=== PATIENT | female | born 1950 | race Caucasian/White ===

== ENCOUNTER → 2017-05-31 08:39 | Outpatient (CLI) | payer MEDICARE, SELFPAY ==
[2017-05-31 10:24] LABS: Anion Gap 7 (5-15); BUN 12 mg/dL (7-18); BUN/Creat Ratio 16.2 RATIO (10-20); Calcium,Total 8.9 mg/dL (8.5-10.1); Chloride 107 mmol/L (98-107); Cholesterol 149 mg/dL (200); Creatinine, Serum 0.74 mg/dL (0.55-1.02); EST Glomerular Filtration Rate 83 mL/min (>60); Est Glom Filt Rate - Afr Amer 101 mL/min (>60); Glucose 153 mg/dL (74-106); High Density Lipoprotein 53 mg/dL; Potassium 4.3 mmol/L (3.5-5.1); Sodium Level 140 mmol/L (136-145); Triglycerides 91 mg/dL; Very Low Density Lipoprotein 18 mg/dL (5-40)
[2017-05-31 10:28] LABS: Hemoglobin A1c 7.4 % (4.2-6.3)
[2017-06-01 09:05] LABS: Hep C Antibodies <0.1 s/co ratio (0.0-0.9)
== END ==
PROVIDERS: Family Provider Family Medicine; PCP Family Medicine; Visit Provider Family Medicine
DX: E11.9 Type 2 diabetes mellitus without complications (principal); Z11.59 Encounter for screening for other viral diseases
CPT/HCPCS: 36415; 80048; 80061; 83036; 86803

== ENCOUNTER 2017-07-25 16:27 | Emergency (ER) | payer MEDICARE, OTHER, SELFPAY ==
[2017-07-25 16:28] VITALS: BP 126/79; PULSE 90; RESP 17; TEMP 36.7; O2SAT 96; BMI 27.5
[2017-07-25 16:46] VITALS: BP 123/58; PULSE 75; RESP 18; TEMP 37.1; O2SAT 92
[2017-07-25] MEDS: Dicyclomine 10 MG Capsule 20 MG PO (17:15)
[2017-07-25 17:20] LABS: Bacteria 0 SEEN /hpf (None Seen); Red Blood Cells-Urine 0 SEEN /hpf (0-5)
[2017-07-25 17:20] LABS: Absolute Lymphocyte Count 2.14 X10^3/ul (0.83-4.51); Absolute Neutrophil Count 10.7 X10^3/uL (2.0-7.7); Basophil# 0.02 X10^3/uL; Basophil% 0.1 % (0-1); Hematocrit 44.7 % (37-47); Hemoglobin 14.9 g/dl (12.0-15.0); Lymphocyte # 2.14 X10^3/ul (4.0); Lymphocyte % 15.8 % (19-41); Mean Corp Hgb Conc 33.3 g/gl (32-36); Mean Corpuscular Hgb 29.2 pg (27.0-32.0); Mean Corpuscular Volume 87.6 fL (81-99); Mean Platelet Vol. 10.7 fl (6.2-12.0); Monocyte% 5.2 % (0-10); Neutrophil # 10.65 X10^3/uL (2.7-7.7); Neutrophil % 78.7 % (47-70); Platelet Count 339 K/mm3 (150-450); RBC Distribution Width CV 12.6 % (11.6-14.6); RBC Distribution Width SD 40.6 fl (35.1-43.9); White Blood Count 13.5 K/mm3 (4.4-11.0)
[2017-07-25 17:21] LABS: POSITIVE COUNT NO; POSITIVE DIFFERENTIAL NO; POSITIVE MORPHOLOGY NO
[2017-07-25 17:23] LABS: Color, Urine Yellow (Yellow); Glucose, Dipstick Normal (Normal); Ketone-Dipstick Negative (Negative); Leukocyte Esterase-Dipstick 25 /ul (Negative); Nitrite-Dipstick Negative (Negative); Occult Blood-Urine Negative /ul (Negative); Protein-Dipstick 15 mg/dl (Negative); Specific Gravity, Urine 1.025 (1.002-1.030); Urine Bilirubin Dipstick Negative (Negative); Urine Clarity Sl. Cloudy (Clear); Urine Urobilinogen Normal (Normal)
[2017-07-25 17:29] LABS: Calcium Oxalate Crystals Ur 1+ /hpf (<or=2+); Mucous, Urine RARE /hpf (<or=2+); Squamous Epithelial Cells - UA 0-5 SEEN /hpf (5-10); White Blood Cells 0-5 SEEN /hpf (0-5)
[2017-07-25 17:34] LABS: Anion Gap 9 (5-15); BUN 21 mg/dL (7-18); BUN/Creat Ratio 24.7 RATIO (10-20); Calcium,Total 9.5 mg/dL (8.5-10.1); Chloride 103 mmol/L (98-107); Creatinine, Serum 0.85 mg/dL (0.55-1.02); EST Glomerular Filtration Rate 71 mL/min (>60); Est Glom Filt Rate - Afr Amer 86 mL/min (>60); Glucose 161 mg/dL (74-106); Potassium 4.1 mmol/L (3.5-5.1); Sodium Level 138 mmol/L (136-145)
--- NOTE | 2017-07-25 17:40 | ED.DCSUM_ITS ---
- ER Visit Summary Date of Service: 07/25/17 Chief Complaint: Acute bilateral cramping waxing and waning abdominal pain with diarrhea History of Present Illness: The patient is a 66 F who was awakened because of bilateral cramping waxing and waning lower abdominal pain followed by diarrhea. She states she had diarrhea between 3 AM and 10 AM. There was no blood or mucus. She denies fever, chills night sweats. She denies any cardiac respiratory symptoms. She does complain of frequency without dysuria or hematuria. She denies any vaginal bleeding or discharge. She is diabetic and states she checked her blood sugar and it was approximately 200. She denies any blurred vision or change in vision. She denies any vomiting. She denies history of renal ureterolithiasis. She is status post hysterectomy in 1984. Please read written note for complete details Physical Examination: Vital signs unremarkable. HEENT exam reveals dry mucosa. Heart is regular without murmur, gallop or rub. S1 and S2 are normal. Lungs are clear to auscultation with good movement of air bilaterally. Abdomen is soft nontender with increased bowel sounds. There is slight tympany. There is no hepatosplenomegaly. No palpable, pulsatile abdominal mass noted. There is no pulsatile mass. DP PT pulses are palpable. Neuro exam is nonfocal. Test Results: UA is remarkable for leukoesterase otherwise negative. White count slightly elevated 13.5 thousand with 78 segs which is not unexpected in a patient with enteritis. Electro panel is unremarkable. Emergency Department Course and Treatment: She was treated with 20 mg of Bentyl. She was reassessed at 1732. Improvement. Treatment Plan: Appropriate home-going instruction and prescription for Bentyl. Disposition: Discharged to home Impression: Abdominal pain secondary to enteritis Mild dehydration This note was generated with [employer] dictation software. It may contain incorrect words, spelling, and punctuation that were not noted in review of the chart prior to signing ED Disposition - Plan for ED Patient: Disposition: Home or Assisted Living Chief Complaint: Abd Pain Instructions: ED Diarrhea Viral Prescriptions: Dicyclomine HCl [Bentyl] 20 mg PO ACHS #10 cap Referrals: Yousuf Weiss MD [Primary Care Provider] - 3-5 Days if not improving
[2017-07-25] MEDS: Dicyclomine 10 MG Capsule PO (17:58)
== END 2017-07-25 18:00 | disposition home or self-care (01) ==
PROVIDERS: Emergency Provider Emergency Medicine; Family Provider Family Medicine; PCP Family Medicine
DX: K52.9 Noninfective gastroenteritis and colitis, unspecified (principal); E86.0 Dehydration; J44.9 Chronic obstructive pulmonary disease, unspecified; E11.9 Type 2 diabetes mellitus without complications; R35.0 Frequency of micturition; E66.9 Obesity, unspecified; Z79.84 Long term (current) use of oral hypoglycemic drugs; Z79.82 Long term (current) use of aspirin; Z79.899 Other long term (current) drug therapy; Z90.710 Acquired absence of both cervix and uterus
CPT/HCPCS: 80048; 81001; 85025; 99284

== ENCOUNTER → 2017-09-09 07:04 | Outpatient (CLI) | payer MEDICARE, OTHER, SELFPAY ==
--- NOTE | 2017-09-09 07:07 | CT_ITS ---
STUDY: CT ABDOMEN AND PELVIS WITH CONTRAST REASON FOR EXAM: Female, 66 years old. One month history of lower abdominal pain. RADIATION DOSAGE (If Supplied By Facility): CTDIvol = ( 13.18 ) mGy, DLP = ( 851.11 ) mGycm TECHNIQUE: Transaxial images were obtained from the dome of the diaphragm to the symphysis pubis with oral contrast. 100 ml of Isovue 300 contrast was administered. Sagittal and coronal images were reconstructed. Individualized dose optimization techniques were used for this CT. COMPARISON: None. FINDINGS: Minimal degree of the dependent bibasilar atelectasis. The visualized portions of the heart are within normal limits. There is decreased attenuation of the liver consistent with steatosis. Normal gallbladder and extrahepatic biliary system. Normal spleen. Normal pancreas. Normal bilateral adrenal glands. Normal right kidney. Normal left kidney. Normal visualized stomach. Normal small intestine. Moderate amount of fecal material is seen in the right hemicolon. The appendix is visualized and appears normal. Normal abdominal aorta. Normal inferior vena cava. Normal retroperitoneum. Normal urinary bladder. There is a small umbilical hernia containing fat. Small left inguinal hernia containing fat. Normal osseous structures. CT/Abdomen/Pelvis WITH Contrast IMPRESSION: Moderate amount of fecal material is seen in the right hemicolon. Fatty infiltration of the liver. Electronically Signed: Mykel Carpio MD at 10:32 EDT Tel [phone], Service support ,
== END ==
PROVIDERS: Family Provider Family Medicine; PCP Family Medicine; Visit Provider Family Medicine
DX: R10.9 Unspecified abdominal pain (principal)
CPT/HCPCS: 74177; Q9967

== ENCOUNTER 2017-11-01 22:32 | Emergency (ER) | payer MEDICARE, OTHER, SELFPAY ==
[2017-11-01 22:33] VITALS: BP 140/69; PULSE 78; RESP 18; TEMP 36.2; O2SAT 99; BMI 27.9
--- NOTE | 2017-11-01 23:09 | ED.VISSUMM ---
- ER Visit Summary Date of Service: 11/01/17 Chief Complaint: [] Right knee pain History of Present Illness: The patient is a 67 F [] complaining of right knee pain for the last month on and off. It comes and goes. As a throbbing pain on the inside of her right knee joint. It does not hurt to touch it. There has been no swelling. No injury. She occasionally uses Tylenol and/or ibuprofen. None today. It got worse tonight at [address] She has not seen her doctor for this. She has been using ice this evening with moderate relief. No history of arthritis. Physical Examination: [] Vital signs reviewed General: Well-nourished well-developed Head: Normocephalic atraumatic Eyes: Pupils equal round and reactive to light extraocular movements intact ENT: TMs clear no hemotympanum no trauma Neck: Nontender full range of motion Cardiovascular: Regular rate rhythm no murmurs normal S1-S2 Respiratory: No distress clear to auscultation bilaterally chest nontender Abdomen: Soft nontender nondistended normal bowel sounds no masses Back: Nontender no CVA tenderness Extremities: Nontender knee exam. No ligament laxity. Decreased range of motion secondary to discomfort of the knee. No effusion or warmth. Skin: Normal color no trauma Neuro alert oriented cranial nerves II through XII intact normal strength sensation reflexes Test Results: [] Emergency Department Course and Treatment: [] Patient given oral Tylenol. X-ray of the knee obtained. X-ray showed no abnormality. At this time this may be a meniscal tear. However she does not remember injury. There is no evidence of arthritis. Her medial meniscus appears normal. It is only on the medial portion of the knee. She may need outpatient MRI. She will follow-up for this. Given Ortho referral. Given Geronimo bandage. She did not want crutches. Treatment Plan: [] Disposition: [] Impression: [] Right knee pain This note was generated with the[employer] dictation software. It may contain incorrect words, spelling, and punctuation that were not noted in review of the chart prior to signing ED Disposition - Plan for ED Patient: Chief Complaint: Other, Pain/Inj Referrals: Yousuf Weiss MD [Primary Care Provider] -
--- NOTE | 2017-11-01 23:15 | RAD_ITS ---
STUDY: X-RAY - RIGHT KNEE REASON FOR EXAM: Female, 67 years old. Pain. TECHNIQUE: 4 view(s) of the knee. COMPARISON: None. FINDINGS: There is no evidence of fracture or dislocation. There are mild degenerative changes. There are no radiodense foreign bodies. RAD/Knee 4 or More Views IMPRESSION: No fracture or dislocation. Mild degenerative changes. Electronically Signed: Arthur Drake, at 23:31 EDT Tel , Service support ,
[2017-11-01] MEDS: Acetaminophen 325 MG Tablet 650 MG PO (23:27)
--- NOTE | 2017-11-01 23:45 | ED.DEP ---
ED Disposition - Plan for ED Patient: Disposition: Home or Assisted Living Chief Complaint: Other, Pain/Inj Instructions: ED Meniscal Injury Knee Poss Referrals: Yousuf Weiss MD [Primary Care Provider] - Arthur Yeboah MD [STAFF PHYSICIAN] -
[2017-11-01 23:50] VITALS: BP 138/70; PULSE 75; RESP 16; O2SAT 98
== END 2017-11-01 23:51 | disposition home or self-care (01) ==
PROVIDERS: Emergency Provider Emergency Medicine; Family Provider Family Medicine; PCP Family Medicine
DX: M25.561 Pain in right knee (principal); E11.9 Type 2 diabetes mellitus without complications; Z79.82 Long term (current) use of aspirin; Z79.84 Long term (current) use of oral hypoglycemic drugs; Z79.899 Other long term (current) drug therapy
CPT/HCPCS: 73564; 99283

== ENCOUNTER 2018-01-09 18:37 | Emergency (ER) | payer MEDICARE, OTHER, SELFPAY ==
[2018-01-09 18:38] VITALS: BP 128/69; PULSE 74; RESP 16; TEMP 36.3; O2SAT 98; BMI 24.7
--- NOTE | 2018-01-09 18:59 | ED.DCSUM_ITS ---
- ER Visit Summary Date of Service: 01/09/18 Chief Complaint: Right knee pain [] History of Present Illness: The patient is a 67 F [presents the emergency department with complaint of pain in her right knee. Patient states that she is scheduled to have a right knee replacement in March with Dr. Yeboah. Patient had a cortisone injection of her right knee in October and that gave her a lot of relief. Patient started having more discomfort last evening. Patient states that she is currently undergoing physical therapy on her right knee which typically seems to cause her increased discomfort. Patient denies any new trauma. She denies any chest pain or shortness of breath. She denies recent travel or surgery. Patient took Tylenol at home last night and did not get much pain relief. Patient states the pain is worse with sitting and seems to improve with standing and walking.] Physical Examination: [HEENT-PERRLA, EOMI. Cranial nerves II through XII grossly intact. TMs clear. Mucous membranes moist. No adenopathy. Cardiovascular-regular rate and rhythm without murmur or ectopy Lungs-clear to auscultation, chest wall stable without crepitus or subcu emphysema Abdomen-normoactive bowel sounds, soft, nontender, no rebound or rigidity, no peritoneal signs. Extremities-intact ?4, normal range of motion, normal pulses, atraumatic]. Right knee-there is no effusion. There is no erythema or warmth. Patient has normal range of motion in flexion extension. She has mild discomfort with varus and valgus stress on the knee. No laxity noted. Neurovascular intact distally. No ropes or cords palpated to the right leg. Negative Homans sign. Test Results: [None indicated.] Emergency Department Course and Treatment: [Patient was given a dose of [place] in the emergency department. Patient had an MRI recently of her right knee that did show a torn meniscus and arthritic changes.] Treatment Plan: [Patient will be given a prescription for [place] and advised to follow-up with her orthopedic surgeon within next 3-5 days.] Disposition: [Discharged home in stable condition.] Impression: [Right knee pain-acute on chronic.] This note was generated with [employer] software. It may contain incorrect words, spelling, and punctuation that were not noted in review of the chart prior to signing ED Disposition - Plan for ED Patient: Chief Complaint: Lower Extremity Injury Referrals: Yousuf Weiss MD [Primary Care Provider] -
--- NOTE | 2018-01-09 18:59 | ED.DEP ---
ED Disposition - Plan for ED Patient: Chief Complaint: Lower Extremity Injury Instructions: ED Knee Pain [facility]O Prescriptions: Hydrocodone/Acetaminophen [[place] 5-325 Tablet] 1 ea PO 4X/DAY PRN PRN 5 Days #20 tab PRN Reason: Pain Referrals: Yousuf Weiss MD [Primary Care Provider] - Arthur Yeboah MD [STAFF PHYSICIAN] - 3-5 Days
--- NOTE | 2018-01-09 19:00 | DCINST.ED_ITS ---
ED Disposition - Plan for ED Patient: Chief Complaint: Lower Extremity Injury Instructions: ED Knee Pain [facility]O Prescriptions: Hydrocodone/Acetaminophen [[place] 5-325 Tablet] 1 ea PO 4X/DAY PRN PRN 5 Days # 20 tab PRN Reason: Pain Referrals: Yousuf Weiss MD [Primary Care Provider] - Arthur Yeboah MD [STAFF PHYSICIAN] - 3-5 Days
[2018-01-09] MEDS: HYDROcodone Bitartrate/Apap 5/325 Tablet PO (19:08)
== END 2018-01-09 19:29 | disposition home or self-care (01) ==
LOC: ED 19:21
PROVIDERS: Emergency Provider Emergency Medicine; Family Provider Family Medicine; PCP Family Medicine
DX: M25.561 Pain in right knee (principal); G89.29 Other chronic pain; E11.9 Type 2 diabetes mellitus without complications; J45.909 Unspecified asthma, uncomplicated; M79.7 Fibromyalgia; Z79.84 Long term (current) use of oral hypoglycemic drugs; Z79.82 Long term (current) use of aspirin; Z79.899 Other long term (current) drug therapy
CPT/HCPCS: 99283

== ENCOUNTER → 2018-01-21 10:33 | Outpatient (CLI) | payer MEDICARE, OTHER, SELFPAY ==
[2018-01-21 15:46] LABS: Anion Gap 7 (5-15); BUN 12 mg/dL (7-18); Calcium,Total 8.7 mg/dL (8.5-10.1); Chloride 105 mmol/L (98-107); Cholesterol 194 mg/dL (200); Creatinine, Serum 0.75 mg/dL (0.55-1.02); EST Glomerular Filtration Rate 82 mL/min (>60); Est Glom Filt Rate - Afr Amer 99 mL/min (>60); Glucose 85 mg/dL (74-106); High Density Lipoprotein 48 mg/dL; Potassium 3.8 mmol/L (3.5-5.1); Sodium Level 139 mmol/L (136-145); Triglycerides 190 mg/dL; Very Low Density Lipoprotein 38 mg/dL (5-40)
[2018-01-21 15:47] LABS: Hemoglobin A1c 6.6 % (4.2-6.3)
== END ==
PROVIDERS: Family Provider Family Medicine; PCP Family Medicine; Visit Provider Family Medicine
DX: E11.9 Type 2 diabetes mellitus without complications (principal); E78.00 Pure hypercholesterolemia, unspecified
CPT/HCPCS: 36415; 80048; 80061; 83036

== ENCOUNTER 2018-04-06 06:35 | Inpatient (IN) | payer MEDICARE, OTHER, SELFPAY ==
[2018-03-23 10:32] VITALS: BP 113/52; PULSE 76; RESP 16; TEMP 36.4; O2SAT 96; BMI 28.0
--- NOTE | 2018-03-23 10:49 | SDCEKG_ITS ---
Test Reason : Blood Pressure : / mmHG Vent. Rate : 067 BPM Atrial Rate : 067 BPM P-R Int : 166 ms QRS Dur : 104 ms QT Int : 402 ms P-R-T Axes : 023 -29 008 degrees QTc Int : 424 ms Normal sinus rhythm Leftward axis Poor R wave progression Confirmed by JANAY ENNIS, THADDEUS ([id number]), photographic editor EVERTON COYLE ([id number]) on 03/29/2018 2:23:24 PM Referred By: Arthur Yeboah Confirmed By:THADDEUS GUSTAFSON MD
[2018-03-23 11:44] LABS: Absolute Lymphocyte Count 3.23 X10^3/ul (0.83-4.51); Absolute Neutrophil Count 4.7 X10^3/uL (2.0-7.7); Basophil# 0.05 X10^3/uL; Basophil% 0.6 % (0-1); Eosinophil# 0.08 X10^3/uL; Eosinophils% 0.9 % (0-5); Hemoglobin 13.7 g/dl (12.0-15.0); Lymphocyte # 3.23 X10^3/ul (4.0); Lymphocyte % 36.5 % (19-41); Mean Corp Hgb Conc 32.6 g/gl (32-36); Mean Corpuscular Hgb 28.7 pg (27.0-32.0); Mean Corpuscular Volume 87.9 fL (81-99); Mean Platelet Vol. 10.3 fl (6.2-12.0); Monocyte# 0.76 X10^3/uL; Monocyte% 8.6 % (0-10); Neutrophil % 53.2 % (47-70); Platelet Count 340 K/mm3 (150-450); RBC Distribution Width SD 41.6 fl (35.1-43.9); Red Blood Count 4.78 M/mm3 (4.2-5.4); White Blood Count 8.8 K/mm3 (4.4-11.0)
[2018-03-23 11:46] LABS: POSITIVE COUNT NO; POSITIVE DIFFERENTIAL NO; POSITIVE MORPHOLOGY NO
[2018-03-23 12:02] LABS: Anion Gap 8 (5-15); BUN 12 mg/dL (7-18); BUN/Creat Ratio 17.4 RATIO (10-20); Calcium,Total 9.2 mg/dL (8.5-10.1); Chloride 105 mmol/L (98-107); Creatinine, Serum 0.69 mg/dL (0.55-1.02); EST Glomerular Filtration Rate 90 mL/min (>60); Est Glom Filt Rate - Afr Amer 109 mL/min (>60); Estimated Creatinine Clearance 55.87 ml/min; Glucose 130 mg/dL (74-106); Potassium 4.1 mmol/L (3.5-5.1); Sodium Level 139 mmol/L (136-145)
--- NOTE | 2018-03-24 10:51 | HP.PCM_ITS ---
History and Physical DATE OF SURGERY: 04/06/2018 SCHEDULED PROCEDURE: right total knee arthroplasty HISTORY OF PRESENT ILLNESS: This is a 67-year-old female who is been having ongoing pain in her right knee for several months. Patient states her pain is aching, sharp, stabbing. She has increased pain going up and down stairs, driving, sitting for extended periods of time, and start up pain. Pain is primarily located over the medial aspect of the right knee. Patient does complain of clicking and catching with walking. Patient has difficult time with activities of daily living that require any bending of the knee or squatting such as getting dressed. She has tried conservative measures consisting of rest, ice, and elevation with no relief in symptoms. She did have a previous corticosteroid injection in October 2017 with only short-term relief. Patient has been through formal physical therapy and home exercises with no relief in symptoms. Patient denies previous surgery on the right knee. Patient currently denies any recent chest pain, shortness of breath, fevers chills, recent infections. Patient has a medical history pertinent for type 2 diabetes, fibromyalgia, and asthma. We have obtain surgical clearance from patient's primary care physician Dr. Juan Weiss. After failing conservative measures and discussing all treatment options with Dr. Arthur Yeboah, the patient would like to proceed with a right total knee arthroplasty. REVIEW OF SYSTEMS: ROS: Const: Reports anxiety, but denies anorexia, change in appetite, fever, difficulty sleeping, weight change. CV: Denies chest pain, heart murmur, irregular heartbeat and peripheral vascular disease. Resp: Reports asthma, but denies cough, pneumonia, sleep apnea, shortness of breath, tuberculosis and wheezing. GI: Denies constipation, diarrhea, heartburn, nausea, rectal itching, bloody stools and vomiting. : Denies incontinence. Musculo: Denies leg swelling, pain, trouble walking and weakness. Skin: Denies Raynaud's, history of shingles and tattoo. Neuro: Reports numbness/tingling but denies ambulatory dysfunction, dizziness and tremor. Psych: Reports anxiety and depression, but denies insomnia, mental illness and stress. Fermin/Lymph: Denies anemia, bleeding/bruising tendency and past transfusion. Reviewed, no changes. PAST MEDICAL HISTORY: Advance Care Plan: No Advance Directives Effective Date: 11/04/2017 PMH: Medical Problems: Fibromyalgia, Asthma, Diabetes Accidents: None Surgical Hx: Arthroscopy - (1996) Carpal Tunnel - (1989) Hysterectomy - (1984) Tubal Ligation - (1976) Bladder Surgery - (2002) Anesthesia Complications: None Assistive Devices: None Reviewed, no changes. SOCIAL HISTORY: SH: Marital: .Work Status: Not Working Currently.Hand Dominance: Right- Handed. Personal Habits: Smoking: Patient has never smoked.Cigarette Use: Never.Alcohol: Denies use.Drug Use: Denies Use.Enjoy Exercising: Exercises 1-3 x/month. Reviewed, no changes. VITALS: Ht: 59 Wt: 141lb Wt k.958 BMI: 28.5 BP: 119/70 Pulse: 85 Resp: 16 T: 97.9 T: 36.6C ALLERGIES: Morphine - High Fever Vomiting Menthol - Burning And Blisters Relafen - Rash & Itching MEDICATIONS: Celecoxib 200 mg take 1 capsule by mouth every day, Nexium 20 mg, Singulair 10 mg 1 PO qdAY, Zyrtec 10 mg, Albuterol 90 mcg/Act, Rhinocort Aqua 32 mcg/Act, Advair Diskus 500/50, Coral Calcium 1000mg, Vitamin C 500 mg, Vitamin D 1000 Unit, Gabapentin 300 mg 1 by mouth three times a day, Melatonin 10 mg, Aspir-81 81 mg 1 by mouth every day, Janumet XR 50-1000 mg, Glipizide 5 mg 1 by mouth every day PRE-OP EXAM: General appearance:NORMAL Other: Eyes: Conjunctivae and lids: NORMAL Pupils: ERR Ears, Nose, Mouth, and Throat: NORMAL Other: Inspection of lips, teeth and gums: NORMAL Other: Neck: Examination of neck: no masses noted. Respiratory: Assessment of respiratory effort: NORMAL Other: Auscultation of lungs: clear to auscultation no wheezes, rhonchi or rales. Cardiovascular: Auscultation of heart: regular rate and rhythm, no murmurs, gallops or rubs. Exam of carotid arteries: NORMAL Other: Gastrointestinal: Exam of abdomen: soft, nontender, nondistended bowel sounds present. PHYSICAL EXAMINATION: On exam right knee is cool to touch without erythema. Patient does walk with an antalgic gait. Patient has tenderness to palpation along the medial joint line of the right knee. Patient has positive Mala's examination which reproduces his pain. Range of motion right knee: 0 of extension to 130 flexion. Stable to varus and valgus stress test. Positive correctable varus alignment. Sensation intact to light touch. Neurovascularly intact. IMAGING STUDIES: X-rays of the right knee reveal medial joint space narrowing with subchondral sclerosis and osteophyte formation. Previous MRI also shows a large degenerative meniscus tear and chondral thinning of the patellofemoral and medial compartment consistent with severe degenerative arthrosis. IMPRESSION: 1. Severe right knee osteoarthritis 2. Fibromyalgia 3. Asthma 4. Type 2 diabetes mellitus PLAN: Dr. Arthur Yeboah did discuss and review with the patient all treatment options including surgical versus nonsurgical options. Patient does wish to proceed with the above-stated procedure. Potential risks, benefits, and complications of the procedure were discussed in detail including but not limited to , infection, nerve and blood vessel damage, persistent pain, numbness, tingling, paresthesias, blood clot, pulmonary embolism, and requirement for possible further surgery. The patient expressed full understanding and has no further questions for the doctor. Patient does agree to proceed with the above-stated procedure and has signed the surgery consent form. This dictation was created using voice recognition software. Phonetic and/or grammatical errors may exist.. ___ I have re-examined the patient. There are no clinical changes since date of exam. ___ See progress notes for changes. ___ Dictated on admission Date: Time: Signature:
--- NOTE | 2018-03-30 11:23 | CASEMGMT ---
Attempted to reach patient on cell phone to discuss discharge needs after upcoming surgery, no answer. Voicemail left. Yolanda Pro LPN Clinical Support
--- NOTE | 2018-03-31 12:42 | CASEMGMT ---
Patient returned phone call to discuss discharge needs after upcoming surgery. Patient plans to return home with assistance from daughter. Outpatient physical therapy is set up at [facility]. Patient has a walker, raised toilet, shower seat, and grab bars in the bathroom. There is a bedroom and bathroom on the 1st level of the home. There are 2-3 steps into home from carport, with a handrailing. Patient questioning what to do the morning of surgery if her blood sugar drops as she will be NPO. Transferred to pre-op charge nurse line. Instructed patient that she may have to leave a voicemail and get a call back, but if she doesn't get a call back, she can call this nurse back and this nurse will assist with getting an answer for her. Informed patient that RN-CM will likely follow up after surgery. Yolanda Pro LPN Clinical Support
[2018-04-06] VITALS (12 sets, daily range): BP systolic 105–132; BP diastolic 48–62; PULSE 57–93; RESP 16–18; TEMP 36.2–36.6; O2SAT 93–100; BMI 28.0
[2018-04-06] MEDS: Scopolamine 1mg/72hr Patch 1 PATCH TD (07:15)
[2018-04-06] MEDS: Ipratropium/Albuterol Sulfate 3 ML AMPUL.NEB INHALATION (07:25)
[2018-04-06] MEDS: oxyCODONE HCl Cr 10 MG Tablet PO (07:44)
[2018-04-06] MEDS: Acetaminophen 500 MG Tablet 1000 MG PO ×3 (07:45→21:56)
[2018-04-06] MEDS: Celecoxib 200 MG Capsule 400 MG PO (07:45)
[2018-04-06 08:31] LABS: Bedside Glucose 194 mg/dL (70-110)
[2018-04-06] MEDS: Cefazolin 2 GM in 0.9% Normal Saline 100 ML IV (08:32)
--- NOTE | 2018-04-06 10:02 | PCM.OPRPT ---
Report of Operation Date of Procedure: 04/06/18 Pre-Operative Diagnosis: Right knee primary osteoarthritis Post-Operative Diagnosis: Right knee primary osteoarthritis Surgery/Procedure Performed:: Right total knee arthroplasty cemented Description of Surgical Findings:: Stable knee with good patella tracking meter reading clerk: Monica Acosta Type of Anesthesia:: Spinal Anesthesiologist: Tono Day Special Medications: 2 g Ancef, 1 g TXA at incision, 1 g TXA closure, 10 mg Decadron, joint cocktail (5 mg Duramorph, 30 mL of 0.5% Ropivicaine, 1000 units of epinephrine, 30 mg of Toradol) Specimen's removed: Bony cuts Estimated Blood Loss (mL): 25 Fluids Replaced: 1300 mL crystalloid Description of Procedure: Implants used: 1. Bill size 2 triathlon cruciate retaining distal femoral component 2. [place] size 2 primary tibial baseplate 3. [place] X3 11 mm CS polyethylene 4. Bill X3 29 mm asymmetric patella Brief history operative indications: 67-year-old f with history of right knee osteoarthritis with radiographic findings with loss of joint space, osteophyte formation and subchondral sclerosis. Failed conservative measures as mentioned in the H&P. Discussion of total knee arthroplasty as well as risk and benefits were discussed the patient including but not limited to blood loss, DVTs, PEs, neurovascular damage, general risk of anesthesia including loss of life, and stiffness or instability were discussed with patient. Patient demonstrated understanding and was able to sign informed consent. Procedure: On the date of procedure patient's right lower extremity was marked in the preoperative area. The patient was then taken back to the operating room where the patient was placed on the table in the supine position. All bony prominences were identified a well-padded. Anesthesia assumed control of the C-spine and airway and remained controlled throughout the remainder of the procedure. A tourniquet was placed on the right upper thigh and the leg was prepped in a sterile fashion. The surgeon then scrubbed at this time. Upon reentering the room the right lower extremity was draped in a standard orthopedic fashion. A timeout was then called and everyone agreed upon the side, the site, the procedure to be performed, patient's identity and antibiotics given. Esmarch bandage was used to exsanguinate the extremity and the tourniquet was placed up to 250 mmHg with the knee in flexion. A midline skin incision was made and sharp dissection was taken down through skin subcutaneous tissue and fat. The standard medial parapatellar incision was made and the patella was subluxed laterally. The standard deep MCL release was done and the fat pad was resected. Next our attention was directed to the femur. Navigation pins were placed, navigation was registered. The distal femoral cutting block was pinned into place and 8 mm of distal femur resection was completed. The distal femoral cut was verified with navigation. The knee was then placed in deep flexion in the standard [employer] sizing guide was used to place the femoral component in 3? external rotation based on the posterior condyles. A size 2 4-in-1 cutting block was selected and pinned into place. The anterior cut was then made and checked for notching. The subsequent anterior chamfer cuts, posterior condylar cuts and posterior chamfer cuts were made while ensuring the MCL and LCL were protected. Our attention was then turned to the tibia where the [employer] tibial cutting guide was used to make the appropriate tibial cut 90 degrees from the mechanical axis. Navigation was then used to verify the cut. A size 2 tibial base plate was selected. the knee was flexed to 90 degrees and the soft tissues and posterior osteophytes were removed from the joint. 40 cc of the periarticular injection was injected into the posterior medial corner of the joint. The appropriate trials were then placed on the femur and tibia. A trial polyethylene was trialed to ensure proper balancing and stability of the knee. Patella tracking, was then verified and corrected appropriately as needed. The appropriate tibial internal rotation was then marked with a bovie. Our attention was then directed to the patella. The patella was everted and a flat resection was made. The lug holes were drilled and the patella trial was placed. Patellar tracking was checked and deemed appropriate. Once we were happy lug holes were drilled for the femur and trial components were removed. the tibia was subluxed and pinned into place and the keel was punched and the canal was reamed. Final components were verified and opened, and cement was mixed in a vacuum. [employer] Simplex cement was used. The wound was copiously irrigated with normal saline. When the cement was ready the components were cemented into place starting with the tibia, femur and finally the patella. The trial poly component was placed and the knee was placed in full extension. All excess cement was removed in the process. Once the cement had cured the tracking, alignment and balance were verified and a size 11 mm polyethylene component was placed. Once the final components were placed the wound was copiously irrigated with normal saline solution and the periarticular injection was given. The wound was closed in a layer goetz fashion using #1 vicryl interrupted sutures for the arthrotomy, 2-0 interrupted Vicryl suture for the subcuticular layer and keely for final skin closure. A sterile compressive dressing was then placed. The patient was then awakened from anesthesia, transferred to the [facility] and transferred to the PACU for recovery. Post op plan DVT ppx: ASA 81mg, thigh high compression stockings Follow up: in office in 2 weeks for wound check PT: to start POD #0 at hospital, outpatient PT should be arranged. Grafts/Implants Used: [place] triathlon total knee - Complications None - Admit VTE Documentation VTE Present on Admission: No VTE Mechan Device Prophylaxis: SCD's, Thigh High JONATHAN Hose VTE Pharm Prophylaxis ordered?: Yes
--- NOTE | 2018-04-06 10:05 | OP.PCM_ITS ---
Report of Operation Date of Procedure: 04/06/18 Pre-Operative Diagnosis: Right knee primary osteoarthritis Post-Operative Diagnosis: Right knee primary osteoarthritis Surgery/Procedure Performed:: Right total knee arthroplasty cemented Description of Surgical Findings:: Stable knee with good patella tracking contribution solicitor: Monica Acosta Type of Anesthesia:: Spinal Anesthesiologist: Tono Day Special Medications: 2 g Ancef, 1 g TXA at incision, 1 g TXA closure, 10 mg Decadron, joint cocktail (5 mg Duramorph, 30 mL of 0.5% Ropivicaine, 1000 units of epinephrine, 30 mg of Toradol) Specimen's removed: Bony cuts Estimated Blood Loss (mL): 25 Fluids Replaced: 1300 mL crystalloid Description of Procedure: Implants used: 1. Bill size 2 triathlon cruciate retaining distal femoral component 2. Addison size 2 primary tibial baseplate 3. Addison X3 11 mm CS polyethylene 4. Bill X3 29 mm asymmetric patella Brief history operative indications: 67-year-old f with history of right knee osteoarthritis with radiographic findings with loss of joint space, osteophyte formation and subchondral sclerosis. Failed conservative measures as mentioned in the H&P. Discussion of total knee arthroplasty as well as risk and benefits were discussed the patient including but not limited to blood loss, DVTs, PEs, neurovascular damage, general risk of anesthesia including loss of life, and stiffness or instability were discussed with patient. Patient demonstrated understanding and was able to sign informed consent. Procedure: On the date of procedure patient's right lower extremity was marked in the preoperative area. The patient was then taken back to the operating room where the patient was placed on the table in the supine position. All bony prominences were identified a well-padded. Anesthesia assumed control of the C-spine and airway and remained controlled throughout the remainder of the procedure. A tourniquet was placed on the right upper thigh and the leg was prepped in a sterile fashion. The surgeon then scrubbed at this time. Upon reentering the room the right lower extremity was draped in a standard orthopedic fashion. A timeout was then called and everyone agreed upon the side, the site, the procedure to be performed, patient's identity and antibiotics given. Esmarch bandage was used to exsanguinate the extremity and the tourniquet was placed up to 250 mmHg with the knee in flexion. A midline skin incision was made and sharp dissection was taken down through skin subcutaneous tissue and fat. The standard medial parapatellar incision was made and the patella was subluxed laterally. The standard deep MCL release was done and the fat pad was resected. Next our attention was directed to the femur. Navigation pins were placed, navigation was registered. The distal femoral cutting block was pinned into place and 8 mm of distal femur resection was completed. The distal femoral cut was verified with navigation. The knee was then placed in deep flexion in the standard IPM [place] sizing guide was used to place the femoral component in 3? external rotation based on the posterior condyles. A size 2 4-in-1 cutting block was selected and pinned into place. The anterior cut was then made and checked for notching. The subsequent anterior chamfer cuts, posterior condylar cuts and posterior chamfer cuts were made while ensuring the MCL and LCL were protected. Our attention was then turned to the tibia where the Volvant tibial cutting guide was used to make the appropriate tibial cut 90 degrees from the mechanical axis. Navigation was then used to verify the cut. A size 2 tibial base plate was selected. the knee was flexed to 90 degrees and the soft tissues and posterior osteophytes were removed from the joint. 40 cc of the periarticular injection was injected into the posterior medial corner of the joint. The appropriate trials were then placed on the femur and tibia. A trial polyethylene was trialed to ensure proper balancing and stability of the knee. Patella tracking, was then verified and corrected appropriately as needed. The appropriate tibial internal rotation was then marked with a bovie. Our attention was then directed to the patella. The patella was everted and a flat resection was made. The lug holes were drilled and the patella trial was placed. Patellar tracking was checked and deemed appropriate. Once we were happy lug holes were drilled for the femur and trial components were removed. the tibia was subluxed and pinned into place and the keel was punched and the canal was reamed. Final components were verified and opened, and cement was mixed in a vacuum. IPM [place] Simplex cement was used. The wound was copiously irrigated with normal saline. When the cement was ready the components were cemented into place starting with the tibia, femur and finally the patella. The trial poly component was placed and the knee was placed in full extension. All excess cement was removed in the process. Once the cement had cured the tracking, alignment and balance were verified and a size 11 mm polyethylene component was placed. Once the final components were placed the wound was copiously irrigated with normal saline solution and the periarticular injection was given. The wound was closed in a layer goetz fashion using #1 vicryl interrupted sutures for the arthrotomy, 2-0 interrupted Vicryl suture for the subcuticular layer and keely for final skin closure. A sterile compressive dressing was then placed. The patient was then awakened from anesthesia, transferred to [facility] and transferred to the PACU for recovery. Post op plan DVT ppx: ASA 81mg, thigh high compression stockings Follow up: in office in 2 weeks for wound check PT: to start POD #0 at hospital, outpatient PT should be arranged. Grafts/Implants Used: Addison triathlon total knee - Complications None - Admit VTE Documentation VTE Present on Admission: No VTE Mechan Device Prophylaxis: SCD's, Thigh High JONATHAN Hose VTE Pharm Prophylaxis ordered?: Yes
--- NOTE | 2018-04-06 11:00 | RAD_ITS ---
STUDY: X-RAY - RIGHT KNEE REASON FOR EXAM: Female, 67 years old. Total knee replacement. TECHNIQUE: 2 view(s) of the knee. COMPARISON: Comparison is made with prior study dated November 01, 2017. FINDINGS: The patient is status post total knee replacement. There is good alignment. Postoperative soft tissue changes. RAD/Knee 1 or 2 Views IMPRESSION: Status post total knee replacement. There is good alignment. Postoperative soft tissue changes. Electronically Signed: Mykel Carpio MD at 12:36 EST Tel [phone], Service support ,
[2018-04-06 11:20] LABS: Bedside Glucose 224 mg/dL (70-110)
[2018-04-06] MEDS: Insulin Lispro 100 UNIT/ML INSULN.PEN SC ×3 (12:29→21:57)
[2018-04-06] MEDS: Fluticasone 0.05% 1 SPRAY NASAL.SRY 2 SPRAY NASAL (12:32)
[2018-04-06] MEDS: Pantoprazole Sodium 20 MG Tablet PO (12:33)
[2018-04-06] MEDS: Famotidine 20 MG Tablet PO (12:33)
[2018-04-06] MEDS: Senna/Docusate Sodium 1 Tablet 2 TABLET PO ×2 (12:34→21:56)
[2018-04-06] MEDS: Ascorbic Acid 500 MG Tablet 1000 MG PO (12:34)
[2018-04-06] MEDS: Gabapentin 300 MG Capsule PO ×2 (12:36→16:16)
[2018-04-06] MEDS: Lactated Ringers 1,000 ML 125 ML IV ×2 (12:39→21:03)
[2018-04-06 12:51] LABS: Bedside Glucose 234 mg/dL (70-110)
--- NOTE | 2018-04-06 13:13 | PCM.CONS.GEN ---
Problem List (1) Status post total right knee replacement Status: Acute (2) Fibromyalgia Status: Chronic (3) Bronchial asthma Status: Chronic (4) Type 2 diabetes mellitus Status: Chronic Reason for Consult Date of Consultation: 04/06/18 Reason for Consultation: Postoperative medical management. History of Present Illness: The patient is a 67 year old F with past medical history as mentioned above underwent elective right total knee replacement for right knee osteoarthritis and I am seeing this patient in consultation for postoperative medical management. At this time, she denied any right knee pain. She denied any other complaints. She had a history of type 2 diabetes mellitus, she has been on glipizide, metformin and sitagliptin and her blood sugars usually under control and has been around 130s. Most recent hemoglobin A1c was 6.6 on December,. 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 She had a history of fibromyalgia and she has been on Celebrex and gabapentin and the symptoms are under control. Her routine blood work was done on February, and was unremarkable. At this time, her vital signs are stable. Past Medical History Past Medical History (Chronic Problems): Chronic Problems Fibromyalgia (Chronic) Bronchial asthma (Chronic) Type 2 diabetes mellitus (Chronic) Allergies menthol Allergy (Verified 03/23/18 10:14) Rash nabumetone [From Relafen] Allergy (Verified 03/23/18 10:14) Rash simvastatin Allergy (Verified 03/23/18 10:14) Rash morphine Adverse Reaction (Verified 03/23/18 10:14) Other BEES Allergy (Uncoded 11/01/17 22:35) Rash Home Medications: Ambulatory Orders Medication Instructions Recorded Albuterol IH (ProAir) [Proair Hfa 1 - 2 puff INHALATION Q6H PRN PRN 09/03/16 (SP)Vent Pts] Gabapentin 300 mg PO TID 09/03/16 Glipizide [Glipizide ER] 10 mg PO DAILY 09/03/16 Montelukast [Singulair] 10 mg PO DAILY 09/03/16 Ascorbic Acid [Vitamin C] 1,000 mg PO DAILY 07/25/17 Calcium Carbonate [Calcium] 1,000 mg PO DAILY 07/25/17 Cetirizine HCl [Zyrtec] 10 mg PO DAILY 07/25/17 Sitagliptin Phos/Metformin HCl 1,000 mg PO DAILY 07/25/17 [Janumet Xr 100-1,000 mg Tablet] Budesonide [Rhinocort Allergy] 8.43 ml NS DAILY 03/23/18 Celecoxib [Celebrex] 200 mg PO DAILY 03/23/18 Cholecalciferol (Vitamin D3) 1,000 unit PO DAILY 03/23/18 [Vitamin D3] Fluticasone/Salmeterol [Advair 1 each IH DAILY 03/23/18 250-50 Diskus] Melatonin 10 mg PO DAILY 03/23/18 Surgical History: hysterectomy, total knee arthroplasty, - - Shoulder surgery, surgery for carpal tunnel syndrome. 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 Lives: Spouse/ Significant Other Smoking Status: Never smoker Alcohol: None, Rare - *Family History Maternal History Items: No pertinent history Paternal History Items: No pertinent history Review of Systems Constitutional: Denies: Anorexia, Chills, Fever, Weakness Eyes: Denies: Blurred vision, Double vision, Drainage, Redness HEENT: Denies: Difficulty Hearing, Ear Pain, Eye Pain, Nasal Congestion, Sore Throat Cardiovascular: Denies: Chest Pain, Chest Pressure, Chest Tightness, Heaviness, Light Headedness, Palpitations, Syncope Respiratory: Denies: Cough, Pleuritic Pain, Shortness of Breath, Sputum production, Wheezing Gastrointestinal: Denies: Abdominal Pain, Constipation, Diarrhea, Nausea, Vomiting Genitourinary: Denies: Dysuria, Frequency, Hematuria Musculoskeletal: Denies: Arm Pain, Back Pain, Foot Pain Skin: Denies: Dryness, Rash Neurological: Denies: Balance problems, Blurred vision, Change in Speech, Slurred speech, Confusion, Headaches, Incoordination, Numbness Psychiatric: Denies: Anxiety, Depression Endocrine: Denies: Change in Body Habitus, Polydipsia Patient Problems: Active and Suspected Problems Status post total right knee replacement (Acute) - Physical Exam General: Alert, Oriented x3, Cooperative, No apparent distress HEENT: Atraumatic, PERRLA, EOMI, Normocephalic Oral: Moist Mucosa, No Gingival or Mucosal Lesions/ Ulcerations Neck: Supple, No JVD, Negative Carotid Bruits Lungs: Clear to auscultation, Normal air movement, No rhonchi, No wheeze, No rales Cardiovascular: Regular rate, Regular Rhythm, Normal S1, Normal S2, No murmurs Abdomen: Bowel Sounds Present, Soft, Non Tender, Non-Distended, No Hepato-splenomegaly Extremities: No clubbing, No cyanosis, No edema Skin: No rashes, No breakdown Lymphatic: No Cervical, Supraclavicular, or Inguinal Adenopathy Neurological: Cranial nerves II-XII grossly intact, Motor Exam 5/5 strength throughout Psych/Mental Status: Normal Affect, Appropriate, Alert and oriented to time, place, person, mood and affect Vital Signs Temp Pulse Resp BP Pulse Ox 97.5 F L 74 18 106/55 L 95 04/06/18 12:15 04/06/18 12:15 04/06/18 13:03 04/06/18 12:15 04/06/18 13:03 Oxygen Delivery Method Room Air Weight: 141 lb Body Mass Index (BMI) 28.0 Finger Stick Blood Glucose 224 Intake and Output for Last 24 Hours 04/04/18 04/05/18 04/06/18 23:59 23:59 23:59 Intake Total 1949 Balance 1949 POC Glucose 04/06/18 04/06/18 04/06/18 12:27 11:06 07:36 POC Glucose 234 H 224 H 194 H Blood work from March 15, 2018: CBC: WBC is 8.8, hemoglobin 13.7, platelet count is 340,000. BMP: Sodium 139, potassium 4.1, chloride 105, carbon dioxide 26, BUN 12, creatinine 0.69, blood glucose 130, calcium 9.2. Assessment/Plan All Active Problems Status post total right knee replacement (Acute) This is a 67 years old female patient admitted for elective right total knee replacement for osteoarthritis and I am seeing this patient in consultation for postoperative medical management. #1 status post right total knee replacement: This was done for right knee osteoarthritis, postoperative day 0. At this time, she is asymptomatic, no knee pain. Vital signs are stable. Preoperative routine blood work reviewed, unremarkable. She is on IV Dilaudid, OxyIR as well as IV Toradol as needed for pain. CBC and BMP for tomorrow ordered. Orthopedic surgery is managing. #2 type 2 diabetes mellitus: Blood sugars seem to be under control. Most recent hemoglobin A1c was 6.6 on Purnima, 2018. Plan to continue glipizide, metformin and sitagliptin, insulin sliding scale, continue Accu-Cheks before meals at bedtime. #3 bronchial asthma: Clinically stable, pulse ox is maintained on room air. Continue albuterol as needed, Pulmicort nebulizer and Singulair. #4 fibromyalgia/osteoarthritis: Stable, continue Celebrex and gabapentin. #5 DVT prophylaxis: SCDs, she is on aspirin low-dose twice daily. This note was generated with [employer] dictation software. It may contain incorrect words, spelling, and punctuation that were not noted in checking the note before signing. Code Visit Inpatient E&M: 29050 Init Hosp L2
--- NOTE | 2018-04-06 13:17 | CON.PCM_ITS ---
Problem List (1) Status post total right knee replacement Status: Acute (2) Fibromyalgia Status: Chronic (3) Bronchial asthma Status: Chronic (4) Type 2 diabetes mellitus Status: Chronic Reason for Consult Date of Consultation: 04/06/18 Reason for Consultation: Postoperative medical management. History of Present Illness: The patient is a 67 year old F with past medical history as mentioned above underwent elective right total knee replacement for right knee osteoarthritis and I am seeing this patient in consultation for postoperative medical management. At this time, she denied any right knee pain. She denied any other complaints. She had a history of type 2 diabetes mellitus, she has been on glipizide, metformin and sitagliptin and her blood sugars usually under control and has been around 130s. Most recent hemoglobin A1c was 6.6 on December,. 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 She had a history of fibromyalgia and she has been on Celebrex and gabapentin and the symptoms are under control. Her routine blood work was done on February, and was unremarkable. At this time, her vital signs are stable. Past Medical History Past Medical History (Chronic Problems): Chronic Problems Fibromyalgia (Chronic) Bronchial asthma (Chronic) Type 2 diabetes mellitus (Chronic) Allergies menthol Allergy (Verified 03/23/18 10:14) Rash nabumetone [From Relafen] Allergy (Verified 03/23/18 10:14) Rash simvastatin Allergy (Verified 03/23/18 10:14) Rash morphine Adverse Reaction (Verified 03/23/18 10:14) Other BEES Allergy (Uncoded 11/01/17 22:35) Rash Home Medications: Ambulatory Orders Medication Instructions Recorded Albuterol IH (ProAir) [Proair Hfa 1 - 2 puff INHALATION Q6H PRN PRN 09/03/16 (SP)Vent Pts] Gabapentin 300 mg PO TID 09/03/16 Glipizide [Glipizide ER] 10 mg PO DAILY 09/03/16 Montelukast [Singulair] 10 mg PO DAILY 09/03/16 Ascorbic Acid [Vitamin C] 1,000 mg PO DAILY 07/25/17 Calcium Carbonate [Calcium] 1,000 mg PO DAILY 07/25/17 Cetirizine HCl [Zyrtec] 10 mg PO DAILY 07/25/17 Sitagliptin Phos/Metformin HCl 1,000 mg PO DAILY 07/25/17 [Janumet Xr 100-1,000 mg Tablet] Budesonide [Rhinocort Allergy] 8.43 ml NS DAILY 03/23/18 Celecoxib [Celebrex] 200 mg PO DAILY 03/23/18 Cholecalciferol (Vitamin D3) 1,000 unit PO DAILY 03/23/18 [Vitamin D3] Fluticasone/Salmeterol [Advair 1 each IH DAILY 03/23/18 250-50 Diskus] Melatonin 10 mg PO DAILY 03/23/18 Surgical History: hysterectomy, total knee arthroplasty, - - Shoulder surgery, surgery for carpal tunnel syndrome. 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 Lives: Spouse/ Significant Other Smoking Status: Never smoker Alcohol: None, Rare - *Family History Maternal History Items: No pertinent history Paternal History Items: No pertinent history Review of Systems Constitutional: Denies: Anorexia, Chills, Fever, Weakness Eyes: Denies: Blurred vision, Double vision, Drainage, Redness HEENT: Denies: Difficulty Hearing, Ear Pain, Eye Pain, Nasal Congestion, Sore Throat Cardiovascular: Denies: Chest Pain, Chest Pressure, Chest Tightness, Heaviness, Light Headedness, Palpitations, Syncope Respiratory: Denies: Cough, Pleuritic Pain, Shortness of Breath, Sputum production, Wheezing Gastrointestinal: Denies: Abdominal Pain, Constipation, Diarrhea, Nausea, Vomiting Genitourinary: Denies: Dysuria, Frequency, Hematuria Musculoskeletal: Denies: Arm Pain, Back Pain, Foot Pain Skin: Denies: Dryness, Rash Neurological: Denies: Balance problems, Blurred vision, Change in Speech, Slurred speech, Confusion, Headaches, Incoordination, Numbness Psychiatric: Denies: Anxiety, Depression Endocrine: Denies: Change in Body Habitus, Polydipsia Patient Problems: Active and Suspected Problems Status post total right knee replacement (Acute) - Physical Exam General: Alert, Oriented x3, Cooperative, No apparent distress HEENT: Atraumatic, PERRLA, EOMI, Normocephalic Oral: Moist Mucosa, No Gingival or Mucosal Lesions/ Ulcerations Neck: Supple, No JVD, Negative Carotid Bruits Lungs: Clear to auscultation, Normal air movement, No rhonchi, No wheeze, No rales Cardiovascular: Regular rate, Regular Rhythm, Normal S1, Normal S2, No murmurs Abdomen: Bowel Sounds Present, Soft, Non Tender, Non-Distended, No Hepato- splenomegaly Extremities: No clubbing, No cyanosis, No edema Skin: No rashes, No breakdown Lymphatic: No Cervical, Supraclavicular, or Inguinal Adenopathy Neurological: Cranial nerves II-XII grossly intact, Motor Exam 5/5 strength throughout Psych/Mental Status: Normal Affect, Appropriate, Alert and oriented to time, place, person, mood and affect Vital Signs Temp Pulse Resp BP Pulse Ox 97.5 F L 74 18 106/55 L 95 04/06/18 12:15 04/06/18 12:15 04/06/18 13:03 04/06/18 12:15 04/06/18 13:03 Oxygen Delivery Method Room Air Weight: 141 lb Body Mass Index (BMI) 28.0 Finger Stick Blood Glucose 224 Intake and Output for Last 24 Hours 04/04/18 04/05/18 04/06/18 23:59 23:59 23:59 Intake Total 1949 Balance 1949 POC Glucose 04/06/18 04/06/18 04/06/18 12:27 11:06 07:36 POC Glucose 234 H 224 H 194 H Blood work from March 15, 2018: CBC: WBC is 8.8, hemoglobin 13.7, platelet count is 340,000. BMP: Sodium 139, potassium 4.1, chloride 105, carbon dioxide 26, BUN 12, creatinine 0.69, blood glucose 130, calcium 9.2. Assessment/Plan All Active Problems Status post total right knee replacement (Acute) This is a 67 years old female patient admitted for elective right total knee replacement for osteoarthritis and I am seeing this patient in consultation for postoperative medical management. #1 status post right total knee replacement: This was done for right knee osteoarthritis, postoperative day 0. At this time, she is asymptomatic, no knee pain. Vital signs are stable. Preoperative routine blood work reviewed, unremarkable. She is on IV Dilaudid, OxyIR as well as IV Toradol as needed for pain. CBC and BMP for tomorrow ordered. Orthopedic surgery is managing. #2 type 2 diabetes mellitus: Blood sugars seem to be under control. Most recent hemoglobin A1c was 6.6 on Purnima, 2018. Plan to continue glipizide, metformin and sitagliptin, insulin sliding scale, continue Accu-Cheks before me als at bedtime. #3 bronchial asthma: Clinically stable, pulse ox is maintained on room air. Continue albuterol as needed, Pulmicort nebulizer and Singulair. #4 fibromyalgia/osteoarthritis: Stable, continue Celebrex and gabapentin. #5 DVT prophylaxis: SCDs, she is on aspirin low-dose twice daily. This note was generated with [employer] dictation software. It may contain incorrect words, spelling, and punctuation that were not noted in checking the note before signing. Code Visit Inpatient E&M: 84105 Init Hosp L2
--- NOTE | 2018-04-06 15:02 | PCA ---
therapy working with pt
[2018-04-06 16:06] LABS: Bedside Glucose 233 mg/dL (70-110)
[2018-04-06] MEDS: Cefazolin 1 GM/50 ML BAG IV (16:15)
[2018-04-06] MEDS: Aspirin 81 MG TAB.CHEW PO (16:16)
[2018-04-06] MEDS: Ondansetron 4 MG/2 ML Vial IV (17:38)
[2018-04-06] MEDS: MELATONIN 10 MG TABLET PO (21:56)
[2018-04-06] MEDS: Loratadine 10 MG Tablet PO (21:57)
[2018-04-06] MEDS: Montelukast 10 MG Tablet PO (21:58)
[2018-04-06] MEDS: oxyCODONE 5 MG Tablet PO (22:06)
[2018-04-06 22:36] LABS: Bedside Glucose 163 mg/dL (70-110)
[2018-04-07] MEDS: Cefazolin 1 GM/50 ML BAG IV (00:13)
[2018-04-07 02:40] VITALS: BP 112/62; PULSE 62; RESP 16; TEMP 36.7; O2SAT 96
[2018-04-07] MEDS: oxyCODONE 5 MG Tablet PO ×3 (04:38→13:47)
[2018-04-07] MEDS: Acetaminophen 500 MG Tablet 1000 MG PO ×2 (05:47→13:47)
[2018-04-07 06:21] LABS: Hematocrit 38.8 % (37-47); Hemoglobin 12.3 g/dl (12.0-15.0); Mean Corp Hgb Conc 31.7 g/gl (32-36); Mean Corpuscular Hgb 28.9 pg (27.0-32.0); Mean Corpuscular Volume 91.3 fL (81-99); Mean Platelet Vol. 10.7 fl (6.2-12.0); Platelet Count 265 K/mm3 (150-450); RBC Distribution Width CV 13.4 % (11.6-14.6); RBC Distribution Width SD 44.2 fl (35.1-43.9); Red Blood Count 4.25 M/mm3 (4.2-5.4); White Blood Count 10.5 K/mm3 (4.4-11.0)
[2018-04-07 06:21] LABS: Bedside Glucose 78 mg/dL (70-110)
[2018-04-07 06:22] LABS: Anion Gap 7 (5-15); BUN 10 mg/dL (7-18); BUN/Creat Ratio 15.2 RATIO (10-20); Calcium,Total 8.3 mg/dL (8.5-10.1); Chloride 107 mmol/L (98-107); Creatinine, Serum 0.66 mg/dL (0.55-1.02); EST Glomerular Filtration Rate 95 mL/min (>60); Est Glom Filt Rate - Afr Amer 115 mL/min (>60); Estimated Creatinine Clearance 55.87 ml/min; Glucose 123 mg/dL (74-106); Potassium 4.3 mmol/L (3.5-5.1); Sodium Level 138 mmol/L (136-145)
[2018-04-07 06:29] LABS: Scan Indicated on CBC? Y/N NO
[2018-04-07] MEDS: glipiZIDE XL 5 MG Tablet PO (07:41)
[2018-04-07] MEDS: Aspirin 81 MG TAB.CHEW PO (07:41)
[2018-04-07] MEDS: Gabapentin 300 MG Capsule PO ×2 (07:42→11:16)
[2018-04-07] MEDS: LINAGLIPTIN 5 MG TABLET PO (07:43)
[2018-04-07] MEDS: Calcium Carbonate 500 MG Tablet 1000 MG PO (07:43)
[2018-04-07] MEDS: Ascorbic Acid 500 MG Tablet 1000 MG PO (07:44)
[2018-04-07 08:36] VITALS: BP 116/68; PULSE 74; RESP 18; TEMP 36.7; O2SAT 98
--- NOTE | 2018-04-07 09:13 | PCM.PROGNOTE ---
Patient Problems: Active and Suspected Problems Status post total right knee replacement (Acute) Subjective: Chief complaint: Follow-up after consultation for postoperative medical management. Patient seen and examined. No acute events overnight. Right knee pain is well controlled on current pain medication regimen. Denies any other complaints. Her vital signs are stable. - Physical Exam General: Alert, Oriented x3, Cooperative, No apparent distress HEENT: Atraumatic, PERRLA, EOMI, Normocephalic Oral: Moist Mucosa, No Gingival or Mucosal Lesions/ Ulcerations Neck: Supple, No JVD, Negative Carotid Bruits, Trachea Midline, Thyroid Normal Size and Texture Lungs: Clear to auscultation, Normal air movement, No rhonchi, No wheeze, No rales Cardiovascular: Regular rate, Regular Rhythm, Normal S1, Normal S2, PMI Normal Abdomen: Bowel Sounds Present, Soft, Non Tender, Non-Distended, No Hepato-splenomegaly Extremities: No clubbing, No cyanosis, No edema Skin: No rashes, No breakdown Lymphatic: No Cervical, Supraclavicular, or Inguinal Adenopathy Neurological: Cranial nerves II-XII grossly intact, Neuro grossly intact Psych/Mental Status: Normal Affect, Appropriate, Alert and oriented to time, place, person, mood and affect Vital Signs Temp Pulse Resp BP Pulse Ox 98.0 F 74 18 116/68 98 04/07/18 08:36 04/07/18 08:36 04/07/18 08:36 04/07/18 08:36 04/07/18 08:36 Oxygen Delivery Method Room Air Weight: 141 lb Body Mass Index (BMI) 28.0 Finger Stick Blood Glucose 224 Intake and Output for Last 24 Hours 04/05/18 04/06/18 04/07/18 23:59 23:59 23:59 Intake Total 2980 / 2980 2024 / 2024 Output Total 900 / 900 800 / 800 Balance 2080 / 2080 1225 / 1225 Laboratory Tests Past 24 Hrs 04/07/18 04/07/18 05:36 05:36 WBC 10.5 RBC 4.25 Hgb 12.3 Hct 38.8 MCV 91.3 MCH 28.9 MCHC 31.7 L RDW 13.4 RDW Differential 44.2 H Plt Count 265 MPV 10.7 Sodium 138 Potassium 4.3 Chloride 107 Carbon Dioxide 24.0 Anion Gap 7 BUN 10 Creatinine 0.66 Estim Creat Clear Calc 55.87 Est GFR (MDRD) Af Amer 115 Est GFR (MDRD) Non-Af 95 BUN/Creatinine Ratio 15.2 Glucose 123 H Calcium 8.3 L POC Glucose 04/07/18 04/06/18 04/06/18 05:49 21:52 15:57 POC Glucose 78 163 H 233 H 04/06/18 04/06/18 12:27 11:06 POC Glucose 234 H 224 H Medical Necessity - Tobacco Use Smoking Status: Never smoker Assessment/Plan All Active Problems Status post total right knee replacement (Acute) This is a 67 years old female patient admitted for elective right total knee replacement for osteoarthritis and I am seeing this patient in consultation for postoperative medical management. #1 status post right total knee replacement: This was done for right knee osteoarthritis, postoperative day1. Remains stable, knee pain is well controlled with current pain medication regimen. Vital signs remained stable. Repeat routine blood work from today was unremarkable. Orthopedic surgery is managing. From medical standpoint, patient can be discharged home today, no change to her home medications. #2 type 2 diabetes mellitus: Blood sugars has been stable. Most recent hemoglobin A1c was 6.6 on December,. continue glipizide, metformin and sitagliptin, insulin sliding scale, continue Accu-Cheks before meals at bedtime. #3 bronchial asthma: Clinically stable, pulse ox is maintained on room air. Continue albuterol as needed, Pulmicort nebulizer and Singulair. #4 fibromyalgia/osteoarthritis: Stable, continue Celebrex and gabapentin. #5 DVT prophylaxis: SCDs, she is on aspirin low-dose twice daily. This note was generated with [employer] dictation software. It may contain incorrect words, spelling, and punctuation that were not noted in checking the note before signing. Code Visit Inpatient E&M: 38891 Subs Hosp L2
--- NOTE | 2018-04-07 09:16 | PN_ITS ---
Patient Problems: Active and Suspected Problems Status post total right knee replacement (Acute) Subjective: Chief complaint: Follow-up after consultation for postoperative medical management. Patient seen and examined. No acute events overnight. Right knee pain is well controlled on current pain medication regimen. Denies any other complaints. Her vital signs are stable. - Physical Exam General: Alert, Oriented x3, Cooperative, No apparent distress HEENT: Atraumatic, PERRLA, EOMI, Normocephalic Oral: Moist Mucosa, No Gingival or Mucosal Lesions/ Ulcerations Neck: Supple, No JVD, Negative Carotid Bruits, Trachea Midline, Thyroid Normal Size and Texture Lungs: Clear to auscultation, Normal air movement, No rhonchi, No wheeze, No rales Cardiovascular: Regular rate, Regular Rhythm, Normal S1, Normal S2, PMI Normal Abdomen: Bowel Sounds Present, Soft, Non Tender, Non-Distended, No Hepato- splenomegaly Extremities: No clubbing, No cyanosis, No edema Skin: No rashes, No breakdown Lymphatic: No Cervical, Supraclavicular, or Inguinal Adenopathy Neurological: Cranial nerves II-XII grossly intact, Neuro grossly intact Psych/Mental Status: Normal Affect, Appropriate, Alert and oriented to time, place, person, mood and affect Vital Signs Temp Pulse Resp BP Pulse Ox 98.0 F 74 18 116/68 98 04/07/18 08:36 04/07/18 08:36 04/07/18 08:36 04/07/18 08:36 04/07/18 08:36 Oxygen Delivery Method Room Air Weight: 141 lb Body Mass Index (BMI) 28.0 Finger Stick Blood Glucose 224 Intake and Output for Last 24 Hours 04/05/18 04/06/18 04/07/18 23:59 23:59 23:59 Intake Total 2980 / 2980 2024 / 2024 Output Total 900 / 900 800 / 800 Balance 2080 / 2080 1225 / 1225 Laboratory Tests Past 24 Hrs 04/07/18 04/07/18 05:36 05:36 WBC 10.5 RBC 4.25 Hgb 12.3 Hct 38.8 MCV 91.3 MCH 28.9 MCHC 31.7 L RDW 13.4 RDW Differential 44.2 H Plt Count 265 MPV 10.7 Sodium 138 Potassium 4.3 Chloride 107 Carbon Dioxide 24.0 Anion Gap 7 BUN 10 Creatinine 0.66 Estim Creat Clear Calc 55.87 Est GFR (MDRD) Af Amer 115 Est GFR (MDRD) Non-Af 95 BUN/Creatinine Ratio 15.2 Glucose 123 H Calcium 8.3 L POC Glucose 04/07/18 04/06/18 04/06/18 05:49 21:52 15:57 POC Glucose 78 163 H 233 H 04/06/18 04/06/18 12:27 11:06 POC Glucose 234 H 224 H Medical Necessity - Tobacco Use Smoking Status: Never smoker Assessment/Plan All Active Problems Status post total right knee replacement (Acute) This is a 67 years old female patient admitted for elective right total knee rep lacement for osteoarthritis and I am seeing this patient in consultation for postoperative medical management. #1 status post right total knee replacement: This was done for right knee osteoarthritis, postoperative day1. Remains stable, knee pain is well controlled with current pain medication regimen. Vital signs remained stable. Repeat routine blood work from today was unremarkable. Orthopedic surgery is managing. From medical standpoint, patient can be discharged home today, no change to her home medications. #2 type 2 diabetes mellitus: Blood sugars has been stable. Most recent hem oglobin A1c was 6.6 on December,. continue glipizide, metformin and sitagliptin, insulin sliding scale, continue Accu-Cheks before meals at bedtime. #3 bronchial asthma: Clinically stable, pulse ox is maintained on room air. Continue albuterol as needed, Pulmicort nebulizer and Singulair. #4 fibromyalgia/osteoarthritis: Stable, continue Celebrex and gabapentin. #5 DVT prophylaxis: SCDs, she is on aspirin low-dose twice daily. This note was generated with [employer] dictation software. It may contain incorrect words, spelling, and punctuation that were not noted in checking the note before signing. Code Visit Inpatient E&M: 82195 Subs Hosp L2
[2018-04-07] MEDS: Pantoprazole Sodium 20 MG Tablet PO (09:41)
[2018-04-07] MEDS: Famotidine 20 MG Tablet PO (09:41)
[2018-04-07] MEDS: Fluticasone 0.05% 1 SPRAY NASAL.SRY 2 SPRAY NASAL (09:41)
[2018-04-07] MEDS: Celecoxib 200 MG Capsule PO (09:42)
[2018-04-07] MEDS: Senna/Docusate Sodium 1 Tablet 2 TABLET PO (09:43)
--- NOTE | 2018-04-07 10:50 | PN.ORTHO_ITS ---
Patient Problems: Active and Suspected Problems Status post total right knee replacement (Acute) Subjective: The patient was sitting in bed upon examination. Patient denies any chest pain, shortness of breath, dizziness, lightheadedness, nausea or vomiting, or calf pain. Pain is controlled on medications. No adverse overnight events. Overall patient is doing well. Patient does wish to try to go home today. Objective: Vital signs stable and afebrile. Patient is able to plantarflex and dorsiflex actively. Sensation is intact to light touch to saphenous, sural, superficial and deep peroneal, and tibial distribution. Dressing is clean dry and intact. Negative Homans bilaterally, negative signs and symptoms of DVT. - Physical Exam General: Alert, Oriented x3, Cooperative, No apparent distress Vital Signs Temp Pulse Resp BP Pulse Ox 98.0 F 74 18 116/68 98 04/07/18 08:36 04/07/18 08:36 04/07/18 08:36 04/07/18 08:36 04/07/18 08:36 Oxygen Delivery Method Room Air Weight: 63.957 kg Body Mass Index (BMI) 28.0 Finger Stick Blood Glucose 224 Intake and Output for Last 24 Hours 04/05/18 04/06/18 04/07/18 23:59 23:59 23:59 Intake Total 2980 / 2980 2024 / 2024 Output Total 900 / 900 800 / 800 Balance 2079 / 2079 1225 / 1225 Laboratory Tests Past 24 Hrs 04/07/18 04/07/18 05:36 05:36 WBC 10.5 RBC 4.25 Hgb 12.3 Hct 38.8 MCV 91.3 MCH 28.9 MCHC 31.7 L RDW 13.4 RDW Differential 44.2 H Plt Count 265 MPV 10.7 Sodium 138 Potassium 4.3 Chloride 107 Carbon Dioxide 24.0 Anion Gap 7 BUN 10 Creatinine 0.66 Estim Creat Clear Calc 55.87 Est GFR (MDRD) Af Amer 115 Est GFR (MDRD) Non-Af 95 BUN/Creatinine Ratio 15.2 Glucose 123 H Calcium 8.3 L POC Glucose 04/07/18 04/06/18 04/06/18 05:49 21:52 15:57 POC Glucose 78 163 H 233 H 04/06/18 04/06/18 12:27 11:06 POC Glucose 234 H 224 H Medical Necessity - Tobacco Use Smoking Status: Never smoker Assessment/Plan All Active Problems Status post total right knee replacement (Acute) 1. S/P right total knee arthroplasty POD #1 2. Continue Pain Medications: Tylenol and OxyIR 3. DVT Prophylaxis: Aspirin 81 mg with food twice daily for 4 weeks postoperatively 4. PT/OT: Weightbearing as tolerated 5. H & H: 12.3/33.8, asymptomatic 6. Encouraged Incentive Spirometry 7. Continue postoperative medical management per medicine 8. Disposition: Plan is for discharge home today. Patient is orthopedically stable. Patient will follow-up per postop instructions. Prescriptions will be E scribed to [facility] in [place]..
--- NOTE | 2018-04-07 10:58 | PCM.DC.TKR ---
Discharge Diet: 1800 Calorie Control Diet Discharge Activity: May Not Drive May shower in (days): 1 - Turned dressing away from water Ice area for (Minutes): 20 - every hour while awake. Weight Bearing Status: Weight bearing as tolerated Elevate: Operative Extremity Additional Activity Instructions:: Wear elastic stockings for 2 weeks after your surgery. Call your doctor if your incision/area has: Continuous Slow Oozing, Sudden Increased Bleeding, Increased Pain/ Swelling, Increased Redness, Foul Smelling Discharge Call your doctor if you observe: Fever of 101 or Higher, Coldness, Increased Pain, Numbness or Tingling, Change in Color, Calf discomfort, Uncontrolled pain Remove Dressing in (days):: 4 - Okay to remove dressing on April 11, 2018 Additional Instructions: Follow [facility] postop instructions Allergies/Adverse Reactions: Allergies menthol Allergy (Verified 03/23/18 10:14) Rash nabumetone [From Relafen] Allergy (Verified 03/23/18 10:14) Rash simvastatin Allergy (Verified 03/23/18 10:14) Rash morphine Adverse Reaction (Verified 03/23/18 10:14) Other BEES Allergy (Uncoded 11/01/17 22:35) Rash Medications to take at Discharge Albuterol IH (ProAir) [Proair Hfa] 1 - 2 puff INHALATION Q6H PRN PRN 09/03/16 Gabapentin 300 mg PO TID 09/03/16 Glipizide [Glipizide ER] 10 mg PO DAILY 09/03/16 Montelukast [Singulair] 10 mg PO DAILY 09/03/16 Ascorbic Acid [Vitamin C] 1,000 mg PO DAILY 07/25/17 Calcium Carbonate [Calcium] 1,000 mg PO DAILY 07/25/17 Cetirizine HCl [Zyrtec] 10 mg PO DAILY 07/25/17 Sitagliptin Phos/Metformin HCl [Janumet Xr 100-1,000 mg Tablet] 1,000 mg PO DAILY 07/25/17 Budesonide [Rhinocort Allergy] 8.43 ml NS DAILY 03/23/18 Celecoxib [Celebrex] 200 mg PO DAILY 03/23/18 Cholecalciferol (Vitamin D3) [Vitamin D3] 1,000 unit PO DAILY 03/23/18 Fluticasone/Salmeterol [Advair 250-50 Diskus] 1 each IH DAILY 03/23/18 Melatonin 10 mg PO DAILY 03/23/18 Acetaminophen [Tylenol Extra Strength] 1,000 mg PO Q8H PRN #100 tablet 04/07/18 Aspirin [Aspirin, Baby] 81 mg PO BIDCM #60 tab.chew 04/07/18 Famotidine [Pepcid] 20 mg PO DAILY #30 tablet 04/07/18 Oxycodone [Oxyir] 5 - 10 mg PO Q4H PRN PRN 5 Days #60 tablet 04/07/18 Senna/Docusate Sodium [Senokot-S] 2 tablet PO BID #20 tablet 04/07/18 The following prescriptions were given: Oxycodone [Oxyir] 5 - 10 mg PO Q4H PRN PRN 5 Days #60 tablet PRN Reason: Mod-Severe Pain (-02/02) Acetaminophen [Tylenol Extra Strength] 1,000 mg PO Q8H PRN #100 tablet Famotidine [Pepcid] 20 mg PO DAILY #30 tablet Aspirin [Aspirin, Baby] 81 mg PO BIDCM #60 tab.chew Senna/Docusate Sodium [Senokot-S] 2 tablet PO BID #20 tablet Primary Care Physician: Yousuf Weiss MD [Primary Care Provider] - Test Results: Test results from this visit will be discussed in further detail at your follow-up appointment, if applicable. Please Follow Up With: [facility] When: 04/11/18 @ 10:30 am with Viktor Please Follow Up With: Alejandro Perera PA-C When: 04/21/18 @ 2:45 pm
[2018-04-07] MEDS: 0.9% NaCl Peripheral Flush Adult/Peds IV (11:08)
[2018-04-07] MEDS: Ketorolac 15 MG/ML Vial IV (11:08)
[2018-04-07] MEDS: Insulin Lispro 100 UNIT/ML INSULN.PEN SC (11:14)
[2018-04-07 11:21] LABS: Bedside Glucose 217 mg/dL (70-110)
--- NOTE | 2018-04-07 11:25 | CASEMGMT ---
DUSTY FREITAS Face to Face with patient for initial transition planning/care coordination assessment. RN CM introduced self and role at [facility]. Patient lying in bed, alert and oriented. Patient willing to participate in assessment and is able to answer all questions appropriately. Care providers, pharmacy, and demographics verified. Patient wishes to discharge home and is setup with [facility] for outpatient therapy. Patient states he has no further needs or concerns at this time. CM to follow for discharge planning needs that may arise. Disposition Plan: Patient to discharge home with outpatient therapy, family support, and follow-up plans in place. Shonna THEODORE, RN, CM
[2018-04-07 14:02] VITALS: BP 128/68; PULSE 81; RESP 16; TEMP 37.2; O2SAT 100
--- OUTSIDE RECORDS SUMMARY | 2018-05-23 02:13 | XMS RPT_ITS ---
:1950 Author Organization OHIP Support Name Relationship Address Phone R Unavailable Unavailable Unavailable BERNARD, DOMONIQUE Unavailable [address] + [place] [address] R Unavailable Unavailable Unavailable BERNARD, DOMONIQUE Unavailable [address] + [place] [address] R Unavailable Unavailable Unavailable BERNARD, DOMONIQUE Unavailable [address] + [place] [address] R Unavailable Unavailable Unavailable BERNARD, DOMONIQUE Unavailable [address] + [place] [address] R Unavailable Unavailable Unavailable BERNARD, DOMONIQUE Unavailable [address] + [place] [address] R Unavailable Unavailable Unavailable BERNARD, DOMONIQUE Unavailable [address] + [place] [address] R Unavailable Unavailable Unavailable BERNARD, DOMONIQUE Unavailable [address] + [place] [address] R Unavailable Unavailable Unavailable BERNARD, DOMONIQUE Unavailable [address] + [place] [address] R Unavailable Unavailable Unavailable BERNARD, DOMONIQUE Unavailable [address] + [place] [address] R Unavailable Unavailable Unavailable BERNARD, DOMONIQUE Unavailable [address] + [place] [address] R Unavailable Unavailable Unavailable BERNARD, DOMONIQUE Unavailable [address] + [place] [address] Care Team Providers Name Role Phone CHRISTINA WILCOX Attending Unavailable CHRISTINA WILCOX Referring Unavailable Arthur Yeboah Admitting Unavailable Ashelfah, Ghasem Attending Unavailable Arthur Yeboah Referring Unavailable Yousuf Weiss Primary Care Unavailable Ashelfah, Ghasem Consulting Unavailable Arthur Yeboah Consulting Unavailable Arthur Yeboah Admitting Unavailable Ashelfah, Ghasem Attending Unavailable Arthur Yeboah Referring Unavailable Weiss, Yousuf Primary Care Unavailable Ashelfah, Ghasem Consulting Unavailable Obinna, Arthur Consulting Unavailable Weiss, Yousuf Attending Unavailable Weiss, Yousuf Primary Care Unavailable Weiss, Yousuf Primary Care Unavailable Cavazos, Kodi Attending Unavailable Jolliff, Sharon Attending Unavailable Jolliff, Sharon Referring Unavailable Weiss, Yousuf Primary Care Unavailable Alejandro Perera PA-C Attending Unavailable Alejandro Perera PA-C Referring Unavailable Weiss, Yousuf Primary Care Unavailable CebuPaulie xiao Attending Unavailable Weiss, Yousuf Referring Unavailable Weiss, Yousuf Primary Care Unavailable Clay Hoffman Attending Unavailable Weiss, Yousuf Primary Care Unavailable Ungur, Remus Attending Unavailable Weiss, Yousuf Attending Unavailable Weiss, Yousuf Primary Care Unavailable Obinna, Arthur Admitting Unavailable Obinna, Arthur Attending Unavailable Weiss, Yousuf Primary Care Unavailable Obinna, Arthur Referring Unavailable Ashelfah, Ghasem Consulting Unavailable PROBLEMS PROBLEMS DATE TYPE CONDITION / CODE ATTENDING STATUS SOURCE 04/07/2018 Unknown Z96.651 - Obinna, Arthur Active [place] [facility] of right [facility] joint / Repository Z96.651(ICD-10) 01/09/2018 Unknown M25.569 - Pain in Ungur, Remus Active [facility] / M25.569(ICD-10) Hospital Repository 02/07/2018 Unknown R10.9 - Jolliff, Sharon Active [facility] Unspecified [facility] abdominal pain / Hospital R10.9(ICD-10) Repository PROCEDURES PROCEDURES No Procedure Records FoundRESULTS RESULTS VENOUS DUPLEX LOWER Observed: 05/13/2018 Status: F Source: [place] EXTREMITY 2:33 PM [facility] REPOSITORY [facility] Cardiovascular Services [address] [place] [address] Venous Duplex US, Unilateral 05/13/18 1308 MR#: [id number] Acct: [id number] Name: MERI BARNHART Rep #: [id number] : 1950 67 From: uDane Mejia MD Attending Dr: Alejandro Cosme Status: REG CLI Ordering Dr: Alejandro Perera PA-C Date: 05/13/18 Location: [facility] Sex: F C Admitted: Reason For Study: LEG PAIN RIGHT LEFT GSV is normal. CFV is compressible, spontaneous, phasic, CFV is compressible, spontaneous, phasic, competent, and demonstrates normal competent and demonstrates normal augmentation. augmentation. FV is compressible, spontaneous, phasic, competent and demonstrates normal augmentation. POP V is compressible, spontaneous, phasic, competent and demonstrates normal augmentation. T/P Trunk is compressible. PTV is compressible. RT PerV is compressible. Procedure Exam performed in department. A preliminary report was called and/or faxed to Marlen Perera. Interpretation Summary Deep veins of the right lower extremity are patent and compressible segmentally. There is no evidence of right lower extremity deep vein thrombosis. Valvular competence appears intact within the proximal deep venous system on the right . The right greater saphenous vein appears patent and compressible segmentally. Ordering Physician: Alejandro Perera Referring Physician: Yousuf Weiss M.D. Performed By: Ericka Gracia RVT 05/13/18 1433 Date Duane Mejia MD CC: Yousuf Weiss MD; Alejandro GOLDSTEIN Date Dictated: 05/13/18 1308 Date Transcribed: 05/13/18 1433 Yardage Tufting Machine Operator: Signed BEDSIDE GLUCOSE Collected: 04/07/2018 Status: F Source: [place] 11:13 AM [facility] REPOSITORY TYPE CODE TESTS RESULT OUT OF REFERENCE UNITS RANGE LAB L501.080 70-110 mg/dL High BEDSIDE GLU 217 Result Comment: MANAGEMENT OF PATIENT CARE PER NURSING PROTOCOL Performed By: #### L501.080 #### [place] [facility] Point of Care [address] [place] [address] DISCHARGE INSTRUCTION Observed: 04/07/2018 Status: F Source: [place] 10:59 AM [facility] REPOSITORY [facility] Medical Records Department [address] [place] [address] Instructions for Home/Discharge Instructions 04/07/18 1058 MR#: [id number] Acct: [id number] Name: MERI BARNHART Rep #: [id number] : 1950 67 From: Alejandro Perera PA-C PCP: Yousuf Weiss MD Status: ADM IN Discharge Diet: 1800 Calorie Control Diet Discharge Activity: May Not Drive May shower in (days): 1 - Turned dressing away from water Ice area for (Minutes): 20 - every hour while awake. Weight Bearing Status: Weight bearing as tolerated Elevate: Operative Extremity Additional Activity Instructions:: Wear elastic stockings for 2 weeks after your surgery. Call your doctor if your incision/area has: Continuous Slow Oozing, Sudden Increased Bleeding, Increased Pain/ Swelling, Increased Redness, Foul Smelling Discharge Call your doctor if you observe: Fever of 101 or Higher, Coldness, Increased Pain, Numbness or Tingling, Change in Color, Calf discomfort, Uncontrolled pain Remove Dressing in (days):: 4 - Okay to remove dressing on April 11, 2018 Additional Instructions: Follow [facility] postop instructions Allergies/Adverse Reactions: Allergies menthol Allergy (Verified 03/23/18 10:14) Rash nabumetone [From Relafen] Allergy (Verified 03/23/18 10:14) Rash simvastatin Allergy (Verified 03/23/18 10:14) Rash morphine Adverse Reaction (Verified 03/23/18 10:14) Other BEES Allergy (Uncoded 11/01/17 22:35) Rash Medications to take at Discharge Albuterol IH (ProAir) [Proair Hfa] 1 - 2 puff INHALATION Q6H PRN PRN 09/03/16 Gabapentin 300 mg PO TID 09/03/16 Glipizide [Glipizide ER] 10 mg PO DAILY 09/03/16 Montelukast [Singulair] 10 mg PO DAILY 09/03/16 Ascorbic Acid [Vitamin C] 1,000 mg PO DAILY 07/25/17 Calcium Carbonate [Calcium] 1,000 mg PO DAILY 07/25/17 Cetirizine HCl [Zyrtec] 10 mg PO DAILY 07/25/17 Sitagliptin Phos/Metformin HCl [Janumet Xr 100-1,000 mg Tablet] 1,000 mg PO DAILY 07/25/17 Budesonide [Rhinocort Allergy] 8.43 ml NS DAILY 03/23/18 Celecoxib [Celebrex] 200 mg PO DAILY 03/23/18 Cholecalciferol (Vitamin D3) [Vitamin D3] 1,000 unit PO DAILY 03/23/18 Fluticasone/Salmeterol [Advair 250-50 Diskus] 1 each IH DAILY 03/23/18 Melatonin 10 mg PO DAILY 03/23/18 Acetaminophen [Tylenol Extra Strength] 1,000 mg PO Q8H PRN #100 tablet 04/07/18 Aspirin [Aspirin, Baby] 81 mg PO BIDCM #60 tab.chew 04/07/18 Famotidine [Pepcid] 20 mg PO DAILY #30 tablet 04/07/18 Oxycodone [Oxyir] 5 - 10 mg PO Q4H PRN PRN 5 Days #60 tablet 04/07/18 Senna/Docusate Sodium [Senokot-S] 2 tablet PO BID #20 tablet 04/07/18 The following prescriptions were given: Oxycodone [Oxyir] 5 - 10 mg PO Q4H PRN PRN 5 Days #60 tablet PRN Reason: Mod-Severe Pain (4-10) Acetaminophen [Tylenol Extra Strength] 1,000 mg PO Q8H PRN #100 tablet Famotidine [Pepcid] 20 mg PO DAILY #30 tablet Aspirin [Aspirin, Baby] 81 mg PO BIDCM #60 tab.chew Senna/Docusate Sodium [Senokot-S] 2 tablet PO BID #20 tablet Primary Care Physician: Yousuf Weiss MD [Primary Care Provider] - Test Results: Test results from this visit will be discussed in further detail at your follow-up appointment, if applicable. Please Follow Up With: [place] [facility] therapy When: 04/11/18 @ 10:30 am with Viktor Please Follow Up With: Alejandro Perera PA-C When: 04/21/18 @ 2:45 pm 04/07/18 1059 <Electronically signed by Alejandro Perera PA-C> Date Alejandro Perera PA-C CC: Marilu Martinez; Yousuf Weiss MD BEDSIDE GLUCOSE Collected: 04/07/2018 Status: F Source: [place] 5:49 AM [facility] REPOSITORY TYPE CODE TESTS RESULT OUT OF RANGE REFERENCE UNITS LAB L501.080 70-110 mg/dL Normal BEDSIDE GLU 78 Result Comment: MANAGEMENT OF PATIENT CARE PER NURSING PROTOCOL Performed By: #### L501.080 #### [facility] Point of Care [address] [place], [place] [address] BASIC METABOLIC Collected: 04/07/2018 Status: F Source: [place] PROFILE (BMP) 5:36 AM [facility] REPOSITORY TYPE CODE TESTS RESULT OUT OF RANGE REFERENCE UNITS LAB L501.0100 74-106 mg/dL High GLU 123 Result Comment: Fasting Glucose result from 100 to 125 mg/dL suggests IMPAIRED HOMEOSTASIS per A.D.A. criteria. Please note revised GLUCOSE reference range effective 2017. LAB L501.1000 7-18 mg/dL Normal BUN 10 LAB L501.1100 0.55-1.02 mg/dL Normal CREAT,SERUM 0.66 Result Comment: The validity of the calculated GFR AND GFRAA in patients over 70 years has not been determined. Clinical correlation is essential. LAB L501.1110 >60 mL/min Normal EST GFR 95 Result Comment: Non- GFR Calc LAB L501.1115 >60 mL/min Normal EST GFR - AA 115 Result Comment: GFR Calc LAB L501.1255 ml/min Normal Estimated CRCL 55.87 LAB L501.1300 10-20 RATIO Normal BUN/CRE 15.2 LAB L501.2200 8.5-10 mg/dL Low .1 CA 8.3 LAB L501.5300 136-14 mmol/L Normal 5 NA 138 LAB L501.5600 3.5-5. mmol/L Normal 1 K 4.3 Result Comment: Slight Hemolysis, Result may be falsely increased. LAB L501.5900 98-107 mmol/L Normal CL 107 LAB L501.6100 21.0-32.0 mmol/L Normal CO2 24.0 LAB L501.6200 5-15 Normal 7 GAP Performed By: #### L500.2500 #### [facility] [address] [place], [place], [id number] CBC-COMPLETE BLOOD CNT Collected: 04/07/2018 Status: F Source: [place] NO DIFF 5:36 AM [facility] REPOSITORY TYPE CODE TESTS RESULT OUT OF RANGE REFERENCE UNITS LAB L100.1000 4.4-11.0 K/mm3 Normal WBC 10.5 LAB L100.1200 4.2-5.4 M/mm3 Normal RBC 4.25 LAB L100.1300 12.0-15.0 g/dl Normal HGB 12.3 LAB L100.1400 37-47 % Normal HCT 38.8 LAB L100.1500 81-99 fL Normal MCV 91.3 LAB L100.1600 27.0-32.0 pg Normal MCH 28.9 LAB L100.1700 32-36 g/gl Low MCHC 31.7 LAB L100.1810 11.6-14.6 % Normal RDW CV 13.4 LAB L100.1820 35.1-43.9 fl High RDW SD 44.2 LAB L100.1900 150-450 K/mm3 Normal PLT 265 LAB L100.2000 6.2-12.0 fl Normal MPV 10.7 Performed By: #### L100.0500 #### [facility] [address], [place], [id number] BEDSIDE GLUCOSE Collected: 04/06/2018 Status: F Source: [place] 9:52 PM [facility] REPOSITORY TYPE CODE TESTS RESULT OUT OF REFERENCE UNITS RANGE LAB L501.080 70-110 mg/dL High BEDSIDE GLU 163 Result Comment: MANAGEMENT OF PATIENT CARE PER NURSING PROTOCOL Performed By: #### L501.080 #### [facility] Point of Care [address] [place] [id number] BEDSIDE GLUCOSE Collected: 04/06/2018 Status: F Source: [place] 3:57 PM [facility] REPOSITORY TYPE CODE TESTS RESULT OUT OF REFERENCE UNITS RANGE LAB L501.080 70-110 mg/dL High BEDSIDE GLU 233 Result Comment: MANAGEMENT OF PATIENT CARE PER NURSING PROTOCOL Performed By: #### L501.080 #### [facility] Point of Care [address] [place] [address] CONSULTATION Observed: 04/06/2018 Status: F Source: [place] 1:22 PM [facility] REPOSITORY [facility] Medical Records Department [address] [place] [address] Consultation 04/06/18 1313 MR#: [id number] Acct: [id number] Name: MERI BARNHART Rep #: [id number] : 1950 67 From: Marilu Martinez MD PCP: Yousuf Weiss MD Status: ADM IN Location: [facility] [id number] Problem List (1) Status post total right knee replacement Status: Acute (2) Fibromyalgia Status: Chronic (3) Bronchial asthma Status: Chronic (4) Type 2 diabetes mellitus Status: Chronic Reason for Consult Date of Consultation: 04/06/18 Reason for Consultation: Postoperative medical management. History of Present Illness: The patient is a 67 year old F with past medical history as mentioned above underwent elective right total knee replacement for right knee osteoarthritis and I am seeing this patient in consultation for postoperative medical management. At this time, she denied any right knee pain. She denied any other complaints. She had a history of type 2 diabetes mellitus, she has been on glipizide, metformin and sitagliptin and her blood sugars usually under control and has been around 130s. Most recent hemoglobin A1c was 6.6 on December,. 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 She had a history of fibromyalgia and she has been on Celebrex and gabapentin and the symptoms are under control. Her routine blood work was done on February, and was unremarkable. At this time, her vital signs are stable. Past Medical History Past Medical History (Chronic Problems): Chronic Problems Fibromyalgia (Chronic) Bronchial asthma (Chronic) Type 2 diabetes mellitus (Chronic) Allergies menthol Allergy (Verified 03/23/18 10:14) Rash nabumetone [From Relafen] Allergy (Verified 03/23/18 10:14) Rash simvastatin Allergy (Verified 03/23/18 10:14) Rash morphine Adverse Reaction (Verified 03/23/18 10:14) Other BEES Allergy (Uncoded 11/01/17 22:35) Rash Home Medications: Ambulatory Orders Medication Instructions Recorded Surgical History: hysterectomy, total knee arthroplasty, - - Shoulder surgery, surgery for carpal tunnel syndrome. Psychiatric History: No pertinent psych hx BOX ICER History: No pertinent BOX ICER history Lives: Spouse/ Significant Other Smoking Status: Never smoker Alcohol: None, Rare - *Family History Maternal History Items: No pertinent history Paternal History Items: No pertinent history Review of Systems Constitutional: Denies: Anorexia, Chills, Fever, Weakness Eyes: Denies: Blurred vision, Double vision, Drainage, Redness HEENT: Denies: Difficulty Hearing, Ear Pain, Eye Pain, Nasal Congestion, Sore Throat Cardiovascular: Denies: Chest Pain, Chest Pressure, Chest Tightness, Heaviness, Light Headedness, Palpitations, Syncope Respiratory: Denies: Cough, Pleuritic Pain, Shortness of Breath, Sputum production, Wheezing Gastrointestinal: Denies: Abdominal Pain, Constipation, Diarrhea, Nausea, Vomiting Genitourinary: Denies: Dysuria, Frequency, Hematuria Musculoskeletal: Denies: Arm Pain, Back Pain, Foot Pain Skin: Denies: Dryness, Rash Neurological: Denies: Balance problems, Blurred vision, Change in Speech, Slurred speech, Confusion, Headaches, Incoordination, Numbness Psychiatric: Denies: Anxiety, Depression Endocrine: Denies: Change in Body Habitus, Polydipsia Patient Problems: Active and Suspected Problems Status post total right knee replacement (Acute) - Physical Exam General: Alert, Oriented x3, Cooperative, No apparent distress HEENT: Atraumatic, PERRLA, EOMI, Normocephalic Oral: Moist Mucosa, No Gingival or Mucosal Lesions/ Ulcerations Neck: Supple, No JVD, Negative Carotid Bruits Lungs: Clear to auscultation, Normal air movement, No rhonchi, No wheeze, No rales Cardiovascular: Regular rate, Regular Rhythm, Normal S1, Normal S2, No murmurs Abdomen: Bowel Sounds Present, Soft, Non Tender, Non-Distended, No Hepato-splenomegaly Extremities: No clubbing, No cyanosis, No edema Skin: No rashes, No breakdown Lymphatic: No Cervical, Supraclavicular, or Inguinal Adenopathy Neurological: Cranial nerves II-XII grossly intact, Motor Exam 5/5 strength throughout Psych/Mental Status: Normal Affect, Appropriate, Alert and oriented to time, place, person, mood and affect Vital Signs Temp Pulse Resp BP Pulse Ox 97.5 F L 74 18 106/55 L 95 04/06/18 12:15 04/06/18 12:15 04/06/18 13:03 04/06/18 12:15 04/06/18 13:03 Oxygen Delivery Method Room Air Weight: 141 lb Body Mass Index (BMI) 28.0 Finger Stick Blood Glucose 224 Intake and Output for Last 24 Hours Intake Total 1949 Balance 1949 POC Glucose POC Glucose 234 H 224 H 194 H Blood work from March 15, 2018: CBC: WBC is 8.8, hemoglobin 13.7, platelet count is 340,000. BMP: Sodium 139, potassium 4.1, chloride 105, carbon dioxide 26, BUN 12, creatinine 0.69, blood glucose 130, calcium 9.2. Assessment/Plan All Active Problems Status post total right knee replacement (Acute) This is a 67 years old female patient admitted for elective right total knee replacement for osteoarthritis and I am seeing this patient in consultation for postoperative medical management. #1 status post right total knee replacement: This was done for right knee osteoarthritis, postoperative day 0. At this time, she is asymptomatic, no knee pain. Vital signs are stable. Preoperative routine blood work reviewed, unremarkable. She is on IV Dilaudid, OxyIR as well as IV Toradol as needed for pain. CBC and BMP for tomorrow ordered. Orthopedic surgery is managing. #2 type 2 diabetes mellitus: Blood sugars seem to be under control. Most recent hemoglobin A1c was 6.6 on December,. Plan to continue glipizide, metformin and sitagliptin, insulin sliding scale, continue Accu-Cheks before meals at bedtime. #3 bronchial asthma: Clinically stable, pulse ox is maintained on room air. Continue albuterol as needed, Pulmicort nebulizer and Singulair. #4 fibromyalgia/osteoarthritis: Stable, continue Celebrex and gabapentin. #5 DVT prophylaxis: SCDs, she is on aspirin low-dose twice daily. This note was generated with [employer] dictation software. It may contain incorrect words, spelling, and punctuation that were not noted in checking the note before signing. Code Visit Inpatient E AND M: [id number] Init Hosp L2 04/06/18 1322 <Electronically signed by Marilu Martinez MD> Date Marilu Martinez MD Cosigner Signature (if applicable): Date CC: Marilu Martinez; Yousuf Weiss MD; Arthur Yeboah MD Signed BEDSIDE GLUCOSE Collected: 04/06/2018 Status: F Source: [place] 12:27 PM [facility] REPOSITORY TYPE CODE TESTS RESULT OUT OF REFERENCE UNITS RANGE LAB L501.080 70-110 mg/dL High BEDSIDE GLU 234 Result Comment: MANAGEMENT OF PATIENT CARE PER NURSING PROTOCOL Performed By: #### L501.080 #### [facility] Point of Care [address] [place] [address] BEDSIDE GLUCOSE Collected: 04/06/2018 Status: F Source: [place] 11:06 AM [facility] REPOSITORY TYPE CODE TESTS RESULT OUT OF REFERENCE UNITS RANGE LAB L501.080 70-110 mg/dL High BEDSIDE GLU 224 Result Comment: MANAGEMENT OF PATIENT CARE PER NURSING PROTOCOL Performed By: #### L501.080 #### [facility] Point of Care [address] [place] [address] OPERATIVE REPORT Observed: 04/06/2018 Status: F Source: [place] 10:05 AM [facility] REPOSITORY [facility] Medical Records Department [address] [place] [address] Operative Report 04/06/18 1002 MR#: [id number] Acct: [id number] Name: MERI BARNHART Caroline Rep #: [id number] : 1950 67 From: Arthur Yeboah MD PCP: Yousuf Weiss MD Status: ADM IN Location: [facility] [id number] Report of Operation Date of Procedure: 04/06/18 Pre-Operative Diagnosis: Right knee primary osteoarthritis Post-Operative Diagnosis: Right knee primary osteoarthritis Surgery/Procedure Performed:: Right total knee arthroplasty cemented Description of Surgical Findings:: Stable knee with good patella tracking cork sorter: Monica Acosta Type of Anesthesia:: Spinal Anesthesiologist: Tono Day Special Medications: 2 g Ancef, 1 g TXA at incision, 1 g TXA closure, 10 mg Decadron, joint cocktail (5 mg Duramorph, 30 mL of 0.5% Ropivicaine, 1000 units of epinephrine, 30 mg of Toradol) Specimen's removed: Bony cuts Estimated Blood Loss (mL): 25 Fluids Replaced: 1300 mL crystalloid Description of Procedure: Implants used: 1. Mccormick size 2 triathlon cruciate retaining distal femoral component 2. Bill size 2 primary tibial baseplate 3. Bill X3 11 mm CS polyethylene 4. Mccormick X3 29 mm asymmetric patella Brief history operative indications: 67-year-old f with history of right knee osteoarthritis with radiographic findings with loss of joint space, osteophyte formation and subchondral sclerosis. Failed conservative measures as mentioned in the H AND P. Discussion of total knee arthroplasty as well as risk and benefits were discussed the patient including but not limited to blood loss, DVTs, PEs, neurovascular damage, general risk of anesthesia including loss of life, and stiffness or instability were discussed with patient. Patient demonstrated understanding and was able to sign informed consent. Procedure: On the date of procedure patient's right lower extremity was marked in the preoperative area. The patient was then taken back to the operating room where the patient was placed on the table in the supine position. All bony prominences were identified a well-padded. Anesthesia assumed control of the C-spine and airway and remained controlled throughout the remainder of the procedure. A tourniquet was placed on the right upper thigh and the leg was prepped in a sterile fashion. The surgeon then scrubbed at this time. Upon reentering the room the right lower extremity was draped in a standard orthopedic fashion. A timeout was then called and everyone agreed upon the side, the site, the procedure to be performed, patient's identity and antibiotics given. Esmarch bandage was used to exsanguinate the extremity and the tourniquet was placed up to 250 mmHg with the knee in flexion. A midline skin incision was made and sharp dissection was taken down through skin subcutaneous tissue and fat. The standard medial parapatellar incision was made and the patella was subluxed laterally. The standard deep MCL release was done and the fat pad was resected. Next our attention was directed to the femur. Navigation pins were placed, navigation was registered. The distal femoral cutting block was pinned into place and 8 mm of distal femur resection was completed. The distal femoral cut was verified with navigation. The knee was then placed in deep flexion in the standard Stilnest sizing guide was used to place the femoral component in 3 external rotation based on the posterior condyles. A size 2 4-in-1 cutting block was selected and pinned into place. The anterior cut was then made and checked for notching. The subsequent anterior chamfer cuts, posterior condylar cuts and posterior chamfer cuts were made while ensuring the MCL and LCL were protected. Our attention was then turned to the tibia where the [employer] tibial cutting guide was used to make the appropriate tibial cut 90 degrees from the mechanical axis. Navigation was then used to verify the cut. A size 2 tibial base plate was selected. the knee was flexed to 90 degrees and the soft tissues and posterior osteophytes were removed from the joint. 40 cc of the periarticular injection was injected into the posterior medial corner of the joint. The appropriate trials were then placed on the femur and tibia. A trial polyethylene was trialed to ensure proper balancing and stability of the knee. Patella tracking, was then verified and corrected appropriately as needed. The appropriate tibial internal rotation was then marked with a bovie. Our attention was then directed to the patella. The patella was everted and a flat resection was made. The lug holes were drilled and the patella trial was placed. Patellar tracking was checked and deemed appropriate. Once we were happy lug holes were drilled for the femur and trial components were removed. the tibia was subluxed and pinned into place and the keel was punched and the canal was reamed. Final components were verified and opened, and cement was mixed in a vacuum. Mccormick Simplex cement was used. The wound was copiously irrigated with normal saline. When the cement was ready the components were cemented into place starting with the tibia, femur and finally the patella. The trial poly component was placed and the knee was placed in full extension. All excess cement was removed in the process. Once the cement had cured the tracking, alignment and balance were verified and a size 11 mm polyethylene component was placed. Once the final components were placed the wound was copiously irrigated with normal saline solution and the periarticular injection was given. The wound was closed in a layer goetz fashion using #1 vicryl interrupted sutures for the arthrotomy, 2-0 interrupted Vicryl suture for the subcuticular layer and keely for final skin closure. A sterile compressive dressing was then placed. The patient was then awakened from anesthesia, transferred to the [place] and transferred to the PACU for recovery. Post op plan DVT ppx: ASA 81mg, thigh high compression stockings Follow up: in office in 2 weeks for wound check PT: to start POD #0 at hospital, outpatient PT should be arranged. Grafts/Implants Used: Bill triathlon total knee - Complications None - Admit VTE Documentation VTE Present on Admission: No VTE Mechan Device Prophylaxis: SCD's, Thigh High JONATHAN Hose VTE Pharm Prophylaxis ordered?: Yes 04/06/18 1005 <Electronically signed by Arthur Yeboah MD> Date Arthur Yeboah MD CC: Yousuf Weiss MD; Arthur Yeboah MD Signed BEDSIDE GLUCOSE Collected: 04/06/2018 Status: F Source: [place] 7:36 AM [facility] REPOSITORY TYPE CODE TESTS RESULT OUT OF REFERENCE UNITS RANGE LAB L501.080 70-110 mg/dL High BEDSIDE GLU 194 Result Comment: MANAGEMENT OF PATIENT CARE PER NURSING PROTOCOL Performed By: #### L501.080 #### [facility] Point of Care [address] [address] KNEE 1 OR 2 VIEWS Observed: 04/06/2018 Status: F Source: [place] 7:19 AM [facility] REPOSITORY [facility] Imaging Services [address] [place] [address] Knee 1 or 2 Views MR#: [id number] Acct: [id number] Name: MERI BARNHART Rep #: [id number] : 1950 F 67 From: Mykel Carpio MD PCP: Yousuf Weiss MD Status: ADM IN Study: Knee 1 or 2 Views Date of Exam: 04/06/18 Exam# [id number] Ordering Dr: Arthur Yeboah MD STUDY: X-RAY - RIGHT KNEE REASON FOR EXAM: Female, 67 years old. Total knee replacement. TECHNIQUE: 2 view(s) of the knee. COMPARISON: Comparison is made with prior study dated November 01, 2017. FINDINGS: The patient is status post total knee replacement. There is good alignment. Postoperative soft tissue changes. RAD/Knee 1 or 2 Views IMPRESSION: Status post total knee replacement. There is good alignment. Postoperative soft tissue changes. 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 Operator: Signed HISTORY AND PHYSICAL Observed: 03/24/2018 Status: F Source: [place] EXAM 10:51 AM [facility] REPOSITORY [facility] Medical Records Department [address] [place] [address] History and Physical 03/24/18 105 MR#: [id number] Acct: [id number] Name: MERI BARNHART Rep #: [id number] : 1950 67 From: Alejandro Perera PA-C PCP: Yousuf Weiss MD Status: PRE IN Y [place] [facility] [place] History and Physical DATE OF SURGERY: 04/06/2018 SCHEDULED PROCEDURE: right total knee arthroplasty HISTORY OF PRESENT ILLNESS: This is a 67-year-old female who is been having ongoing pain in her right knee for several months. Patient states her pain is aching, sharp, stabbing. She has increased pain going up and down stairs, driving, sitting for extended periods of time, and start up pain. Pain is primarily located over the medial aspect of the right knee. Patient does complain of clicking and catching with walking. Patient has difficult time with activities of daily living that require any bending of the knee or squatting such as getting dressed. She has tried conservative measures consisting of rest, ice, and elevation with no relief in symptoms. She did have a previous corticosteroid injection in October 2017 with only short-term relief. Patient has been through formal physical therapy and home exercises with no relief in symptoms. Patient denies previous surgery on the right knee. Patient currently denies any recent chest pain, shortness of breath, fevers chills, recent infections. Patient has a medical history pertinent for type 2 diabetes, fibromyalgia, and asthma. We have obtain surgical clearance from patient's primary care physician Dr. Juan Weiss. After failing conservative measures and discussing all treatment options with Dr. Arthur Yeboah, the patient would like to proceed with a right total knee arthroplasty. REVIEW OF SYSTEMS: ROS: Const: Reports anxiety, but denies anorexia, change in appetite, fever, difficulty sleeping, weight change. CV: Denies chest pain, heart murmur, irregular heartbeat and peripheral vascular disease. Resp: Reports asthma, but denies cough, pneumonia, sleep apnea, shortness of breath, tuberculosis and wheezing. GI: Denies constipation, diarrhea, heartburn, nausea, rectal itching, bloody stools and vomiting. : Denies incontinence. Musculo: Denies leg swelling, pain, trouble walking and weakness. Skin: Denies Raynaud's, history of shingles and tattoo. Neuro: Reports numbness/tingling but denies ambulatory dysfunction, dizziness and tremor. Psych: Reports anxiety and depression, but denies insomnia, mental illness and stress. Fermin/Lymph: Denies anemia, bleeding/bruising tendency and past transfusion. Reviewed, no changes. PAST MEDICAL HISTORY: Advance Care Plan: No Advance Directives Effective Date: 11/04/2017 PMH: Medical Problems: Fibromyalgia, Asthma, Diabetes Accidents: None Surgical Hx: Arthroscopy - (1996) Carpal Tunnel - (1989) Hysterectomy - (1984) Tubal Ligation - (1976) Bladder Surgery - (2002) Anesthesia Complications: None Assistive Devices: None Reviewed, no changes. SOCIAL HISTORY: SH: Marital: .Work Status: Not Working Currently.Hand Dominance: Right-Handed. Personal Habits: Smoking: Patient has never smoked.Cigarette Use: Never.Alcohol: Denies use.Drug Use: Denies Use.Enjoy Exercising: Exercises 1-3 x/month. Reviewed, no changes. VITALS: Ht: 59 Wt: 141lb Wt k.958 BMI: 28.5 BP: 119/70 Pulse: 85 Resp: 16 T: 97.9 T: 36.6C ALLERGIES: Morphine - High Fever Vomiting Menthol - Burning And Blisters Relafen - Rash AND Itching MEDICATIONS: Celecoxib 200 mg take 1 capsule by mouth every day, Nexium 20 mg, Singulair 10 mg 1 PO qdAY, Zyrtec 10 mg, Albuterol 90 mcg/Act, Rhinocort Aqua 32 mcg/Act, Advair Diskus 500/50, Coral Calcium 1000mg, Vitamin C 500 mg, Vitamin D 1000 Unit, Gabapentin 300 mg 1 by mouth three times a day, Melatonin 10 mg, Aspir-81 81 mg 1 by mouth every day, Janumet XR 50-1000 mg, Glipizide 5 mg 1 by mouth every day PRE-OP EXAM: General appearance:NORMAL Other: Eyes: Conjunctivae and lids: NORMAL Pupils: ERR Ears, Nose, Mouth, and Throat: NORMAL Other: Inspection of lips, teeth and gums: NORMAL Other: Neck: Examination of neck: no masses noted. Respiratory: Assessment of respiratory effort: NORMAL Other: Auscultation of lungs: clear to auscultation no wheezes, rhonchi or rales. Cardiovascular: Auscultation of heart: regular rate and rhythm, no murmurs, gallops or rubs. Exam of carotid arteries: NORMAL Other: Gastrointestinal: Exam of abdomen: soft, nontender, nondistended bowel sounds present. PHYSICAL EXAMINATION: On exam right knee is cool to touch without erythema. Patient does walk with an antalgic gait. Patient has tenderness to palpation along the medial joint line of the right knee. Patient has positive Mala's examination which reproduces his pain. Range of motion right knee: 0 of extension to 130 flexion. Stable to varus and valgus stress test. Positive correctable varus alignment. Sensation intact to light touch. Neurovascularly intact. IMAGING STUDIES: X-rays of the right knee reveal medial joint space narrowing with subchondral sclerosis and osteophyte formation. Previous MRI also shows a large degenerative meniscus tear and chondral thinning of the patellofemoral and medial compartment consistent with severe degenerative arthrosis. IMPRESSION: 1. Severe right knee osteoarthritis 2. Fibromyalgia 3. Asthma 4. Type 2 diabetes mellitus PLAN: Dr. Arthur Yeboah did discuss and review with the patient all treatment options including surgical versus nonsurgical options. Patient does wish to proceed with the above-stated procedure. Potential risks, benefits, and complications of the procedure were discussed in detail including but not limited to , infection, nerve and blood vessel damage, persistent pain, numbness, tingling, paresthesias, blood clot, pulmonary embolism, and requirement for possible further surgery. The patient expressed full understanding and has no further questions for the doctor. Patient does agree to proceed with the above-stated procedure and has signed the surgery consent form. This dictation was created using voice recognition software. Phonetic and/or grammatical errors may exist.. ___ I have re-examined the patient. There are no clinical changes since date of exam. ___ See progress notes for changes. ___ Dictated on admission Date: Time: Signature: 03/24/18 1051 <Electronically signed by Alejandro Perera PA-C> Date Alejandro Perera PA-C Cosigner Signature: Date (if applicable) CC: Yousuf Weiss MD; Alejandro GOLDSTEIN Signed CBC W/DIFF, AUTOMATED Collected: 03/23/2018 Status: F Source: [place] 11:00 AM [facility] REPOSITORY TYPE CODE TESTS RESULT OUT OF RANGE REFERENCE UNITS LAB L100.1000 4.4-11.0 K/mm3 Normal WBC 8.8 LAB L100.1200 4.2-5.4 M/mm3 Normal RBC 4.78 LAB L100.1300 12.0-15.0 g/dl Normal HGB 13.7 LAB L100.1400 37-47 % Normal HCT 42.0 LAB L100.1500 81-99 fL Normal MCV 87.9 LAB L100.1600 27.0-32.0 pg Normal MCH 28.7 LAB L100.1700 32-36 g/gl Normal MCHC 32.6 LAB L100.1810 11.6-14.6 % Normal RDW CV 13.0 LAB L100.1820 35.1-43.9 fl Normal RDW SD 41.6 LAB L100.1900 150-450 K/mm3 Normal PLT 340 LAB L100.2000 6.2-12.0 fl Normal MPV 10.3 LAB L100.2100 47-70 % Normal NEUT% 53.2 LAB L100.2200 19-41 % Normal LY% 36.5 LAB L100.2300 0-10 % Normal MONO% 8.6 LAB L100.2400 0-5 % Normal EO% 0.9 LAB L100.2500 0-1 % Normal BASO% 0.6 LAB L100.2550 0.0-0.9 % Normal IM GRAN % 0.200 Result Comment: IG% - Immature Granulocytes (promyelocytes, myelocytes and metamyelocytes) > 1% indicates that a LEFT SHIFT is Present. LAB L100.2620 2.0-7.7 X10 3/uL Normal Absolute Neut 4.7 LAB L100.2720 0.83-4.51 X10 3/ul Normal Absolute Lymph 3.23 Performed By: #### L100.0100 #### [facility] [address] [place], [place], [address] BASIC METABOLIC Collected: 03/23/2018 Status: F Source: [place] PROFILE (BMP) 11:00 AM [facility] REPOSITORY TYPE CODE TESTS RESULT OUT OF RANGE REFERENCE UNITS LAB L501.0100 74-106 mg/dL High GLU 130 Result Comment: Fasting Glucose result greater than or equal to 126 mg/dL suggests DIABETES MELLITUS per A.D.A. criteria. Please note revised GLUCOSE reference range effective 2017. LAB L501.1000 7-18 mg/dL Normal BUN 12 LAB L501.1100 0.55-1.02 mg/dL Normal CREAT,SERUM 0.69 Result Comment: The validity of the calculated GFR AND GFRAA in patients over 70 years has not been determined. Clinical correlation is essential. LAB L501.1110 >60 mL/min Normal EST GFR 90 Result Comment: Non- GFR Calc LAB L501.1115 >60 mL/min Normal EST GFR - AA 109 Result Comment: GFR Calc LAB L501.1255 ml/min Normal Estimated CRCL 55.87 LAB L501.1300 10-20 RATIO Normal BUN/CRE 17.4 LAB L501.2200 8.5-10 mg/dL Normal .1 CA 9.2 LAB L501.5300 136-14 mmol/L Normal 5 NA 139 LAB L501.5600 3.5-5. mmol/L Normal 1 K 4.1 LAB L501.5900 98-107 mmol/L Normal CL 105 LAB L501.6100 21.0-3 mmol/L Normal 2.0 CO2 26.0 LAB L501.6200 5-15 Normal GAP 8 Performed By: #### L500.2500 #### [facility] [address] [place], [address] Observed: 03/23/2018 Status: F Source: [place] MRSA/SAID SCREEN 11:00 AM [facility] REPOSITORY MRSA/SAID SCRN S. AUREUS S. aureus Negative MRSA MRSA Negative Performed By: #### M100.651 #### [facility] [address] [place], [address] BASIC METABOLIC Collected: 01/21/2018 Status: F Source: [place] PROFILE (BMP) 1:37 PM [facility] REPOSITORY TYPE CODE TESTS RESULT OUT OF RANGE REFERENCE UNITS LAB L501.0100 74-106 mg/dL Normal GLU 85 Result Comment: Please note revised GLUCOSE reference range effective 2017. LAB L501.1000 7-18 mg/dL Normal BUN 12 LAB L501.1100 0.55-1.02 mg/dL Normal CREAT,SERUM 0.75 Result Comment: The validity of the calculated GFR AND GFRAA in patients over 70 years has not been determined. Clinical correlation is essential. LAB L501.1110 >60 mL/min Normal EST GFR 82 Result Comment: Non- GFR Calc LAB L501.1115 >60 mL/min Normal EST GFR - AA 99 Result Comment: GFR Calc LAB L501.1300 10-20 RATIO Normal BUN/CRE 16.0 LAB L501.2200 8.5-10.1 mg/dL CA Normal 8.7 LAB L501.5300 136-145 mmol/L NA Normal 139 LAB L501.5600 3.5-5.1 mmol/L K Normal 3.8 LAB L501.5900 98-107 mmol/L CL Normal 105 LAB L501.6100 21.0-32.0 mmol/L Normal CO2 27.0 LAB L501.6200 5-15 Normal GAP 7 Performed By: #### L500.2500, L500.4100, L501.9985 #### [facility] [address] [place], [place], [id number] LIPID PROFILE Collected: 01/21/2018 Status: F Source: [place] 1:37 PM [facility] REPOSITORY TYPE CODE TESTS RESULT OUT OF RANGE REFERENCE UNITS LAB L501.4900 200 mg/dL Normal CHOL 194 Result Comment: <200 mg/dL Desirable 200-240 mg/dL Borderline >240 mg/dL High Risk LAB L501.5000 mg/dL Normal TRIG 190 Result Comment: The drugs N-Acetylcysteine and Metamizole may falsely depress this assay. Serum Triglycerides Reference Interval Normal <150 mg/dL Borderline high 150 - 199 mg/dL High 200 - 499 mg/dL Very High > or = 500 mg/dL LAB L501.6400 mg/dL Normal HDL 48 Result Comment: The drugs N-Acetylcysteine and Metamizole may falsely depress this assay. Reference Range HDL <40 mg/dL Low HDL Cholesterol HDL >or= 60 mg/dL High HDL Cholesterol LAB L501.6500 0-130 mg/dL Normal LDL 108 LAB L501.6600 5-40 mg/dL Normal VLDL 38 Performed By: #### L500.2500, L500.4100, L501.9985 #### [facility] [address] [facility] [place], [place], [id number] HEMOGLOBIN A1C Collected: 01/21/2018 Status: F Source: [place] 1:37 PM [facility] REPOSITORY TYPE CODE TESTS RESULT OUT OF RANGE REFERENCE UNITS LAB L501.9985 4.2-6.3 % High HGB A1C 6.6 Performed By: #### L500.2500, L500.4100, L501.9985 #### [facility] [address] [place], [place], [id number] DISCHARGE INSTRUCTION Observed: 01/09/2018 Status: F [facility]: [place] [facility] PM [facility] Medical Records Department [address] [place] [address] Discharge Instruction 01/09/181858 MR#: [id number] Acct: [id number] Name: MERI BARNHART Rep #: [id number] : 1950 67 From: Louise Fink DO PCP: Yousuf Weiss MD Status: PRE ER ED Disposition - Plan for ED Patient: Chief Complaint: Lower Extremity Injury Instructions: ED Knee Pain UKO Prescriptions: Hydrocodone/Acetaminophen [Loving 5-325 Tablet] 1 ea PO 4X/DAY PRN PRN 5 Days #20 tab PRN Reason: Pain Referrals: Yousuf Weiss MD [Primary Care Provider] - Arthur Yeboah MD [STAFF PHYSICIAN] - 3-5 Days What to do if you have Problems For any increased pain, shortness of breath, bleeding, nausea or vomiting, chest pain, or any unexpected problems, contact your Primary Care Provider. Call [facility] ([phone]) or report to the closest Emergency Room. Call 911 if necessary. 01/09/18 1900 <Electronically signed by Louise Fink DO> Date Louise Fink DO Cosigner Signature (If Indicated): Date CC: Yousuf Weiss MD EMERGENCY DEPARTMENT Observed: 01/09/2018 Status: F Source: [place] SUMMARY 6:59 PM [facility] REPOSITORY [facility] Medical Records Department [address] [place] [address] Emergency Department Summary 01/09/181855 MR#: [id number] Acct: [id number] Name: MERI BARNHART Rep #: [id number] : 1950 67 From: Louise Fink DO PCP: Yousuf Weiss MD Status: PRE ER - ER Visit Summary Date of Service: 01/09/18 Chief Complaint: Right knee pain [] History of Present Illness: The patient is a 67 F [presents the emergency department with complaint of pain in her right knee. Patient states that she is scheduled to have a right knee replacement in March with Dr. Yeboah. Patient had a cortisone injection of her right knee in October and that gave her a lot of relief. Patient started having more discomfort last evening. Patient states that she is currently undergoing physical therapy on her right knee which typically seems to cause her increased discomfort. Patient denies any new trauma. She denies any chest pain or shortness of breath. She denies recent travel or surgery. Patient took Tylenol at home last night and did not get much pain relief. Patient states the pain is worse with sitting and seems to improve with standing and walking.] Physical Examination: [HECHRISTINE-PERRLA, CHRISTOPHERMI. Cranial nerves II through XII grossly intact. TMs clear. Mucous membranes moist. No adenopathy. Cardiovascular-regular rate and rhythm without murmur or ectopy Lungs-clear to auscultation, chest wall stable without crepitus or subcu emphysema Abdomen-normoactive bowel sounds, soft, nontender, no rebound or rigidity, no peritoneal signs. Extremities-intact 4, normal range of motion, normal pulses, atraumatic]. Right knee-there is no effusion. There is no erythema or warmth. Patient has normal range of motion in flexion extension. She has mild discomfort with varus and valgus stress on the knee. No laxity noted. Neurovascular intact distally. No ropes or cords palpated to the right leg. Negative Homans sign. Test Results: [None indicated.] Emergency Department Course and Treatment: [Patient was given a dose of Loving in the emergency department. Patient had an MRI recently of her right knee that did show a torn meniscus and arthritic changes.] Treatment Plan: [Patient will be given a prescription for Loving and advised to follow-up with her orthopedic surgeon within next 3-5 days.] Disposition: [Discharged home in stable condition.] Impression: [Right knee pain-acute on chronic.] This note was generated with [employer]arn [employer] software. It may contain incorrect words, spelling, and punctuation that were not noted in review of the chart prior to signing ED Disposition - Plan for ED Patient: Chief Complaint: Lower Extremity Injury Referrals: Yousuf Weiss MD [Primary Care Provider] - What to do if you have Problems For any increased pain, shortness of breath, bleeding, nausea or vomiting, chest pain, or any unexpected problems, contact your Primary Care Provider. Call [facility] ([phone]) or report to the closest Emergency Room. Call 911 if necessary. 01/09/18 3306 <Electronically signed by Louise Fink DO> Date Louise Fink DO Cosigner Signature (If Indicated): Date CC: Yousuf Weiss MD PROGRESS Observed: 12/20/2017 Status: COMPLETED Source: [place] 3:37 PM [facility] REPOSITORY HNO ID: [id number] Author: Christina Wilcox Service: (none) Author Type: Physician Type: Progress Notes Filed: 12/20/2017 9:09 PM Note Text: Mrs Barnhart is here for follow up of her reactive airways disease. 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 Rare use of albuterol- perhaps 2-3 times/month. She uses rhinocort. If she misses singulair, it makes a big difference. She will have knee replacement on right in March. She has a meniscus tear, fractures in knee cap. Granddaughter will be soon - other granddaughter will be moving back to [place]. Her PFTs are normal. 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 BP (!) 110/47 Pulse 94 Temp 36.6 ?C (97.9 ?F) Resp 18 Ht 150.7 cm (4' 11.33) Wt 64 kg (141 lb 1.5 oz) SpO2 94% BMI 28.18 kg/m? in great shape alert and oriented no posterior throat injection or signs of thursh lungs clear heart- normal rate and rhythm and no murmurs knees are good range of motion no edema normal gait. Impression: RADS, on inhaled therapy. Continue rhinocort, singulair and step down advair to 250 dose. CNOV Observed: 12/20/2017 Status: COMPLETED Source: [place] 3:30 PM [facility] [place] REPOSITORY Office Visit (PULMMN) MERI BARNHART ([id number]) 1950 F Date Time Provider Department 12/20/17 3:30 PM CHRISTINA WILCOX PULMARIZA During your visit today, we recorded the following information about you: Temperature Pulse Respiration Blood pressure 97.9 degrees 94/minute 18/minute 110/47 Weight Height 64 kg 1.507 m Christina Wilcox MD, [facility] 12/20/2017 9:09 PM Signed Mrs Barnhart is here for follow up of her reactive airways disease. 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 Rare use of albuterol- perhaps 2-3 times/month. She uses rhinocort. If she misses singulair, it makes a big difference. She will have knee replacement on right in March. She has a meniscus tear, fractures in knee cap. Granddaughter will be soon - other granddaughter will be moving back to [place]. Her PFTs are normal. 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 BP (!) 110/47 Pulse 94 Temp 36.6 ?C (97.9 ?F) Resp 18 Ht 150.7 cm (4' 11.33) Wt 64 kg (141 lb 1.5 oz) SpO2 94% BMI 28.18 kg/m? in great shape alert and oriented no posterior throat injection or signs of thursh lungs clear heart- normal rate and rhythm and no murmurs knees are good range of motion no edema normal gait. Impression: RADS, on inhaled therapy. Continue rhinocort, singulair and step down advair to 250 dose. Referring Provider: CHRISTINA WILCOX [[id number]] Allergies As of Date: 12/20/2017 Noted Allergy Reaction BEE STING KIT 11/20/2002 Comments: carries EpiPen MENTHOL 11/20/2002 Comments: swelling/blisters MORPHINE 11/20/2002 Comments: fever NSAIDS (NON-STEROIDAL ANTI-INFLAM*11/20/2002 Comments: relafen; rash Date Reviewed: 12/20/2017 Reviewed by: Ta Parra Ma - Fully Assessed Reason for Visit: Recheck [92] Primary Visit Diagnosis:Mild intermittent reactive airway disease without complication [J45.20] Order(s):albuterol HFA (PROVENTIL HFA, VENTOLIN HFA) 90 mcg/actuation inhalerInhale 1-2 Puffs as instructed every 6 hours as needed (for wheezing and shortness of breath).Disp: 1 InhalerRfl: 11 montelukast (SINGULAIR) 10 mg tabletTake 1 tablet by mouth daily at bedtime.Disp: 30 tabletRfl: 11 fluticasone-salmeterol (ADVAIR DISKUS) 250-50 mcg/dose dsdvInhale 1 Puff as instructed twice daily. Rinse and gargle mouth with water after each use.Disp: 1 InhalerRfl: 11 cetirizine (ZYRTEC) 10 mg tabletTake 1 tablet by mouth once daily.Disp: 30 tabletRfl: 11 budesonide (RHINOCORT AQUA) 32 mcg/actuation nasal sprayUse 2 Sprays in each nostril once daily.Disp: 8.6 gRfl: 11 Prescriptions as of 12/20/2017 Sig: ALBUTEROL SULFATE HFA 90 MCG/* Inhale 1-2 Puffs as instructe* MONTELUKAST 10 MG TABLET Take 1 tablet by mouth daily * FLUTICASONE 250 MCG-SALMETERO* Inhale 1 Puff as instructed t* CETIRIZINE 10 MG TABLET Take 1 tablet by mouth once d* BUDESONIDE 32 MCG/ACTUATION N* Use 2 Sprays in each nostril * ALBUTEROL SULFATE HFA 90 MCG/* Inhale 1 Puff as instructed f* ESOMEPRAZOLE MAGNESIUM 20 MG * Take 1 capsule by mouth once * ASCORBIC ACID (VITAMIN C) 500* Take 1 tablet by mouth once d* CALCIUM-MAG OXIDE-VITAMIN D3 * Take 1 tablet by mouth twice * ALBUTEROL 90 MCG/ACTUATION AE* Inhale 1 Puff as instructed f* ERGOCALCIFEROL (VITAMIN D2) 4* Take 1 capsule by mouth once * Problem List As Of Date 12/20/2017 Noted Resolved BONE AND CARTILAGE DIS NOS [M89.9, M94.9] INVALID FOR* SYMPTOMATIC FEMALE CLIMACTERIC STATE [N95.1] INVALID FOR* ADV EFFECT MED/BIOL SUB NOS [995.2] INVALID FOR* THROMBOS HEMORRHOIDS NOS [K64.5] INVALID FOR* Prescriptions ordered this encounter Disp Refills Start End ALBUTEROL SULFATE HFA 90 MCG/ACTUATI* 1 In* 11 12/20/2017 12/20/2018 Route: INHALATION Sig: Inhale 1-2 Puffs as instructed every 6 hours as needed (for wheezing and shortness of breath). MONTELUKAST 10 MG TABLET 30 t* 11 12/20/2017 12/20/2018 Route: ORAL Sig: Take 1 tablet by mouth daily at bedtime. FLUTICASONE 250 MCG-SALMETEROL 50 MC* 1 In* 11 12/20/2017 12/20/2018 Route: INHALATION Sig: Inhale 1 Puff as instructed twice daily. Rinse and gargle mouth with water after each use. CETIRIZINE 10 MG TABLET 30 t* 11 12/20/2017 12/20/2018 Route: ORAL Sig: Take 1 tablet by mouth once daily. BUDESONIDE 32 MCG/ACTUATION NASAL SP* 8.6 g 11 12/20/2017 12/20/2018 Route: EACH NOSTRIL Sig: Use 2 Sprays in each nostril once daily. Medications Discontinued During This Encounter Albuterol Sulfate 0.63 mg/3 mL nebul* 360 * 6 11/05/2017 12/20/2017 Route: NEBULIZATION -UNSPEC Sig: Use 1 Ampule via nebulizer every 4 hours as needed. Disc: Course of therapy completed montelukast (SINGULAIR) 10 mg tablet 90 t* 2 08/04/2017 12/20/2017 Sig: TAKE 1 TABLET DAILY AT BEDTIME Disc: Course of therapy completed fluticasone-salmeterol (ADVAIR DISKU* 3 In* 2 11/10/2017 12/20/2017 Route: INHALATION Sig: Inhale 1 Puff as instructed twice daily. Disc: Reason for discontinue is not on file. cetirizine (ZYRTEC) 10 mg tablet 90 t* 6 02/06/2017 12/20/2017 Route: ORAL Sig: Take 1 tablet by mouth daily at bedtime. Disc: Reason for discontinue is not on file. budesonide (RHINOCORT AQUA) 32 mcg/a* 3 g 3 10/14/2015 12/20/2017 Route: EACH NOSTRIL Sig: Use 2 Sprays in each nostril once daily. Disc: Reason for discontinue is not on file. Encounter Status:Closed by CHRISTINA WILCOX MD on 12/20/17 EMERGENCY DEPARTMENT Observed: 11/02/2017 Status: F Source: [place] SUMMARY 7:20 AM [facility] [place] REPOSITORY [facility] Medical Records Department [address] [place] [address] Emergency Department Summary 11/01/17 2309 MR#: [id number] Acct: [id number] Name: MERI BARNHART Rep #: [id number] : 1950 67 From: Clay Hoffman MD PCP: Yousuf Weiss MD Status: DEP ER - ER Visit Summary Date of Service: 11/01/17 Chief Complaint: [] Right knee pain History of Present Illness: The patient is a 67 F [] complaining of right knee pain for the last month on and off. It comes and goes. As a throbbing pain on the inside of her right knee joint. It does not hurt to touch it. There has been no swelling. No injury. She occasionally uses Tylenol and/or ibuprofen. None today. It got worse tonight at [address] She has not seen her doctor for this. She has been using ice this evening with moderate relief. No history of arthritis. Physical Examination: [] Vital signs reviewed General: Well-nourished well-developed Head: Normocephalic atraumatic Eyes: Pupils equal round and reactive to light extraocular movements intact ENT: TMs clear no hemotympanum no trauma Neck: Nontender full range of motion Cardiovascular: Regular rate rhythm no murmurs normal S1-S2 Respiratory: No distress clear to auscultation bilaterally chest nontender Abdomen: Soft nontender nondistended normal bowel sounds no masses Back: Nontender no CVA tenderness Extremities: Nontender knee exam. No ligament laxity. Decreased range of motion secondary to discomfort of the knee. No effusion or warmth. Skin: Normal color no trauma Neuro alert oriented cranial nerves II through XII intact normal strength sensation reflexes Test Results: [] Emergency Department Course and Treatment: [] Patient given oral Tylenol. X-ray of the knee obtained. X-ray showed no abnormality. At this time this may be a meniscal tear. However she does not remember injury. There is no evidence of arthritis. Her medial meniscus appears normal. It is only on the medial portion of the knee. She may need outpatient MRI. She will follow-up for this. Given Ortho referral. Given Geronimo bandage. She did not want crutches. Treatment Plan: [] Disposition: [] Impression: [] Right knee pain This note was generated with Brandnew IO dictation software. It may contain incorrect words, spelling, and punctuation that were not noted in review of the chart prior to signing ED Disposition - Plan for ED Patient: Chief Complaint: Other, Pain/Inj Referrals: Yuosuf Weiss MD [Primary Care Provider] - What to do if you have Problems For any increased pain, shortness of breath, bleeding, nausea or vomiting, chest pain, or any unexpected problems, contact your Primary Care Provider. Call [facility] ([phone]) or report to the closest Emergency Room. Call 911 if necessary. 11/02/17719 <Electronically signed by Clay Hoffman MD> Date Clay Hoffman MD Cosigner Signature (If Indicated): Date CC: Yousuf Weiss MD DISCHARGE INSTRUCTION Observed: 11/02/2017 Status: F Source: [place] 7:20 AM [facility] [place] REPOSITORY [facility] Medical Records Department [address] [place] [address] Discharge Instruction 11/01/17 2345 MR#: [id number] Acct: [id number] Name: MERI BARNHART Rep #: [id number] : 1950 67 From: Clay Hoffman MD PCP: Yousuf Weiss MD Status: [facility] ER ED Disposition - Plan for ED Patient: Disposition: Home or Assisted Living Chief Complaint: Other, Pain/Inj Instructions: ED Meniscal Injury Knee Poss Referrals: Yousuf Weiss MD [Primary Care Provider] - Arthur Yeboah MD [STAFF PHYSICIAN] - What to do if you have Problems For any increased pain, shortness of breath, bleeding, nausea or vomiting, chest pain, or any unexpected problems, contact your Primary Care Provider. Call [facility] ([phone]) or report to the closest Emergency Room. Call 911 if necessary. 11/02/17 0720 <Electronically signed by Clay Hoffman MD> Date Clay Hoffman MD Cosigner Signature (If Indicated): Date CC: Yousuf Weiss MD KNEE 4 OR MORE Observed: 11/01/2017 Status: F Source: [place] VIEWS 11:09 PM [facility] [place] REPOSITORY [facility] Imaging Services [address] [place] [address] Knee 4 or More Views MR#: [id number] Acct: [id number] Name: MERI BARNHART Rep #: [id number] : 1950 F 67 From: Arthur Drake MD PCP: Yousuf Weiss MD Status: [facility] ER Study: Knee 4 or More Views Date of Exam: 11/01/17 Exam# [id number] Ordering Dr: Clay Hoffman MD STUDY: X-RAY - RIGHT KNEE REASON FOR EXAM: Female, 67 years old. Pain. TECHNIQUE: 4 view(s) of the knee. COMPARISON: None. FINDINGS: There is no evidence of fracture or dislocation. There are mild degenerative changes. There are no radiodense foreign bodies. RAD/Knee 4 or More Views IMPRESSION: No fracture or dislocation. Mild degenerative changes. 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 ABDOMEN/PELVIS WITH Observed: 09/09/2017 Status: F Source: [place] CONTRAST 7:07 AM [facility] REPOSITORY [facility] Imaging Services [address] [place] [address] [place] [address] Abdomen/Pelvis WITH Contrast MR#: [id number] Acct: [id number] Name: MERI BARNHART Rep #: [id number] : 1950 F 66 From: Mykel Carpio MD PCP: Yousuf Weiss MD Status: REG CLI Study: Abdomen/Pelvis WITH Contrast Date of Exam: 09/09/17 Exam# [id number] Ordering Dr: Sharon Barron MD STUDY: CT ABDOMEN AND PELVIS WITH CONTRAST REASON FOR EXAM: Female, 66 years old. One month history of lower abdominal pain. RADIATION DOSAGE (If Supplied By Facility): CTDIvol = ( 13.18 ) mGy, DLP = ( 851.11 ) mGycm TECHNIQUE: Transaxial images were obtained from the dome of the diaphragm to the symphysis pubis with oral contrast. 100 ml of Isovue 300 contrast was administered. Sagittal and coronal images were reconstructed. Individualized dose optimization techniques were used for this CT. COMPARISON: None. FINDINGS: Minimal degree of the dependent bibasilar atelectasis. The visualized portions of the heart are within normal limits. There is decreased attenuation of the liver consistent with steatosis. Normal gallbladder and extrahepatic biliary system. Normal spleen. Normal pancreas. Normal bilateral adrenal glands. Normal right kidney. Normal left kidney. Normal visualized stomach. Normal small intestine. Moderate amount of fecal material is seen in the right hemicolon. The appendix is visualized and appears normal. Normal abdominal aorta. Normal inferior vena cava. Normal retroperitoneum. Normal urinary bladder. There is a small umbilical hernia containing fat. Small left inguinal hernia containing fat. Normal osseous structures. CT/Abdomen/Pelvis WITH Contrast IMPRESSION: Moderate amount of fecal material is seen in the right hemicolon. Fatty infiltration of the liver. 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 EMERGENCY DEPARTMENT Observed: 07/25/2017 Status: F Source: [place] SUMMARY 5:40 PM [facility] [place] REPOSITORY [facility] Medical Records Department [address] [place] [address] Emergency Department Summary 07/25/17 1733 MR#: [id number] Acct: [id number] Name: MERI BARNHART Rep #: [id number] : 1950 66 From: Kodi Cavazos MD PCP: Yousuf Weiss MD Status: REG ER - ER Visit Summary Date of Service: 07/25/17 Chief Complaint: Acute bilateral cramping waxing and waning abdominal pain with diarrhea History of Present Illness: The patient is a 66 F who was awakened because of bilateral cramping waxing and waning lower abdominal pain followed by diarrhea. She states she had diarrhea between 3 AM and 10 AM. There was no blood or mucus. She denies fever, chills night sweats. She denies any cardiac respiratory symptoms. She does complain of frequency without dysuria or hematuria. She denies any vaginal bleeding or discharge. She is diabetic and states she checked her blood sugar and it was approximately 200. She denies any blurred vision or change in vision. She denies any vomiting. She denies history of renal ureterolithiasis. She is status post hysterectomy in 1984. Please read written note for complete details Physical Examination: Vital signs unremarkable. HEENT exam reveals dry mucosa. Heart is regular without murmur, gallop or rub. S1 and S2 are normal. Lungs are clear to auscultation with good movement of air bilaterally. Abdomen is soft nontender with increased bowel sounds. There is slight tympany. There is no hepatosplenomegaly. No palpable, pulsatile abdominal mass noted. There is no pulsatile mass. DP PT pulses are palpable. Neuro exam is nonfocal. Test Results: UA is remarkable for leukoesterase otherwise negative. White count slightly elevated 13.5 thousand with 78 segs which is not unexpected in a patient with enteritis. Electro panel is unremarkable. Emergency Department Course and Treatment: She was treated with 20 mg of Bentyl. She was reassessed at 1732. Improvement. Treatment Plan: Appropriate home-going instruction and prescription for Bentyl. Disposition: Discharged to home Impression: Abdominal pain secondary to enteritis Mild dehydration This note was generated with Brandnew IO dictation software. It may contain incorrect words, spelling, and punctuation that were not noted in review of the chart prior to signing ED Disposition - Plan for ED Patient: Disposition: Home or Assisted Living Chief Complaint: Abd Pain Instructions: ED Diarrhea Viral Prescriptions: Dicyclomine HCl [Bentyl] 20 mg PO ACHS #10 cap Referrals: Yousuf Weiss MD [Primary Care Provider] - 3-5 Days if not improving What to do if you have Problems For any increased pain, shortness of breath, bleeding, nausea or vomiting, chest pain, or any unexpected problems, contact your Primary Care Provider. Call [facility] ([phone]) or report to the closest Emergency Room. Call 911 if necessary. 07/25/17 1740 <Electronically signed by Kodi Cavazos MD> Date Kodi Cavazos MD Cosigner Signature (If Indicated): Date CC: Yousuf Weiss MD CBC W/DIFF, AUTOMATED Collected: 07/25/2017 Status: F Source: [place] 5:10 PM [facility] REPOSITORY TYPE CODE TESTS RESULT OUT OF RANGE REFERENCE UNITS LAB L100.1000 4.4-11.0 K/mm3 High WBC 13.5 LAB L100.1200 4.2-5.4 M/mm3 Normal RBC 5.10 LAB L100.1300 12.0-15.0 g/dl Normal HGB 14.9 LAB L100.1400 37-47 % Normal HCT 44.7 LAB L100.1500 81-99 fL Normal MCV 87.6 LAB L100.1600 27.0-32.0 pg Normal MCH 29.2 LAB L100.1700 32-36 g/gl Normal MCHC 33.3 LAB L100.1810 11.6-14.6 % Normal RDW CV 12.6 LAB L100.1820 35.1-43.9 fl Normal RDW SD 40.6 LAB L100.1900 150-450 K/mm3 Normal PLT 339 LAB L100.2000 6.2-12.0 fl Normal MPV 10.7 LAB L100.2100 47-70 % High NEUT% 78.7 LAB L100.2200 19-41 % Low LY% 15.8 LAB L100.2300 0-10 % Normal MONO% 5.2 LAB L100.2400 0-5 % Normal EO% 0.0 LAB L100.2500 0-1 % Normal BASO% 0.1 LAB L100.2550 0.0-0.9 % Normal IM GRAN % 0.200 Result Comment: IG% - Immature Granulocytes (promyelocytes, myelocytes and metamyelocytes) > 1% indicates that a LEFT SHIFT is Present. LAB L100.2620 2.0-7.7 X10 3/uL High Absolute Neut 10.7 LAB L100.2720 0.83-4.51 X10 3/ul Normal Absolute Lymph 2.14 Performed By: #### L100.0100 #### [facility] [address] [place], [address] BASIC METABOLIC Collected: 07/25/2017 Status: F Source: [place] PROFILE (BMP) 5:10 PM [facility] REPOSITORY TYPE CODE TESTS RESULT OUT OF RANGE REFERENCE UNITS LAB L501.0100 74-106 mg/dL High GLU 161 Result Comment: Fasting Glucose result greater than or equal to 126 mg/dL suggests DIABETES MELLITUS per A.D.A. criteria. Please note revised GLUCOSE reference range effective 2017. LAB L501.1000 7-18 mg/dL High BUN 21 LAB L501.1100 0.55-1.02 mg/dL Normal CREAT,SERUM 0.85 Result Comment: The validity of the calculated GFR AND GFRAA in patients over 70 years has not been determined. Clinical correlation is essential. LAB L501.1110 >60 mL/min Normal EST GFR 71 Result Comment: Non- GFR Calc LAB L501.1115 >60 mL/min Normal EST GFR - AA 86 Result Comment: GFR Calc LAB L501.1255 ml/min Normal Estimated CRCL 47.40 LAB L501.1300 10-20 RATIO High BUN/CRE 24.7 LAB L501.2200 8.5-10 mg/dL Normal .1 CA 9.5 LAB L501.5300 136-14 mmol/L Normal 5 NA 138 LAB L501.5600 3.5-5. mmol/L Normal 1 K 4.1 LAB L501.5900 98-107 mmol/L Normal CL 103 LAB L501.6100 21.0-3 mmol/L Normal 2.0 CO2 26.0 LAB L501.6200 5-15 Normal GAP 9 Performed By: #### L500.2500 #### [facility] [address] [place], [address] URINALYSIS, COMPLETE Collected: 07/25/2017 Status: F Source: [place] 4:50 PM [facility] REPOSITORY Order Comment: How was Urine Obtained? CLEAN CATCH TYPE CODE TESTS RESULT OUT OF RANGE REFERENCE UNITS LAB L400.3000 Yellow COLOR Normal Yellow LAB L400.3050 Clear Normal CLARITY Sl. Cloudy LAB L400.3200 Normal mg/dl Normal GLUCOSE, UR Normal LAB L400.3300 Negative mg/dL Normal BILIRUBIN URINE Negative LAB L400.3400 Negative mg/dl Normal KETONE UR Negative LAB L400.3465 1.002-1.030 Normal SP.GR. DIPSTX 1.025 LAB L400.3550 5.0 - 8.0 pH UR Normal 6.0 LAB L400.3600 Negative mg/dl High PROT 15 DIPSTX LAB L400.3700 Normal mg/dl Normal UROBILI Normal LAB L400.3750 Negative Normal NITRITE UR Negative LAB L400.3780 Negative /ul Normal OCCULT BLOOD-UR Negative LAB L400.3800 Negative /ul High LEUK 25 ESTERASE LAB L400.4050 0-5 /hpf WBC Normal 0-5 SEEN LAB L400.4100 0-5 /hpf 0 Normal RBC-UA SEEN LAB L400.4150 5-10 /hpf SQUAM Normal EPI 0-5 SEEN LAB L400.4300 None Seen /hpf 0 Normal BACTERIA SEEN LAB L400.4350 <or=2+ /hpf Normal MUCUS, URINE RARE LAB L400.4700 <or=2+ /hpf CA OX 1+ Normal CRYSTAL Performed By: #### L400.0001 #### [facility] [address] [place], [address] BASIC METABOLIC Collected: 05/31/2017 Status: F Source: [place] PROFILE ([facility]) 8:44 AM [facility] REPOSITORY Order Comment: Order Date: 12/07/16 Order Info: 0667-1 - BMP Order Info: 44006-5 - LIPID TYPE CODE TESTS RESULT OUT OF RANGE REFERENCE UNITS LAB L501.0100 74-106 mg/dL High GLU 153 Result Comment: Fasting Glucose result greater than or equal to 126 mg/dL suggests DIABETES MELLITUS per A.D.A. criteria. LAB L501.1000 7-18 mg/dL Normal BUN 12 LAB L501.1100 0.55-1.02 mg/dL Normal CREAT,SERUM 0.74 Result Comment: The validity of the calculated GFR AND GFRAA in patients over 70 years has not been determined. Clinical correlation is essential. LAB L501.1110 >60 mL/min Normal EST GFR 83 Result Comment: Non- GFR Calc LAB L501.1115 >60 mL/min Normal EST GFR - AA 101 Result Comment: GFR Calc LAB L501.1300 10-20 RATIO Normal BUN/CRE 16.2 LAB L501.2200 8.5-10.1 mg/dL CA Normal 8.9 LAB L501.5300 136-145 mmol/L NA Normal 140 LAB L501.5600 3.5-5.1 mmol/L K Normal 4.3 LAB L501.5900 98-107 mmol/L CL Normal 107 LAB L501.6100 21.0-32.0 mmol/L Normal CO2 26.0 LAB L501.6200 5-15 Normal GAP 7 Performed By: #### L500.2500, L500.4100, L501.9985 #### [facility] [address] [place], [place], [id number] #### L3100.0625 #### [facility] (refer to report for specific site) refer to report for address and phone number LIPID PROFILE Collected: 05/31/2017 Status: F Source: [place] 8:44 AM [facility] REPOSITORY Order Comment: Order Date: 12/07/16 Order Info: 0667-1 - BMP Order Info: 03139-5 - LIPID TYPE CODE TESTS RESULT OUT OF RANGE REFERENCE UNITS LAB L501.4900 200 mg/dL Normal CHOL 149 Result Comment: <200 mg/dL Desirable 200-240 mg/dL Borderline >240 mg/dL High Risk LAB L501.5000 mg/dL Normal TRIG 91 Result Comment: The drugs N-Acetylcysteine and Metamizole may falsely depress this assay. Serum Triglycerides Reference Interval Normal <150 mg/dL Borderline high 150 - 199 mg/dL High 200 - 499 mg/dL Very High > or = 500 mg/dL LAB L501.6400 mg/dL Normal HDL 53 Result Comment: The drugs N-Acetylcysteine and Metamizole may falsely depress this assay. Reference Range HDL <40 mg/dL Low HDL Cholesterol HDL >or= 60 mg/dL High HDL Cholesterol LAB L501.6500 0-130 mg/dL Normal LDL 78 LAB L501.6600 5-40 mg/dL Normal VLDL 18 Performed By: #### L500.2500, L500.4100, L501.9985 #### [facility] [address] [place], [place], [id number] #### L3100.0625 #### [facility] (refer to report for specific site) refer to report for address and phone number HEMOGLOBIN A1C Collected: 05/31/2017 Status: F Source: [place] 8:44 AM [facility] REPOSITORY Order Comment: Order Date: 08/14/17 Order Info: 4548-4 - A1C TYPE CODE TESTS RESULT OUT OF RANGE REFERENCE UNITS LAB L501.9985 4.2-6.3 % High HGB A1C 7.4 Performed By: #### L500.2500, L500.4100, L501.9985 #### [facility] [address] [facility] [place], [place], [id number] #### L3100.0625 #### [facility] (refer to report for specific site) refer to report for address and phone number HEPATITIS C ANTIBODIES Collected: 05/31/2017 Status: F Source: [place] 8:44 AM [facility] REPOSITORY Order Comment: Order Date: 12/07/16 Order Info: 0363-1 - HECAB TYPE CODE TESTS RESULT OUT OF RANGE REFERENCE UNITS LAB L3100.0650 0.0-0.9 s/co ratio Normal HEP C AB <0.1 Result Comment: Negative: < 0.8 Indeterminate: 0.8 - 0.9 Positive: > 0.9 The CDC recommends that a positive HCV antibody result be followed up with a HCV Nucleic Acid Amplification test (940969). Performed at: [facility] [id number] Rocket Engine Tester: Sathya Gage PhD, Phone: [phone] Performed By: #### L500.2500, L500.4100, L501.9985 #### [facility] [address] [place], [address] #### L3100.0625 #### [facility] (refer to report for specific site) refer to report for address and phone number ALLERGIES ALLERGIES DATE TYPE / CODE NAME / CODE REACTION SEVERITY SOURCE 03/23/2018 Drug morphine/F0060 Other Unknown Adrian Allergy/541109747(S 28660(RXNORM) [facility] NOMED CT) Hospital Repository 03/23/2018 Drug menthol/X19841 Rash Unknown [facility]01865[facility] 03/23/2018 Drug simvastatin/F0 Rash Unknown Excell[facility] Allergy/926209090(S 95597264(RXNOR [facility] NOMED CT) M) Hospital Repository 03/23/2018 Drug nabumetone/F00 Rash Unknown [facility]o Allergy/844978467(S 3918622(RXNORM [facility]) ) Hospital Repository 11/01/2017 Miscellaneous BEES Rash Unknown Adrian Allergy/875862928([facility]) Hospital Repository 11/20/2002 DRUG BEE STING KIT Tran INGREDI/125799807(S [facility] NOMED CT) [place] Repository 11/20/2002 DRUG MENTHOL Tran INGREDI/394241154([facility] NOMED CT) [place] Repository 11/20/2002 DRUG MORPHINE [employer] INGREDI/255420184([facility] NOMED CT) [place] Repository 11/20/2002 Drug NSAIDS [facility]/832591779(SNO (NON-STEROIDAL [facility] MED CT) ANTI-INFLAMMAT [place] OR DRUG) Repository ENCOUNTERS ENCOUNTERS ADMIT/DISCHARGE ACCOUNT ADMITTING ENCOUNTER LOCATION SOURCE NUMBER CLASS 05/13/2018 [id number] [facility] ing:[facility] Repository 04/06/2018 [id number] [place], Ambulatory BMSBuilding:Conrado Gibson [place] Repository 04/06/2018 [id number] [place], Ambulatory BMSBuilding:Conrado Gibson [place].[facility] Repository 04/06/2018/04/07/20 [id number] [place], Inpatient [address] ing:IF7Iclt: Repository DQ403Gyd: 1 01/21/2018 [id number] Ambulatory [facility] ing:MFPLAB Repository 01/09/2018/01/10/20 [id number] Emergency [address] ing:ED Repository 12/20/2017/12/22/19 [id number] Ambulatory [address] Repository 12/20/2017/12/23/19 [id number] Ambulatory [address] Repository 11/01/2017/11/02/19 [id number] Emergency [address] ing:ED Repository 09/27/2017 [id number] Ambulatory BMSBuilding:Conrado Campbell MS.[facility] Repository 09/09/2017 [id number] Ambulatory [facility] ing:CT Repository 07/25/2017/07/26/19 [id number] Emergency [address] ing:ED Repository 05/31/2017 [id number] [facility] ing:MFPLAB Repository PAYERS PAYERS ENCOUNTER GUARANTOR PAYER SUBSCRIBER SOURCE 05/13/2018 MERI J Primary MERI J Adrian [id number] Insurance:MEDICARE SIGLERDOB: Community ARREDONDO PART A [facility] [id number] Number: Repository [id number]: 330 [id number] [phone] (HP) Date:2018-05-13 05/13/2018 Secondary MERI J Adrian Insurance:COMBINED SIGLERDOB: Community [place] [id number] CenterPolicy Number: Repository [id number] Date:[id number] [address] [place] [address] 95735LW: 05/13/2018 Tertiary NOT GIVENUNK Adrian Insurance:SELF PAY [facility] Number: Effective Repository Date:2018-05-13 04/06/2018 MERI J Primary MERI J Adrian [id number] Insurance:MEDICARE SIGLERDOB: Community ARREDONDO PART A [facility] [id number] Number: Repository [id number]: 330 [id number] [phone] () Date:2017-12-16 04/06/2018 Secondary MERI J Adrian Insurance:COMBINED SIGLERDOB: [place] [id number] Number: Repository [id number] Date:[id number] [address] [place] [address] 00722GJ: 04/06/2018 Tertiary NOT GIVENUNK Adrian Insurance:SELF PAY [facility] Number: Effective Repository Date:2018-04-06 04/06/2018 MERI J Primary MERI J Adrian [id number] Insurance:MEDICARE SIGLERDOB: Community ARREDONDO PART A olicy [id number] Number: Repository [id number]: 330 [id number] [phone] () Date:2017-12-16 04/06/2018 Secondary MERI J Excello Insurance:COMBINED SIGLERDOB: Community [place] [id number] [facility] Medical Center Hospitalicy Number: Repository [id number] Date:[id number] [address] [place] [address] 97225RE: 04/06/2018 Tertiary NOT GIVENUNK Excello Insurance:SELF PAY [facility]: Effective Repository Date:2018-04-06 04/06/2018 MERI J Primary MERI J Excello [id number] Insurance:MEDICARE SIGLERDOB: Community ARREDONDO PART A [facility] [id number] Number: Repository [id number]: 330 [id number] [phone] () Date:2017-12-16 04/06/2018 Secondary MERI J Adrian Insurance:COMBINED SIGLERDOB: Community [place] [id number] [facility] Medical Center Hospitalic Number: Repository [id number] Date:3625-52-36UQ [address] [place] [address] 53258HF: 04/06/2018 Tertiary NOT GIVENUNK Adrian Insurance:SELF PAY [facility] Number: Effective Repository Date:2017-12-16 01/21/2018 MERI J Primary MERI J Excello [id number] Insurance:MEDICARE SIGLERDOB: Community ARREDONDO PART A [facility] [id number] [place] Number: Repository [id number]: 330 [id number] [phone] () Date:2018-01-21 01/21/2018 Secondary MERI J Adrian Insurance:COMBINED SIGLERDOB: Community INS [place] [id number] Memorial Medical Center Hospitalic Number: Repository [id number] Date:[id number] [address] [place] [address] 93434MO: 01/21/2018 Tertiary NOT GIVENUNK Excello Insurance:SELF PAY [facility] Number: Effective Repository Date:2018-01-21 01/09/2018 MERI J Primary MERI J Adrian [id number] Insurance:MEDICARE SIGLERDOB: Community ARREDONDO PART A [facility] [id number] [place] Number: Repository [id number]: 330 [id number] [phone] (HP) Date:2018-01-09 01/09/2018 Secondary MERI J Excello Insurance:COMBINED SIGLERDOB: Community INS [place] OF [id number] Number: Repository [id number] Date:[id number]F[place]OQ[place], [place] [address]SZ: 01/09/2018 Tertiary NOT GIVENUNK Adrian Insurance:SELF PAY [facility] Number: Effective Repository Date:2018-01-09 11/01/2017 Meri J Primary MERI J Adrian [id number] Insurance:MEDICARE SIGLERDOB: Community ARREDONDO PART A [facility] [id number] [place] Number: Repository [address]Kle: 330 [id number] [phone] (HP) Date:2017-11-01 11/01/2017 Secondary MERI J Adrian Insurance:COMMERCIAL SIGLERDOB: [facility]Polfl[facility] Number: [id number] Hospital [id number] Repository Date:[id number] ED INSURANCE CO [facility] [id number] [place] [address]7719BJ: 11/01/2017 Tertiary NOT GIVENUNK Excello Insurance:SELF PAY [facility] Number: Effective Repository Date:2017-11-01 09/27/2017 Meri J Primary MERI J Excello [id number] Insurance:MEDICARE SIGLERDOB: Community ARREDONDO PART A [facility] [id number] [place] Number: Repository [id number]: 330 [id number] [phone] () Date:2017-09-13 09/27/2017 Secondary NOT GIVENUNK Adrian Insurance:SELF PAY [facility] Number: Effective Repository Date:2017-09-13 09/09/2017 MERI J Primary MERI J Excello [id number] Insurance:MEDICARE SIGLERDOB: Community ARREDONDO PART A [facility] [id number] [place] Number: Repository [id number]: 330 [id number] [phone] (HP) Date:2017-09-03 09/09/2017 Secondary MERI J Adrian Insurance:COMBINED SIGLERDOB: Community INSURANCE [id number] Number: Repository [id number] Date:5548-96-27LK [address] [place] [id number]: 09/09/2017 Tertiary NOT GIVENUNK Excello Insurance:SELF PAY [facility] Number: Effective Repository Date:2017-09-03 07/25/2017 MERI J Primary MERI J Adrian [id number] Insurance:MEDICARE SIGLERDOB: Community ARREDONDO PART A [facility] [id number] Number: Repository [id number]: 330 [id number] [phone] () Date:2017-07-25 07/25/2017 Secondary MERI J Excello Insurance:COMBINED SIGLERDOB: [facility] [id number] Hospital Number: Repository [id number] Date:[id number] [address] [place] [id number]: 07/25/2017 Tertiary NOT GIVENUNK Adrian Insurance:SELF PAY [facility] Number: Effective Repository Date:2017-07-25 05/31/2017 Meri J Primary MERI J Adrian [id number] Insurance:MEDICARE SIGLERDOB: Community Arredondo PART A [facility] [id number] Repository [id number]: 330 [id number] [phone] () Date:2017-05-31 05/31/2017 Secondary NOT GIVENUNK Excello Insurance:SELF PAY [facility] Number: Effective Repository Date:2017-05-31
== END 2018-04-07 14:13 | disposition home or self-care (01) | DRG 470 ==
LOC: ACINP 06:36 → MS3 07:36
PROVIDERS: Admitting Provider Specialist; Family Provider Family Medicine; PCP Family Medicine; Referring Provider Specialist; Visit Provider Specialist
PROC: 0SRC0J9 Replacement of Right Knee Joint with Synthetic Substitute, Cemented, Open Approach (ICD-10-PCS; CPT 27447; principal; 2018-04-06 08:15)
DX: M17.11 Unilateral primary osteoarthritis, right knee (principal); M79.7 Fibromyalgia; E11.9 Type 2 diabetes mellitus without complications; J45.909 Unspecified asthma, uncomplicated; Z79.84 Long term (current) use of oral hypoglycemic drugs; Z79.899 Other long term (current) drug therapy
CPT/HCPCS: 36415; 73560; 80048; 82962; 85025; 85027; 87081; 93005; 94640; 97110; 97161; 97165; 97530; 99251; C1776; J7120; A4216; G0463; J2405

== ENCOUNTER → 2018-05-13 12:46 | Outpatient (CLI) | payer MEDICARE, OTHER, SELFPAY ==
--- NOTE | 2018-05-13 12:52 | VDLE_ITS ---
Reason For Study: LEG PAIN RIGHT LEFT GSV is normal. CFV is compressible, spontaneous, phasic, CFV is compressible, spontaneous, phasic, competent, and demonstrates normal competent and demonstrates normal augmentation. augmentation. FV is compressible, spontaneous, phasic, competent and demonstrates normal augmentation. POP V is compressible, spontaneous, phasic, competent and demonstrates normal augmentation. T/P Trunk is compressible. PTV is compressible. RT PerV is compressible. Procedure Exam performed in department. A preliminary report was called and/or faxed to Marlen Perera. Interpretation Summary Deep veins of the right lower extremity are patent and compressible segmentally. There is no evidence of right lower extremity deep vein thrombosis. Valvular competence appears intact within the proximal deep venous system on the right . The right greater saphenous vein appears patent and compressible segmentally. Ordering Physician: Alejandro Perera Referring Physician: Yousuf Weiss M.D. Performed By: Ericka Gracia RVT
--- OUTSIDE RECORDS SUMMARY | 2018-07-18 02:39 | XMS RPT_ITS ---
:1950 Author Organization OHIP Support Name Relationship Address Phone R Unavailable Unavailable Unavailable BERANRD, DOMONIQUE Unavailable [address] + [place] [address] R Unavailable Unavailable Unavailable BERNARD, DOMONIQUE Unavailable [address] + [place] [address] R Unavailable Unavailable Unavailable BERNARD, DOMONIQUE Unavailable [address] + [place] [address] R Unavailable Unavailable Unavailable BERNARD, DOMONIQUE Unavailable [address] + [place] [address] R Unavailable Unavailable Unavailable BERNARD, DOMONIQUE Unavailable [address] + [place] [address] R Unavailable Unavailable Unavailable BERNARD, DOMONIQUE Unavailable [address] + [place] [address] R Unavailable Unavailable Unavailable BERNARD, DOMONIQUE Unavailable [address] + [place] [address] R Unavailable Unavailable Unavailable BERNARD, DOMONIQUE Unavailable [address] + [place] [address] R Unavailable Unavailable Unavailable BERNARD, DOMONIQUE Unavailable [address] + [place] [address] R Unavailable Unavailable Unavailable BERNARD, DOMONIQUE Unavailable [address] + [place] [address] R Unavailable Unavailable Unavailable BERNARD, DOMONIQUE Unavailable [address] + [place] [address] Care Team Providers Name Role Phone CHRISTINA WILCOX Attending Unavailable CHRISTINA WILCOX Referring Unavailable Alejandro Perera PA-C Attending Unavailable Alejandro Perera PA-C Referring Unavailable Yousuf Coyle Primary Care Unavailable Yousuf Coyle Attending Unavailable Yousuf Coyle Primary Care Unavailable Yousuf Coyle Primary Care Unavailable Louise Fink Attending Unavailable Arthur Yeboah Admitting Unavailable Arthur Yeboah Attending Unavailable Yousuf Coyle Primary Care Unavailable Obinna, Arthur Referring Unavailable Ashelfah, Ghasem Consulting Unavailable Coyle, Yousuf Primary Care Unavailable Clay Hoffman Attending Unavailable Paulie Handley Attending Unavailable Coyle, Yousuf Referring Unavailable Jolliff, Sharon Attending Unavailable Jolliff, Sharon Referring Unavailable Coyle, Yousuf Primary Care Unavailable Coyle, Yousuf Primary Care Unavailable Cavazos, Kodi Attending Unavailable Obinna, Arthur Admitting Unavailable Ashelfah, Ghasem Attending Unavailable Obinna, Arthur Referring Unavailable Coyle, Yousuf Primary Care Unavailable Ashelfah, Ghasem Consulting Unavailable Obinna, Arthur Consulting Unavailable Obinna, Arthur Admitting Unavailable Ashelfah, Ghasem Attending Unavailable Obinna, Arthur Referring Unavailable Coyle, Yousuf Primary Care Unavailable Ashelfah, Ghasem Consulting Unavailable Obinna, Arthur Consulting Unavailable Coyle, Yousuf Attending Unavailable Coyle, Yousuf Primary Care Unavailable PROBLEMS PROBLEMS DATE TYPE CONDITION / CODE ATTENDING STATUS SOURCE 04/07/2018 Unknown Z96.651 - Arthur Yeboah Active [place] Presence of right Pending Sale To [facility] artificial knee Hospital joint / Repository Z96.651(ICD-10) 01/09/2018 Unknown M25.569 - Pain in [place], Remus Active [place] unspecified knee Community / M25.569(ICD-10) Hospital Repository 02/07/2018 Unknown R10.9 - Jollcandice, Sharon Active [place] Unspecified Pending Sale To [facility] abdominal pain / Hospital R10.9(ICD-10) Repository PROCEDURES PROCEDURES No Procedure Records FoundRESULTS RESULTS VENOUS DUPLEX LOWER Observed: 05/13/2018 Status: F Source: [place] EXTREMITY 2:33 PM [facility] REPOSITORY [facility] Cardiovascular Services [address] [place] [address] Venous Duplex US, Unilateral 05/13/18 1308 MR#: [id number] Acct: [id number] Name: MERI BARNHART Rep #: [id number] : 1950 67 From: Duane Mejia MD Attending Dr: Alejandro Cosme Status: [...] Ordering Physician: Alejandro Perera Referring Physician: Yousuf Coyle M.D. Performed By: Ericka Gracia RVT 05/13/18 1433 Date Duane Meija MD CC: Yousuf Coyle MD; Alejandro GOLDSTEIN Date Dictated: 05/13/18 1308 Date Transcribed: 05/13/18 1433 Procurement Forester: Signed BEDSIDE GLUCOSE Collected: 04/07/2018 Status: F Source: [place] 11:13 AM [facility] REPOSITORY TYPE CODE TESTS RESULT OUT OF REFERENCE UNITS RANGE LAB L501.080 70-110 mg/dL High BEDSIDE GLU 217 Result Comment: MANAGEMENT OF PATIENT CARE PER NURSING PROTOCOL Performed By: #### L501.080 #### [place] [facility] Point of Care [address] [place] [address] DISCHARGE INSTRUCTION Observed: 04/07/2018 Status: F Source: [place] 10:59 AM [facility] REPOSITORY [facility] Medical Records Department [address] [place] [address] Instructions for Home/Discharge Instructions 04/07/18 1058 MR#: [id number] Acct: [id number] Name: MERI BARNHART Rep #: [id number] : 1950 67 From: Alejandro Perera PA-C PCP: Yousuf Coyle MD Status: ADM IN Discharge Diet: 1800 [...] on April 11, 2018 Additional Instructions: Follow [facility] orthopedics postop instructions Allergies/Adverse Reactions: Allergies menthol [...] BID #20 tablet Primary Care Physician: Yousuf Coyle MD [Primary Care Provider] - Test Results: [...] Alejandro Perera PA-C CC: Marilu Martinez; Yousuf Coyle MD BEDSIDE GLUCOSE Collected: 04/07/2018 Status: F Source: [place] 5:49 AM [facility] REPOSITORY TYPE CODE TESTS RESULT OUT OF RANGE REFERENCE UNITS LAB L501.080 70-110 mg/dL Normal BEDSIDE GLU 78 Result Comment: MANAGEMENT OF PATIENT CARE PER NURSING PROTOCOL Performed By: #### L501.080 #### [facility] Point of Care [address] [place], [place] [address] BASIC METABOLIC Collected: 04/07/2018 Status: F Source: [place] PROFILE (BMP) 5:36 AM [facility] REPOSITORY TYPE CODE TESTS RESULT OUT OF [...] 7 GAP Performed By: #### L500.2500 #### [facility] [address] [place], [place], [id number] CBC-COMPLETE BLOOD CNT Collected: 04/07/2018 Status: F Source: [place] NO DIFF 5:36 AM [facility] REPOSITORY TYPE CODE TESTS RESULT OUT OF [...] MPV 10.7 Performed By: #### L100.0500 #### [facility] [address] [place], [place], [id number] BEDSIDE GLUCOSE Collected: 04/06/2018 Status: F Source: [place] 9:52 PM [facility] REPOSITORY TYPE CODE TESTS RESULT OUT OF REFERENCE UNITS RANGE LAB L501.080 70-110 mg/dL High BEDSIDE GLU 163 Result Comment: MANAGEMENT OF PATIENT CARE PER NURSING PROTOCOL Performed By: #### L501.080 #### [facility] Point of Care [address] [place] [id number] BEDSIDE GLUCOSE Collected: 04/06/2018 Status: F Source: [place] 3:57 PM [facility] REPOSITORY TYPE CODE TESTS RESULT OUT OF REFERENCE UNITS RANGE LAB L501.080 70-110 mg/dL High BEDSIDE GLU 233 Result Comment: MANAGEMENT OF PATIENT CARE PER NURSING PROTOCOL Performed By: #### L501.080 #### [facility] Point of Care [address] 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 This note was generated with Cooliris dictation software. It may contain incorrect words, spelling, and punctuation that were not noted in checking the note before signing. Code Visit Inpatient E AND M: [id number] Init Hosp L2 04/06/18 1322 <Electronically signed by Marilu Martinez MD> Date Marilu Martinez MD Cosigner Signature (if applicable): Date CC: Marilu Martinez; Yousuf Coyle MD; Arthur Yeboah MD Signed BEDSIDE GLUCOSE Collected: 04/06/2018 Status: F Source: [place] 12:27 PM [facility] REPOSITORY TYPE CODE TESTS RESULT OUT OF REFERENCE UNITS RANGE LAB L501.080 70-110 mg/dL High BEDSIDE GLU 234 Result Comment: MANAGEMENT OF PATIENT CARE PER NURSING PROTOCOL Performed By: #### L501.080 #### [facility] Point of Care [address] [place] [address] BEDSIDE GLUCOSE Collected: 04/06/2018 Status: F Source: [place] 11:06 AM [facility] REPOSITORY TYPE CODE TESTS RESULT OUT OF REFERENCE UNITS RANGE LAB L501.080 70-110 mg/dL High BEDSIDE GLU 224 Result Comment: MANAGEMENT OF PATIENT CARE PER NURSING PROTOCOL Performed By: #### L501.080 #### [facility] Point of Care [address] [place] [address] OPERATIVE REPORT Observed: 04/06/2018 Status: F Source: [place] 10:05 AM [facility] REPOSITORY [facility] Medical Records Department [address] [place] [address] Operative Report 04/06/18 1002 MR#: [id number] Acct: [id number] Name: [place]RI BARNHART Caroline Rep #: [id number] : 1950 67 From: Arthur Yeboah MD PCP: Yousuf Coyle MD Status: ADM IN Location: IN3 XL033-2 Report of Operation Date of Procedure: 04/06/18 Pre-Operative Diagnosis: Right knee primary osteoarthritis Post-Operative Diagnosis: Right knee primary osteoarthritis Surgery/Procedure Performed:: Right total knee arthroplasty cemented Description of Surgical Findings:: Stable knee with good patella tracking computer system technician: Monica Acosta Type of Anesthesia:: Spinal Anesthesiologist: [...] crystalloid Description of Procedure: Implants used: 1. Beaufort size 2 triathlon cruciate retaining distal femoral component 2. Bill size 2 primary tibial baseplate 3. Bill X3 11 mm CS polyethylene 4. Beaufort X3 29 mm asymmetric patella Brief history [...] placed in deep flexion in the standard VENNCOMM sizing guide was used to place the [...] then turned to the tibia where the BrainCells tibial cutting guide was used to make [...] and cement was mixed in a vacuum. Beaufort Simplex cement was used. The wound was [...] then awakened from anesthesia, transferred to the [place] andes and transferred to the PACU for recovery. [...] MD> Date Arthur Yeboah MD CC: Yousuf Coyle MD; Arthur Yeboah MD Signed BEDSIDE GLUCOSE Collected: 04/06/2018 Status: F Source: [place] 7:36 AM [facility] REPOSITORY TYPE CODE TESTS RESULT OUT OF REFERENCE UNITS RANGE LAB L501.080 70-110 mg/dL High BEDSIDE GLU 194 Result Comment: MANAGEMENT OF PATIENT CARE PER NURSING PROTOCOL Performed By: #### L501.080 #### [facility] Point of Care [address] [facility] [place] [address] KNEE 1 OR 2 VIEWS Observed: 04/06/2018 Status: F Source: [place] 7:19 AM [facility] REPOSITORY [facility] Imaging Services [address] [place] [address] Knee 1 or 2 Views MR#: [id number] Acct: [id number] Name: MERI BARNHART Rep #: [id number] : 1950 F 67 From: Mykel Carpio MD PCP: Yousuf Coyle MD Status: ADM IN Study: Knee 1 or 2 Views Date of Exam: 04/06/18 Exam# [id number] Ordering Dr: Arthur Yeboah MD STUDY: X-RAY [...] Mykel Carpio MD at 12:36 EST Tel [phone], Service support , CC: Yousuf Coyle MD; Arthur Yeboah MD Procurement Forester: Signed 12 LEAD ELECTROCARDIOGRAM Observed: 03/29/2018 Status: F Source: [place] 2:23 PM [facility] REPOSITORY [facility] Cardiovascular Services [address] [place] [address] EKG - [facility] 03/23/18 1053 MR#: [id number] Acct: [id number] Name: MERI BARNHART Rep #: [id number] : 1950 67 From: Rogelio Gustafson MD Attending Dr: Arthur Yeboah MD Status: PRE IN Ordering Dr: Arthur Yeboah MD Date: 03/23/18 Location: [facility] Sex: F C Admitted: Test Reason : Blood Pressure : / mmHG Vent. Rate : 067 BPM Atrial Rate : 067 BPM P-R Int : 166 ms QRS Dur : 104 ms QT Int : 402 ms P-R-T Axes : 023 -29 008 degrees QTc Int : 424 ms Normal sinus rhythm Leftward axis Poor R wave progression Confirmed by JANAY ENNISROGELIO ([id number]), design editor EVERTON COYLE ([id number]) on 03/29/2018 2:23:24 PM Referred By: Arthur Yeboah Confirmed By:ROGELIO GUSTAFSON MD 03/29/18 1423 Date Rogelio Gustafson MD CC: Yousuf Coyle MD; Arthur Yeboah MD Date Dictated: 03/23/181052 Date Transcribed: 03/23/181052 Procurement Forester: Signed HISTORY AND PHYSICAL Observed: 03/24/2018 Status: F Source: [place] EXAM 10:51 AM [facility] REPOSITORY [facility] Medical Records Department [address] [place] [address] History and Physical 03/24/18 105 MR#: [id number] Acct: [id number] Name: MERI BARNHART Rep #: [id number] : 1950 67 From: Alejandro Perera PA-C PCP: Yousuf Coyle MD Status: PRE IN Y Location: [facility] History and Physical DATE OF SURGERY: 04/06/2018 [...] from patient's primary care physician Dr. Juan Coyle. After failing conservative measures and discussing all [...] Cosigner Signature: Date (if applicable) CC: Yousuf Coyle MD; Alejandro GOLDSTEIN Signed CBC W/DIFF, AUTOMATED Collected: 03/23/2018 Status: F Source: [place] 11:00 AM [facility] REPOSITORY TYPE CODE TESTS RESULT OUT OF [...] Lymph 3.23 Performed By: #### L100.0100 #### [facility] [address] [place], [place], [address] BASIC METABOLIC Collected: 03/23/2018 Status: F Source: [place] PROFILE (BMP) 11:00 AM [facility] REPOSITORY TYPE CODE TESTS RESULT OUT OF [...] GAP 8 Performed By: #### L500.2500 #### [facility] [address] [place], [address] Observed: 03/23/2018 Status: F Source: [place] MRSA/SAID SCREEN 11:00 AM [facility] REPOSITORY MRSA/SAID SCRN S. AUREUS S. aureus Negative MRSA MRSA Negative Performed By: #### M100.651 #### [facility] [address] [facility] [place], [address] BASIC METABOLIC Collected: 01/21/2018 Status: F Source: [place] PROFILE (BMP) 1:37 PM [facility] REPOSITORY TYPE CODE TESTS RESULT OUT OF [...] Performed By: #### L500.2500, L500.4100, L501.9985 #### [facility] [address] [facility] [place], [place], [id number] LIPID PROFILE Collected: 01/21/2018 Status: F Source: [place] 1:37 PM [facility] REPOSITORY TYPE CODE TESTS RESULT OUT OF [...] Performed By: #### L500.2500, L500.4100, L501.9985 #### [facility] [address] [facility] [place], [place], [id number] HEMOGLOBIN A1C Collected: 01/21/2018 Status: F Source: [place] 1:37 PM [facility] REPOSITORY TYPE CODE TESTS RESULT OUT OF RANGE REFERENCE UNITS LAB L501.9985 4.2-6.3 % High HGB A1C 6.6 Performed By: #### L500.2500, L500.4100, L501.9985 #### [facility] [address] [facility] [place], [place], [id number] DISCHARGE INSTRUCTION Observed: 01/09/2018 Status: F Source: [place] 7:00 PM [facility] Medical Records Department [address] [place] [address] Discharge Instruction 01/09/181858 MR#: [id number] Acct: [id number] Name: MERI BARNHART Rep #: [id number] : 1950 67 From: Louise Fink DO PCP: Yousuf Coyle MD Status: PRE ER ED Disposition - Plan for ED Patient: Chief Complaint: Lower Extremity Injury Instructions: ED Knee Pain UKO Prescriptions: Hydrocodone/Acetaminophen [[place] 5-325 Tablet] 1 ea PO 4X/DAY PRN PRN 5 Days #20 tab PRN Reason: Pain Referrals: Yousuf Coyle MD [Primary Care Provider] - Arthur Yeboah MD [STAFF PHYSICIAN] - 3-5 Days What to do if you have Problems For any increased pain, shortness of breath, bleeding, nausea or vomiting, chest pain, or any unexpected problems, contact your Primary Care Provider. Call [facility] Registry ([phone]) or report to the closest Emergency Room. Call 911 if necessary. 01/09/18 1900 <Electronically signed by Louise Fink DO> Date Louise Fink DO Cosigner Signature (If Indicated): Date CC: Yousuf Coyle MD EMERGENCY DEPARTMENT Observed: 01/09/2018 Status: F Source: [place] SUMMARY 6:59 PM [facility] Medical Records Department [address] [place] [address] Emergency Department Summary 01/09/181855 MR#: [id number] Acct: [id number] Name: MERI BARNHART Rep #: [id number] : 1950 67 From: Louise Fink DO PCP: Yousuf Coyle MD Status: PRE ER - ER Visit [...] Treatment: [Patient was given a dose of [place] in the emergency department. Patient had an MRI recently of her right knee that did show a torn meniscus and arthritic changes.] Treatment Plan: [Patient will be given a prescription for [place] and advised to follow-up with her orthopedic surgeon within next 3-5 days.] Disposition: [Discharged home in stable condition.] Impression: [Right knee pain-acute on chronic.] This note was generated with Ringostatation software. It may contain incorrect words, spelling, and punctuation that were not noted in review of the chart prior to signing ED Disposition - Plan for ED Patient: Chief Complaint: Lower Extremity Injury Referrals: Yousuf Coyle MD [Primary Care Provider] - What to do if you have Problems For any increased pain, shortness of breath, bleeding, nausea or vomiting, chest pain, or any unexpected problems, contact your Primary Care Provider. Call [facility] ([phone]) or report to the closest Emergency Room. Call 911 if necessary. 01/09/18 6474 <Electronically signed by Louise Fink DO> Date Louise Fink DO Cosigner Signature (If Indicated): Date CC: Yousuf Coyle MD PROGRESS Observed: 12/20/2017 Status: COMPLETED Source: [place] 3:37 PM [facility] REPOSITORY HNO ID: [id number] Author: Christina Wilcox Service: (none) Author Type: [...] other granddaughter will be moving back to [place]. Her PFTs are normal. had infection bloodborne, [...] dose. CNOV Observed: 12/20/2017 Status: COMPLETED Source: [place] 3:30 PM [facility] [place] REPOSITORY Office Visit (PULMMN) MERI BARNHART ([id number]) 1950 F Date Time Provider Department 12/20/17 3:30 PM CHRISTINA WILCOX PULMARIZA During your visit today, we recorded the following information about you: Temperature Pulse Respiration Blood pressure 97.9 degrees 94/minute 18/minute 110/47 Weight Height 64 kg 1.507 m Christina Wilcox MD, [facility] 12/20/2017 9:09 PM Signed Mrs Barnhart is [...] other granddaughter will be moving back to [place]. Her PFTs are normal. had infection bloodborne, [...] EMERGENCY DEPARTMENT Observed: 11/02/2017 Status: F Source: [place] SUMMARY 7:20 AM [facility] REPOSITORY [facility] Medical Records Department [address] [place] [address] Emergency Department Summary 11/01/17 2309 MR#: [id number] Acct: [id number] Name: MERI BARNHART Rep #: [id number] : 1950 67 From: Clay Hoffman MD PCP: Yousuf Coyle MD Status: DEP ER - ER Visit [...] knee pain This note was generated with Cooliris dictation software. It may contain incorrect words, spelling, and punctuation that were not noted in review of the chart prior to signing ED Disposition - Plan for ED Patient: Chief Complaint: Other, Pain/Inj Referrals: Yousuf Coyle MD [Primary Care Provider] - What to do if you have Problems For any increased pain, shortness of breath, bleeding, nausea or vomiting, chest pain, or any unexpected problems, contact your Primary Care Provider. Call [facility] ([phone]) or report to the closest Emergency Room. Call 911 if necessary. 11/02/17719 <Electronically signed by Clay Hoffman MD> Date Clay Hoffman MD Cosigner Signature (If Indicated): Date CC: Yousuf Coyle MD DISCHARGE INSTRUCTION Observed: 11/02/2017 Status: F Source: [place] 7:20 AM [facility] REPOSITORY [facility] Medical Records Department [address] [place] [address] Discharge Instruction 11/01/17 2345 MR#: [id number] Acct: [id number] Name: MERI BARNHART Rep #: [id number] : 1950 67 From: Clay Hoffman MD PCP: Yousuf Coyle MD Status: [facility] ER ED Disposition - Plan for ED Patient: Disposition: Home or Assisted Living Chief Complaint: Other, Pain/Inj Instructions: ED Meniscal Injury Knee Poss Referrals: Yousuf Coyle MD [Primary Care Provider] - Arthur Yeboah MD [STAFF PHYSICIAN] - What to do if you have Problems For any increased pain, shortness of breath, bleeding, nausea or vomiting, chest pain, or any unexpected problems, contact your Primary Care Provider. Call [facility] ([phone]) or report to the closest Emergency Room. Call 911 if necessary. 11/02/17 0720 <Electronically signed by Clay Hoffman MD> Date Clay Hoffman MD Cosigner Signature (If Indicated): Date CC: Yousuf Coyle MD KNEE 4 OR MORE Observed: 11/01/2017 Status: F Source: [place] VIEWS 11:09 PM [facility] REPOSITORY [facility] Imaging Services [address] [place] [address] Knee 4 or More Views MR#: [id number] Acct: [id number] Name: MERI BARNHART Rep #: [id number] : 1950 F 67 From: Arthur Drake MD PCP: Yousuf Coyle MD Status: [facility] ER Study: Knee 4 or More Views Date of Exam: 11/01/17 Exam# [id number] Ordering Dr: Clay Hoffman MD STUDY: X-RAY [...] Tel , Service support , CC: Yousuf Coyle MD; Clay Hoffman MD Procurement Forester: Signed ABDOMEN/PELVIS WITH Observed: 09/09/2017 Status: F Source: [place] CONTRAST 7:07 AM [facility] REPOSITORY [facility] Imaging Services [address] [place] [address] [place] [address] Abdomen/Pelvis WITH Contrast MR#: [id number] Acct: [id number] Name: MERI BARNHART Rep #: [id number] : 1950 F 66 From: Mykel Carpio MD PCP: Yousuf Coyle MD Status: REG CLI Study: Abdomen/Pelvis WITH Contrast Date of Exam: 09/09/17 Exam# [id number] Ordering Dr: Sharon Barron MD STUDY: CT [...] Mykel Carpio MD at 10:32 EDT Tel [phone], Service support , CC: Sharon Barron MD; Yousuf Coyle MD Procurement Forester: Signed EMERGENCY DEPARTMENT Observed: 07/25/2017 Status: F Source: [place] SUMMARY 5:40 PM [facility] REPOSITORY [facility] Medical Records Department [address] [place] [address] Emergency Department Summary 07/25/17 1733 MR#: [id number] Acct: [id number] Name: MERI BARNHART Rep #: [id number] : 1950 66 From: Kodi Cavazos MD PCP: Yousuf Coyle MD Status: REG ER - ER Visit [...] Mild dehydration This note was generated with Cooliris dictation software. It may contain incorrect words, spelling, and punctuation that were not noted in review of the chart prior to signing ED Disposition - Plan for ED Patient: Disposition: Home or Assisted Living Chief Complaint: Abd Pain Instructions: ED Diarrhea Viral Prescriptions: Dicyclomine HCl [Bentyl] 20 mg PO ACHS #10 cap Referrals: Yousuf Coyle MD [Primary Care Provider] - 3-5 Days if not improving What to do if you have Problems For any increased pain, shortness of breath, bleeding, nausea or vomiting, chest pain, or any unexpected problems, contact your Primary Care Provider. Call [facility] ([phone]) or report to the closest Emergency Room. Call 911 if necessary. 07/25/17 1740 <Electronically signed by Kodi Cavazos MD> Date Kodi Cavazos MD Cosigner Signature (If Indicated): Date CC: Yousuf Coyle MD CBC W/DIFF, AUTOMATED Collected: 07/25/2017 Status: F Source: [place] 5:10 PM [facility] REPOSITORY TYPE CODE TESTS RESULT OUT OF [...] Lymph 2.14 Performed By: #### L100.0100 #### [facility] [address] [place], [address] BASIC METABOLIC Collected: 07/25/2017 Status: F Source: [place] PROFILE (BMP) 5:10 PM [facility] REPOSITORY TYPE CODE TESTS RESULT OUT OF [...] GAP 9 Performed By: #### L500.2500 #### [facility] [address] [place], [address] URINALYSIS, COMPLETE Collected: 07/25/2017 Status: F Source: COIL[place] 4:50 PM [facility] REPOSITORY Order Comment: How was Urine Obtained? [...] Normal CRYSTAL Performed By: #### L400.0001 #### [facility] [address] [place], [address] BASIC METABOLIC Collected: 05/31/2017 Status: F Source: [place] PROFILE ([facility]) 8:44 AM [facility] REPOSITORY Order Comment: Order Date: 12/07/16 Order Info: [id number] - BMP Order Info: [id number] - LIPID TYPE CODE TESTS RESULT OUT [...] Performed By: #### L500.2500, L500.4100, L501.9985 #### [facility] [address] [place], [place], [address] #### L3100.0625 #### [facility] (refer to report for specific site) refer to report for address and phone number LIPID PROFILE Collected: 05/31/2017 Status: F Source: COIL[place] 8:44 AM [facility] REPOSITORY Order Comment: Order Date: 12/07/16 Order Info: [id number] - BMP Order Info: [id number] - LIPID TYPE CODE TESTS RESULT OUT [...] Performed By: #### L500.2500, L500.4100, L501.9985 #### [facility] [address] [place], [place], [address] #### L3100.0625 #### [facility] (refer to report for specific site) refer to report for address and phone number HEMOGLOBIN A1C Collected: 05/31/2017 Status: F Source: [place] 8:44 AM [facility] REPOSITORY Order Comment: Order Date: 08/14/17 Order Info: [id number] - A1C TYPE CODE TESTS RESULT OUT OF RANGE REFERENCE UNITS LAB L501.9985 4.2-6.3 % High HGB A1C 7.4 Performed By: #### L500.2500, L500.4100, L501.9985 #### [facility] [address] [facility] [address] [place], [place], [address] #### L3100.0625 #### [facility] (refer to report for specific site) refer to report for address and phone number HEPATITIS C ANTIBODIES Collected: 05/31/2017 Status: F Source: [place] 8:44 AM [facility] REPOSITORY Order Comment: Order Date: 12/07/16 Order Info: 0363-1 - HECAB TYPE CODE TESTS RESULT OUT OF RANGE REFERENCE UNITS LAB L3100.0650 0.0-0.9 s/co ratio Normal HEP C AB <0.1 Result Comment: Negative: < 0.8 Indeterminate: 0.8 - 0.9 Positive: > 0.9 The CDC recommends that a positive HCV antibody result be followed up with a HCV Nucleic Acid Amplification test (044655). Performed at: [facility] [id number] Soap Slabber: Sathya Gage PhD, Phone: [phone] Performed By: #### L500.2500, L500.4100, L501.9985 #### [facility] [address] [facility] [place], [address] #### L3100.0625 #### [facility] (refer to report for specific site) refer to report for address and phone number ALLERGIES ALLERGIES DATE TYPE / CODE NAME / CODE REACTION SEVERITY SOURCE 03/23/2018 Drug morphine/F0060 Other Unknown [place] Allergy/858214539(S 47061(RXNORM) Pending Sale To [facility] NOMED CT) Hospital Repository 03/23/2018 Drug menthol/N28393 Rash Unknown [place] Allergy/035565571(S [facility]NORM) [facility] 03/23/2018 Drug simvastatin/F0 Rash Unknown [place] Allergy/295218520(S 46473201(RXNOR Pending Sale To [facility] NOMED CT) M) Hospital Repository 03/23/2018 Drug nabumetone/F00 Rash Unknown [place] Allergy/299440868(S 5737845(RXNORM [facility]) ) Hospital Repository 11/01/2017 Miscellaneous BEES Rash Unknown [place] Allergy/452119078([facility]) Hospital Repository 11/20/2002 DRUG BEE STING KIT [place] INGREDI/579376717(S [facility] NOMED [facility]) [place] Repository 11/20/2002 DRUG MENTHOL Tran INGREDI/170522075([facility] NOMED CT) [place] Repository 11/20/2002 DRUG MORPHINE [place] INGREDI/223002947([facility] NOMED CT) [place] Repository 11/20/2002 Drug NSAIDS [facility]/517418212(SNO (NON-STEROIDAL [facility] MED CT) ANTI-INFLAMMAT [place] OR DRUG) Repository ENCOUNTERS ENCOUNTERS ADMIT/DISCHARGE ACCOUNT ADMITTING ENCOUNTER LOCATION SOURCE NUMBER CLASS 05/13/[id number] [facility] ing:[facility] Repository 04/06/2018/04/07/20 [id number] [place], Inpatient [address] ing:NO4Sstw: Repository [id number]: 1 04/06/2018 [id number] Baylee Yeboah BMSBuilding:Conrado Gibson MS.[facility] Repository 04/06/2018 [id number] [place] Ambulatory BMSBuilding:Conrado Gibson MS.[facility] Repository 01/21/[id number] [facility] ing:MFPLAB Repository 01/09/2018/01/10/20 [id number] Emergency [address] ing:ED Repository 12/20/2017/12/22/19 [id number] Ambulatory [address] Repository 12/20/2017/12/23/19 [id number] Ambulatory [address] Repository 11/01/2017/11/02/19 [id number] Emergency [address] ing:ED Repository 09/27/2017 [id number] Ambulatory BMSBuilding:Conrado Campbell MS.[facility] Repository 09/09/[id number] [facility] ing:CT Repository 07/25/2017/07/26/19 [id number] Emergency [address] ing:ED Repository 05/31/[id number] [facility] ing:MFPLAB Repository PAYERS PAYERS ENCOUNTER GUARANTOR PAYER SUBSCRIBER SOURCE 05/13/2018 MERI J Primary MERI J [place] [id number] Insurance:MEDICARE SIGLERDOB: Community ARREDONDO PART A [facility] [id number] Number: Repository [id number]: 330 [id number] [phone] (HP) Date:2018-05-13 05/13/2018 Secondary MERI J [place] Insurance:COMBINED SIGLERDOB: Community INSURANCE [place] [id number] Health CenterPolicy Number: Repository [id number] Date:6236-24-56XA [address] [place] [address] 17934JJ: 05/13/2018 Tertiary NOT GIVENUNK [place] Insurance:SELF PAY [facility] Number: Effective Repository Date:2018-05-13 04/06/2018 MERI J Primary MERI J [place] [id number] Insurance:MEDICARE SIGLERDOB: Community ARREDONDO PART A [facility] [id number] Number: Repository [address]Qwa: 330 [id number] [phone] () Date:2017-12-16 04/06/2018 Secondary MERI J [place] Insurance:COMBINED SIGLERDOB: Community INSURANCE [place] [id number]-Community Medical Centeric Number: Repository [id number] Date:4910-59-64BI [address] [place] [address] 74884CZ: 04/06/2018 Tertiary NOT GIVENUNK [place] Insurance:SELF PAY [facility] Number: Effective Repository Date:2017-12-16 04/06/2018 MERI J Primary MERI J [place] [id number] Insurance:MEDICARE SIGLERDOB: Community ARREDONDO PART A o[place] [id number] Number: Repository [address]Owu: 330 [id number] [phone] () Date:2017-12-16 04/06/2018 Secondary MERI J [place] Insurance:COMBINED SIGLERDOB: Community [place]URANCE [place] [id number]-Community Medical Centericy Number: Repository [id number] Date:4550-11-06MD [address] [place] [address] 57389LE: 04/06/2018 Tertiary NOT GIVENUNK [place] Insurance:SELF PAY [facility] Effective Repository Date:2018-04-06 04/06/2018 MERI J Primary MERI J [place] [id number] Insurance:MEDICARE SIGLERDOB: Community ARREDONDO PART A [facility] [id number] Number: Repository [id number]: 330 [id number] [phone] () Date:2017-12-16 04/06/2018 Secondary MERI J [place] Insurance:COMBINED SIGLERDOB: Community [place] [id number]-Community Medical Centeric Number: Repository [id number] Date:4907-08-25SD [address] [place] [address] 64767OB: 04/06/2018 Tertiary NOT GIVENUNK [place] Insurance:SELF PAY [facility] Number: Effective Repository Date:2018-04-06 01/21/2018 MERI J Primary MERI J [place] [id number] Insurance:MEDICARE SIGLERDOB: Community ARREDONDO PART A [facility] [id number] Number: Repository [id number]: 330 [id number] [phone] () Date:2018-01-21 01/21/2018 Secondary MERI J [place] Insurance:COMBINED SIGLERDOB: Community INS CO OF [id number]-Community Medical Centeric Number: Repository [id number] Date:3399-05-02VG [address] [place] [address] 35490HY: 01/21/2018 Tertiary NOT GIVENUNK [place] Insurance:SELF PAY [facility] Number: Effective Repository Date:2018-01-21 01/09/2018 MERI J Primary MERI J [place] [id number] Insurance:MEDICARE SIGLERDOB: Community ARREDONDO PART A [facility] [id number] Number: Repository [id number]: 330 [id number] [phone] (HP) Date:2018-01-09 01/09/2018 Secondary MERI J [place] Insurance:COMBINED SIGLERDOB: Community [place] [id number] Number: Repository [id number] Date:7693-68-80OW [address] [address], [place] [address]JV: 01/09/2018 Tertiary NOT GIVENUNK [place] Insurance:SELF PAY [facility] Number: Effective Repository Date:2018-01-09 11/01/2017 Meri J Primary MERI J [place] [id number] Insurance:MEDICARE SIGLERDOB: Community ARREDONDO PART A [facility] [id number] Number: Repository [id number]: 330 [id number] [phone] (HP) Date:2017-11-01 11/01/2017 Secondary MERI J [place] Insurance:COMMERCIAL SIGLERDOB: [facility]Pol[facility] Number: [id number] Hospital [id number] Repository Date:9742-58-46WNLPMH ED INSURANCE CO [facility] [address] [place] [address]79[address]ET: 11/01/2017 Tertiary NOT GIVENUNK [place] Insurance:SELF PAY [facility] Number: Effective Repository Date:2017-11-01 09/27/2017 Meri J Primary MERI J [place] [id number] Insurance:MEDICARE SIGLERDOB: Community ARREDONDO PART A [facility] [id number] Number: Repository [address]Svu: 330 [id number] [phone] () Date:2017-09-13 09/27/2017 Secondary NOT GIVENUNK [place] Insurance:SELF PAY [facility] Number: Effective Repository Date:2017-09-13 09/09/2017 MERI J Primary MERI J [place] [id number] Insurance:MEDICARE SIGLERDOB: Community ARREDONDO PART A [facility] [id number] Number: Repository [id number]: 330 [id number] [phone] (HP) Date:2017-09-03 09/09/2017 Secondary MERI J [place] Insurance:COMBINED SIGLERDOB: Community INSURANCE [id number] Number: Repository [id number] Date:5526-53-02DV [address] [place] [address]OF: 09/09/2017 Tertiary NOT GIVENUNK [place] Insurance:SELF PAY [facility] Number: Effective Repository Date:2017-09-03 07/25/2017 MERI J Primary MERI J [place] [id number] Insurance:MEDICARE SIGLERDOB: Community ARREDONDO PART A [facility] [id number] Number: Repository [address]Dxk: 330 [id number] [phone] () Date:2017-07-25 07/25/2017 Secondary MERI J [place] Insurance:COMBINED SIGLERDOB: [facility] [id number] Hospital Number: Repository [id number] Date:6223-22-15PMEBM [address] [place] [address]NZ: 07/25/2017 Tertiary NOT GIVENUNK [place] Insurance:SELF PAY [facility] Number: Effective Repository Date:2017-07-25 05/31/2017 Meri J Primary MERI J [place] [id number] Insurance:MEDICARE SIGLERDOB: Community Arredondo PART A [facility] [id number] Number: Repository [address]Jsl: 330 [id number] [phone] () Date:2017-05-31 05/31/2017 Secondary NOT GIVENUNK [place] Insurance:SELF PAY [facility] Number: Effective Repository Date:2017-05-31
== END ==
PROVIDERS: Family Provider Family Medicine; PCP Family Medicine; Referring Provider Physician Assistant Surgical; Visit Provider Physician Assistant Surgical
DX: M79.661 Pain in right lower leg (principal)
CPT/HCPCS: 93971

== ENCOUNTER 2018-08-24 09:00 | Outpatient (RCR) | payer MEDICARE, OTHER, SELFPAY ==
--- NOTE | 2018-06-21 09:09 | HP.PTEVAL ---
Patient's Visit Information CEASAR WAGNER is a 67 year old F referred to Physical Therapy by Arthur Yeboah MD with a diagnosis of Right TKR. Date of Evaluation: 06/21/18 Physical Therapist: Magda Garcia DPT - Visit Plan Frequency: 2x /Week Duration: 4 Weeks Plan: Aquatics- Focus on LE and core s/s and ROM in the right knee - Subjective Findings: Patient reports that she had a TKR and has had therapy but feels that aquatic therapy would help a lot. Apr 06, [address] Yeboah at [facility]- discharged from PT in the first part of May. Patient reports that she is having problems with the knee cap rubbing the muscle. The most problem she runs into is at night. Pain is located around the knee cap and along both sides of the knee cap. Worst: 6/10 Agg: night time, sitting for to long (10-15 min), stairs. Best: 0/10 Eases: ice, heat on the muscles. Describes the pain as dull and achy but does get random sharp pains on the joint lines. Does have radiating pain in the mathews. No N/T in the toes currently but some exercises caused it to go numb but not for awhile. Sleep: disturbed- has not taken pain medication other than Tylenol- side sleeper- with a pillow between the knees but plans to order new knee pillow. Fully I proir to surgery- and is back to driving. 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 X-rays taken last time everything looks good. Goes back to July 04, 2018. PMHx: Fibro, DM, asthma -chemical injury from work 2002. Meds: genumet, gliposide, celebrex, zyrtec, singulair, advair, inhaler albuterol, gabapentin - Objective Posture: FH, RS- does correct with verbal cueing. Gait: slightly antalgic- decreased stance on the right LE with poor heel/toe pattern due to decreased knee extension. Stairs: asc/desc 8 recip with no HR- good control with ascend but descend is less controlled. HR/TR: able. SLS: 4 seconds then LOB. Palpation: tender along medial and lateral joint line and superior patella. Sensation: WFL. ROM: 5-115 degrees- pain at end range extension. Strength: Ankle: 5/5, Knee: 4+/5, Hip: 4/5 throughout with pain in the knee while testing IR. Core: fair. Flex: HS: moderate, Gastroc: mild - Goals Goal 1:: Patient will be I with HEP and progression of aquatic exercises Goal Time Frame: 4-6 Weeks Goal 2:: Patient will demo 0-120 degrees of ROM Goal Time Frame: 4-6 Weeks Goal 3:: Patient will ambulate >300 feet with a normalized gait pattern Goal Time Frame: 4-6 Weeks Goal 4:: Patient will report 0/10 pain for 1 week while sleeping through the night Goal Time Frame: 4-6 Weeks - Rehabilitation Potential Physical Therapy Diagnosis: Patient presents with hypomobility- she has decreased ROM, strength and muscular endurance leading to poor posture and increased pain with ADL's s/p Right TKR. Rehabilitation Potential: Fair - Anticipated Interventions Patient/Client Instruction: Educate patient on: Benefits of Fitness Program Therapeutic Exercise to Include: Strength training, Endurance training, Balance training, Agility training, Body mechanics, Postural training, Flexibilty training, Gait and locomotor training, In an aquatic setting, Active ROM, Dynamic Lumbar Stabilization For the Purpose of:: To increase oxygenation perfusion Thank you for the opportunity to evaluate your patient. For Medicare and Medicare HMO plans, please review the plan of care and approve it. It will need to be FAXED BACK to us at [phone] for Medicare purposes. For Medicare only, by signing this I certify the plan of care. Please let me know if there are questions or concerns regarding this plan of care. Physician Signature: Date:
--- NOTE | 2018-07-20 08:30 | HP.PTREVAL ---
Arthur Yeboah MD, It has been my pleasure to treat CEASAR WAGNER over the last 10 visits for Right TKR. Please see the progress note below for an update on the physical therapy plan of care! Subjective: The patient reports that sometimes the knee is still really sore. Does feel the water therapy helped with the bending but still has issues going down the stairs unless they are shorter than 4 inches. Would like to continue with water therapy to be more comfortable with the exercises. Objective/Function: Posture: FH, RS- does correct with verbal cueing. Gait: slightly antalgic- decreased stance on the right LE with mild heel/toe pattern Stairs: asc/desc 8 recip with no HR- good control with ascend but descend is less controlled and hesitant. HR/TR: able. SLS: 10 seconds then LOB. Palpation: tender along medial and lateral joint line and superior patella. Has 2 small nodules above and below the lateral joint line that she reports come and go but when they are there they hurt Sensation: WFL. ROM: 0-115 degrees- reports stiffness this AM with flexion. Strength: Ankle: 5/5, Knee: 4+/5, Hip: 4+/5 throughout. Core: fair. Flex: HS: moderate, Gastroc: mild Plan Plan: Continue Aquatic therapy 2x a week for an additional 4 weeks to progress towards functional goals- add in eccentric squats for controlled descent of stairs- progress towards I HEP Goals Goal 1:: Patient will be I with HEP and progression of aquatic exercises Goal Time Frame: 4-6 Weeks Goal Progress: Progressing Goal 2:: Patient will demo 0-120 degrees of ROM Goal Time Frame: 4-6 Weeks Goal Progress: Progressing Goal 3:: Patient will ambulate >300 feet with a normalized gait pattern Goal Time Frame: 4-6 Weeks Goal Progress: Progressing Goal 4:: Patient will report 0/10 pain for 1 week while sleeping through the night Goal Time Frame: 4-6 Weeks Anticipated Interventions Patient/Client Instruction: Educate patient on: Benefits of Fitness Program Therapeutic Exercise to Include: Strength training, Endurance training, Balance training, Agility training, Body mechanics, Postural training, Flexibilty training, Gait and locomotor training, In an aquatic setting, Active ROM, Dynamic Lumbar Stabilization For the Purpose of:: To increase oxygenation perfusion Please do not hesitate to contact me at [phone] by phone or if you have questions or concerns regarding this new plan of care! Sincerely, MARILYN MartinT
--- NOTE | 2018-08-24 09:24 | HP.PTDCSUM ---
HP - PT D/C Summary It has been my pleasure to treat CEASAR WAGNER under orders from Arthur Yeboah MD, for the diagnosis of Right TKR for a total of 18 visit(s). Discharge Date: Please see the following information for a summary of their discharge status. - Subjective Subjective: Patient reports that she has a lot of problems going down stairs- hard and painful. It gave it out on her when she was going down 2 stairs yesterday. Does still have stiffness in it. When she is walking its good- but when she gets up in the AM or after she sits for to long it stiffens up. Feels that she is 80% better. Most of the time she is painfree- hard to get comfortable at night, stairs and getting in/out of the vehicle. - Pain R knee Pain Intensity (Out of 10): 0 L knee Pain Intensity (Out of 10): 4 - Overall Improvement % Improvement: 80 - Objective Objective/Function: Posture: FH, RS- does correct with verbal cueing. Gait:no deviation Stairs: asc/desc 8 recip with no HR- good control with ascend but descend is less controlled and hesitant on a 8 stair but normal on a 6 stair. HR/TR: able. SLS: 10 seconds then LOB. Palpation: tender along lateral joint line. Has 2 small nodules above and below the lateral joint line that she reports come and go but when they are there they hurt Sensation: WFL. ROM: 0-115 degrees. Strength: Ankle: 5/5, Knee: 4+/5, Hip: 4+/5 throughout. Core: fair. Flex: HS: moderate, Gastroc: mild - Goals Goal 1:: Patient will be I with HEP and progression of aquatic exercises Goal Progress: Progressing Goal 2:: Patient will demo 0-120 degrees of ROM Goal Progress: Progressing Goal 3:: Patient will ambulate >300 feet with a normalized gait pattern Goal Progress: Progressing Goal 4:: Patient will report 0/10 pain for 1 week while sleeping through the night - Plan Plan: Discharge to I HEP - D/C Information If there are questions or concerns regarding this patient's physical therapy, please feel free to call me at [phone]. Thank you for the referral of this patient. Sincerely, Magda Garcia DPT
== END 2018-08-24 19:00 | disposition home or self-care (01) ==
LOC: PT 09:00
PROVIDERS: Family Provider Family Medicine; PCP Family Medicine; Referring Provider Specialist; Visit Provider Specialist
DX: Z96.651 Presence of right artificial knee joint (principal); Z47.1 Aftercare following joint replacement surgery
CPT/HCPCS: 97113; 97161; 97164

== ENCOUNTER → 2018-12-30 08:46 | Outpatient (CLI) | payer MEDICARE, OTHER, SELFPAY ==
[2018-04-06 11:51] VITALS: BMI 28.0
[2018-12-30 11:35] LABS: Anion Gap 8 (5-15); BUN 13 mg/dL (7-18); BUN/Creat Ratio 15.6 RATIO (10-20); Calcium,Total 9.4 mg/dL (8.5-10.1); Chloride 105 mmol/L (98-107); Cholesterol 248 mg/dL (200); Creatinine, Serum 0.84 mg/dL (0.55-1.02); EST Glomerular Filtration Rate 72 mL/min (>60); Est Glom Filt Rate - Afr Amer 88 mL/min (>60); Glucose 155 mg/dL (74-106); High Density Lipoprotein 57 mg/dL; Potassium 4.3 mmol/L (3.5-5.1); Sodium Level 140 mmol/L (136-145); Triglycerides 212 mg/dL; Very Low Density Lipoprotein 42 mg/dL (5-40)
[2018-12-30 12:14] LABS: Hemoglobin A1c 6.7 % (4.2-6.3)
== END ==
PROVIDERS: Family Provider Family Medicine; PCP Family Medicine; Visit Provider Family Medicine
DX: E11.9 Type 2 diabetes mellitus without complications (principal); E78.00 Pure hypercholesterolemia, unspecified
CPT/HCPCS: 36415; 80048; 80061; 83036

== ENCOUNTER → 2019-07-03 09:49 | Outpatient (CLI) | payer MEDICARE, OTHER, SELFPAY ==
[2018-04-06 11:51] VITALS: BMI 28.0
[2019-07-03 12:48] LABS: Cholesterol 191 mg/dL (200); High Density Lipoprotein 58 mg/dL; Triglycerides 111 mg/dL; Very Low Density Lipoprotein 22 mg/dL (5-40)
[2019-07-03 13:04] LABS: Hemoglobin A1c 7.1 % (4.2-6.3)
[2019-07-03 14:07] LABS: Glucose 135 mg/dL (74-106)
== END ==
PROVIDERS: Family Medicine; PCP Family Medicine; Referring Provider Family Medicine; Visit Provider Family Medicine
DX: E11.9 Type 2 diabetes mellitus without complications (principal); E78.00 Pure hypercholesterolemia, unspecified
CPT/HCPCS: 36415; 80061; 82947; 83036

== ENCOUNTER 2019-08-13 14:51 | Emergency (ER) | payer MEDICARE, OTHER, SELFPAY ==
[2019-08-13 14:53] VITALS: BP 142/85; PULSE 73; RESP 16; TEMP 36.4; O2SAT 96; BMI 28.1
--- NOTE | 2019-08-13 15:08 | RAD_ITS ---
STUDY: X-RAY - RIGHT KNEE REASON FOR EXAM: Female, 68 years old. fall. Pain anterior TECHNIQUE: 4 view(s) of the knee. COMPARISON: April 06, 2018 right knee x-ray FINDINGS: There is a right knee arthroplasty. There is no visualized fracture in or around the arthroplasty. Normal visualized proximal tibia and fibula. Normal proximal tibiofibular articulation. RAD/Knee 4 or More Views IMPRESSION: Knee arthroplasty no visualized acute fracture. No evidence of acute loss of height or alignment. Electronically Signed: Meri Rg MD at 16:06 EDT Tel , Service support ,
--- NOTE | 2019-08-13 15:45 | ED.DCSUM_ITS ---
- ER Visit Summary Date of Service: 08/13/19 Chief Complaint: Right knee pain History of Present Illness: The patient is a 68 F who presents with right knee pain that began after a fall today. Patient states she landed on the anterior part of her right knee. Patient states her pain is worse with movement. Patient denies any paresthesias or weakness. Patient denies any head injury or loss of consciousness. Patient states she was able to ambulate after the fall. Patient denies any other injuries. Patient denies any syncopal episodes. Physical Examination: Vital signs are stable. Patient is afebrile. Patient is in no acute distress. Musculoskeletal exam reveals tenderness over the anterior aspect of the right knee. There is some mild ecchymosis. There is a very superficial abrasion. There is no active bleeding noted. Range of motion was limited in all motions of the right knee secondary to pain. There is no laxity appreciated. There is no bony crepitance or step-off. There is no effusion. Pedal pulses are equal bilaterally. Sensation was intact to light touch in all digits. Capillary refill is less than 2 seconds in all digits. Test Results: X-rays of the right knee were obtained. There is no acute fracture or loosening of the prosthesis. This was interpreted by myself and the radiologist. Emergency Department Course and Treatment: Patient was given an ice pack. Patient was instructed to ice and elevate the right knee. Patient was instructed to take Tylenol as needed for pain. Patient was instructed to follow-up with her primary care physician in 5 to 7 days. Patient understood and was agreeable with the plan. All questions were answered. Disposition: Discharge home Impression: Right knee contusion This note was generated with [employer] dictation software. It may contain incorrect words, spelling, and punctuation that were not noted in review of the chart prior to signing ED Disposition - Plan for ED Patient: Disposition: Home or Assisted Living Diagnosis: Contusion of right knee, initial encounter Instructions: ED EXTREMITY CONTUSION Lower Referrals: Yousuf Dennis MD [Primary Care Provider] - 5-7 Days
== END 2019-08-13 16:39 | disposition home or self-care (01) ==
LOC: ED 16:23
PROVIDERS: Emergency Provider Emergency Medicine; PCP Family Medicine
DX: S80.01XA Contusion of right knee, initial encounter (principal); W19.XXXA Unspecified fall, initial encounter; Y93.9 Activity, unspecified; Y92.9 Unspecified place or not applicable; Y99.9 Unspecified external cause status; J45.909 Unspecified asthma, uncomplicated; M79.7 Fibromyalgia; Z79.84 Long term (current) use of oral hypoglycemic drugs; Z79.82 Long term (current) use of aspirin; Z79.899 Other long term (current) drug therapy
CPT/HCPCS: 73564; 99282

== ENCOUNTER → 2019-10-05 | Outpatient (CLI) | payer MEDICARE, OTHER, SELFPAY ==
[2019-10-05 10:41] LABS: Hemoglobin A1c 7.8 % (3.8-5.6)
[2019-10-05 10:51] LABS: ALB/GLOB Ratio 1.4 RATIO (0.9-2.4); AST(SGOT) 13 U/L (15-37); Alanine Aminotransfer ALT/SGPT 22 U/L (13-56); Albumin, Serum 4.1 g/dL (3.2-5.0); Alkaline Phosphatase 80 U/L (45-117); Anion Gap 6 (5-15); BUN 14 mg/dL (7-18); BUN/Creat Ratio 17.5 RATIO (10-20); Calcium,Total 9.6 mg/dL (8.5-10.1); Chloride 106 mmol/L (98-107); EST Glomerular Filtration Rate 76 mL/min (>60); Est Glom Filt Rate - Afr Amer 92 mL/min (>60); Glucose 135 mg/dL (74-106); Potassium 4.5 mmol/L (3.5-5.1); Protein, Total 7.1 g/dL (6.4-8.2); Sodium Level 141 mmol/L (136-145)
[2019-10-05 13:15] LABS: Microalbumin,Random Urine 8.9 mg/L (NO RANGE EST.); Microalbumin:Creatinine Ratio 5.4 mg/g CRE (<30 mg/g CRE)
== END | disposition home or self-care (01) ==
LOC: MFPLAB 08:58
PROVIDERS: PCP Family Medicine; Referring Provider Family Medicine; Visit Provider Family Medicine
DX: E11.9 Type 2 diabetes mellitus without complications (principal)
CPT/HCPCS: 36415; 80053; 82043; 82570; 83036

== ENCOUNTER 2020-01-18 13:30 | Outpatient (RCR) | payer MEDICARE, OTHER, SELFPAY | END 2020-01-24 23:59 | LOC: DC 13:30 | PROVIDERS: PCP Family Medicine; Visit Provider Family Medicine | DX: Z71.3 Dietary counseling and surveillance (principal); E11.40 Type 2 diabetes mellitus with diabetic neuropathy, unspecified | CPT/HCPCS: 97802; G0108 ==

== ENCOUNTER → 2020-01-24 09:01 | Outpatient (CLI) | payer MEDICARE, OTHER, SELFPAY ==
[2020-01-24 10:34] LABS: ALB/GLOB Ratio 1.1 RATIO (0.9-2.4); AST(SGOT) 11 U/L (15-37); Alanine Aminotransfer ALT/SGPT 23 U/L (13-56); Albumin, Serum 3.8 g/dL (3.2-5.0); Alkaline Phosphatase 75 U/L (45-117); Anion Gap 4 (5-15); BUN 11 mg/dL (7-18); BUN/Creat Ratio 14.5 RATIO (10-20); Calcium,Total 9.6 mg/dL (8.5-10.1); Chloride 108 mmol/L (98-107); Creatinine, Serum 0.76 mg/dL (0.55-1.02); EST Glomerular Filtration Rate 81 mL/min (>60); Est Glom Filt Rate - Afr Amer 98 mL/min (>60); Globulin 3.6 g/dL (2.2-4.2); Glucose 108 mg/dL (74-106); Potassium 4.7 mmol/L (3.5-5.1); Protein, Total 7.4 g/dL (6.4-8.2); Sodium Level 141 mmol/L (136-145)
[2020-01-24 10:37] LABS: Hemoglobin A1c 6.5 % (3.8-5.6)
== END ==
PROVIDERS: PCP Family Medicine; Referring Provider Family Medicine; Visit Provider Family Medicine
DX: E11.40 Type 2 diabetes mellitus with diabetic neuropathy, unspecified (principal)
CPT/HCPCS: 36415; 80053; 83036

== ENCOUNTER → 2020-01-30 09:57 | Outpatient (CLI) | payer MEDICARE, OTHER, SELFPAY ==
--- NOTE | 2020-01-30 10:30 | EKG12_ITS ---
Test Reason : PRE OP Blood Pressure : / mmHG Vent. Rate : 063 BPM Atrial Rate : 063 BPM P-R Int : 148 ms QRS Dur : 092 ms QT Int : 412 ms P-R-T Axes : 045 -22 028 degrees QTc Int : 421 ms Normal sinus rhythm Normal ECG Confirmed by JAANY ENNIS, THADDEUS ([id number]), editorial project manager CRISTIAN BONE ([id number]) on 01/31/2020 10:15:59 AM Referred By: Nohemy Nolasco Confirmed By:THADDEUS GUSTAFSON MD
--- NOTE | 2020-01-30 10:43 | RAD_ITS ---
STUDY: X-RAY CHEST REASON FOR EXAM: Female, 69 years old. PREOP NO CHEST COMPLAINTS TECHNIQUE: PA and lateral views of the chest. COMPARISON: None. FINDINGS: The lungs are clear and expanded. There is no demonstrated pleural abnormality. Normal size heart. Normal mediastinum and poornima. Normal visualized pulmonary arteries. Normal visualized aortic arch and descending thoracic aorta. Normal visualized thoracic spine. Normal visualized ribs, clavicles, and shoulders. There is no demonstrated abnormality of the visualized soft tissue structures of the upper abdomen. RAD/Chest PA and Lateral IMPRESSION: Normal x-ray examination of the chest. Electronically Signed: Asim Jamil MD at 11:18 EDT Tel , Service support ,
[2020-01-30 11:16] LABS: Absolute Lymphocyte Count 2.63 X10^3/uL (0.83-4.51); Absolute Neutrophil Count 5.8 X10^3/uL (2.0-7.7); Basophil# 0.06 X10^3/uL; Basophil% 0.6 % (0-1); Eosinophil# 0.14 X10^3/uL; Eosinophils% 1.5 % (0-5); Hematocrit 44.1 % (37-47); Hemoglobin 14.2 g/dL (12.0-15.0); Lymphocyte # 2.63 X10^3/ul (4.0); Lymphocyte % 28.2 % (19-41); Mean Corp Hgb Conc 32.2 g/dL (32-36); Mean Corpuscular Hgb 28.6 pg (27.0-32.0); Mean Corpuscular Volume 88.9 fL (81-99); Mean Platelet Vol. 10.7 fl (6.2-12.0); Monocyte# 0.64 X10^3/uL; Monocyte% 6.9 % (0-10); NRBC Flagged by Analyzer 0 % (0-5); Neutrophil # 5.83 X10^3/uL (2.7-7.7); Neutrophil % 62.5 % (47-70); Platelet Count 362 K/mm3 (150-450); RBC Distribution Width CV 12.8 % (11.6-14.6); RBC Distribution Width SD 41.4 fl (35.1-43.9); Red Blood Count 4.96 M/mm3 (4.2-5.4); White Blood Count 9.3 K/mm3 (4.4-11.0)
== END ==
PROVIDERS: PCP Family Medicine; Referring Provider Registered Nurse; Visit Provider Registered Nurse
DX: Z01.818 Encounter for other preprocedural examination (principal); Z01.810 Encounter for preprocedural cardiovascular examination; Z01.811 Encounter for preprocedural respiratory examination
CPT/HCPCS: 36415; 71046; 85025; 93005

== ENCOUNTER 2020-02-06 13:00 | Outpatient (RCR) | payer MEDICARE, OTHER, SELFPAY | END 2020-02-24 23:59 | LOC: DC 13:00 | PROVIDERS: PCP Family Medicine; Visit Provider Family Medicine | DX: Z71.3 Dietary counseling and surveillance (principal); E11.40 Type 2 diabetes mellitus with diabetic neuropathy, unspecified | CPT/HCPCS: 97803; G0109 ==

== ENCOUNTER 2020-03-06 13:24 | Outpatient (RCR) | payer MEDICARE, OTHER, SELFPAY | END 2020-03-25 23:59 | LOC: DC 13:24 | PROVIDERS: PCP Family Medicine; Visit Provider Family Medicine | DX: Z71.3 Dietary counseling and surveillance (principal); E11.40 Type 2 diabetes mellitus with diabetic neuropathy, unspecified | CPT/HCPCS: 97803 ==

== ENCOUNTER 2020-03-28 16:50 | Outpatient (RCR) | payer MEDICARE, OTHER, SELFPAY | END 2020-04-25 23:59 | LOC: DC 16:50 | PROVIDERS: PCP Family Medicine; Visit Provider Family Medicine | DX: Z71.3 Dietary counseling and surveillance (principal); E11.40 Type 2 diabetes mellitus with diabetic neuropathy, unspecified | CPT/HCPCS: G0109 ==

== ENCOUNTER 2020-05-09 16:12 | Outpatient (RCR) | payer MEDICARE, OTHER, SELFPAY | END 2020-05-26 23:59 | LOC: DC 16:12 | PROVIDERS: PCP Family Medicine; Visit Provider Family Medicine | DX: Z71.3 Dietary counseling and surveillance (principal); E11.40 Type 2 diabetes mellitus with diabetic neuropathy, unspecified | CPT/HCPCS: G0109 ==

== ENCOUNTER → 2020-08-10 07:56 | Outpatient (CLI) | payer MEDICARE, OTHER, SELFPAY ==
[2020-08-10 09:10] LABS: ALB/GLOB Ratio 1.1 RATIO (0.9-2.4); AST(SGOT) 14 U/L (15-37); Alanine Aminotransfer ALT/SGPT 24 U/L (13-56); Albumin, Serum 3.8 g/dL (3.2-5.0); Alkaline Phosphatase 77 U/L (45-117); Anion Gap 4 (5-15); BUN 16 mg/dL (7-18); BUN/Creat Ratio 18.5 RATIO (10-20); Calcium,Total 9.2 mg/dL (8.5-10.1); Chloride 105 mmol/L (98-107); Cholesterol 170 mg/dL (200); Creatinine, Serum 0.87 mg/dL (0.55-1.02); EST Glomerular Filtration Rate 69 mL/min (>60); Est Glom Filt Rate - Afr Amer 83 mL/min (>60); Globulin 3.6 g/dL (2.2-4.2); Glucose 108 mg/dL (74-106); High Density Lipoprotein 68 mg/dL; Potassium 4.3 mmol/L (3.5-5.1); Protein, Total 7.4 g/dL (6.4-8.2); Sodium Level 138 mmol/L (136-145); Triglycerides 186 mg/dL; Very Low Density Lipoprotein 37 mg/dL (5-40)
== END ==
PROVIDERS: PCP Family Medicine; Referring Provider Family Medicine; Visit Provider Family Medicine
DX: E11.40 Type 2 diabetes mellitus with diabetic neuropathy, unspecified (principal); E78.00 Pure hypercholesterolemia, unspecified
CPT/HCPCS: 36415; 80053; 80061; 83036

== ENCOUNTER 2020-10-03 14:43 | Observation (INO) | payer MEDICARE, OTHER, SELFPAY ==
[2020-10-03] VITALS (11 sets, daily range): BP systolic 123–135; BP diastolic 56–108; PULSE 89–116; RESP 18–23; TEMP 36.8–37.6; O2SAT 5–97; BMI 27.1; BMI 26.9
--- NOTE | 2020-10-03 15:01 | EKG12_ITS ---
Test Reason : CP Blood Pressure : / mmHG Vent. Rate : 110 BPM Atrial Rate : 110 BPM P-R Int : 126 ms QRS Dur : 090 ms QT Int : 326 ms P-R-T Axes : 016 -35 058 degrees QTc Int : 441 ms Sinus tachycardia Left axis deviation Abnormal ECG Confirmed by KATHI ENNIS, ANNMARIE ([id number]), school photograph editor CRISTIAN BONE ([id number]) on 10/07/2020 1:54:09 PM Referred By: AURELIANO Confirmed By:ANNMARIE ARMENTA MD
--- NOTE | 2020-10-03 15:01 | RAD_ITS ---
STUDY: X-RAY CHEST REASON FOR EXAM: Female, 69 years old. Chest pain TECHNIQUE: Single AP portable view of the chest. COMPARISON: Comparison is made with prior study dated 01/30/2020. FINDINGS: EKG electrodes are seen. Mild degree of increased markings at the left lung base with blunting of the left costophrenic angle. This most likely represents an early infiltrate. Normal size heart. Normal mediastinum and poornima. Normal visualized pulmonary arteries. Normal visualized aortic arch and descending thoracic aorta. There are diffuse degenerative changes of the visualized thoracic spine. 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 There is no demonstrated abnormality of the visualized soft tissue structures of the upper abdomen. RAD/Chest 1 View (Portable) IMPRESSION: Blunting of the left cosmetic angle with increased markings at the left lung base suggestive of left basilar early infiltrate. Electronically Signed: Mykel Carpio MD at 15:22 EDT , Service support ,
--- NOTE | 2020-10-03 15:02 | EDS_ITS ---
HPI History of Present Illness Chief Complaint: Chest Pain Detail of Chief Complaint: Chest pain that started approximately 1:30 PM Informant: patient Onset/Context/Timing Quality: Positive for Dull, Heaviness and Sharp Current Severity: 8/10 Maximum Severity: 10/10 Worsened By: Breathing Associated Symptoms: Negative for Nausea, Vomiting, Diaphoresis, Dyspnea, Cough and Fever Narrative Narrative: Patient presents with chest pain that started today around 1:30 PM. Patient states that she just not been feeling well throughout the day. She describes the pain is left-sided and dull and achy and sharp at times. At times pain is worse with deep breath. She does not feel short of breath. She denies feeling sweaty or diaphoretic. Pain does radiate to her left back. She denies pain down her arms or into her neck or jaw. She is never had discomfort like this before. No history of PE. No recent travel or surgery. She denies recent illness. Patient did start an antibiotic around 10 AM today for an abscess underneath her left ear. Prior Similar Symptoms: No PFSH PFSH Medical History Asthma Diabetes Diabetic neuropathy Fibromyalgia High cholesterol Non-smoker Home Medications albuterol sulfate [ProAir HFA] 1 - 2 puff INHALATION Q6H PRN PRN 09/03/16 [History Last Taken Unknown] gabapentin 300 mg PO TID 09/03/16 [History Last Taken 10/02/20] glipizide 10 mg PO DAILY 09/03/16 [History Last Taken 10/02/20] montelukast 10 mg PO DAILY 09/03/16 [History Last Taken 10/02/20] ascorbic acid (vitamin C) [Vitamin C] 1,000 mg PO DAILY 07/25/17 [History Last Taken 10/02/20] calcium carbonate 600 mg PO DAILY 07/25/17 [History Last Taken 10/02/20] fluticasone propion-salmeterol [Advair Diskus] 2 ea IH DAILY 03/23/18 [History Last Taken 10/02/20] melatonin 10 mg PO DAILY 03/23/18 [History Last Taken 10/02/20] Prednisone Gatifloxacin Ketoro 1 drp LEFT EYE BID 10/03/20 [History Last Taken 10/03/20] cetirizine [Zyrtec] 10 mg PO DAILY 10/03/20 [History Last Taken 10/02/20] cholecalciferol (vitamin D3) 125 mcg PO DAILY 10/03/20 [History Last Taken 10/02/20] coenzyme Q10 [CoQ-10] 100 mg PO DAILY 10/03/20 [History Last Taken 10/02/20] doxycycline monohydrate 100 mg PO BID 10/03/20 [History Last Taken 10/03/20] lovastatin 20 mg PO DAILY 10/03/20 [History Last Taken 10/02/20] Allergy/AdvReac Type Severity Reaction Status Date / Time menthol Allergy Rash Verified 10/03/20 14:46 nabumetone [From Relafen] Allergy Rash Verified 10/03/20 14:46 simvastatin Allergy Rash Verified 10/03/20 14:46 morphine AdvReac Other Verified 10/03/20 14:46 BEES Allergy Rash Uncoded 10/03/20 14:46 Social History Smoking Status: Never smoker ROS ROS ED Review of Systems ROS Unobtainable: other Constitutional Constitutional ED: Reports lethargy; Denies chills, fever(s), sweats or weight loss Eyes Eyes: Denies blurry vision, change in vision or diplopia ENT ENT ED: Denies rhinorrhea or sore throat Cardiovascular Cardiovascular: Reports chest pain and racing heartbeat; Denies orthopnea Respiratory/Chest Respiratory/Chest: Reports dyspnea and dyspnea on exertion; Denies cough, orthopnea or sputum Gastrointestinal Gastrointestinal: Denies abdominal pain, diarrhea, nausea or vomiting Genitourinary Genitourinary ED: Denies dysuria, hematuria or urinary frequency Musculoskeletal Musculoskeletal: Denies arthralgias, back pain, myalgias or neck pain Integumentary Denies abscess, Abrasions or rash Neurologic Neurologic: Denies headache(s) or weakness Psychiatric Psychiatric: Denies anxiety, depression or suicidal thoughts Endocrine Endocrinology: Denies polydipsia, polyphagia or polyuria Hematologic/Lymphatic Hematologic/Lymphatic: Denies easy bleeding, easy bruising or lymphadenopathy Allergic/Immunologic Allergic/Immunologic ED: Denies mouth swelling, tongue swelling or urticaria EXAM Physical Exam Const Vital Signs: 10/03/20 14:44 10/03/20 14:46 10/03/20 15:19 Temperature 98.7 F Temperature Source Oral Pulse Rate 105 H Respiratory Rate 23 H Respiratory Effort Normal Non-Labored Blood Pressure 129/108 H Blood Pressure Mean 115 Pulse Ox 5 95 Oxygen Delivery Method Room Air Nasal Cannula Oxygen Flow Rate (L/min) 2 10/03/20 15:43 10/03/20 16:00 10/03/20 17:00 Temperature Temperature Source Pulse Rate 91 92 93 Respiratory Rate 18 20 H 18 Respiratory Effort Blood Pressure 123/76 H 125/56 H 129/70 H Blood Pressure Mean 91 79 89 Pulse Ox 95 97 97 Oxygen Delivery Method Nasal Cannula Nasal Cannula Room Air Oxygen Flow Rate (L/min) 2 2 10/03/20 18:00 Temperature Temperature Source Pulse Rate 89 Respiratory Rate 20 H Respiratory Effort Blood Pressure 129/66 H Blood Pressure Mean 87 Pulse Ox 97 Oxygen Delivery Method Nasal Cannula Oxygen Flow Rate (L/min) 2 Positive well nourished and well developed General Appearance ED: well developed and NAD HEENT Reports TM's clear and moist mucous membranes normocephalic and atraumatic; Negative for trauma or tenderness Tympanic Membrane ED: Yes TM's clear Eyes PERRL and EOMs intact bilaterally General Eye ED: Negative for pale conjunctiva or scleral icterus Neck no lymphadenopathy, supple and no JVD General: Negative for tenderness Chest Wall inspection of chest normal; Negative for palpation of chest normal Chest Narrative: Patient does have some tenderness palpation over the left anterior chest wall that somewhat reproduces her pain. Chest: Negative for tenderness Resp normal respiratory effort and clear to auscultation bilaterally Effort and Inspection: Negative for respiratory distress or pain with movement Auscultation: Negative for rhonchi, wheezes or diminished lung sounds Cardio regular rate, regular rhythm, S1 normal heart sound, S2 normal heart sound and no murmurs Peripheral Pulses: pulses 2+ throughout GI normal to inspection, nondistended, normoactive bowel sounds, soft to palpation, non-tender, non-distended and no masses Back/Spine no CVA tenderness and no thoracic nor lumbar tenderness Extremity normal to inspection General Extremety ED: Negative for edema General Extremity: Negative for edema Neuro oriented x3, CN's II-XII intact bilaterally, no sensory deficits noted and gait normal Sensorium / Orientation: awake, alert, oriented to person, oriented to place and oriented to time Motor Exam: strength 5/5 throughout and strength abnormal Psych mental status grossly normal Skin no rashes or lesions noted and no wounds Heart Score History: Moderately Suspicious ECG: Normal Age: >/= 65 years Risk Factors: >/= 3 Risk Factors or History of CAD Troponin: </= Normal Limit Score: 5 MDM MDM MDM Narrative Medical decision making narrative: Patient initially received fentanyl 50 mcg which did improve her pain however the pain then started to come back. Patient was given another 50 mcg of fentanyl. CTA of the chest was ordered to rule out dissection which was negative for dissection however she did have atelectasis in the left lower lobe and left middle lobe. Repeat EKG obtained was unchanged from first EKG. Case discussed with hospitalist will evaluate patient for admission. Lab Data Attestation: I reviewed the patient's lab results. Labs: Laboratory Results - last 24 hr 10/03/20 10/03/20 10/03/20 14:25 14:25 14:25 WBC 16.9 H RBC 4.71 Hgb 13.9 Hct 41.6 MCV 88.3 MCH 29.5 MCHC 33.4 RDW Std Deviation 41.1 RDW Coeff of Fernando 12.6 Plt Count 342 MPV 11.2 Immature Gran % (Auto) 0.200 Neut % (Auto) 72.3 H Lymph % (Auto) 18.[address] % (Auto) 7.9 Eos % (Auto) 0.6 Baso % (Auto) 0.5 Absolute Neuts (auto) 12.2 H Absolute Lymphs (auto) 3.13 Nucleated RBC % 0 D-Dimer Quant (PE/DVT) 0.32 Sodium 136 Potassium 4.3 Chloride 103 Carbon Dioxide 27.0 Anion Gap 6 BUN 14 Creatinine 0.83 Estim Creat Clear Calc 46.60 Est GFR (MDRD) Af Amer 88 Est GFR (MDRD) Non-Af 73 BUN/Creatinine Ratio 16.9 Glucose 209 H Calcium 9.2 Troponin I < 0.015 Radiography Chest X-Ray - ED: 1 View Diagnostic Testing: Radiology Impression Chest X-Ray 10/03/20 15:01 IMPRESSION: Blunting of the left cosmetic angle with increased markings at the left lung base suggestive of left basilar early infiltrate. Electronically Signed: Mykel Carpio MD at 15:22 EDT , Service support , Chest CTA 10/03/20 16:55 IMPRESSION: Bibasilar atelectasis more severe on the left and mild left upper lobe atelectasis. No evidence for aortic aneurysm periaortic leak or dissection. No evidence for pulmonary embolus Electronically Signed: Robb Sanchez MD at 18:28 EDT , Service support , 1 view chest x-ray obtained interpreted by myself as increased markings in the left lower lobe. Radiology was in agreement and thought there could be early infiltrate left basilar. EKG Initial EKG: Comments: Sinus rhythm with a ventricular rate of 110 bpm with no significant ST changes noted. Prior EKG tracings: not available for review Discharge Plan Triage Chief Complaint: Chest Pain ED Provider: Louise Fink Dx/Rx/DC Orders Clinical Impression: Chest pain Prescriptions: No Action glipizide 10 MG tablet extended release 24hr 10 mg PO DAILY RF: 0 gabapentin 300 MG capsule 300 mg PO TID RF: 0 montelukast 10 MG tablet 10 mg PO DAILY RF: 0 albuterol sulfate [ProAir HFA] 1 PUFF inhaler 1 - 2 puff inhalation Q6H PRN PRN (Reason: Sob &/Or Wheezing) RF: 0 ascorbic acid (vitamin C) [Vitamin C] 1,000 MG tablet 1,000 mg PO DAILY RF: 0 calcium carbonate 600 MG tablet 600 mg PO DAILY RF: 0 fluticasone propion-salmeterol [Advair Diskus] 1 EACH blister with device 2 ea IH DAILY RF: 0 melatonin 10 MG capsule 10 mg PO DAILY RF: 0 doxycycline monohydrate 100 mg Capsule 100 mg PO BID RF: 0 cetirizine [Zyrtec] 10 mg Tablet 10 mg PO DAILY RF: 0 lovastatin 20 mg Tablet 20 mg PO DAILY RF: 0 cholecalciferol (vitamin D3) 125 mcg (5,000 unit) Capsule 125 mcg PO DAILY RF: 0 coenzyme Q10 [CoQ-10] 100 mg Capsule 100 mg PO DAILY RF: 0 Prednisone Gatifloxacin Ketoro 1 drp LEFT EYE BID RF: 0 Primary Care Provider: Yousuf Dennis Referrals: Yousuf Dennis MD [Primary Care Provider] - Disposition Disposition: Acute Care [facility]
[2020-10-03] MEDS: 0.9% Normal Saline 1,000 ML 150 ML IV (15:16)
[2020-10-03] MEDS: fentaNYL 100 MCG/2 ML Ampul 50 MCG IV ×2 (15:17→17:09)
[2020-10-03 15:31] LABS: Absolute Lymphocyte Count 3.13 X10^3/uL (0.83-4.51); Absolute Neutrophil Count 12.2 X10^3/uL (2.0-7.7); Basophil# 0.08 X10^3/uL; Basophil% 0.5 % (0-1); Eosinophils% 0.6 % (0-5); Hematocrit 41.6 % (37-47); Hemoglobin 13.9 g/dL (12.0-15.0); Lymphocyte # 3.13 X10^3/ul (0.83-4.51); Lymphocyte % 18.5 % (19-41); Mean Corp Hgb Conc 33.4 g/dL (32-36); Mean Corpuscular Hgb 29.5 pg (27.0-32.0); Mean Corpuscular Volume 88.3 fL (81-99); Mean Platelet Vol. 11.2 fl (6.2-12.0); Monocyte# 1.33 X10^3/uL; Monocyte% 7.9 % (0-10); NRBC Flagged by Analyzer 0 % (0-5); Neutrophil # 12.21 X10^3/uL (2.7-7.7); Neutrophil % 72.3 % (47-70); Platelet Count 342 K/mm3 (150-450); RBC Distribution Width CV 12.6 % (11.6-14.6); RBC Distribution Width SD 41.1 fl (35.1-43.9); Red Blood Count 4.71 M/mm3 (4.2-5.4); White Blood Count 16.9 K/mm3 (4.4-11.0)
[2020-10-03 15:45] LABS: D-Dimer Quantitative (DVT/PE) 0.32 FEU/ug/m (0.27-0.49)
[2020-10-03 15:52] LABS: Anion Gap 6 (5-15); BUN 14 mg/dL (7-18); BUN/Creat Ratio 16.9 RATIO (10-20); Calcium,Total 9.2 mg/dL (8.5-10.1); Chloride 103 mmol/L (98-107); Creatinine, Serum 0.83 mg/dL (0.55-1.02); EST Glomerular Filtration Rate 73 mL/min (>60); Est Glom Filt Rate - Afr Amer 88 mL/min (>60); Glucose 209 mg/dL (74-106); Potassium 4.3 mmol/L (3.5-5.1); Sodium Level 136 mmol/L (136-145)
--- NOTE | 2020-10-03 16:55 | CT_ITS ---
STUDY: CTA CHEST REASON FOR EXAM: Female, 69 years old. chest pain RADIATION DOSAGE (If Supplied By Facility): CTDIvol = ( 12.95 ) mGy, DLP = ( 293.98 ) mGycm TECHNIQUE: The examination was performed with the intravenous administration of IV 100mL [id number]-370. Post-processing of the angiographic images was performed, with multiplanar reformation and 3D reconstruction. Individualized dose optimization techniques were used for this CT. COMPARISON: Portable chest 10/03/2020. FINDINGS: Normal enhancement of the main pulmonary artery and right and left pulmonary arteries. Normal enhancement of the bilateral peripheral pulmonary arteries. There is no demonstrated pulmonary embolism. Normal thoracic aorta and visualized great vessels. There is no demonstrated aortic dissection. Normal heart and pericardium. Normal mediastinum. Normal hilar regions. Normal visualized trachea and bronchi. The lungs are well expanded. There is subsegmental atelectasis in both lower lobes more severe on the left as well as mild subsegmental atelectasis in the left upper lobe.. Normal pleura. Normal chest wall structures. Dorsal spine demonstrates degenerative changes. Normal visualized upper abdomen. CT/CTA Chest W/WO Contrast IMPRESSION: Bibasilar atelectasis more severe on the left and mild left upper lobe atelectasis. No evidence for aortic aneurysm periaortic leak or dissection. No evidence for pulmonary embolus Electronically Signed: Robb Sanchez MD at 18:28 EDT , Service support ,
--- NOTE | 2020-10-03 17:19 | EKG12_ITS ---
Test Reason : REPEAT Blood Pressure : / mmHG Vent. Rate : 091 BPM Atrial Rate : 091 BPM P-R Int : 158 ms QRS Dur : 090 ms QT Int : 360 ms P-R-T Axes : 024 -32 037 degrees QTc Int : 442 ms Normal sinus rhythm Left axis deviation Abnormal ECG Confirmed by KATHI ENNIS, ANNMARIE ([id number]), food expeditor CRISTIAN BONE ([id number]) on 10/07/2020 1:54:40 PM Referred By: HASEEB/MANSI Confirmed By:ANNMARIE ARMENTA MD
--- NOTE | 2020-10-03 17:55 | HP.PCM.HOS_ITS ---
Documented by User: Yousuf GOLDSTEIN 10/03/20 18:36 HPI - General HPI Narrative Patient is a 69-year-old female presents to the ED at [facility] on 09/24/2020 with a chief complaint of chest pain. Patient reports a 1 day history of a crushing substernal chest pain that began this afternoon at about 1:30 PM. Patient reports that the pain is not worse with exertion, however is worse when she is laughing. Patient denies any radiation of pain to her arms upper neck or jaw. Of note, patient did begin clindamycin around 10 AM yesterday for an abscess underneath her left ear. Patient denies palpitations, sputum production, hemoptysis, leg/calf pain or swelling, fever, chills, N/V/D. Past medical history is significant for asthma, diabetes, diabetic neuropathy, fibromyalgia and high cholesterol. Patient denies using tobacco or drinking alcohol. Denies any illicit or prescription drug abuse. Vital signs are unremarkable and patient is afebrile. Patient has a mild leukocytosis at 16, 000. BMP unremarkable D-dimer not elevated. Troponins not elevated. Chest x- ray demonstrates no acute cardiopulmonary process and only demonstrated increased markings at the left lung base with blunting of the left costophrenic angle, possibly suggestive of an infiltrate. Chest CT-A did not demonstrate any pulmonary embolism or arterial dissection. Patient was given nitroglycerin and fentanyl in the ED. Patient reports that pain was not responsive to nitroglycerin however was responsive to fentanyl. Will be admitted to PCU for cardiac telemetry monitoring and stress test in a.m. [facility] Medical History Asthma Diabetes Diabetic neuropathy Fibromyalgia High cholesterol Non-smoker Home Medications albuterol sulfate [ProAir HFA] 1 - 2 puff INHALATION Q6H PRN PRN 09/03/16 [History Last Taken Unknown] gabapentin 300 mg PO TID 09/03/16 [History Last Taken 10/02/20] glipizide 10 mg PO DAILY 09/03/16 [History Last Taken 10/02/20] montelukast 10 mg PO DAILY 09/03/16 [History Last Taken 10/02/20] ascorbic acid (vitamin C) [Vitamin C] 1,000 mg PO DAILY 07/25/17 [History Last Taken 10/02/20] calcium carbonate 600 mg PO DAILY 07/25/17 [History Last Taken 10/02/20] fluticasone propion-salmeterol [Advair Diskus] 2 ea IH DAILY 03/23/18 [History Last Taken 10/02/20] melatonin 10 mg PO DAILY 03/23/18 [History Last Taken 10/02/20] Prednisone Gatifloxacin Ketoro 1 drp LEFT EYE BID 10/03/20 [History Last Taken 10/03/20] cetirizine [Zyrtec] 10 mg PO DAILY 10/03/20 [History Last Taken 10/02/20] cholecalciferol (vitamin D3) 125 mcg PO DAILY 10/03/20 [History Last Taken 10/02/20] coenzyme Q10 [CoQ-10] 100 mg PO DAILY 10/03/20 [History Last Taken 10/02/20] doxycycline monohydrate 100 mg PO BID 10/03/20 [History Last Taken 10/03/20] lovastatin 20 mg PO DAILY 10/03/20 [History Last Taken 10/02/20] Allergy/AdvReac Type Severity Reaction Status Date / Time menthol Allergy Rash Verified 10/03/20 14:46 nabumetone [From Relafen] Allergy Rash Verified 10/03/20 14:46 simvastatin Allergy Rash Verified 10/03/20 14:46 morphine AdvReac Other Verified 10/03/20 14:46 BEES Allergy Rash Uncoded 10/03/20 14:46 Social History Smoking Status: Never smoker ROS Constitutional Constitutional: Denies anorexia, change in weight, chills, fatigue, fever(s), malaise, night sweats, weakness or other Eyes Eyes: Reports blurry vision; Denies change in eye color, change in vision, discharge from eye(s), double vision, erythema, eye pain, loss of vision or other ENT HEENT: Denies abnormal hearing, dysphagia, ear pain, epistaxis, headache(s), hearing loss, nasal congestion, nasal discharge, post nasal drip, sinus pressure, sore throat or other Cardiovascular Cardiovascular: Reports chest pain and rapid heart rate; Denies claudication, dyspnea on exertion, edema, lightheadedness, orthopnea, palpitations, paroxysmal nocturnal dyspnea, syncope or other Respiratory/Chest Respiratory/Chest: Denies cough, dyspnea, excessive phlegm production, hemoptysis, productive cough, shortness of breath at rest, shortness of breath with exertion, wheezing or other Gastrointestinal Gastrointestinal: Denies abdominal pain, coffee ground emesis, constipation, diarrhea, dyspepsia, hematemesis, hematochezia, loose stools, melena, nausea, vomiting or other Genitourinary Genitourinary: Denies burning urination, difficulty urinating, dysuria, hematuria, nocturia, urinary frequency, urinary hesitancy, urinary incontinence, urinary urgency or other Musculoskeletal Musculoskeletal: Denies arthralgias, back pain, joint pain, joint stiffness, joint swelling, myalgias, neck pain or other Neurologic Neurologic: Denies abnormal gait, abnormal speech, confusion, disequilibrium, dizziness, focal weakness, headache(s), numbness, paresthesias, seizure-like activity, seizures, syncope, tingling, tremor(s) or other Psychiatric Psychiatric: Denies anxiety, depression, homicidal ideation, suicidal ideation or other Endocrine Endocrinology: Denies change in body appearance, cold intolerance, excessive sweating, heat intolerance, polydipsia, polyuria or other Hematologic/Lymphatic Hematologic/Lymphatic: Denies anemia, easy bleeding, easy bruising, lymphadenopathy or other Allergic/Immunologic Allergic/Immunologic: Denies rhinitis, hives, eczemia, asthma or other Vital Signs Vital Signs Vital Signs: 10/03/20 14:44 10/03/20 14:46 10/03/20 15:19 Temperature 98.7 F Temperature Source Oral Pulse Rate 105 H Respiratory Rate 23 H Respiratory Effort Normal Non-Labored Blood Pressure 129/108 H Blood Pressure Mean 115 Pulse Ox 5 95 Oxygen Delivery Method Room Air Nasal Cannula Oxygen Flow Rate (L/min) 2 10/03/20 15:43 10/03/20 16:00 10/03/20 17:00 Temperature Temperature Source Pulse Rate 91 92 93 Respiratory Rate 18 20 H 18 Respiratory Effort Blood Pressure 123/76 H 125/56 H 129/70 H Blood Pressure Mean 91 79 89 Pulse Ox 95 97 97 Oxygen Delivery Method Nasal Cannula Nasal Cannula Room Air Oxygen Flow Rate (L/min) 2 2 Weight Weight: 139 lb 1.787 oz Body Mass Index (BMI) 27.1 Physical Exam Const alert and oriented x3 General Appearance: cooperative HEENT normocephalic, head/scalp atraumatic and hearing grossly normal bilaterally Eyes PERRL, EOMs intact bilaterally and conjunctivae normal Neck Neck Narrative: Left-sided post auricular abscess Resp normal respiratory effort, no retractions, no use of accessory muscles and clear to auscultation bilaterally Cardio regular rate, regular rhythm, no murmurs and no JVD GI normal to inspection, nondistended, normoactive bowel sounds, soft to palpation, non-tender and non-distended Extremity normal to inspection, full ROM and no clubbing, cyanosis or edema Skin no rashes or lesions noted, no wounds, skin turgor normal and no jaundice Neuro CN's II-XII intact bilaterally Psych affect normal Results Lab / Micro Data Result Diagrams: 10/03/20 14:25 10/03/20 14:25 Labs: Laboratory Results - last 24 hr 10/03/20 10/03/20 10/03/20 14:25 14:25 14:25 WBC 16.9 H RBC 4.71 Hgb 13.9 Hct 41.6 MCV 88.3 MCH 29.5 MCHC 33.4 RDW Std Deviation 41.1 RDW Coeff of Fernando 12.6 Plt Count 342 MPV 11.2 Immature Gran % (Auto) 0.200 Neut % (Auto) 72.3 H Lymph % (Auto) 18.5 L [place] % (Auto) 7.9 Eos % (Auto) 0.6 Baso % (Auto) 0.5 Absolute Neuts (auto) 12.2 H Absolute Lymphs (auto) 3.13 Nucleated RBC % 0 D-Dimer Quant (PE/DVT) 0.32 Sodium 136 Potassium 4.3 Chloride 103 Carbon Dioxide 27.0 Anion Gap 6 BUN 14 Creatinine 0.83 Estim Creat Clear Calc 46.60 Est GFR (MDRD) Af Amer 88 Est GFR (MDRD) Non-Af 73 BUN/Creatinine Ratio 16.9 Glucose 209 H Calcium 9.2 Troponin I < 0.015 Radiology Impression Chest X-Ray 10/03/20 15:01 IMPRESSION: Blunting of the left cosmetic angle with increased markings at the left lung base suggestive of left basilar early infiltrate. Electronically Signed: Mykel Carpio MD at 15:22 EDT , Service support , Assessment & Plan Assessment/Plan (1) Type 2 diabetes mellitus: (2) Bronchial asthma: (3) Fibromyalgia: (4) Chest pain: (5) Abscess: PLAN: Patient is a 69-year-old female who presents to the ED at [facility] on 10/03/2020 with a chief complaint of crushing substernal chest pain that began this afternoon. Patient will be admitted to PCU for cardiac telemetry monitoring and stress test in a.m. 1) Chest pain/ACS rule out. Heart score is 4; moderately suspicious history, age greater than 65 and presence of risk factors. EKG is normal sinus rhythm with no ST or T wave abnormalities. Troponins within normal limits. D-dimer not elevated. Chest x- ray demonstrates no acute cardiopulmonary process. Chest CT-A ordred, is also pending. Plan; admit to PCU for cardiac telemetry monitoring, treadmill stress test in a.m., nitroglycerin as needed for pain, fentanyl as needed for pain, continue to cycle troponins, lipid panel ordered, TSH ordered, aspirin ordered. 2) Asthma Continue albuterol, fluticasone and montelukast. 3) fibromyalgia Continue gabapentin. 4) left-sided postauricular abscess Continue doxycycline. 5) DM2 Continue glipizide and Metformin. DVT prophylaxis -Lovenox CODE STATUS: Full code Patient seen by Yousuf Culver PA-C, under the supervision of Dr. Quinonez. Documented by User: Dr. Tony Quinonez DO 10/03/20 19:28 HPI - General General Date of Admission: 10/03/20 Date of Service: 10/03/20 Chief Complaint: Chest pain HPI Narrative Patient experiencing chest pain over the past couple days. She starts in her left anterior chest and goes into her left posterior back. Patient has had recent cataract surgery and so has not been doing any heavy lifting. Patient stated that she was just sitting when this began. She has never had this problem before. Patient will be complaint is for this pimple that she has on her left mandible but also complains of posterior auricular tenderness. Was recently started on doxycycline which she just started taking the first dose today. PFSH Medical History Asthma Diabetes Diabetic neuropathy Fibromyalgia High cholesterol Non-smoker Home Medications albuterol sulfate [ProAir HFA] 1 - 2 puff INHALATION Q6H PRN PRN 09/03/16 [History Last Taken Unknown] gabapentin 300 mg PO TID 09/03/16 [History Last Taken 10/02/20] glipizide 10 mg PO DAILY 09/03/16 [History Last Taken 10/02/20] montelukast 10 mg PO DAILY 09/03/16 [History Last Taken 10/02/20] ascorbic acid (vitamin C) [Vitamin C] 1,000 mg PO DAILY 07/25/17 [History Last Taken 10/02/20] calcium carbonate 600 mg PO DAILY 07/25/17 [History Last Taken 10/02/20] fluticasone propion-salmeterol [Advair Diskus] 2 ea IH DAILY 03/23/18 [History Last Taken 10/02/20] melatonin 10 mg PO DAILY 03/23/18 [History Last Taken 10/02/20] Prednisone Gatifloxacin Ketoro 1 drp LEFT EYE BID 10/03/20 [History Last Taken 10/03/20] cetirizine [Zyrtec] 10 mg PO DAILY 10/03/20 [History Last Taken 10/02/20] cholecalciferol (vitamin D3) 125 mcg PO DAILY 10/03/20 [History Last Taken 10/02/20] coenzyme Q10 [CoQ-10] 100 mg PO DAILY 10/03/20 [History Last Taken 10/02/20] doxycycline monohydrate 100 mg PO BID 10/03/20 [History Last Taken 10/03/20] lovastatin 20 mg PO DAILY 10/03/20 [History Last Taken 10/02/20] Allergy/AdvReac Type Severity Reaction Status Date / Time menthol Allergy Rash Verified 10/03/20 14:46 nabumetone [From Relafen] Allergy Rash Verified 10/03/20 14:46 simvastatin Allergy Rash Verified 10/03/20 14:46 morphine AdvReac Other Verified 10/03/20 14:46 BEES Allergy Rash Uncoded 10/03/20 14:46 Social History Smoking Status: Never smoker ROS ROS Narrative All review of systems were negative except as mentioned above in the history of present illness and the other review of systems. Physical Exam Const alert and oriented x3 HEENT normocephalic and head/scalp atraumatic HEENT Narrative: Left mastoid tenderness. Patient does have a large pimple on her left mandible. No purulence could be expressed. No meningismus. Eyes PERRL Resp normal respiratory effort, no retractions, no use of accessory muscles and clear to auscultation bilaterally Cardio regular rate, regular rhythm, S1 normal heart sound and S2 normal heart sound GI normal to inspection, nondistended, normoactive bowel sounds, non-tender and non-distended Results Lab / Micro Data Result Diagrams: 10/03/20 14:25 10/03/20 14:25 Assessment & Plan Assessment/Plan (1) Chest pain: PLAN: Patient seen and examined independently. Data reviewed. I agree with the above note by the physician assistant professor of economics. 1. Chest pain * Atypical and reproducible. Low suspicion for this action being cardiac * STEVEN score of 3 * Plan is for a nuclear stress test on the 2. Mandibular pimple * Continue with supportive management and now. Patient does have the doxycycline would just recommend continuation. If patient ~does have ongoing symptoms after completion of the antibiotics and may consider CT to evaluate for mastoiditis. Current pimple is not directly related with any potential mastoiditis, however. Charges/Coding Visit Charges OBSV E&M: 69937 Initial observation care L2
--- NOTE | 2020-10-03 19:20 | EKG12_ITS ---
Test Reason : CHEST PAIN ADM Blood Pressure : / mmHG Vent. Rate : 094 BPM Atrial Rate : 094 BPM P-R Int : 156 ms QRS Dur : 096 ms QT Int : 354 ms P-R-T Axes : 037 -41 055 degrees QTc Int : 442 ms Normal sinus rhythm Left axis deviation Abnormal ECG When compared with ECG of 03-OCT-2020 14:58, MANUAL COMPARISON REQUIRED, DATA IS UNCONFIRMED Confirmed by KATHI ENNIS, ANNMARIE ([id number]), sound editor CRISTIAN BONE ([id number]) on 10/08/2020 9:13:42 AM Referred By: IFEANYI Confirmed By:ANNMARIE ARMENTA MD
[2020-10-03] MEDS: Nitroglycerin (INPATIENT USE) 0.4 MG TAB.SUBL SL ×3 (19:24→19:34)
[2020-10-03] MEDS: oxyCODONE 5 MG Tablet PO (19:42)
[2020-10-03] MEDS: MELATONIN 10 MG TABLET PO (21:18)
[2020-10-03] MEDS: Doxycycline 100 MG CAPSULE PO (21:19)
[2020-10-03] MEDS: Enoxaparin 60 MG/0.6 ML Syringe SC (21:19)
[2020-10-03] MEDS: Atorvastatin Calcium 10 MG Tablet 5 MG PO (21:19)
[2020-10-04] VITALS (9 sets, daily range): BP systolic 106–125; BP diastolic 47–51; PULSE 72–101; RESP 16–20; TEMP 36.7–37.3; O2SAT 94–97
[2020-10-04 01:22] LABS: Hematocrit 40.5 % (37-47); Hemoglobin 13.5 g/dL (12.0-15.0); Mean Corp Hgb Conc 33.3 g/dL (32-36); Mean Corpuscular Hgb 29.3 pg (27.0-32.0); Mean Corpuscular Volume 87.9 fL (81-99); Mean Platelet Vol. 10.2 fl (6.2-12.0); Platelet Count 318 K/mm3 (150-450); RBC Distribution Width CV 12.6 % (11.6-14.6); RBC Distribution Width SD 40.1 fl (35.1-43.9); Red Blood Count 4.61 M/mm3 (4.2-5.4); White Blood Count 17.8 K/mm3 (4.4-11.0)
[2020-10-04] MEDS: hydrOXYzine PAM 25 MG Capsule 50 MG PO (01:26)
[2020-10-04] MEDS: oxyCODONE 5 MG Tablet PO (01:26)
[2020-10-04 01:59] LABS: ALB/GLOB Ratio 1.1 RATIO (0.9-2.4); AST(SGOT) 7 U/L (15-37); Alanine Aminotransfer ALT/SGPT 19 U/L (13-56); Albumin, Serum 3.7 g/dL (3.2-5.0); Alkaline Phosphatase 69 U/L (45-117); Anion Gap 7 (5-15); BUN 10 mg/dL (7-18); BUN/Creat Ratio 13.4 RATIO (10-20); Calcium,Total 8.9 mg/dL (8.5-10.1); Chloride 102 mmol/L (98-107); Cholesterol 159 mg/dL (200); Creatinine, Serum 0.75 mg/dL (0.55-1.02); EST Glomerular Filtration Rate 82 mL/min (>60); Est Glom Filt Rate - Afr Amer 99 mL/min (>60); Estimated Creatinine Clearance 38.68 ml/min; Globulin 3.5 g/dL (2.2-4.2); Glucose 155 mg/dL (74-106); High Density Lipoprotein 76 mg/dL; Potassium 3.9 mmol/L (3.5-5.1); Protein, Total 7.2 g/dL (6.4-8.2); Sodium Level 134 mmol/L (136-145); Thyroid Stim Hormone (TSH) 0.71 uIU/mL (0.358-3.74); Triglycerides 125 mg/dL; Very Low Density Lipoprotein 25 mg/dL (5-40)
--- NOTE | 2020-10-04 02:28 | NURSING ---
pt resting with eyes closed after second prn of oxy and vistaril given. Will continue to monitor.
--- NOTE | 2020-10-04 05:00 | EKG12_ITS ---
Test Reason : AM EKG Blood Pressure : / mmHG Vent. Rate : 075 BPM Atrial Rate : 075 BPM P-R Int : 168 ms QRS Dur : 096 ms QT Int : 378 ms P-R-T Axes : 038 -36 033 degrees QTc Int : 422 ms Normal sinus rhythm Left axis deviation Abnormal ECG When compared with ECG of 03-OCT-2020 19:20, MANUAL COMPARISON REQUIRED, DATA IS UNCONFIRMED Confirmed by KATHI ENNIS, ANNMARIE ([id number]), slot editor CRISTIAN BONE ([id number]) on 10/08/2020 9:11:26 AM Referred By: IFEANYI Confirmed By:ANNMARIE ARMENTA MD
[2020-10-04] MEDS: Aspirin E.C. 81 MG Tablet PO (06:16)
[2020-10-04] MEDS: glipiZIDE XL 5 MG Tablet 10 MG PO (10:57)
[2020-10-04] MEDS: Loratadine 10 MG Tablet PO (10:58)
[2020-10-04] MEDS: Montelukast 10 MG Tablet PO (10:58)
[2020-10-04] MEDS: Doxycycline 100 MG CAPSULE PO (10:58)
[2020-10-04] MEDS: Gabapentin 300 MG Capsule PO (10:59)
--- NOTE | 2020-10-04 11:07 | PCM.DC ---
Discharge Instructions Diet Discharge Diet: No restrictions Activity Discharge Activity: Return to Normal Activity Follow Up Care Please Follow Up With: Primary care provider When: Within the next 2 weeks. Test Results: Test results from this visit will be discussed in further detail at your follow-up appointment, if applicable. Discharge Plan Admission Admit Date/Time: 10/03/20 18:37 Primary Reason for Your Visit: Chest pain Attending Provider: Clay Kincaid Primary Care Provider: Yousuf Dennis Instructions Patient Instructions: ED Chest Pain, Noncardiac Discharge Orders/Prescriptions Prescriptions: Continued glipizide 10 MG tablet extended release 24hr 10 mg PO DAILY RF: 0 gabapentin 300 MG capsule 300 mg PO TID RF: 0 montelukast 10 MG tablet 10 mg PO DAILY RF: 0 albuterol sulfate [ProAir HFA] 1 PUFF inhaler 1 - 2 puff inhalation Q6H PRN PRN (Reason: Sob &/Or Wheezing) RF: 0 ascorbic acid (vitamin C) [Vitamin C] 1,000 MG tablet 1,000 mg PO DAILY RF: 0 calcium carbonate 600 MG tablet 600 mg PO DAILY RF: 0 fluticasone propion-salmeterol [Advair Diskus] 1 EACH blister with device 2 ea IH DAILY RF: 0 melatonin 10 MG capsule 10 mg PO DAILY RF: 0 doxycycline monohydrate 100 mg Capsule 100 mg PO BID RF: 0 cetirizine [Zyrtec] 10 mg Tablet 10 mg PO DAILY RF: 0 lovastatin 20 mg Tablet 20 mg PO DAILY RF: 0 cholecalciferol (vitamin D3) 125 mcg (5,000 unit) Capsule 125 mcg PO DAILY RF: 0 coenzyme Q10 [CoQ-10] 100 mg Capsule 100 mg PO DAILY RF: 0 Prednisone Gatifloxacin Ketoro 1 drp LEFT EYE BID RF: 0 Referrals / Follow Up: Yousuf Dennis MD [Primary Care Provider] - Disposition Disposition (needs filled in before D/C Order can be placed): Home, self care
--- NOTE | 2020-10-04 11:32 | STRESSREP_ITS ---
Stress Test Report Regadenoson myocardial perfusion stress test. Indication: 69-year-old patient with symptoms of chest pain. Patient with history of diabetes mellitus with diabetic neuropathy, hyperlipidemia she is non-smoker. This patient has multiple medical comorbidities, with hyperlipidemia, benign essential hypertension, history of recurrent deep vein thrombosis and a prior history of pulmonary embolism. Stress protocol: Resting EKG demonstrates. Normal sinus rhythm. 0.4 mg of regadenoson was infused per usual protocol followed by rapid intravenous saline flush injection continuous EKG monitoring was performed. The maximum heart rate attained was 180 bpm which was 77% of maximum predicted heart . Stress EKG showed, normal sinus rhythm with no significant change from the resting EKG, with maximum heart rate of 118 bpm. Arrhythmia: No arrhythmia demonstrated Symptoms: Patient had no symptoms of chest pain Blood pressure at rest: 112/66 mmHg blood pressure at the end of stress: 134/52 mmHg Myocardial perfusion protocol. 11.8 mCi of Technetium 99m Sestamibi was injected at rest. [ 0.4 mg ]of Regadenoson was infused per usual protocol peak infusion[33.3 mCi ]of Technetium 99m sestamibi was injected. Stress images were obtained stress and rest images were reconstructed and compared in the short axis vertical and horizontal long axis. Gated images were also obtained Perfusion SPECT analysis: Review of the images demonstrate normal uptake of sestamibi at rest, post stress images demonstrate similar uptake of sestamibi to the resting images, homogeneous tracer uptake With no evidence of reversible myocardial ischemia. Gated SPECT analysis: The gated ejection fraction is 86%. Hyperdynamic left ventricle Conclusion: Negative Lexiscan sestamibi myocardial perfusion study for reversible myocardial ischemia Hyperdynamic left ventricle. Enrique Quintana MD,FACC,[facility]
--- NOTE | 2020-10-04 14:26 | DS.PCM_ITS ---
Documented by User: Yousuf GOLDSTEIN 10/04/20 14:35 Providers Date of Admission: 10/03/20 Primary Care Physician: Dr. Yousuf Dennis MD Reason For Visit: CHEST PAIN Diagnosis Discharge Diagnosis (1) Chest pain: Status: Acute Code(s): R07.9 - Chest pain, unspecified Medications at Discharge Home Medications albuterol sulfate [ProAir HFA] 1 - 2 puff INHALATION Q6H PRN PRN 09/03/16 gabapentin 300 mg PO TID 09/03/16 glipizide 10 mg PO DAILY 09/03/16 montelukast 10 mg PO DAILY 09/03/16 ascorbic acid (vitamin C) [Vitamin C] 1,000 mg PO DAILY 07/25/17 calcium carbonate 600 mg PO DAILY 07/25/17 fluticasone propion-salmeterol [Advair Diskus] 2 ea IH DAILY 03/23/18 melatonin 10 mg PO DAILY 03/23/18 Prednisone Gatifloxacin Ketoro 1 drp LEFT EYE BID 10/03/20 cetirizine [Zyrtec] 10 mg PO DAILY 10/03/20 cholecalciferol (vitamin D3) 125 mcg PO DAILY 10/03/20 coenzyme Q10 [CoQ-10] 100 mg PO DAILY 10/03/20 doxycycline monohydrate 100 mg PO BID 10/03/20 lovastatin 20 mg PO DAILY 10/03/20 Hospital Course Summary of Care Provided Minutes Spent on Discharge: 35 Hospital Course: 1) Chest pain/ACS rule out. Stress test demonstrates an estimated EF of 86% normal myocardial perfusion. EKG is normal sinus rhythm with no ST or T wave abnormalities. Troponins within n ormal limits. D-dimer not elevated. Chest x-ray demonstrates no acute cardiopulmonary process. Chest CT-A demonstrated no evidence for aortic aneurysm/dissection or PE. Lipid panel unremarkable. TSH within normal limits. Plan; follow-up with primary care provider within the next 2 weeks. 2) Asthma Continue albuterol, fluticasone and montelukast. 3) fibromyalgia Continue gabapentin. 4) left-sided postauricular abscess Continue doxycycline. 5) DM2 Continue glipizide and Metformin. Patient seen by Yousuf Culver PA-C, under the supervision of Dr. Kincaid. Physical Exam Narrative Patient is a 69-year-old female comfortably resting in bed, alert and oriented x3. Patient denies any progression of her chest pain from yesterday and reports it is currently controlled. Denies chest pain, shortness of breath, palp itations, sputum production, hemoptysis, fever, chills, N/V/D. Const alert, oriented x3 and no apparent distress HEENT normocephalic, head/scalp atraumatic and hearing grossly normal bilaterally Eyes PERRL, EOMs intact bilaterally and conjunctivae normal Neck no lymphadenopathy, supple and no JVD Resp normal respiratory effort, no retractions, no use of accessory muscles and clear to auscultation bilaterally Cardio regular rate, regular rhythm, no murmurs and no JVD GI normal to inspection, nondistended, normoactive bowel sounds, soft to palpation, non-tender and non-distended Extremity normal to inspection, full ROM and no clubbing, cyanosis or edema Skin no rashes or lesions noted, no wounds and skin turgor normal Neuro CN's II-XII intact bilaterally Psych affect normal Weight / BMI Weight Weight: 138 lb Body Mass Index (BMI) 26.9 ABG / Lab / Microbiology Data Result Diagrams: 10/04/20 01:15 10/04/20 01:15 Laboratory: Laboratory Results - last 24 hr 10/03/20 10/03/20 10/03/20 14:25 14:25 14:25 WBC 16.9 H RBC 4.71 Hgb 13.9 Hct 41.6 MCV 88.3 MCH 29.5 MCHC 33.4 RDW Std Deviation 41.1 RDW Coeff of Fernando 12.6 Plt Count 342 MPV 11.2 Immature Gran % (Auto) 0.200 Neut % (Auto) 72.3 H Lymph % (Auto) 18.5 L Baldwin % (Auto) 7.9 Eos % (Auto) 0.6 Baso % (Auto) 0.5 Absolute Neuts (auto) 12.2 H Absolute Lymphs (auto) 3.13 Nucleated RBC % 0 D-Dimer Quant (PE/DVT) 0.32 Sodium 136 Potassium 4.3 Chloride 103 Carbon Dioxide 27.0 Anion Gap 6 BUN 14 Creatinine 0.83 Estim Creat Clear Calc 46.60 Est GFR (MDRD) Af Amer 88 Est GFR (MDRD) Non-Af 73 BUN/Creatinine Ratio 16.9 Glucose 209 H Calcium 9.2 Total Bilirubin AST ALT Alkaline Phosphatase Troponin I < 0.015 Total Protein Albumin Globulin Albumin/Globulin Ratio Triglycerides Cholesterol LDL Cholesterol VLDL Cholesterol HDL Cholesterol TSH 10/03/20 10/03/20 10/04/20 19:30 22:40 01:15 WBC 17.8 H RBC 4.61 Hgb 13.5 Hct 40.5 MCV 87.9 MCH 29.3 MCHC 33.3 RDW Std Deviation 40.1 RDW Coeff of Fernando 12.6 Plt Count 318 MPV 10.2 Immature Gran % (Auto) Neut % (Auto) Lymph % (Auto) Baldwin % (Auto) Eos % (Auto) Baso % (Auto) Absolute Neuts (auto) Absolute Lymphs (auto) Nucleated RBC % D-Dimer Quant (PE/DVT) Sodium Potassium Chloride Carbon Dioxide Anion Gap BUN Creatinine Estim Creat Clear Calc Est GFR (MDRD) Af Amer Est GFR (MDRD) Non-Af BUN/Creatinine Ratio Glucose Calcium Total Bilirubin AST ALT Alkaline Phosphatase Troponin I < 0.015 < 0.015 Total Protein Albumin Globulin Albumin/Globulin Ratio Triglycerides Cholesterol LDL Cholesterol VLDL Cholesterol HDL Cholesterol TSH 10/04/20 10/04/20 01:15 01:15 WBC RBC Hgb Hct MCV MCH MCHC RDW Std Deviation RDW Coeff of Fernando Plt Count MPV Immature Gran % (Auto) Neut % (Auto) Lymph % (Auto) Baldwin % (Auto) Eos % (Auto) Baso % (Auto) Absolute Neuts (auto) Absolute Lymphs (auto) Nucleated RBC % D-Dimer Quant (PE/DVT) Sodium 134 L Potassium 3.9 Chloride 102 Carbon Dioxide 25.0 Anion Gap 7 BUN 10 Creatinine 0.75 Estim Creat Clear Calc 38.68 Est GFR (MDRD) Af Amer 99 Est GFR (MDRD) Non-Af 82 BUN/Creatinine Ratio 13.4 Glucose 155 H Calcium 8.9 Total Bilirubin 0.90 AST 7 L ALT 19 Alkaline Phosphatase 69 Troponin I < 0.015 Total Protein 7.2 Albumin 3.7 Globulin 3.5 Albumin/Globulin Ratio 1.1 Triglycerides 125 Cholesterol 159 LDL Cholesterol 58 VLDL Cholesterol 25 HDL Cholesterol 76 TSH 0.71 Radiography Diagnostic Testing: Radiology Impression Chest X-Ray 10/03/20 15:01 IMPRESSION: Blunting of the left cosmetic angle with increased markings at the left lung base suggestive of left basilar early infiltrate. Electronically Signed: Mykel Carpio MD at 15:22 EDT , Service support , Chest CTA 10/03/20 16:55 IMPRESSION: Bibasilar atelectasis more severe on the left and mild left upper lobe atelectasis. No evidence for aortic aneurysm periaortic leak or dissection. No evidence for pulmonary embolus Electronically Signed: Robb Sanchez MD at 18:28 EDT , Service support , D/C Instructions Discharge Diet: No restrictions Please Follow Up With: Primary care provider When: Within the next 2 weeks. Meaningful Use Info Meaningful Use Diagnoses (Choose all that apply): None applicable Discharge Plan Admission Admit Date/Time: 10/03/20 18:37 Primary Reason for Your Visit: Chest pain Attending Provider: Clay Kincaid Primary Care Provider: Yousuf Dennis Instructions Patient Instructions: ED Chest Pain, Noncardiac Discharge Orders/Prescriptions Prescriptions: Continued glipizide 10 MG tablet extended release 24hr 10 mg PO DAILY RF: 0 gabapentin 300 MG capsule 300 mg PO TID RF: 0 montelukast 10 MG tablet 10 mg PO DAILY RF: 0 albuterol sulfate [ProAir HFA] 1 PUFF inhaler 1 - 2 puff inhalation Q6H PRN PRN (Reason: Sob &/Or Wheezing) RF: 0 ascorbic acid (vitamin C) [Vitamin C] 1,000 MG tablet 1,000 mg PO DAILY RF: 0 calcium carbonate 600 MG tablet 600 mg PO DAILY RF: 0 fluticasone propion-salmeterol [Advair Diskus] 1 EACH blister with device 2 ea IH DAILY RF: 0 melatonin 10 MG capsule 10 mg PO DAILY RF: 0 doxycycline monohydrate 100 mg Capsule 100 mg PO BID RF: 0 cetirizine [Zyrtec] 10 mg Tablet 10 mg PO DAILY RF: 0 lovastatin 20 mg Tablet 20 mg PO DAILY RF: 0 cholecalciferol (vitamin D3) 125 mcg (5,000 unit) Capsule 125 mcg PO DAILY RF: 0 coenzyme Q10 [CoQ-10] 100 mg Capsule 100 mg PO DAILY RF: 0 Prednisone Gatifloxacin Ketoro 1 drp LEFT EYE BID RF: 0 Referrals / Follow Up: Yousuf Dennis MD [Primary Care Provider] - Disposition Disposition (needs filled in before D/C Order can be placed): Home, self care Documented by User: Dr. Clay Kincaid MD 10/04/20 14:41 Providers Date of Admission: 10/03/20 Reason For Visit: CHEST PAIN Medications at Discharge Home Medications albuterol sulfate [ProAir HFA] 1 - 2 puff INHALATION Q6H PRN PRN 09/03/16 gabapentin 300 mg PO TID 09/03/16 glipizide 10 mg PO DAILY 09/03/16 montelukast 10 mg PO DAILY 09/03/16 ascorbic acid (vitamin C) [Vitamin C] 1,000 mg PO DAILY 07/25/17 calcium carbonate 600 mg PO DAILY 07/25/17 fluticasone propion-salmeterol [Advair Diskus] 2 ea IH DAILY 03/23/18 melatonin 10 mg PO DAILY 03/23/18 Prednisone Gatifloxacin Ketoro 1 drp LEFT EYE BID 10/03/20 cetirizine [Zyrtec] 10 mg PO DAILY 10/03/20 cholecalciferol (vitamin D3) 125 mcg PO DAILY 10/03/20 coenzyme Q10 [CoQ-10] 100 mg PO DAILY 10/03/20 doxycycline monohydrate 100 mg PO BID 10/03/20 lovastatin 20 mg PO DAILY 10/03/20 ABG / Lab / Microbiology Data Result Diagrams: 10/04/20 01:15 10/04/20 01:15 Discharge Plan Admission Admit Date/Time: 10/03/20 18:37 Primary Reason for Your Visit: Chest pain Attending Provider: Clay Kincaid Primary Care Provider: Yousuf Dennis Instructions Patient Instructions: ED Chest Pain, Noncardiac Discharge Orders/Prescriptions Prescriptions: Continued glipizide 10 MG tablet extended release 24hr 10 mg PO DAILY RF: 0 gabapentin 300 MG capsule 300 mg PO TID RF: 0 montelukast 10 MG tablet 10 mg PO DAILY RF: 0 albuterol sulfate [ProAir HFA] 1 PUFF inhaler 1 - 2 puff inhalation Q6H PRN PRN (Reason: Sob &/Or Wheezing) RF: 0 ascorbic acid (vitamin C) [Vitamin C] 1,000 MG tablet 1,000 mg PO DAILY RF: 0 calcium carbonate 600 MG tablet 600 mg PO DAILY RF: 0 fluticasone propion-salmeterol [Advair Diskus] 1 EACH blister with device 2 ea IH DAILY RF: 0 melatonin 10 MG capsule 10 mg PO DAILY RF: 0 doxycycline monohydrate 100 mg Capsule 100 mg PO BID RF: 0 cetirizine [Zyrtec] 10 mg Tablet 10 mg PO DAILY RF: 0 lovastatin 20 mg Tablet 20 mg PO DAILY RF: 0 cholecalciferol (vitamin D3) 125 mcg (5,000 unit) Capsule 125 mcg PO DAILY RF: 0 coenzyme Q10 [CoQ-10] 100 mg Capsule 100 mg PO DAILY RF: 0 Prednisone Gatifloxacin Ketoro 1 drp LEFT EYE BID RF: 0 Referrals / Follow Up: Yousuf Dennis MD [Primary Care Provider] - Disposition Disposition (needs filled in before D/C Order can be placed): Home, self care Charges/Coding Addendum Addendum: Dr. Kincaid: I personally reviewed the chart and examined the patient, and agree with the above findings.69-year-old female presents with chest pain that occurred while she was just sitting on the couch not doing anything. He was much better today, she had a stress test which was negative, 3 - troponins and a nonischemic EKG. Nothing really made the pain worse yesterday, however nitroglycerin did not make the pain better. She does have an elevated white count but this is consistent with a recent boil that she has on her neck which is being treated as an outpatient with doxycycline. Unfortunate she had not taken her first pill until yesterday prior to admission. I discussed with her the need to continue this medication and follow-up with her PCP in 3 to 5 days. I also requested that if she have repeat chest pain, shortness of breath or lightheadedness that she is to return to the hospital for further evaluation. Visit Charges Inpatient E&M: 63938 Subs Hosp L2
== END 2020-10-04 11:09 | disposition home or self-care (01) ==
LOC: ED 18:33 → PCU 18:59
PROVIDERS: Physician Assistant; Emergency Provider Emergency Medicine; PCP Family Medicine; Visit Provider Family Medicine
DX: R07.89 Other chest pain (principal); J45.909 Unspecified asthma, uncomplicated; E11.40 Type 2 diabetes mellitus with diabetic neuropathy, unspecified; M79.7 Fibromyalgia; E78.00 Pure hypercholesterolemia, unspecified; Z79.84 Long term (current) use of oral hypoglycemic drugs; Z79.51 Long term (current) use of inhaled steroids; Z79.52 Long term (current) use of systemic steroids; Z79.899 Other long term (current) drug therapy; H60.02 Abscess of left external ear
CPT/HCPCS: 36415; 71045; 71275; 78452; 80048; 80053; 80061; 84443; 84484; 85025; 85027; 85379; 93005; 93017; 94762; 96361; 96372; 96374; 96376; 99218; 99285; A9500; J7030; Q9967; A4216; G0378; J2785

== ENCOUNTER 2020-10-31 13:30 | Outpatient (RCR) | payer MEDICARE, OTHER, SELFPAY ==
[2020-10-03 19:11] VITALS: BMI 26.9
== END 2020-10-31 23:59 | disposition home or self-care (01) ==
LOC: DC 13:30
PROVIDERS: PCP Family Medicine; Visit Provider Family Medicine
DX: E11.40 Type 2 diabetes mellitus with diabetic neuropathy, unspecified (principal)
CPT/HCPCS: G0109

== ENCOUNTER → 2020-12-05 13:48 | Outpatient (CLI) | payer MEDICARE, OTHER, SELFPAY ==
[2020-10-03 19:11] VITALS: BMI 26.9
--- NOTE | 2020-12-05 13:56 | BD_ITS ---
STUDY: DUAL ENERGY X-RAY ABSORPTIOMETRY / DXA REASON FOR EXAM: Female, 70 years old. 733.00OsteoporosisBONE DENSITY REASON FOR EXAM TECHNIQUE: Bone Mineral Density (BMD) measurements of lumbar spine and bilateral hips were obtained. COMPARISON: None. FINDINGS: Lumbar Spine (L1-L4): g/cm2 (0.845) / T-score (-1.8) / Z-score (0.2) Findings are suggestive of osteopenia with a moderate fracture risk. Left Femur Total: g/cm2 (0.698) / T-score (-2.0) / Z-score (-0.6) Left Femoral Neck: g/cm2 (0.583) / T-score (-2.4) / Z-score (-0.7) Right Femur Total: g/cm2 (0.689) / T-score (-2.1) / Z-score (-0.6) Right Femoral Neck: g/cm2 (0.566) / T-score (-2.5) / Z-score (-0.8) BD/Dexa Bone Density Study IMPRESSION: The patient is considered osteopenic as outlined below according to World Brodie Organization (WHO) criteria with a high fracture risk. Reference Information: The T-score is the number of standard deviations above or below the standard which is normal for young adults at their peak bone mineral density. The World Health Organization (WHO) interprets the T-scores as follows: Above -1 Normal bone density Between -1 and -2.5 Osteopenia Equal to / or below -2.5 Osteoporosis As a practical clinical guideline, osteopenia may be graded as follows: Mild -1 through -1.5 Moderate -1.6 through -2.0 Severe -2.1 through -2.4 The Z-score is the number of standard deviations above or below age-matched controls. A Z-score of less than -1.5 would be considered abnormal. References: 1. NIH Osteoporosis and Related Bone Diseases www osteo.org 2. International Society for Clinical Densitometry www iscd.org 3. National Osteoporosis Foundation www nof.org Electronically Signed: Mykel Carpio MD at 20:18 EDT , Service support ,
== END ==
PROVIDERS: PCP Family Medicine; Referring Provider Nurse Practitioner Family; Visit Provider Nurse Practitioner Family
DX: Z13.820 Encounter for screening for osteoporosis (principal); M81.0 Age-related osteoporosis without current pathological fracture
CPT/HCPCS: 77080

== ENCOUNTER → 2020-12-11 09:19 | Outpatient (CLI) | payer MEDICARE, OTHER, SELFPAY ==
[2020-10-03 19:11] VITALS: BMI 26.9
[2020-12-11 10:46] LABS: Microalbumin,Random Urine 9.4 mg/L (NO RANGE EST.); Microalbumin:Creatinine Ratio 7.2 mg/g CRE (<30 mg/g CRE)
[2020-12-11 10:50] LABS: Hemoglobin A1c 7.5 % (3.8-5.6)
[2020-12-11 11:04] LABS: ALB/GLOB Ratio 1.2 RATIO (0.9-2.4); AST(SGOT) 14 U/L (15-37); Alanine Aminotransfer ALT/SGPT 32 U/L (13-56); Albumin, Serum 3.9 g/dL (3.2-5.0); Alkaline Phosphatase 82 U/L (45-117); Anion Gap 7 (5-15); BUN 12 mg/dL (7-18); BUN/Creat Ratio 16.5 RATIO (10-20); Calcium,Total 9.1 mg/dL (8.5-10.1); Chloride 104 mmol/L (98-107); Cholesterol 161 mg/dL (200); Creatinine, Serum 0.73 mg/dL (0.55-1.02); EST Glomerular Filtration Rate 84 mL/min (>60); Est Glom Filt Rate - Afr Amer 102 mL/min (>60); Globulin 3.3 g/dL (2.2-4.2); Glucose 163 mg/dL (74-106); High Density Lipoprotein 50 mg/dL; Potassium 4.4 mmol/L (3.5-5.1); Protein, Total 7.2 g/dL (6.4-8.2); Sodium Level 139 mmol/L (136-145); Triglycerides 172 mg/dL; Very Low Density Lipoprotein 34 mg/dL (5-40)
== END ==
PROVIDERS: PCP Family Medicine; Referring Provider Family Medicine; Visit Provider Family Medicine
DX: E11.9 Type 2 diabetes mellitus without complications (principal); E78.00 Pure hypercholesterolemia, unspecified
CPT/HCPCS: 36415; 80053; 80061; 82043; 82570; 83036

== ENCOUNTER → 2021-01-29 | Outpatient (CLI) | payer MEDICARE, OTHER, SELFPAY | END | disposition home or self-care (01) | LOC: LABSPEC 09:46 | PROVIDERS: PCP Family Medicine; Referring Provider Physician Assistant; Visit Provider Physician Assistant | DX: Z11.52 Encounter for screening for COVID-19 (principal) | CPT/HCPCS: 87635; U0005; U0003 ==

== ENCOUNTER 2021-07-07 08:52 | Outpatient (CLI) | payer MEDICARE, OTHER, SELFPAY ==
[2021-07-07 09:49] LABS: Absolute Lymphocyte Count 3.08 X10^3/uL (0.83-4.51); Basophil# 0.06 X10^3/uL; Basophil% 0.9 % (0-1); Eosinophil# 0.24 X10^3/uL; Eosinophils% 3.5 % (0-5); Hematocrit 42.2 % (37-47); Hemoglobin 13.8 g/dL (12.0-15.0); Lymphocyte # 3.08 X10^3/ul (0.83-4.51); Lymphocyte % 44.8 % (19-41); Mean Corp Hgb Conc 32.7 g/dL (32-36); Mean Corpuscular Hgb 29.6 pg (27.0-32.0); Mean Corpuscular Volume 90.6 fL (81-99); Mean Platelet Vol. 10.7 fl (6.2-12.0); Monocyte% 7.3 % (0-10); NRBC Flagged by Analyzer 0 % (0-5); Neutrophil # 2.97 X10^3/uL (2.7-7.7); Neutrophil % 43.2 % (47-70); Platelet Count 339 K/mm3 (150-450); RBC Distribution Width SD 42.7 fl (35.1-43.9); Red Blood Count 4.66 M/mm3 (4.2-5.4); White Blood Count 6.9 K/mm3 (4.4-11.0)
[2021-07-11 12:54] LABS: Immunoglobulin E 24 IU/mL (6-495)
== END 2021-07-07 23:59 | disposition home or self-care (01) ==
LOC: MFPLAB 08:54
PROVIDERS: Nurse Practitioner Family; PCP Family Medicine
DX: E11.40 Type 2 diabetes mellitus with diabetic neuropathy, unspecified (principal); J45.40 Moderate persistent asthma, uncomplicated
CPT/HCPCS: 36415; 82785; 83036; 85025

== ENCOUNTER 2021-10-02 13:02 | Emergency (ER) | payer MEDICARE, OTHER, SELFPAY ==
[2021-10-02 13:02] VITALS: BP 139/74; PULSE 84; RESP 18; TEMP 36.6; O2SAT 98; BMI 35.2
--- NOTE | 2021-10-02 13:26 | RAD_ITS ---
STUDY: X-RAY - LEFT HAND, ATTENTION FIFTH FINGER REASON FOR EXAM: Injury of the distal fifth finger. TECHNIQUE: 3 view(s) of the finger were obtained. COMPARISON: Radiographs 09/03/2016. FINDINGS: There is osteopenia. Normal metacarpal head. Normal metacarpophalangeal joint. Normal proximal phalanx. Normal middle phalanx. Normal distal phalanx. There is joint space narrowing of the proximal interphalangeal joint. There is joint space narrowing of the distal interphalangeal joint. There is laceration of the distal finger without demonstrated radiopaque foreign body. 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 No demonstrated fracture or radiopaque foreign body. Electronically Signed: Saqib Flores MD at 14:06 EDT ,
--- NOTE | 2021-10-02 13:26 | EX.ED.UPPERE ---
HPI History of Present Illness Chief Complaint: Laceration Informant: patient Occured/Mechanism Mechanism/Context: Yes direct blow Onset/Context/Timing Onset: Today Context: Sudden Onset Timing: Continuous Quality of Pain: Aching Location: L small fingertip Current Severity: Mild Maximum Severity: Moderate Worsened by: palpation Relieved by: leaving alone Associated Symptoms Associated Symptoms: Negative for Parasthesia, Weakness and Loss of Funtion Narrative Narrative: Patient is installing laminate mando, she is right-hand dominant, she was using a hammer and accidentally struck her small fingertip on the left hand. Sustained a laceration. No other injuries. Tetanus Immunization: >10 years [facility] Medical History Asthma Cataract Diabetes Diabetes Diabetic neuropathy Fibromyalgia High cholesterol Mixed hyperlipidemia Neuropathy Non-smoker Overweight (BMI 25.0-29.9) Rotator cuff arthropathy of left shoulder Seasonal allergies Home Medications albuterol sulfate [ProAir HFA] 1 - 2 puff INHALATION Q6H PRN PRN 09/03/16 [History Last Taken Unknown] gabapentin 300 mg PO TID 09/03/16 [History Last Taken 10/02/20] glipizide 10 mg PO DAILY 09/03/16 [History Last Taken 10/02/20] montelukast 10 mg PO DAILY 09/03/16 [History Last Taken 10/02/20] ascorbic acid (vitamin C) [Vitamin C] 1,000 mg PO DAILY 07/25/17 [History Last Taken 10/02/20] calcium carbonate 600 mg PO DAILY 07/25/17 [History Last Taken 10/02/20] fluticasone propion-salmeterol [Advair Diskus] 2 ea IH DAILY 03/23/18 [History Last Taken 10/02/20] melatonin 10 mg PO DAILY 03/23/18 [History Last Taken 10/02/20] Prednisone Gatifloxacin Ketoro 1 drp LEFT EYE BID 10/03/20 [History Last Taken 10/03/20] cetirizine [Zyrtec] 10 mg PO DAILY 10/03/20 [History Last Taken 10/02/20] cholecalciferol (vitamin D3) 125 mcg PO DAILY 10/03/20 [History Last Taken 10/02/20] coenzyme Q10 [CoQ-10] 100 mg PO DAILY 10/03/20 [History Last Taken 10/02/20] doxycycline monohydrate 100 mg PO BID 10/03/20 [History Last Taken 10/03/20] lovastatin 20 mg PO DAILY 10/03/20 [History Last Taken 10/02/20] pioglitazone 30 mg tablet 30 mg PO DAILY #30 tab 01/23/21 [Rx Last Taken Unknown] Allergy/AdvReac Type Severity Reaction Status Date / Time adhesive tape Allergy Intermediate takes skin Verified 10/02/21 13:04 off menthol Allergy Rash Verified 10/02/21 13:04 nabumetone [From Relafen] Allergy Rash Verified 10/02/21 13:04 simvastatin Allergy Rash Verified 10/02/21 13:04 morphine AdvReac Other Verified 10/02/21 13:04 BEES Allergy Rash Uncoded 10/02/21 13:04 Family History Other Anesthesia complication Diabetes Surgical History H/O bladder repair surgery H/O carpal tunnel repair H/O right knee surgery H/O: hysterectomy Social History Smoking Status: Never smoker alcohol intake: current alcohol intake frequency: 0-2 drinks per day substance use type: does not use ROS ROS ED Constitutional Constitutional ED: Denies chills or fever(s) Musculoskeletal Musculoskeletal: Reports extremity pain; Denies neck pain Integumentary Reports laceration and wounds; Denies Abrasions or rash Neurologic Neurologic: Denies paresthesias or weakness EXAM Physical Exam Const Vital Signs: 10/02/21 13:02 Temperature 97.9 F Temperature Source Temporal Pulse Rate 84 Respiratory Rate 18 Blood Pressure 139/74 H Blood Pressure Mean 95 Pulse Ox 98 Oxygen Delivery Method Room Air Positive well nourished and well developed General Appearance ED: well developed and NAD Neck full ROM and supple Back/Spine normal ROM and normal to inspection Extremity full ROM Extremity Narrative: Laceration to the left small fingertip, no nail injury, no subungual hematoma, no nailbed laceration involvement. Full range of motion including FDP and extensor. Neuro oriented x3, no focal motor deficits and no sensory deficits noted Sensorium / Orientation: alert Psych mental status grossly normal and thought process normal Skin Skin Narrative: 1 cm curvilinear full-thickness clean appearing wound/laceration to the fingertip of the left small finger, it is limited to the pad and there is no nail or nailbed involvement. Rashes: no rashes MDM MDM MDM Narrative Medical decision making narrative: Three-view x-ray series of the left little finger my interpretation negative for anything acute, radiology in agreement. We were looking primarily for fracture. Patient's laceration was repaired, see the procedure note. Discharged with appropriate instructions and dressed with bacitracin. Discharge Plan Triage Chief Complaint: Laceration ED Provider: Ben Young Dx/Rx/DC Orders Clinical Impression: Laceration of left little finger w/o foreign body w/o damage to nail, Tetanus-diphtheria (Td) vaccination Instructions: ED Laceration, Hand: All Closures Prescriptions: No Action pioglitazone 30 mg tablet 30 mg PO DAILY Qty: 30 RF: 6 glipizide 10 MG tablet extended release 24hr 10 mg PO DAILY RF: 0 gabapentin 300 MG capsule 300 mg PO TID RF: 0 montelukast 10 MG tablet 10 mg PO DAILY RF: 0 albuterol sulfate [ProAir HFA] 1 PUFF inhaler 1 - 2 puff inhalation Q6H PRN PRN (Reason: Sob &/Or Wheezing) RF: 0 ascorbic acid (vitamin C) [Vitamin C] 1,000 MG tablet 1,000 mg PO DAILY RF: 0 calcium carbonate 600 MG tablet 600 mg PO DAILY RF: 0 fluticasone propion-salmeterol [Advair Diskus] 1 EACH blister with device 2 ea IH DAILY RF: 0 melatonin 10 MG capsule 10 mg PO DAILY RF: 0 doxycycline monohydrate 100 mg Capsule 100 mg PO BID RF: 0 cetirizine [Zyrtec] 10 mg Tablet 10 mg PO DAILY RF: 0 lovastatin 20 mg Tablet 20 mg PO DAILY RF: 0 cholecalciferol (vitamin D3) 125 mcg (5,000 unit) Capsule 125 mcg PO DAILY RF: 0 coenzyme Q10 [CoQ-10] 100 mg Capsule 100 mg PO DAILY RF: 0 Prednisone Gatifloxacin Ketoro 1 drp LEFT EYE BID RF: 0 Primary Care Provider: Care Physician,No Primary Referrals: Care Physician,No Primary [Primary Care Provider] - Doctor,Your [STAFF PHYSICIAN] - 10-14 Days suture removal Disposition Disposition: Home, Self Care
[2021-10-02] MEDS: Lidocaine/Epi/Tetracaine 50 ML 1 APPLIC TOPICAL (13:48)
[2021-10-02] MEDS: Diphth,Pertuss(Acell),Tet Vac 0.5 ML Vial IM (13:48)
[2021-10-02] MEDS: Lidocaine 1% (20 ml mdv) 20 ML Vial INFILT (14:52)
== END 2021-10-02 14:59 | disposition home or self-care (01) ==
PROVIDERS: Emergency Provider Emergency Medicine; Visit Provider Emergency Medicine
DX: S61.217A Laceration without foreign body of left little finger without damage to nail, initial encounter (principal); W22.8XXA Striking against or struck by other objects, initial encounter; Z23 Encounter for immunization; E11.40 Type 2 diabetes mellitus with diabetic neuropathy, unspecified; E78.2 Mixed hyperlipidemia; J45.909 Unspecified asthma, uncomplicated; M79.7 Fibromyalgia; E66.3 Overweight; Z79.84 Long term (current) use of oral hypoglycemic drugs; Z79.899 Other long term (current) drug therapy
CPT/HCPCS: 12001; 73140; 90471; 90715; 99283

== ENCOUNTER → 2022-08-18 | Outpatient (CLI) | payer MEDICARE, OTHER, SELFPAY ==
--- NOTE | 2022-08-18 14:50 | RAD_ITS ---
EXAM: XR CHEST, 2 VIEWS CLINICAL INDICATION: COUGH TECHNIQUE: Frontal and lateral views of the chest. This report was created using [employer] report generation technology. COMPARISON: October 03, 2020. FINDINGS: LUNGS AND PLEURAL SPACES: Unremarkable. No consolidation or edema. No pneumothorax. No effusion. HEART: Unremarkable. Cardiac silhouette not enlarged. MEDIASTINUM: Central airways and mediastinal contour are unremarkable. BONES/JOINTS: Unremarkable. SOFT TISSUES: Unremarkable. RAD/Chest PA and Lateral IMPRESSION: No radiographic evidence of acute cardiopulmonary disease. Electronically Signed: Chaz Medina MD at 3:50 EDT ,
== END | disposition home or self-care (01) ==
LOC: MTRAD 14:47
PROVIDERS: PCP Family Medicine; Referring Provider Family Medicine; Visit Provider Family Medicine
DX: R50.9 Fever, unspecified (principal)
CPT/HCPCS: 71046

== ENCOUNTER → 2023-03-24 | Outpatient (CLI) | payer MEDICARE, OTHER, SELFPAY ==
[2023-03-24 15:42] LABS: Vitamin B12 229 pg/mL (211-911)
[2023-03-24 15:45] LABS: AST(SGOT) 9 U/L (15-37); Alanine Aminotransfer ALT/SGPT 18 U/L (13-56); Albumin, Serum 3.6 g/dL (3.2-5.0); Alkaline Phosphatase 81 U/L (45-117); Anion Gap 6 (5-15); BUN 12 mg/dL (7-18); BUN/Creat Ratio 12.7 RATIO (10-20); Chloride 105 mmol/L (98-107); Cholesterol 177 mg/dL (200); Creatinine, Serum 0.95 mg/dL (0.55-1.02); EST Glomerular Filtration Rate 62 mL/min (>60); Est Glom Filt Rate - Afr Amer 75 mL/min (>60); Globulin 3.5 g/dL (2.2-4.2); Glucose 173 mg/dL (74-106); High Density Lipoprotein 61 mg/dL; Potassium 4.3 mmol/L (3.5-5.1); Protein, Total 7.1 g/dL (6.4-8.2); Sodium Level 140 mmol/L (136-145); Triglycerides 175 mg/dL; Very Low Density Lipoprotein 35 mg/dL (5-40)
[2023-03-24 16:22] LABS: Microalbumin,Random Urine < 5.0 mg/L (NO RANGE EST.)
== END | disposition home or self-care (01) ==
LOC: MFPLAB 14:11
PROVIDERS: PCP Family Medicine; Visit Provider Family Medicine
DX: E11.40 Type 2 diabetes mellitus with diabetic neuropathy, unspecified (principal); E78.00 Pure hypercholesterolemia, unspecified
CPT/HCPCS: 36415; 80053; 80061; 82043; 82570; 82607

== ENCOUNTER → 2023-03-25 | Outpatient (CLI) | payer MEDICARE, OTHER, SELFPAY ==
--- NOTE | 2023-03-25 14:18 | RAD_ITS ---
STUDY: X-RAY - RIGHT FOOT CLINICAL: Female, 72 years old. Right foot pain. TECHNIQUE: 3 view(s) of the foot. COMPARISON: None. FINDINGS: Osteopenia. Superior and inferior calcaneal spurs. Mild arthrosis of the midfoot. Moderate arthrosis of the MTP and IP joints with hammertoe deformities . Diffuse soft tissue swelling. RAD/Foot min 3 Views IMPRESSION: Osteopenia, calcaneal spurs and osteoarthritic changes. Diffuse soft tissue swelling. Electronically Signed: Justin Miller MD at 14:53 EST ,
== END | disposition home or self-care (01) ==
LOC: MTRAD 14:15
PROVIDERS: PCP Family Medicine; Referring Provider Family Medicine; Visit Provider Family Medicine
DX: S99.921A Unspecified injury of right foot, initial encounter (principal); X58.XXXA Exposure to other specified factors, initial encounter
CPT/HCPCS: 73630

== ENCOUNTER → 2023-12-13 | Outpatient (CLI) | payer MEDICARE, OTHER, SELFPAY ==
[2023-12-13 09:30] LABS: Absolute Lymphocyte Count 2.78 X10^3/uL (0.83-4.51); Absolute Neutrophil Count 2.7 X10^3/uL (2.0-7.7); Basophil# 0.04 X10^3/uL; Basophil% 0.7 % (0-1); Eosinophil# 0.16 X10^3/uL; Eosinophils% 2.6 % (0-5); Hematocrit 42.5 % (37-47); Hemoglobin 13.5 g/dL (12.0-15.0); Lymphocyte # 2.78 X10^3/ul (0.83-4.51); Lymphocyte % 45.2 % (19-41); Mean Corp Hgb Conc 31.8 g/dL (32-36); Mean Corpuscular Hgb 29.3 pg (27.0-32.0); Mean Corpuscular Volume 92.2 fL (81-99); Monocyte# 0.49 X10^3/uL; NRBC Flagged by Analyzer 0 % (0-5); Neutrophil # 2.67 X10^3/uL (2.7-7.7); Neutrophil % 43.3 % (47-70); Platelet Count 310 K/mm3 (150-450); RBC Distribution Width CV 13.2 % (11.6-14.6); RBC Distribution Width SD 44.4 fl (35.1-43.9); Red Blood Count 4.61 M/mm3 (4.2-5.4); White Blood Count 6.2 K/mm3 (4.4-11.0)
[2023-12-13 09:54] LABS: Vitamin B12 1895 pg/mL (211-911); Vitamin D,25 Hydroxy 65.7 ng/mL
[2023-12-13 09:55] LABS: AST(SGOT) 14 U/L (15-37); Alanine Aminotransfer ALT/SGPT 18 U/L (13-56); Albumin, Serum 3.6 g/dL (3.2-5.0); Alkaline Phosphatase 76 U/L (45-117); Anion Gap 5 (5-15); BUN 15 mg/dL (7-18); BUN/Creat Ratio 17.8 RATIO (10-20); Calcium,Total 9.2 mg/dL (8.5-10.1); Chloride 106 mmol/L (98-107); Cholesterol 174 mg/dL (200); Creatinine, Serum 0.84 mg/dL (0.55-1.02); EST Glomerular Filtration Rate 71 mL/min (>60); Est Glom Filt Rate - Afr Amer 86 mL/min (>60); Globulin 3.6 g/dL (2.2-4.2); Glucose 114 mg/dL (74-106); High Density Lipoprotein 67 mg/dL; Potassium 4.3 mmol/L (3.5-5.1); Protein, Total 7.2 g/dL (6.4-8.2); Sodium Level 139 mmol/L (136-145); Triglycerides 151 mg/dL; Very Low Density Lipoprotein 30 mg/dL (5-40)
== END | disposition home or self-care (01) ==
PROVIDERS: PCP Family Medicine; Referring Provider Family Medicine; Visit Provider Family Medicine
DX: E11.40 Type 2 diabetes mellitus with diabetic neuropathy, unspecified (principal); E53.8 Deficiency of other specified B group vitamins; G25.81 Restless legs syndrome; M50.00 Cervical disc disorder with myelopathy, unspecified cervical region
CPT/HCPCS: 36415; 80053; 80061; 82306; 82607; 85025

== ENCOUNTER 2024-01-01 18:29 | Emergency (ER) | payer MEDICARE, OTHER, SELFPAY ==
[2024-01-01 18:32] VITALS: BP 164/76; PULSE 78; RESP 18; TEMP 36; O2SAT 100; BMI 29.7
--- NOTE | 2024-01-01 19:16 | EDS_ITS ---
HPI History of Present Illness Chief Complaint: Upper Extremity Injury Narrative Narrative: 73-year-old female past medical history of diabetes, [id number]-[id number], presents with swelling of her bilateral hands status post fall. She states that she recently got new glasses yesterday with progressive lenses. Her depth perception has been off. While she was at the [facility] this afternoon around 2 PM, she had a mechanical fall where she had tripped, and fell onto both of her hands. She has left hand pain greater than right. She is complaining of pain and swelling at the base of her third and fourth digits of her right hand, and along the fifth metacarpal of her left hand. She took ibuprofen when she got home, but her hands continued to swell. She has pain with movement of her fingers. She denies hitting her head, loss of consciousness, or other injury. [facility] Medical History Reactive airway disease Overweight (BMI 25.0-29.9) Mixed hyperlipidemia Diabetes Rotator cuff arthropathy of left shoulder Neuropathy Cataract Seasonal allergies Non-smoker Fibromyalgia Diabetic neuropathy High cholesterol Asthma Diabetes Home Medications ?Medication ?Instructions ?Recorded ?Last Taken ?Type gabapentin 300 mg capsule 300 mg PO TID PAIN 09/03/16 10/02/20 History glipizide 10 mg tablet, extended 10 mg PO DAILY DIABETES 09/03/16 10/02/20 History release 24 hr montelukast 10 mg tablet 10 mg PO DAILY ALLERGIES 09/03/16 10/02/20 History ascorbic acid (vitamin C) 1,000 mg 1,000 mg PO DAILY SUPPLEMENT 07/25/17 10/02/20 History tablet (Vitamin C) calcium carbonate 600 mg PO DAILY SUPPLEMENT 07/25/17 10/02/20 History fluticasone 250 mcg-salmeterol 50 2 ea IH DAILY ASTHMA 03/23/18 10/02/20 History mcg/dose blistr powdr for inhalation (Advair Diskus) melatonin 10 mg capsule 10 mg PO DAILY SLEEP AID 03/23/18 10/02/20 History cetirizine 10 mg tablet (Zyrtec) 10 mg PO DAILY ALLEGIES 10/03/20 10/02/20 History cholecalciferol (vitamin D3) 125 125 mcg PO DAILY SUPPLEMENT 06/10/21 06/09/21 History mcg (5,000 unit) capsule lovastatin 20 mg tablet 20 mg PO DAILY CHOLESTEROL 10/03/20 10/02/20 History pioglitazone 30 mg tablet 30 mg PO DAILY #30 tabs 01/23/21 Unknown Rx metformin 500 mg tablet,extended 500 mg PO BID 08/06/23 Unknown History release 24 hr albuterol sulfate 2.5 mg/3 mL 2.5 mg inhalation Q4H PRN PRN 01/01/24 Unknown History (0.083 %) solution for nebulization wheezing Allergy/AdvReac Type Severity Reaction Status Date / Time adhesive tape Allergy Intermediate takes skin Verified 01/01/24 18:30 off menthol Allergy Rash Verified 01/01/24 18:30 nabumetone (From Relafen) Allergy Rash Verified 01/01/24 18:30 simvastatin Allergy Rash Verified 01/01/24 18:30 venom-honey bee Allergy Rash Verified 01/01/24 18:30 morphine AdvReac Other Verified 01/01/24 18:30 Family History Other Anesthesia complication Diabetes Surgical History H/O bladder repair surgery H/O right knee surgery H/O carpal tunnel repair H/O: hysterectomy Social History Smoking Status: Never smoker alcohol intake: current alcohol intake frequency: 0-2 drinks per day substance use type: does not use ROS ROS ED ROS Narrative Focused review of systems positive for bilateral hand pain and swelling, right hand swelling and pain with movement of fingers especially on the distal third and fourth metacarpals at the base of the fingers. Tenderness and swelling noted on fifth metacarpal of left hand. Denies other injury. EXAM Physical Exam Narrative Exam Narrative: GCS 15. ABCs are intact. Afebrile. Vital signs noted. Regular rate and rhythm. Lungs are clear to auscultation bilaterally. Abdomen is soft and nontender with normoactive bowel sounds. Inspection of the right hand does reveal full range of motion of the wrist without pain. There is mild tenderness and swelling at the base of the fourth and third digits. She appears neurovascular intact distally with good capillary refill. Abduction and adduction of fingers on right hand intact. Able to oppose thumb. Inspection of the left hand reveals mild tenderness to palpation with mild swelling and ecchymosis along the fifth metacarpal. Full range of motion of left wrist. Palpable radial pulses bilaterally. Abduction and adduction of fingers on left hand intact and able to oppose thumb as well. Const Vital Signs: 01/01/24 18:32 Temperature 96.8 F L Temperature Source Temporal Pulse Rate 78 Respiratory Rate 18 Blood Pressure 164/76 H Blood Pressure Mean 105 Pulse Ox 100 Oxygen Delivery Method Room Air MDM MDM MDM Narrative Medical decision making narrative: Concern is for contusion of hands versus fracture. She has already taken ibuprofen and ice the areas. Attempt will be made to remove the rings on her left ring finger and x-rays obtained of the bilateral hands and 3 views to rule out fracture. On my independent interpretation of the x-rays of the left hand and of the right hand, there is no evidence of fracture on both 3 view series. I reviewed the radiology report which confirms my independent interpretation. At this point in time she will continue ice and elevation of her bilateral hands and take [id number] analgesics. She was told not to put her rings back in place until the swelling has resolved of her left hand (and right hand). She will follow-up with her primary care provider in 1 week if not improving. Return instructions to the emergency department were reviewed. Disposition is discharged home in stable condition. Discharge Plan Triage Chief Complaint: Upper Extremity Injury ED Provider: Homero Jiménez Dx/Rx/DC Orders Clinical Impression: Contusion of hand, left, Contusion of hand, right, Fall Instructions: ED Hand Contusion Prescriptions: No Action pioglitazone 30 mg tablet 30 mg PO DAILY Qty: 30 6RF metformin 500 mg tablet extended release 24 hr 500 mg PO BID glipizide 10 MG tablet extended release 24hr 10 mg PO DAILY gabapentin 300 MG capsule 300 mg PO TID Patient Comments: montelukast 10 MG tablet 10 mg PO DAILY ascorbic acid (vitamin C) [Vitamin C] 1,000 MG tablet 1,000 mg PO DAILY calcium carbonate 600 MG tablet 600 mg PO DAILY fluticasone propion-salmeterol [Advair Diskus] 1 EACH blister with device 2 ea IH DAILY melatonin 10 MG capsule 10 mg PO DAILY cetirizine [Zyrtec] 10 mg Tablet 10 mg PO DAILY lovastatin 20 mg Tablet 20 mg PO DAILY cholecalciferol (vitamin D3) 125 mcg (5,000 unit) Capsule 125 mcg PO DAILY albuterol sulfate 2.5 mg /3 mL (0.083 %) solution for nebulization 2.5 mg inhalation Q4H PRN PRN (Reason: wheezing) Primary Care Provider: Holger Morales Referrals: Holger Morales MD [Primary Care Provider] - 1 Week if not improving Print Language: Irish Disposition Disposition: Home, Self Care
--- NOTE | 2024-01-01 19:24 | RAD_ITS ---
STUDY: X-RAY - RIGHT HAND REASON FOR EXAM: Female, 73 years old. TRAUMA TECHNIQUE: 3 view(s) of the hand. COMPARISON: 09/03/2016 FINDINGS: Normal radiocarpal articulation. Normal distal radioulnar joint. Normal visualized carpal bones. Normal carpal articulations Normal carpometacarpal articulation of the thumb. Normal second through fifth carpometacarpal joints. Normal metacarpi. Normal metacarpophalangeal joint of the thumb. Normal interphalangeal joint of the thumb. Normal proximal and distal phalanges of the thumb. Normal metacarpophalangeal joints of the second through fifth fingers. Normal proximal and distal interphalangeal joints of the second through fifth fingers. Normal phalanges of the second through fifth fingers. The soft tissue structures are unremarkable. RAD/Hand Min 3 Views IMPRESSION: Normal x-ray examination of the hand. Electronically Signed: Asim Jamil MD at 20:05 EDT ,
--- NOTE | 2024-01-01 19:25 | RAD_ITS ---
STUDY: X-RAY - LEFT HAND REASON FOR EXAM: Female, 73 years old. trauma TECHNIQUE: 3 view(s) of the hand. COMPARISON: 09/03/2016 FINDINGS: Normal radiocarpal articulation. Normal distal radioulnar joint. Normal visualized carpal bones. Normal carpal articulations Normal carpometacarpal articulation of the thumb. Normal second through fifth carpometacarpal joints. Normal metacarpi. Normal metacarpophalangeal joint of the thumb. Normal interphalangeal joint of the thumb. Normal proximal and distal phalanges of the thumb. Normal metacarpophalangeal joints of the second through fifth fingers. Normal proximal and distal interphalangeal joints of the second through fifth fingers. Normal phalanges of the second through fifth fingers. The soft tissue structures are unremarkable. RAD/Hand Min 3 Views IMPRESSION: Normal x-ray examination of the hand. Electronically Signed: Asim Jamil MD at 20:04 EDT ,
[2024-01-01 20:42] VITALS: BP 123/57; PULSE 76; RESP 16; TEMP 36.9; O2SAT 100
== END 2024-01-01 20:43 | disposition home or self-care (01) ==
PROVIDERS: Emergency Provider Emergency Medicine; PCP Family Medicine; Visit Provider Emergency Medicine
DX: S60.221A Contusion of right hand, initial encounter (principal); E11.40 Type 2 diabetes mellitus with diabetic neuropathy, unspecified; S60.222A Contusion of left hand, initial encounter; W18.09XA Striking against other object with subsequent fall, initial encounter; Y92.834 Zoological garden (Zoo) as the place of occurrence of the external cause; E78.2 Mixed hyperlipidemia; J45.909 Unspecified asthma, uncomplicated; Z79.84 Long term (current) use of oral hypoglycemic drugs; Z79.899 Other long term (current) drug therapy
CPT/HCPCS: 73130; 99282

== ENCOUNTER → 2024-01-14 | Outpatient (CLI) | payer MEDICARE, OTHER, SELFPAY ==
--- NOTE | 2024-01-14 09:11 | RAD_ITS ---
STUDY: X-RAY - LEFT HAND REASON FOR EXAM: Female, 73 years old. Left hand injury TECHNIQUE: 3 view(s) of the hand. COMPARISON: 01/01/2024. FINDINGS: There are nondisplaced fractures of the base of the fifth metacarpal, also present previously. No other changes or acute findings. Demineralization. Normal radiocarpal articulation. Normal distal radioulnar joint. Normal visualized carpal bones. Normal carpal articulations There is degenerative arthrosis of the carpometacarpal (CMC) articulation of the thumb. Normal second through fifth carpometacarpal joints. Normal first-fourth metacarpi. Normal metacarpophalangeal joint of the thumb. Normal interphalangeal joint of the thumb. Normal proximal and distal phalanges of the thumb. Normal metacarpophalangeal joints of the second through fifth fingers. Normal proximal and distal interphalangeal joints of the second through fifth fingers. Normal phalanges of the second through fifth fingers. The soft tissue structures are unremarkable. RAD/Hand Min 3 Views IMPRESSION: There are nondisplaced fractures of the base of the fifth metacarpal, also present previously. No other changes or acute findings. Electronically Signed: Kevin Roche MD at 17:13 EDT ,
== END | disposition home or self-care (01) ==
LOC: MTRAD 09:08
PROVIDERS: PCP Family Medicine; Referring Provider Family Medicine; Visit Provider Family Medicine
DX: M79.642 Pain in left hand (principal)
CPT/HCPCS: 73130

== ENCOUNTER 2024-05-29 09:00 | Outpatient (RCR) | payer MEDICARE, OTHER, SELFPAY ==
--- NOTE | 2024-04-12 13:19 | HP.OTEVAL ---
Patient's Visit Information Visit Information Visit Information: CEASAR WAGNER is a 73 year old F, referred to Occupational Therapy by Justin Grajeda PA-C, with a diagnosis of left non displaced fx of base of 5th metacarpal bone. Date of Evaluation: 04/11/24 Occupational Therapist: Shira Ruth, KYLE/Olivia, CHT Subjective Subjective: This 73 year old female was seen for OT eval with dx of left non displaced fx of 5th metacarpal. [place]Pt states her hand continued to hurt. pt went to ER and was told her hand was fine- pt went to her family dr about 3 weeks following injury- and then 3-4 weeks until she could get into see her ortho dr. x-rays were positive for 5th metacarpal fx. pt was released from her injury and worked on her own for 4 weeks to try to increase her ability to use her left hand with ADLs. pt states pain limits her at times 7/10 pain. pt would like to know what more she can do to improve her ROM and strength as well as decreasing her pain. Pain left hand: Current Pain Intensity: 2 Pain Intensity Range: 8 ROM MP: right LF 85 left 60 left RF 75 PIP: right LF 100 left 85 left LF 95 DIP: right LF 0 due to FDP laceration as child Strength Indoor Plant Technician: right 50# left 5# Lateral Pinch: right 8# left 6# Tripod Pinch: right 10# left 3# Sensation Little: left LF 3.61 Sensation Comments: at times in tingling in left LF tip Quick DASH-Disab of Arm,Shoulder& Hand Quick DASH Score: 68.1800 Goals Goal:ROM equal to unaffected hand: Yes Goal:Indoor Plant Technician/Pinch strength at least 75% of unaffected hand: Yes Goal:No pain with affected hand use: Yes Goal:Full use of affected hand in daily activities including work: Yes Rehabilitation General Assessment: pt arrives 14 weeks and 3 days from DOI- pt demo limited composite left fist. pt demo with sig, weakness and pain with left hand use. Pt would benefit from skilled OT services 1-2x week for 4-6 weeks to decrease pain- increase ROM and strengthen to return pt to her PLOF. Pt demo understanding and agree to POC. Rehabilitation Potential: Good Anticipated Interventions Anticipated Interventions: A/AAROM/PROM, Strengthening, Triggerpoint Release, Modalities, Orthoses, Joint Protection/Energy Conservation, Ergonomic Education, Education re assistive Equipment, Education re Diagnosis and Home Program Visit Plan Frequency: 1-2x /Week Duration: 4 Weeks TEXT: Thank you for the opportunity to evaluate your patient. For Medicare and Medicare HMO plans, please review the plan of care and approve it. It will need to be FAXED BACK to us at [phone] for Medicare purposes. Please let me know if there are questions or concerns regarding this plan of care. Physician Signature: Date:
--- NOTE | 2024-10-23 19:04 | HP.OT.NRP ---
Patient Information Patient Information: CEASAR WAGNER was seen in my office for initial evaluation on 04/11/24. The following Plan of Care was established for this patient: POC Established Initial Frequency: 1-2x /Week Initial Duration: 4 Weeks Plan: cont. use ROM light strengthening Anticipated Interventions Anticipated Interventions: A/AAROM/PROM, Strengthening, Triggerpoint Release, Modalities, Orthoses, Joint Protection/Energy Conservation, Ergonomic Education, Education re assistive Equipment, Education re Diagnosis and Home Program Last Seen Last Seen: This patient was last seen in our office 05/29/24. Pertinent comments regarding their Occupational therapy will appear below: Due to time lapse in services pt is d/c at this time. At this point I will be discontinuing this patient from occupational therapy. I would be happy to see this patient again in the future if found appropriate by the physician. Thank you! Shira Ruth, OTR/L, CHT
== END 2024-05-29 19:00 | disposition home or self-care (01) ==
LOC: OT 09:00
PROVIDERS: PCP Family Medicine; Referring Provider Physician Assistant; Visit Provider Physician Assistant
DX: S62.347D Nondisplaced fracture of base of fifth metacarpal bone, left hand, subsequent encounter for fracture with routine healing (principal)
CPT/HCPCS: 97110; 97140; 97166

== ENCOUNTER 2024-08-08 16:44 | Emergency (ER) | payer MEDICARE, OTHER, SELFPAY ==
[2024-08-08 16:44] VITALS: BP 134/56; PULSE 86; RESP 16; TEMP 36.7; O2SAT 98; BMI 29.4
--- NOTE | 2024-08-08 16:50 | RAD_ITS ---
PROCEDURE: KNEE 4 OR MORE VIEWS 08/08/2024 REASON FOR EXAM: FALL TECHNIQUE: 4 views of the left knee FINDINGS: Bones: No fracture. No suspicious bone lesion. Joints: Normal alignment. Mild degenerative changes. Effusion: Moderate joint effusion. Soft tissues: Soft tissues are unremarkable. Other: RAD/Knee 4 or More Views IMPRESSION: No acute fracture or dislocation. Mild arthrosis. Joint effusion. Reading Location: [id number]
[2024-08-08 21:32] VITALS: PULSE 74; RESP 23; O2SAT 99
--- NOTE | 2024-08-08 22:07 | EDS_ITS ---
HPI History of Present Illness Chief Complaint: Lower Extremity Injury Informant: patient Narrative Narrative: Patient is a 71-year-old female with past medical history of nausea dependent diabetes hyperlipidemia and fibromyalgia. She states a few hours prior to arrival she tripped when she was in her kitchen and as she fell she caught herself with her hands but her knee struck the floor. She states that she has fractured her kneecap in the past in with swelling and pain mainly to the left knee she has concern for injury once again. She denies striking her head or any loss of conscious or history of bleeding disorder or blood thinner use. She states she has been able to ambulate since the fall but reports it is painful to move the left knee. Therefore with concern for underlying trauma she presents for evaluation [facility] Medical History Reactive airway disease Overweight (BMI 25.0-29.9) Mixed hyperlipidemia Diabetes Rotator cuff arthropathy of left shoulder Neuropathy Cataract Seasonal allergies Non-smoker Fibromyalgia Diabetic neuropathy High cholesterol Asthma Diabetes Home Medications ?Medication ?Instructions ?Recorded ?Last Taken ?Type gabapentin 300 mg capsule 300 mg PO TID PAIN 09/03/16 10/02/20 History glipizide 10 mg tablet, extended 10 mg PO DAILY DIABET ES 09/03/16 10/02/20 History release 24 hr montelukast 10 mg tablet 10 mg PO DAILY ALLERGIES 03/1210/02/20 History ascorbic acid (vitamin C) 1,000 mg 1,000 mg PO DAILY S UPPLEMENT 07/25/17 10/02/20 History tablet (Vitamin C) calcium carbonate 600 mg PO DAILY SUPPLEMENT 0 07/25/17 10/02/20 History fluticasone 250 mcg-salmeterol 50 2 ea IH DAILY ASTHMA 03/23/18 10/02/20 History mcg/dose blistr powdr for inhalation (Advair Diskus) melatonin 10 mg capsule 10 mg PO DAILY SLEEP AID 10/02/20 History cetirizine 10 mg tablet (Zyrtec) 10 mg PO DAILY ALLEGI ES 10/03/20 10/02/20 History cholecalciferol (vitamin D3) 125 125 mcg PO DAILY SUPP LEMENT 10/03/20 10/02/20 History mcg (5,000 unit) capsule lovastatin 20 mg tablet 20 mg PO DAILY CHOLESTEROL 0 10/03/20 10/02/20 History pioglitazone 30 mg tablet 30 mg PO DAILY #30 tabs 12/27 Unknown Rx metformin 500 mg tablet,extended 500 mg PO BID 4 Unknown History release 24 hr albuterol sulfate 2.5 mg/3 mL 2.5 mg inhalation Q4H OH N PRN 01/01/24 Unknown History (0.083 %) solution for nebulization wheezing oxycodone 5 mg tablet 5 mg PO Q6H PRN pain 3 days #12 08/08/24 Unknown Rx tabs Allergy/AdvReac Type Severity Reaction Status Date / Time adhesive tape Allergy Intermediate takes skin Verified 08/08/24 16:45 off menthol Allergy Rash Verified 08/08/24 16:45 nabumetone (From Relafen) Allergy Rash Verified 08/08/24 16:45 simvastatin Allergy Rash Verified 08/08/24 16:45 venom-honey bee Allergy Rash Verified 08/08/24 16:45 morphine AdvReac Other Verified 08/08/24 16:45 Family History Other Anesthesia complication Diabetes Surgical History H/O bladder repair surgery H/O right knee surgery H/O carpal tunnel repair H/O: hysterectomy Social History Smoking Status: Never smoker alcohol intake: current alcohol intake frequency: 0-2 drinks per day substance use type: does not use ROS ROS ED Constitutional Constitutional ED: Denies chills or fever(s) Eyes Eyes: Denies blurry vision or change in vision ENT ENT ED: Denies sore throat Cardiovascular Cardiovascular: Reports other Details: Negative syncope ; Denies chest pain Respiratory/Chest Respiratory/Chest: Denies cough or dyspnea Gastrointestinal Gastrointestinal: Denies abdominal pain, diarrhea, nausea or vomiting Musculoskeletal Musculoskeletal: Reports other Details: Positive left knee pain/swelling ; Denies back pain or neck pain Integumentary Denies Abrasions or rash Neurologic Neurologic: Denies headache(s), paresthesias or weakness Hematologic/Lymphatic Hematologic/Lymphatic: Denies easy bleeding or easy bruising EXAM Physical Exam Const Vital Signs: 08/08/24 16:44 08/08/24 21:32 Temperature 98.1 F Temperature Source Temporal Pulse Rate 86 74 Respiratory Rate 16 23 H Blood Pressure 134/56 H Blood Pressure Mean 82 Pulse Ox 98 99 Oxygen Delivery Method Room Air Room Air Positive well nourished and well developed General Appearance ED: well developed HEENT HEENT Narrative: Normocephalic atraumatic No signs of depressed or basilar skull fracture Eyes PERRL and EOMs intact bilaterally General Eye ED: Negative for scleral icterus Neck supple Neck Narrative: No bony deformity or step-off of the cervical spine no midline tenderness to palpation Resp normal respiratory effort and clear to auscultation bilaterally Cardio regular rate and regular rhythm Back/Spine Back/Spine Narrative: No bony deformity or step-off of the thoracic or lumbar spine no midline tenderness to palpation Extremity Extremity Narrative: Pelvis is stable there is no shortening or external rotation of either lower ex tremity Left lower extremity is neurovascularly intact. There is soft tissue swelling with faint ecchymosis to the anterior aspect of the left knee with small to moderate joint effusion present. However patellar tendon is intact and the ligaments are stable. No obvious bony deformity. Compartments are soft and compressible going against compartment syndrome Neuro oriented x3, CN's II-XII intact bilaterally and no sensory deficits noted Sensorium / Orientation: alert Psych mental status grossly normal Skin Skin Narrative: Soft tissue swelling with ecchymosis and joint effusion to the left knee as documented above MDM MDM MDM Narrative Medical decision making narrative: Patient arrived to ER with stable vitals and reported a mechanical fall and therefore there is no need for cardiac or syncope workup. Based on her fall and pain in with swelling there is concern for fracture versus dislocation versus hemarthrosis/joint effusion. X-rays were obtained and confirm the effusion but do not show any signs of fracture or dislocation. By physical exam there is no sign of patellar tendon or stabilizing knee ligament damage. Therefore at this time there is no need for further workup and patient to be placed in an Geronimo wrap for compression to help prevent further swelling/enlargement of the effusion and can be discharged home and follow-up with orthopedic surgeon to discuss further treatment options if symptoms are not spontaneously resolving. History & Record Review Discussion w/independent historian: Patient Radiography Diagnostic Testing: Clinical Impression(s) from Imaging Studies Knee X-Ray 08/08/24 16:50 IMPRESSION: No acute fracture or dislocation. Mild arthrosis. Joint effusion. Reading Location: [facility] X-ray of the left knee is interpreted by the emergency medicine physician reveals no acute fracture or dislocation. There is a small to moderate joint effusion present Discharge Plan Triage Chief Complaint: Lower Extremity Injury ED Provider: Chaz Martínez Dx/Rx/DC Orders Clinical Impression: Contusion of knee, left, Hemarthrosis involving knee joint, Accidental fall, Non-insulin dependent diabetes mellitus, Hyperlipidemia Instructions: Bone Contusion, ED Knee Effusion Prescriptions: New oxycodone 5 mg tablet 5 mg PO Q6H PRN (Reason: pain) 3 Days Qty: 12 0RF No Action pioglitazone 30 mg tablet 30 mg PO DAILY Qty: 30 6RF metformin 500 mg tablet extended release 24 hr 500 mg PO BID glipizide 10 MG tablet extended release 24hr 10 mg PO DAILY gabapentin 300 MG capsule 300 mg PO TID Patient Comments: montelukast 10 MG tablet 10 mg PO DAILY ascorbic acid (vitamin C) [Vitamin C] 1,000 MG tablet 1,000 mg PO DAILY calcium carbonate 600 MG tablet 600 mg PO DAILY fluticasone propion-salmeterol [Advair Diskus] 1 EACH blister with device 2 ea IH DAILY melatonin 10 MG capsule 10 mg PO DAILY cetirizine [Zyrtec] 10 mg Tablet 10 mg PO DAILY lovastatin 20 mg Tablet 20 mg PO DAILY cholecalciferol (vitamin D3) 125 mcg (5,000 unit) Capsule 125 mcg PO DAILY albuterol sulfate 2.5 mg /3 mL (0.083 %) solution for nebulization 2.5 mg inhalation Q4H PRN PRN (Reason: wheezing) Primary Care Provider: Holger Morales Referrals: Holger Morales MD [Primary Care Provider] - Arthur Yeboah MD [Med Staff - Active Staff] - Activity Restrictions/Additional Instructions: Your x-ray did not show any fracture or dislocation but did show fluid/blood in your knee joint consistent with your trauma. Wear the Geronimo wrap to help reduce and prevent further swelling. Ice the area 2-3 times a day for approximately 10 to 20 minutes for the next 2 to 3 days to help prevent further swelling and bleeding. Your symptoms should improve every few days and take on average 1 to 2 weeks to completely resolve. If your symptoms or not improving after 7 to 10 days or you have any further concerns please return to the ER or follow-up with your orthopedic surgeon for repeat evaluation Print Language: Slovak Disposition Disposition: Home, Self Care Discharge Date/Time: 08/08/24 22:32
== END 2024-08-08 22:32 | disposition home or self-care (01) ==
LOC: ED 22:23
PROVIDERS: Emergency Provider Emergency Medicine; PCP Family Medicine; Visit Provider Emergency Medicine
DX: S83.92XA Sprain of unspecified site of left knee, initial encounter (principal); E11.40 Type 2 diabetes mellitus with diabetic neuropathy, unspecified; W18.09XA Striking against other object with subsequent fall, initial encounter; Y92.000 Kitchen of unspecified non-institutional (private) residence as the place of occurrence of the external cause; M79.7 Fibromyalgia; E78.2 Mixed hyperlipidemia; Z79.84 Long term (current) use of oral hypoglycemic drugs; Z79.899 Other long term (current) drug therapy
CPT/HCPCS: 73564; 99282

== ENCOUNTER → 2024-10-05 | Outpatient (CLI) | payer MEDICARE, OTHER, SELFPAY ==
--- NOTE | 2024-10-05 13:51 | BI_ITS ---
EXAM: SCRN MAMM (CAD)W/RIDDHI BILAT DATE: 10/05/2024 CLINICAL HISTORY: F, Age 74 y/o , SCREENING No family history. BREAST CANCER RISK ASSESSMENT: Not assessed. TECHNIQUE: Bilateral screening digital breast tomosynthesis with 2D and 3D images. Computer aided detection. COMPARISON: Baseline study. FINDINGS: TISSUE DENSITY: The breast tissue is composed of scattered area of fibroglandular density. Bilateral Breast Mammographic Findings: No significant masses, calcifications or other abnormalities are identified. BI/SCRN MAMM (CAD)W/RIDDHI BILAT IMPRESSION: OVERALL FINAL ASSESSMENT: BIRADS 1 NEGATIVE RECOMMENDATION: Routine annual follow-up in 1 Year A letter with findings and recommendations will be mailed to the patient. Reading Location: [place] [id number]
--- NOTE | 2024-10-05 13:51 | BD_ITS ---
PROCEDURE: DEXA BONE DENSITY STUDY 10/05/2024 REASON FOR EXAM: F, age 74 y/o . Postmenopausal. TECHNIQUE: DXA scan of sites with data reported below. REFERENCE LINKS: [facility] Adult Positions COMPARISON: December 05, 2020. FINDINGS: BMD and T-SCORES Lumbar spine: 0.835 g/cm2, T-score -1.9 Levels: L1 through L4 Change from prior: Loss of 1.2%. Left femoral neck: 0.472 g/cm2, T-score -3.4 Femoral neck comparison data not recommended for monitoring change. Left total hip: 0.675 g/cm2, T-score -2.2 Change from prior: Loss of 3.2%. Right femoral neck: 0.516 g/cm2, T-score -3.0 Femoral neck comparison data not recommended for monitoring change. Right total hip: 0.646 g/cm2, T-score -2.4 Change from prior: Loss of 6.2%. The World Health Organization has defined the following categories based on bone density: Normal bone density: T-score equal to or greater than -1.0 Osteopenia: T-score between -1.0 and -2.5 Osteoporosis: T-score equal to or less than -2.5 The National Osteoporosis Foundation (NOF) recommends pharmacological treatment for patients with a FRAX 10-year risk of 3% or higher for a hip fracture, or 20% or higher for a major osteoporotic fracture, to prevent osteoporosis and reduce fracture risk. The patient does meet the pharmacological treatment recommendations for prevention of osteoporosis. BD/Dexa Bone Density Study IMPRESSION: OSTEOPOROSIS. Recommend follow-up as clinically warranted. Reading Location: [place] [id number]
== END | disposition home or self-care (01) ==
LOC: OPBD 13:50
PROVIDERS: PCP Family Medicine; Referring Provider Nurse Practitioner Family; Visit Provider Nurse Practitioner Family
DX: Z12.31 Encounter for screening mammogram for malignant neoplasm of breast (principal); Z78.0 Asymptomatic menopausal state
CPT/HCPCS: 77063; 77067; 77080

== ENCOUNTER → 2025-02-13 | Outpatient (CLI) | payer MEDICARE, OTHER, SELFPAY ==
--- OUTSIDE RECORDS SUMMARY | 2025-02-13 18:24 | XMS RPT_ITS | CCD ---
Author Organization [facility] Care Team Providers Care [employer] Operator Name Role Phone Yousuf Weiss MD Primary Care Provider [phone] Zahraa Coyle DO Primary Care Provider [phone] Zahraa Coyle DO Primary Care Provider [phone] Zahraa Coyle DO Primary Care Provider Holger Morales MD Primary Care Provider [phone] Justin Grajeda PA-C Attending Provider [phone] Justin Grajeda PA-C Referring Provider [phone] Chaz Martínez DO Emergency Provider Holger Morales MD Primary Care Provider [phone] Chaz Martínez DO Attending Provider Shruthi PIE FILLING MIXER-C, Magda Attending Provider Shruthi PIE FILLING MIXER-C, Magda Referring Provider Carmen, Chalon Primary Care Unavailable Shruthi Magda Referring Unavailable ShruthiMusain Attending Unavailable Carmen, Chalon Primary Care Unavailable Justin Shipley Referring Unavailable Justin Shipley Attending Unavailable Carmen, Holger Referring Unavailable Carmen, Holger Attending Unavailable Carmen, Chalon Primary Care Unavailable Homero Jiménez Attending Unavailable Carmen, Chalon Primary Care Unavailable Carmen, Chalon Primary Care Unavailable Chaz Martínez Attending Unavailable Carmen, Chalon Referring Unavailable Carmen, Chalon Attending Unavailable Carmen, Chalon Primary Care Unavailable ZAHRAA COYLE Primary Care Unavailabl e AMANDA QUINTANA Referring Unavailable AMANDA QUINTANA Attending Unavailable Allergies Allergy Classification Reported Allergen(s) Allergy Type Date of Onset Reaction(s) Facility (9 sources) Adhesive Tape; Translations: [adhesive tape] Allergy to substance 1 takes skin off [facility] (20 sources) Menthol; Translations: [MENTHOL] Drug Allergy 3 [facility] Work Phone: (20 sources) Morphine; Translations: [MORPHINE] Drug Allergy [address] [facility] Work Phone: (8 sources) nabumetone Drug Allergy 1 Rash [facility] (8 sources) Simvastatin Drug Allergy 1 [facility] (2 sources) BEES Allergy to substance 1 [facility] Work Phone: (20 sources) Bee/Wasp/Ant venom; Translations: [BEE STING KIT] Propensity to adverse reactions 3 [facility] Work Phone: (10 sources) Non-steroidal anti-inflammato ry agent; Translations: [NSAIDS (NON-STEROIDAL ANTI-INFLAMMATO RY DRUG)] Propensity to adverse reactions 3 [facility] Work Phone: (11 sources) Non-steroidal anti-inflammato ry agent Propensity to adverse reactions 3 [facility] Work Phone: (6 sources) venom-honey bee Allergy to substance 2 [facility] (1 source) Menthol Drug Allergy 5 [facility] (1 source) Morphine Drug Allergy 5 [facility] (1 source) nabumetone Drug Allergy 5 [facility] (1 source) Simvastatin Drug Allergy 5 [facility] (1 source) venom-honey bee Drug allergy (disorder) 5 [facility] Medications Current Medications Medication Drug Class(es) Dates Sig (Normalized) Sig (Original) albuterol 0.83 mg/ml inhalation solution (20 sources) beta2-Adrenergic Agonist Start: 01-01-2024 take 2.5 mg by inhalation every four hours as needed for wheezing Albuterol Sulfate 2.5 mg /3 mL (0.083 %) solution for nebulization Active 2.5 mg INHALATION EVERY 4 HOURS NEEDED as needed for wheezing January 01, 2024 12:00am Start: 03-12-2022 End: 11-13-2024 take 3 mL by inhalation every four hours as needed for wheezing albuterol (PROVENTIL) 2.5 mg /3 mL (0.083 %) nebulizer solution Indications: Moderate persistent reactive airway disease without complication (HCC) Use 3 mL via nebulizer every 4 hours as needed for wheezing/shortness of breath. Inhale over 5-15 minutes 360 mL 5 08/15/2024 Active Start: 05-27-2021 End: 03-10-2022 take 3 mL by inhalation every four hours as needed for wheezing albuterol (PROVENTIL) 2.5 mg /3 mL (0.083 %) nebulizer solution Indications: Moderate persistent reactive airway disease without complication Use 3 mL via nebulizer every 4 hours as needed for wheezing/shortness of breath. Inhale over 5-15 minutes 360 mL 3 05/27/2021 03/10/2022 Discontinued Start: 11-19-2020 End: 11-13-2024 take 1 puff(s) by inhalation every four hours as needed for wheezing albuterol HFA (VENTOLIN HFA) 90 mcg/actuation inhaler Indications: Reactive airway disease without asthma Inhale 1 puff as instructed every 4 hours as needed for wheezing/shortness of breath (for wheezing and shortness of breath). 54 g 5 08/15/2024 Active Start: 09-03-2016 take 1 puff(s) by in halation every six hours as needed Albuterol Sulfate (Proair Hfa) 1 PUFF inhaler Active 1 - 2 PUFF INHALATION EVERY 6 HOURS NEEDED September 03, 2016 10:08pm Comment on above: Inhale 1 Puff as ins tructed every 4 hours as needed for wheezing/shortness of breath (for wheezing and shortness of breath). Use 3 mL via nebuliz er every 4 hours as needed for wheezing/shortness of breath. Inhale over 5-15 minutes ascorbic acid 1000 mg oral tablet (20 sources) Vitamin C Start: take 1 tablet by mouth once daily Ascorbic Acid (Vitamin C) (Vitamin C) 1,000 MG tablet Active 1000 mg PO DAILY July 25, 2017 12:00am SUPPLEMENT Start: 10-14-2015 take 1 tablet by shruthi th once daily ascorbic acid, vitamin C, (VITAMIN C) 500 mg tablet Take 1 tablet by mouth once daily. 90 tablet 6 10/14/2015 Active Comment on above: Take 1 tablet by shruthi th once daily. budesonide 0.032 mg/actuat metered dose nasal spray (10 sources) Corticosteroid Start: 2 End: 3 take 2 spray(s) nasal route once daily budesonide (RHINOCORT ALLERGY) 32 mcg/actuation nasal spray Indications: Reactive airway disease without asthma Use 2 Sprays in each nostril once daily. 17.2 g 3 04/15/2022 07/14/2022 Active Start: 11-19-2020 End: 04-15-2022 take 2 spray(s) nasal route once daily budesonide (RHINOCORT ALLERGY) 32 mcg/actuation nasal spray Indications: Moderate persistent reactive airway disease without complication Use 2 Sprays in each nostril once daily. 3 Bottle 3 11/19/2020 04/15/2022 Discontinued Comment on above: Use 2 Sprays in each nostril once daily. calcium carbonate 1500 mg oral tablet (8 sources) Start: 018 take 1 tablet by mouth once daily Calcium Carbonate 600 MG tablet Active 600 mg PO DAILY July 25, 2017 12:00am SUPPLEMENT Calcium-Mag Oxide-Vitamin D3 (CORAL CALCIUM) 185-50-100 mg-mg-unit cap (20 sources) Start: 016 take 1 tablet by mouth twice daily, then take 1 tablet by mouth twice daily Calcium-Mag Oxide-Vitamin D3 (CORAL CALCIUM) 185-50-100 mg-mg-unit cap Take 1 tablet by mouth twice daily. 1 tablet by mouth two times daily 270 capsule 6 10/14/2015 Active Comment on above: Take 1 tablet by shruthi th twice daily. 1 tablet by mouth two times daily cetirizine hydrochloride 10 mg oral tablet (20 sources) Histamine-1 Receptor Antagonist Start: 021 End: 025 take 1 tablet by mouth once daily cetirizine (ZYRTEC) 10 mg tablet Indications: Reactive airway disease without asthma Take 1 tablet by mouth once daily 30 tablet 5 11/09/2024 Active Comment on above: Take 1 tablet by [facility] once daily. cholecalciferol 0.125 mg oral capsule (8 sources) Vitamin D Start: take 1 capsule by mouth once daily Cholecalciferol (Vitamin D3) 125 mcg (5,000 unit) Capsule Active 125 ug PO DAILY October 03, 2020 12:00am SUPPLEMENT Ergocalciferol (20 sources) Provitamin D2 Compound Start: take 1 capsule by mouth once daily ergocalciferol, Vitamin D2, (VITAMIN D) 400 unit ORAL Cap Indications: Chronic obstructive asthma, unspecified Take 1 capsule by mouth once daily. 90 capsule 6 06/30/2010 Active Comment on above: Take 1 capsule by [facility] once daily. esomeprazole 20 mg delayed release oral capsule (20 sources) Proton Pump Inhibitor Start: End: take 1 capsule by mouth once daily esomeprazole (NEXIUM) 20 mg capsule Indications: Reactive airway disease without asthma , Gastroesophageal reflux disease with esophagitis, unspecified whether hemorrhage Take 1 capsule by mouth once daily 30 capsule 5 11/09/2024 Active Comment on above: Take 1 capsule by [facility] once daily. 14 actuat fluticasone furoate 0.1 mg/actuat / vilanterol 0.025 mg/actuat dry powder inhaler (3 sources) Corticosteroid, beta2-Adrenergic Agonist Start: End: fluticasone-vilanterol (BREO ELLIPTA) 100-25 mcg/dose inhaler Indications: Reactive airway disease without asthma , Moderate persistent reactive airway disease without complication (HCC) Inhale 1 Inhalation as instructed once daily. 180 each 5 08/15/2024 Active gabapentin 300 mg oral capsule (8 sources) Anti-epileptic Agent Start: take 1 capsule by mouth three times daily Gabapentin 300 MG capsule Active 300 mg PO THREE TIMES A DAY September 03, 2016 12:00am PAIN glipiZIDE er 10 mg 24 hr extended release oral tablet (8 sources) Sulfonylurea Start: take 1 tablet by mouth once daily Glipizide 10 MG tablet extended release 24hr Active 10 mg PO DAILY September 03, 2016 12:00am DIABETES lovastatin 20 mg oral tablet (20 sources) HMG-CoA Reductase Inhibitor Start: 021 take 1 tablet by mouth once daily lovastatin (MEVACOR) 20 mg tablet Take 20 mg by mouth once daily. 09/20/2021 Active Comment on above: Take 20 mg by mouth once daily. melatonin 10 mg oral capsule (8 sources) Start: 018 take 1 capsule by mouth once daily Melatonin 10 MG capsule Active 10 mg PO DAILY March 23, 2018 1:00am SLEEP AID 24 hr metFORMIN hydrochloride 500 mg extended release oral tablet (20 sources) Biguanide Start: 024 take 1 tablet by mouth twice daily Metformin 500 mg tablet extended release 24 hr Active 500 mg PO TWICE A DAY August 06, 2023 12:00am Start: 08-18-2021 take 1 tablet by shruthi th twice daily metFORMIN ER (GLUCOPHAGE XR) 500 mg 24 hr tablet Take 1,000 mg by mouth twice daily. 08/18/2021 Active Comment on above: Take 1,000 mg by shruthi th twice daily. methylPREDNISolone 4 mg oral tablet (1 source) Corticosteroid Start: 2022 End: 2022 methylPREDNISolone (MEDROL, OPHELIA,) 4 mg Dose-Pack Use orally as directed. 21 tablet 0 08/31/2022 09/05/2022 Active Comment on above: Use orally as direct ed. montelukast 10 mg oral tablet (20 sources) Leukotriene Receptor Antagonist Start: 2016 End: 2024 take 1 tablet by mouth once daily at bedtime montelukast (SINGULAIR) 10 mg tablet Indications: Reactive airway disease without asthma TAKE 1 TABLET BY MOUTH ONCE DAILY AT BEDTIME 30 tablet 5 11/09/2024 Active Comment on above: Take 1 tablet by shruthi th daily at bedtime. oxyCODONE hydrochloride 5 mg oral tablet (11 sources) Opioid Agonist Start: 2024 take 1 tablet by mouth every six hours as needed for pain Oxycodone 5 mg tablet Active 5 mg PO EVERY 6 HOURS as needed for pain 12 3 0 August 08, 2024 Hemarthrosis of knee Contusion of left knee Hemarthrosis, unspecified knee Contusion of left knee, initial encounter Start: 04-07-2018 End: 04-12-2018 take 5-10 mg by mouth every four hours as needed for pain Oxycodone 5 MG tablet Discontinued 5 - 10 mg PO EVERY 4 HOURS NEEDED as needed for Mod-Severe Pain (4-10/10) 60 5 0 April 07, 2018 1:00am April 11, 2018 1:00am April 12, 2018 1:13am Presence of right artificial knee joint pioglitazone 30 mg oral tablet (20 sources) Peroxisome Proliferator Receptor alpha Agonist, Peroxisome Proliferator Receptor gamma Agonist, Thiazolidinedione Start: 01-23-2021 pioglitazone (ACTOS) 30 mg tablet 2021 Active Prednisone Gatifloxacin Ketoro (8 sources) Start: 10-03-2020 Prednisone Gatifloxacin Ketoro Active 1 DRP LEFT EYE TWICE A DAY October 03, 2020 5:11pm Start: 10-03-2020 End: 08-06-2023 Prednisone Gatifloxacin Keto ro Discontinued 1 NMA LEFT EYE TWICE A DAY October 03, 2020 12:00am August 06, 2023 8:37am cataracts Start: 10-03-2020 End: 08-06-2023 Prednisone Gatifloxacin Keto ro Discontinued 1 NMA LEFT EYE TWICE A DAY October 03, 2020 12:00am August 06, 2023 8:37am Start: 10-03-2020 Prednisone Gat ifloxacin Ketoro Active 1 DRP LEFT EYE TWICE A DAY October 02, 2020 11:00pm Start: 10-03-2020 Prednisone Gat ifloxacin Ketoro Active 1 DRP LEFT EYE TWICE A DAY October 03, 2020 12:00am Completed/Discontinued Medications Medication Drug Class(es) Dates Sig (Normalized) Sig (Original) Albuterol Sulfate (Proair Hfa) 1 PUFF inhaler (6 sources) Start: 09-03-2016 End: 01-01-2024 Albuterol Sulfate (Proair Hfa) 1 PUFF inhaler Discontinued 1 - 2 NMA INHALATION EVERY 6 HOURS NEEDED as needed for Sob &/Or Wheezing September 03, 2016 12:00am January 01, 2024 7:21pm Start: 09-03-2016 take 1 puff(s) by in halation every six hours as needed Albuterol Sulfate (Proair Hfa) 1 PUFF inhaler Active 1 - 2 PUFF INHALATION EVERY 6 HOURS NEEDED September 02, 2016 11:00pm Start: 09-03-2016 take 1 puff(s) by in halation every six hours as needed Albuterol Sulfate (Proair Hfa) 1 PUFF inhaler Active 1 - 2 PUFF INHALATION EVERY 6 HOURS NEEDED September 03, 2016 12:00am azelastine hydrochloride 0.137 mg/actuat metered dose nasal spray (14 sources) Histamine-1 Receptor Antagonist Start: 01-13-2022 End: 08-15-2024 take 2 spray(s) nasal route twice daily as needed azelastine (ASTELIN, ASTEPRO) 0.1% nasal spray Indications: Reactive airway disease without asthma Use 2 Sprays in each nostril twice daily as needed. 90 mL 3 04/15/2022 08/15/2024 Discontinued Comment on above: Use 2 Sprays in each nostril twice daily as needed. azithromycin 250 mg oral tablet (8 sources) Macrolide Antimicrobial Start: 08-31-2022 End: 08-15-2024 azithromycin (ZITHROMAX) 250 mg tablet Take 2 tabs on the first day, then one tab daily for 4 days. 6 tablet 08/31/2022 08/15/2024 Discontinued Comment on above: Take 2 tabs on the f irst day, then one tab daily for 4 days. doxycycline monohydrate 100 mg oral capsule (8 sources) Tetracycline-class Drug Start: 10-03-2020 End: 08-06-2023 take 1 capsule by mouth twice daily Doxycycline Monohydrate 100 mg Capsule Discontinued 100 mg PO TWICE A DAY October 03, 2020 12:00am August 06, 2023 8:37am fluticasone / salmeterol (20 sources) Corticosteroid, beta2-Adrenergic Agonist Start: 06-01-2023 End: 06-01-2023 take 1 puff(s) by mouth twice daily fluticasone-salme terol (ADVAIR DISKUS) 250-50 mcg/dose inhaler Indications: Reactive airway disease without asthma Inhale 1 Puff as instructed two times a day. Rinse and gargle mouth with water after each use. 3 Each 3 06/01/2023 06/01/2023 Discontinued (Changing Therapy/Dosage Form) Start: 04-15-2022 End: 06-01-2023 take 1 puff(s) by mouth twice daily fluticasone-salmeterol (ADVAIR DISKUS) 250-50 mcg/dose inhaler Indications: Reactive airway disease without asthma Inhale 1 Puff as instructed twice daily. Rinse and gargle mouth with water after each use. 3 Each 3 04/15/2022 06/01/2023 Discontinued Start: 04-15-2022 End: 04-15-2023 take 1 puff(s) by mouth twice daily fluticasone-salmeterol (ADVAIR DISKUS) 250-50 mcg/dose inhaler Indications: Reactive airway disease without asthma Inhale 1 Puff as instructed twice daily. Rinse and gargle mouth with water after each use. 3 Each 3 04/15/2022 04/15/2023 Active Start: 11-19-2020 End: 04-15-2022 take 1 puff(s) by mouth twice daily fluticasone-salmeterol (ADVAIR DISKUS) 250-50 mcg/dose inhaler Indications: Moderate persistent reactive airway disease without complication Inhale 1 Puff as instructed twice daily. Rinse and gargle mouth with water after each use. 3 Each 3 11/19/2020 04/15/2022 Discontinued Start: 11-19-2020 take 1 puff(s) by mo ut twice daily fluticasone-salmeterol (ADVAIR DISKUS) 250-50 mcg/dose inhaler Indications: Moderate persistent reactive airway disease without complication Inhale 1 Puff as instructed twice daily. Rinse and gargle mouth with water after each use. 3 Each 3 11/19/2020 Active Start: 11-19-2020 End: 11-19-2021 take 1 puff(s) by mouth twice daily fluticasone-salmeterol (ADVAIR DISKUS) 250-50 mcg/dose inhaler Indications: Moderate persistent reactive airway disease without complication Inhale 1 Puff as instructed twice daily. Rinse and gargle mouth with water after each use. 3 Each 3 11/19/2020 11/19/2021 Active Start: 03-23-2018 take 1 dose by inhal ation once daily Fluticasone Propion-Salmeterol (Advair Diskus) 1 EACH blister with device Active 2 EACH IH DAILY March 23, 2018 11:16am Start: 03-23-2018 take 1 dose by inhal ation once daily Fluticasone Propion-Salmeterol (Advair Diskus) 1 EACH blister with device Active 2 NMA IH DAILY March 23, 2018 1:00am ASTHMA Start: 03-23-2018 take 1 dose by inhal ation once daily Fluticasone Propion-Salmeterol (Advair Diskus) 1 EACH blister with device Active 2 NMA IH DAILY March 23, 2018 1:00am Start: 03-23-2018 take 1 dose by inhal ation once daily Fluticasone Propion-Salmeterol (Advair Diskus) 1 EACH blister with device Active 2 EACH IH DAILY March 23, 2018 12:00am Start: 03-23-2018 take 1 dose by inhal ation once daily Fluticasone Propion-Salmeterol (Advair Diskus) 1 EACH blister with device Active 2 EACH IH DAILY March 23, 2018 1:00am Comment on above: Inhale 1 Puff as ins tructed twice daily. Rinse and gargle mouth with water after each use. Inhale 1 Puff as ins tructed two times a day. Rinse and gargle mouth with water after each use. 60 actuat formoterol fumarate 0.005 mg/actuat / mometasone furoate 0.2 mg/actuat metered dose inhaler (8 sources) Corticosteroid, beta2-Adrenergic Agonist Start: End: take 1 puff(s) by inhalation twice daily mometasone-formotero l (DULERA) 200-5 mcg/actuation inhaler Indications: Reactive airway disease without asthma , Moderate persistent reactive airway disease without complication (HCC) Inhale 1 puff as instructed two times a day. 39 g 5 08/15/2024 08/15/2024 Discontinued Start: 06-01-2023 End: 08-15-2024 take 1 puff(s) by inhalation twice daily mometasone-formoterol (DULERA) 200-5 mcg/actuation inhaler Indications: Reactive airway disease without asthma , Moderate persistent reactive airway disease without complication (HCC) Inhale 1 Puff as instructed two times a day. 1 Each 3 06/01/2023 08/15/2024 Discontinued Comment on above: Inhale 1 Puff as ins tructed two times a day. [place]yx[place] b 59226 unt/ml / trimethoprim 1 mg/ml ophthalmic solution (3 sources) Dihydrofolate Reductase Inhibitor Antibacterial, Polymyxin-class Antibacterial Start: 08-06-2023 End: 08-13-2023 Polymyxin B Sulf-Trimethoprim 10,000 unit- 1 mg/mL drops Discontinued 1 NMA OPHTHALMIC Q3H 10 7 0 August 06, 2023 12:00am August 12, 2023 12:00am August 13, 2023 12:07am while awake; do not exceed 6 doses in 24 hours ubidecarenone 100 mg oral capsule (8 sources) Start: 10-03-2020 End: 01-01-2024 Coenzyme Q10 (Coq-10) 100 mg Capsule Discontinued 100 mg PO DAILY October 03, 2020 12:00am January 01, 2024 7:21pm SUPPLEMENT Problems Active Problems Problem Classification Problem Date Documented Date Episodic/Chronic Asthma (20 sources) Asthma; Translations: [Unspecified asthma, uncomplicated] Onset: 03-01-2020 Chronic Diabetes mellitus with complications (20 sources) Hyperglycemia due to type 2 diabetes mellitus; Translations: [Type 2 diabetes mellitus with hyperglycemia] Onset: 08-10-2020 11-19-2020 Chronic Diabetes mellitus without complication (10 sources) Diabetes mellitus; Translations: [Type 2 diabetes mellitus without complications] 01-23-2021 Chronic Disorders of lipid metabolism (10 sources) Mixed hyperlipidemia; Translations: [Mixed hyperlipidemia] 01-23-2021 Chronic E Codes: Fall (5 sources) Fall; Translations: [Unspecified fall, initial encounter] 01-09-2024 Episodic Esophageal disorders (5 sources) Gastro-esophageal reflux disease with esophagitis; Translations: [Gastroesophageal reflux disease with esophagitis, unspecified whether hemorrhage] 06-01-2023 Chronic Fracture of upper limb (1 source) Nondisplaced fracture of base of fifth metacarpal bone, left hand, subsequent encounter for fracture with routine healing; Translations: [Nondisplaced fracture of base of fifth metacarpal bone, left hand, subsequent encounter for fracture with routine healing] Onset: 10-26-2024 Episodic Immunizations and screening for infectious disease (7 sources) Requires tetanus and diphtheria vaccination; Translations: [Encounter for immunization] 10-02-2021 Episodic Inflammation; infection of eye (except that caused by tuberculosis or sexually transmitteddisease) (3 sources) Acute infectious conjunctivitis; Translations: [Unspecified acute conjunctivitis, unspecified eye] 08-06-2023 Episodic Menopausal disorders (20 sources) Menopausal symptom; Translations: [Menopausal and female climacteric states] Onset: 10-24-2003 10-24-2003 Chronic Nonspecific chest pain (8 sources) Chest pain; Translations: [Chest pain, unspecified] 10-03-2020 Episodic Open wounds of extremities (7 sources) Laceration of left little finger; Translations: [Laceration without foreign body of left little finger without damage to nail, initial encounter] 10-02-2021 Episodic Other connective tissue disease (8 sources) History of total knee arthroplasty; Translations: [Presence of right artificial knee joint] 04-06-2018 Chronic Other connective tissue disease (8 sources) Fibromyalgia; Translations: [Fibromyalgia] 04-06-2018 Episodic Other injuries and conditions due to external causes (1 source) Unspecified injury of unspecified lower leg, initial encounter; Translations: [Unspecified injury of unspecified lower leg, initial encounter] Onset: 08-14-2024 Episodic Other lower respiratory disease (4 sources) Reactive airway disease; Translations: [Respiratory disorder, unspecified] Episodic Other lower respiratory disease (1 source) Respiratory obstruction; Translations: [Other specified respiratory disorders] Episodic Other non-traumatic joint disorders (3 sources) Hemarthrosis of knee; Translations: [Hemarthrosis, unspecified knee] 08-08-2024 Episodic Other nutritional; endocrine; and metabolic disorders (3 sources) Body mass index 25-29 - overweight 01-23-2021 Episodic Other screening for suspected conditions (not mental disorders or infectious disease) (1 source) Encounter for screening mammogram for malignant neoplasm of breast; Translations: [Encounter for screening mammogram for malignant neoplasm of breast] Onset: 10-11-2024 Episodic Skin and subcutaneous tissue infections (8 sources) Abscess; Translations: [Cutaneous abscess, unspecified] 10-03-2020 Episodic Sprains and strains (16 sources) Sprain of hand; Translations: [Sprain of unspecified part of left wrist and hand, initial encounter] 09-04-2016 Episodic Unclassified (5 sources) Body mass index 25-29 - overweight; Translations: [Body mass index (BMI) of 25.0 to 29.9] 01-23-2021 Past or Other Problems Problem Classification Problem Date Documented Da te Episodic/Chronic Hemorrhoids (20 sources) Thrombosed hemorrhoids; Translations: [Perianal venous thrombosis] Onset: 11-19-2005 11-19-2005 Episodic Other bone disease and musculoskeletal deformities (20 sources) Disorder of skeletal system; Translations: [Disorder of bone, unspecified] Onset: 10-24-2003 10-24-2003 Episodic Other connective tissue disease (1 source) Pain in left hand; Translations: [Pain in left hand] Onset: 02-11-2024 Episodic Other lower respiratory disease (1 source) Respiratory disorder, unspecified; Translations: [Reactive airway disease without asthma] Onset: 08-15-2024 Episodic Poisoning by other medications and drugs (20 sources) Adverse reaction to substance; Translations: [Other and unspecified adverse effect of drug, medicinal and biological substance] Onset: 06-10-2005 06-10-2005 Episodic Superficial injury; contusion (10 sources) Contusion of left hand; Translations: [Contusion of left hand, initial encounter] Onset: 01-21-2024 01-09-2024 Episodic Unclassified (8 sources) Contusion of right knee, initial encounter 08-14-2019 Results Test Name Value Interpretation Reference Range Facility [facility] 11-17-2024 [facility] Telephone (RENÉ) MERI BARNHART ([id number]) 1950 F Date Time Provider Department 11/17/24 GISELL SAINI During your visit today, we recorded the following information about you: Natalie Patten 11/17/2024 8:31 AM Signed opened in error Allergies As of Date: 11/17/2024 Noted Allergy Reaction BEE STING KIT 11/20/2002 Comments: carries EpiPen MENTHOL 11/20/2002 Comments: swelling/blisters MORPHINE 11/20/2002 Comments: fever NSAIDS (NON-STEROIDAL ANTI-INFLAM*11/20/2002 Comments: relafen; rash Date Reviewed: 11/09/2024 Reviewed by: Nora Garcia APRN.TOE FORMER - Fully Assessed Reason for Visit: Prescriptions as of 11/17/2024 - montelukast (SINGULAIR) 10 mg tablet TAKE 1 TABLET BY MOUTH ONCE DAILY AT BEDTIME - esomeprazole (NEXIUM) 20 mg capsule Take 1 capsule by mouth once daily - cetirizine (ZYRTEC) 10 mg tablet Take 1 tablet by mouth once daily - albuterol HFA (VENTOLIN HFA) 90 mcg/actuation inhaler Inhale 1 puff as instructed every 4 hours as needed for wheezing/shortness of breath (for wheezing and shortness of breath). - albuterol (PROVENTIL) 2.5 mg /3 mL (0.083 %) nebulizer solution Use 3 mL via nebulizer every 4 hours as needed for wheezing/shortness of breath. Inhale over 5-15 minutes - fluticasone-vilanterol (BREO ELLIPTA) 100-25 mcg/dose inhaler Inhale 1 Inhalation as instructed once daily. - lovastatin (MEVACOR) 20 mg tablet Take 20 mg by mouth once daily. - metFORMIN ER (GLUCOPHAGE XR) 500 mg 24 hr tablet Take 1,000 mg by mouth twice daily. - pioglitazone (ACTOS) 30 mg tablet - ascorbic acid, vitamin C, (VITAMIN C) 500 mg tablet Take 1 tablet by mouth once daily. - Calcium-Mag Oxide-Vitamin D3 (CORAL CALCIUM) 185-50-100 mg-mg-unit cap Take 1 tablet by mouth twice daily. 1 tablet by mouth two times daily - ergocalciferol, Vitamin D2, (VITAMIN D) 400 unit ORAL Cap Take 1 capsule by mouth once daily. Problem List As Of Date 11/17/2024 Noted Resolved BONE AND CARTILAGE DIS NOS [M89.9, M94.9] 10/24/2003 SYMPTOMATIC FEMALE CLIMACTERIC STATE [N95.1] 10/24/2003 ADV EFFECT MED/BIOL SUB NOS [995.2] 06/10/2005 THROMBOS HEMORRHOIDS NOS [K64.5] 11/19/2005 Reactive airway disease [J45.909] 03/01/2020 Type 2 diabetes mellitus with hyperglycemia (HC*08/10/2020 Encounter Status:Closed by JUSTIN CONTACT LENS TECHNICIANNATALIE on 11/17/24 Normal [facility] OT D/C of Non Returning Pton 10-23-2024 OT D/C of Non Returning Pt [facility] Occupational Therapy [facility] [address] [place] [address] / REHABILITATION SERVICES DISCHARGE SUMMARY MR#: [id number] Acct: [id number] Name: MERI BARNHART Rep #: [id number] : 1950 74 From: Shira Ruth OTR/L, CHT Referring Dr.: SHARIF Grajeda Status: REG R CR Eval Date: Discharge Date: Patient Information Patient Information: MERI BARNHART was seen in my office for initial evaluation on 04/11/24. The following Plan of Care was established for this patient: POC Established Initial Frequency: 1-2x /Week Initial Duration: 4 Weeks Plan: cont. use ROM light strengthening Anticipated Interventions Anticipated Interventions: A/AAROM/PROM, Strengthening, Triggerpoint Release, Modalities, Orthoses, Joint Protection/Energy Conservation, Ergonomic Education, Education re assistive Equipment, Education re Diagnosis and Home Program Last Seen Last Seen: This patient was last seen in our office 05/29/24. Pertinent comments regarding their Occupational therapy will appear below: Due to time lapse in services pt is d/c at this time. At this point I will be discontinuing this patient from occupational therapy. I would be happy to see this patient again in the future if found appropriate by the physician. Thank you! Shira Ruth, OTR/L, CHT 10/23/24 1904 CC: SHARIF Grajeda; Dr. Holger Morales MD MK Signed Normal [facility] Bone density reportOrdered B y: Mykel Carpio on 10-05-2024 Study report Skeletal system DXA Imaging Services [address] [place], [place] [id number] Dexa Bone Density Study MR#: [id number] Acct: [id number] Name: MERI BARNHART Rep #: [id number] : 1950 F 74 From: Hiram Carpio MD PCP: Dr. Holger Morales MD Status: REG CL I Study:Dexa Bone Density Study Date of Exam: 10/05/24 Exam# [id number] Ordering Dr: Uday Hawkins NP, NP-Fazal PROCEDURE: DEXA BONE DENSITY STUDY 10/05/2024 REASON FOR EXAM: F, age 74 y/o . Postmenopausal. TECHNIQUE: DXA scan of sites with data reported below. [facility] COMPARISON: December 05, 2020. FINDINGS: BMD and T-SCORES Lumbar spine: 0.835 g/cm2, T-score -1.9 Levels: L1 through L4 Change from prior: Loss of 1.2%. Left femoral neck: 0.472 g/cm2, T-score -3.4 Femoral neck comparison data not recommended for monitoring change. Left total hip: 0.675 g/cm2, T-score -2.2 Change from prior: Loss of 3.2%. Right femoral neck: 0.516 g/cm2, T-score -3.0 Femoral neck comparison data not recommended for monitoring change. Right total hip: 0.646 g/cm2, T-score -2.4 Change from prior: Loss of 6.2%. The World Health Organization has defined the following categories based on bonedensity: Normal bone density: T-score equal to or greater than -1.0 Osteopenia: T-score between -1.0 and -2.5 Osteoporosis: T-score equal to or less than -2.5 The National Osteoporosis Foundation (NOF) recommends pharmacological treatment for patients with a FRAX 10-year risk of 3% or higher for a hip fracture, or 20% or higher for a major osteoporotic fracture, to prevent osteoporosis and reduce fracture risk. The patient does meet the pharmacological treatment recommendations for prevention of osteoporosis. BD/Dexa Bone Density Study IMPRESSION: OSTEOPOROSIS. Recommend follow-up as clinically warranted. Reading Location: [place] [address] CC: ALVAREZ Hawkins; Dr. Holger Morales MD ~ Yard Attendant: Signed [facility] Breast imaging reportOrdered By: Mykel Carpio on 10-05-2024 Study report Imaging Services [address] [place] [address] SCRN MAMM (CAD)W/RIDDHI BILAT MR#: [id number] Acct: [id number] Name: MERI BARNHART Rep #: [id number] : 1950 F 74 From: Hiram Carpio MD PCP: Dr. Holger Morales MD Status: REG CL I Study:SCRN MAMM (CAD)W/RIDDHI BILAT Date of Exa m: 10/05/24 Exam# [id number] Ordering Dr: Uday Hawkins NP PIE FILLING MIXER-C EXAM: SCRN MAMM (CAD)W/RIDDHI BILAT DATE: 10/05/2024 CLINICAL HISTORY: F, Age 74 y/o , SCREENING No family history. BREAST CANCER RISK ASSESSMENT: Not assessed. TECHNIQUE: Bilateral screening digital breast tomosynthesis with 2D and 3D images. Computeraided detection. COMPARISON: Baseline study. FINDINGS: TISSUE DENSITY: The breast tissue is composed of scattered area of fibroglandular density. Bilateral Breast Mammographic Findings: No significant masses, calcifications or other abnormalities are identified. BI/SCRN MAMM (CAD)W/RIDDHI BILAT IMPRESSION: OVERALL FINAL ASSESSMENT: BIRADS 1 NEGATIVE RECOMMENDATION: Routine annual follow-up in 1 Year A letter with findings and recommendations will be mailed to the patient. Reading Location: [place] [address] CC: PIE FILLING MIXER-aFzal Hawkins; Dr. Holger Morales MD ~ Yard Attendant: Signed [facility] Dexa Bone Density Studyon Dexa Bone Density Study Imaging Services [address] [place] [id number] Dexa Bone Density Study MR#: [id number] Acct: [id number] Name: MERI BARNHART Rep #: [id number] : 1950 F 74 From: Mykel washington MD PCP: Dr. Holger Morales MD Status: REG CLI Study: Dexa Bone Density Study Date of Exam: 10/05/24 Exam# [id number] Ordering Dr: Magda Hawkins NP PROCEDURE: DEXA BONE DENSITY STUDY 10/05/2024 REASON FOR EXAM: F, age 74 y/o . Postmenopausal. TECHNIQUE: DXA scan of sites with data reported below. REFERENCE [facility]KS: [facility] Positions COMPARISON: December 05, 2020. FINDINGS: BMD and T-SCORES Lumbar spine: 0.835 g/cm2, T-score -1.9 Levels: L1 through L4 Change from prior: Loss of 1.2%. Left femoral neck: 0.472 g/cm2, T-score -3.4 Femoral neck comparison data not recommended for monitoring change. Left total hip: 0.675 g/cm2, T-score -2.2 Change from prior: Loss of 3.2%. Right femoral neck: 0.516 g/cm2, T-score -3.0 Femoral neck comparison data not recommended for monitoring change. Right total hip: 0.646 g/cm2, T-score -2.4 Change from prior: Loss of 6.2%. The World Health Organization has defined the following categories based on bone density: Normal bone density: T-score equal to or greater than -1.0 Osteopenia: T-score between -1.0 and -2.5 Osteoporosis: T-score equal to or less than -2.5 The National Osteoporosis Foundation (NOF) recommends pharmacological treatment for patients with a FRAX 10-year risk of 3% or higher for a hip fracture, or 20% or higher for a major osteoporotic fracture, to prevent osteoporosis and reduce fracture risk. The patient does meet the pharmacological treatment recommendations for prevention of osteoporosis. BD/Dexa Bone Density Study IMPRESSION: OSTEOPOROSIS. Recommend follow-up as clinically warranted. Reading Location: [facility] CC: ALVAREZ Hawkins; Dr. Holger Morales MD Yard Attendant: Signed Normal [facility] SCRN MAMM (CAD)W/RIDDHI Francesca n 10-05-2024 SCRN MAMM (CAD)W/RIDDHI BILAT Imaging Services [address] [place] [address] SCRN MAMM (CAD)W/RIDDHI BILAT MR#: [id number] Acct: [id number] Name: MERI BARNHART Rep #: [id number] : 1950 F 74 From: Mykel washington MD PCP: Dr. Holger Morales MD Status: [facility] CL Study: SCRN MAMM (CAD)W/RIDDHI BILAT Date of Exam: 09/24 06/20 Exam# [id number] Ordering Dr: Magda Hawkins NP PIE FILLING MIXER-C EXAM: SCRN MAMM (CAD)W/RIDDHI BILAT DATE: 10/05/2024 CLINICAL HISTORY: F, Age 74 y/o , SCREENING No family history. BREAST CANCER RISK ASSESSMENT: Not assessed. TECHNIQUE: Bilateral screening digital breast tomosynthesis with 2D and 3D images. Computer aided detection. COMPARISON: Baseline study. FINDINGS: TISSUE DENSITY: The breast tissue is composed of scattered area of fibroglandular density. Bilateral Breast Mammographic Findings: No significant masses, calcifications or other abnormalities are identified. BI/SCRN MAMM (CAD)W/RIDDHI BILAT IMPRESSION: OVERALL FINAL ASSESSMENT: BIRADS 1 NEGATIVE RECOMMENDATION: Routine annual follow-up in 1 Year A letter with findings and recommendations will be mailed to the patient. Reading Location: [place] [address] CC: ALVAREZ Hawkins; Dr. Holger Morales MD Yard Attendant: Signed Normal [facility] Emergency Department Summary on 08-08-2024 Emergency Department Summary [facility] Medical Records Department [address] [place] [address] Emergency Department Summary 08/08/24 MR#: [id number] Acct: [id number] Name: MERI BARNHART Rep #: [id number] : 1950 73 From: Chaz Martínez DO PCP: Dr. Holger Morales MD Status:[facility] ER Location: ED HPI History of Present Illness Chief Complaint: Lower Extremity Injury Informant: patient Narrative Narrative: Patient is a 71-year-old female with past medical history of nausea dependent diabetes hyperlipidemia and fibromyalgia. She states a few hours prior to arrival she tripped when she was in her kitchen and as she fell she caught herself with her hands but her knee struck the floor. She states that she has fractured her kneecap in the past" in with swelling and pain mainly to the left knee she has concern for injury once again. She denies striking her head or any loss of conscious or history of bleeding disorder or blood thinner use. She states she has been able to ambulate since the fall but reports it is painful to move the left knee. Therefore with concern for underlying trauma she presents for evaluation [facility] Medical History Reactive airway disease Overweight (BMI 25.0-29.9) Mixed hyperlipidemia Diabetes Rotator cuff arthropathy of left shoulder Neuropathy Cataract Seasonal allergies Non-smoker Fibromyalgia Diabetic neuropathy High cholesterol Asthma Diabetes Home Medications ???Medication ???Instructions ???Recorded ???Last Taken ???Type gabapentin 300 mg capsule 300 mg PO TID PAIN 09/03/16 History glipizide 10 mg tablet, extended 10 mg PO DAILY DIABETES 09/03/16 0 10/02/20 History release 24 hr montelukast 10 mg tablet 10 mg PO DAILY ALLERGIES 09/03/16 10/02/20 History ascorbic acid (vitamin C) 1,000 mg 1,000 mg PO DAILY SUPPLEMENT 05/1310/02/20 History tablet (Vitamin C) calcium carbonate 600 mg PO DAILY SUPPLEMENT 8 10/02/20 History fluticasone 250 mcg-salmeterol 50 2 ea IH DAILY ASTHMA 03/23/1801/14 History mcg/dose blistr powdr for inhalation (Advair Diskus) melatonin 10 mg capsule 10 mg PO DAILY SLEEP AID 03/23/18 10/02/20 History cetirizine 10 mg tablet (Zyrtec) 10 mg PO DAILY ALLEGIES 10/03/20 0 10/02/20 History cholecalciferol (vitamin D3) 125 125 mcg PO DAILY SUPPLEMENT 10/02/20 History mcg (5,000 unit) capsule lovastatin 20 mg tablet 20 mg PO DAILY CHOLESTEROL 1 10/02/20 History pioglitazone 30 mg tablet 30 mg PO DAILY #30 tabs 01/23/21 U nknown Rx metformin 500 mg tablet,extended 500 mg PO BID 08/06/23 Unknown His tory release 24 hr albuterol sulfate 2.5 mg/3 mL 2.5 mg inhalation Q4H PRN PRN 11/16 Unknown History (0.083 %) solution for nebulization wheezing oxycodone 5 mg tablet 5 mg PO Q6H PRN pain 3 days #12 Unknown Rx tabs Allergy/AdvReac Type Severity Reaction Status Date / Time adhesive tape Allergy Intermediate takes skin Verified 08/08/24 16:45 off menthol Allergy Rash Verified 08/08/24 16:45 nabumetone (From Relafen) Allergy Rash Verified 08/08/24 16:45 simvastatin Allergy Rash Verified 08/08/24 16:45 venom-honey bee Allergy Rash Verified 08/08/24 16:45 morphine AdvReac Other Verified 08/08/24 16:45 Family History Other Anesthesia complication Diabetes Surgical History H/O bladder repair surgery H/O right knee surgery H/O carpal tunnel repair H/O: hysterectomy Social History Smoking Status: Never smoker alcohol intake: current alcohol intake frequency: 0-2 drinks per day substance use type: does not use ROS ROS ED Constitutional Constitutional ED: Denies chills or fever(s) Eyes Eyes: Denies blurry vision or change in vision ENT ENT ED: Denies sore throat Cardiovascular Cardiovascular: Reports other Details: Negative syncope ; Denies chest pain Respiratory/Chest Respiratory/Chest: Denies cough or dyspnea Gastrointestinal Gastrointestinal: Denies abdominal pain, diarrhea, nausea or vomiting Musculoskeletal Musculoskeletal: Reports other Details: Positive left knee pain/swelling ; Denies back pain or neck pain Integumentary Denies Abrasions or rash Neurologic Neurologic: Denies headache(s), paresthesias or weakness Hematologic/Lymphatic Hematologic/Lymphatic: Denies easy bleeding or easy bruising EXAM Physical Exam Const Vital Signs: 08/08/24 16:44 08/08/24 21:32 Temperature 98.1 F Temperature Source Temporal Pulse Rate 86 74 Respiratory Rate 16 23 H Blood Pressure 134/56 H Blood Pressure Mean 82 Pulse Ox 98 (more content not included)... Normal [facility] Knee 4 or More Viewson 08-08 Knee 4 or More Views Imaging Services [address] [place] [address] Knee 4 or More Views MR#: [id number] Acct: [id number] Name: MERI BARNHART Rep #: [id number] : 1950 F 73 From: Asim Jamil MD PCP: Dr. Holger Morales MD Status: PRE ER Study: Knee 4 or More Views Date of Exam: 08/08/24 Exam# [id number] Ordering Dr: Provider,Ed P. PROCEDURE: KNEE 4 OR MORE VIEWS 08/08/2024 REASON FOR EXAM: FALL TECHNIQUE: 4 views of the left knee FINDINGS: Bones: No fracture. No suspicious bone lesion. Joints: Normal alignment. Mild degenerative changes. Effusion: Moderate joint effusion. Soft tissues: Soft tissues are unremarkable. Other: RAD/Knee 4 or More Views IMPRESSION: No acute fracture or dislocation. Mild arthrosis. Joint effusion. Reading Location: [id number] CC: Dr. Holger Morales MD; ED PHYSICIAN PROVIDER Yard Attendant: Signed Normal [facility] OT General Evaluationon 03-26 OT General Evaluation [facility] Occupational Therapy [address] [place] [address] / REHABILITATION SERVICES INITIAL EVALUATION MR#: [id number] Acct: [id number] Name: MERI BARNHART Rep #: [id number] : 1950 73 From: Shira Ruth OTR/L, CHT Referring Dr.: SHARIF Grajeda Status: REG R CR Insurance: MEDICARE PART A B Eval Date: COMMERCIAL OTHER Patient's Visit Information Visit Information Visit Information: MERI BARNHART is a 73 year old F, referred to Occupational Therapy by Justin Grajeda PA-C, with a diagnosis of left non displaced fx of base of 5th metacarpal bone. Date of Evaluation: 04/11/24 Occupational Therapist: Shira Ruth, KYLE/Olivia, CHT Subjective Subjective: This 73 year old female was seen for OT eval with dx of left non displaced fx of 5th metacarpal. Pt [place]Pt states her hand continued to hurt. pt went to ER and was told her hand was fine- pt went to her family dr about 3 weeks following injury- and then 3-4 weeks until she could get into see her ortho dr. x-rays were positive for 5th metacarpal fx. pt was released from her injury and worked on her own for 4 weeks to try to increase her ability to use her left hand with ADLs. pt states pain limits her at times 7/10 pain. pt would like to know what more she can do to improve her ROM and strength as well as decreasing her pain. Pain left hand: Current Pain Intensity: 2 Pain Intensity Range: 8 ROM MP: right LF 85 left 60 left RF 75 PIP: right LF 100 left 85 left LF 95 DIP: right LF 0 due to FDP laceration as child Strength Vending Stand Supervisor: right 50# left 5# Lateral Pinch: right 8# left 6# Tripod Pinch: right 10# left 3# Sensation Little: left LF 3.61 Sensation Comments: at times in tingling in left LF tip Quick DASH-Disab of Arm,Shoulder Hand Quick DASH Score: 68.1800 Goals Goal:ROM equal to unaffected hand: Yes Goal:Vending Stand Supervisor/Pinch strength at least 75% of unaffected hand: Yes Goal:No pain with affected hand use: Yes Goal:Full use of affected hand in daily activities including work: Yes Rehabilitation General Assessment: pt arrives 14 weeks and 3 days from DOI- pt demo limited composite left fist. pt demo with sig, weakness and pain with left hand use. Pt would benefit from skilled OT services 1-2x week for 4-6 weeks to decrease pain- increase ROM and strengthen to return pt to her PLOF. Pt demo understanding and agree to POC. Rehabilitation Potential: Good Anticipated Interventions Anticipated Interventions: A/AAROM/PROM, Strengthening, Triggerpoint Release, Modalities, Orthoses, Joint Protection/Energy Conservation, Ergonomic Education, Education re assistive Equipment, Education re Diagnosis and Home Program Visit Plan Frequency: 1-2x /Week Duration: 4 Weeks TEXT: Thank you for the opportunity to evaluate your patient. For Medicare and Medicare HMO plans, please review the plan of care and approve it. It will need to be FAXED BACK to us at [phone] for Medicare purposes. Please let me know if there are questions or concerns regarding this plan of care. Physician Signature: Date: 04/12/24 1319 CC: SHARIF Grajeda; Dr. Holger Morales MD MK Signed For Medicare only, by signing this I certify the plan of care. Physicians Signature Date Normal [facility] Hand Min 3 Viewson 4 Hand Min 3 Views Imaging Services [address] [place], [place] [id number] Hand Min 3 Views MR#: [id number] Acct: [id number] Name: MERI BARNHART Rep #: [id number] : 1950 F 73 From: Kevin villatoro MD PCP: Dr. Holger Morales MD Status: REG CLI Study: Hand Min 3 Views Date of Exam: 01/14/24 Exam# [id number] Ordering [place]: [place] [id number] STUDY: X-RAY - LEFT HAND REASON FOR EXAM: Female, 73 years old. Left hand injury TECHNIQUE: 3 view(s) of the hand. COMPARISON: 01/01/2024. FINDINGS: There are nondisplaced fractures of the base of the fifth metacarpal, also present previously. No other changes or acute findings. Demineralization. Normal radiocarpal articulation. Normal distal radioulnar joint. Normal visualized carpal bones. Normal carpal articulations There is degenerative arthrosis of the carpometacarpal (CMC) articulation of the thumb. Normal second through fifth carpometacarpal joints. Normal first-fourth metacarpi. Normal metacarpophalangeal joint of the thumb. Normal interphalangeal joint of the thumb. Normal proximal and distal phalanges of the thumb. Normal metacarpophalangeal joints of the second through fifth fingers. Normal proximal and distal interphalangeal joints of the second through fifth fingers. Normal phalanges of the second through fifth fingers. The soft tissue structures are unremarkable. RAD/Hand Min 3 Views IMPRESSION: There are nondisplaced fractures of the base of the fifth metacarpal, also present previously. No other changes or acute findings. Electronically Signed: Kevin Roche MD at 17:13 EDT , CC: Dr. Holger Morales MD Yard Attendant: Signed Normal [facility] 01-03-2024 [facility] Telephone (PULMMN) MERI BARNHART ([id number]) 1950 F Date Time Provider Department 01/03/24 NORA GARCIA During your visit today, we recorded the following information about you: Natalie Patten 01/03/2024 12:39 PM Signed [facility] form Allergies As of Date: 01/03/2024 Noted Allergy Reaction BEE STING KIT 11/20/2002 Comments: carries EpiPen MENTHOL 11/20/2002 Comments: swelling/blisters MORPHINE 11/20/2002 Comments: fever NSAIDS (NON-STEROIDAL ANTI-INFLAM*11/20/2002 Comments: relafen; rash Date Reviewed: 06/01/2023 Reviewed by: Nora Garcia APRN.TOE FORMER - Fully Assessed 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 - cetirizine (ZYRTEC) 10 mg tablet Take 1 tablet by mouth once daily. - albuterol HFA (VENTOLIN HFA) 90 mcg/actuation inhaler Inhale 1 Puff as instructed every 4 hours as needed for wheezing/shortness of breath (for wheezing and shortness of breath). - albuterol (PROVENTIL) 2.5 mg /3 mL (0.083 %) nebulizer solution Use 3 mL via nebulizer every 4 hours as needed for wheezing/shortness of breath. Inhale over 5-15 minutes - esomeprazole (NEXIUM) 20 mg capsule Take 1 capsule by mouth once daily. - mometasone-formoterol (DULERA) 200-5 mcg/actuation inhaler Inhale 1 Puff as instructed two times a day. - azithromycin (ZITHROMAX) 250 mg tablet Take 2 tabs on the first day, then one tab daily for 4 days. - azelastine (ASTELIN, ASTEPRO) 0.1% nasal spray Use 2 Sprays in each nostril twice daily as needed. - lovastatin (MEVACOR) 20 mg tablet Take 20 mg by mouth once daily. - metFORMIN ER (GLUCOPHAGE XR) 500 mg 24 hr tablet Take 1,000 mg by mouth twice daily. - pioglitazone (ACTOS) 30 mg tablet - ascorbic acid, vitamin C, (VITAMIN C) 500 mg tablet Take 1 tablet by mouth once daily. - Calcium-Mag Oxide-Vitamin D3 (CORAL CALCIUM) 185-50-100 mg-mg-unit cap Take 1 tablet by mouth twice daily. 1 tablet by mouth two times daily - ergocalciferol, Vitamin D2, (VITAMIN D) 400 unit ORAL Cap Take 1 capsule by mouth once daily. Problem List As Of Date 01/03/2024 Noted Resolved BONE AND CARTILAGE DIS NOS [M89.9, M94.9] 10/24/2003 SYMPTOMATIC FEMALE CLIMACTERIC STATE [N95.1] 10/24/2003 ADV EFFECT MED/BIOL SUB NOS [995.2] 06/10/2005 THROMBOS HEMORRHOIDS NOS [K64.5] 11/19/2005 Reactive airway disease [J45.909] 03/01/2020 Type 2 diabetes mellitus with hyperglycemia (HC*08/10/2020 Encounter Status:Closed by JUSTINNATALIE STOCK on 01/03/24 Normal [facility] Emergency Department Summary on 01-01-[address] [facility] Medical Records Department [address] [place] [address] Emergency Department Summary 01/01/24 MR#: [id number] Acct: [id number] Name: MERI BARNHART Rep #: [id number] : 1950 73 From: Homero Jiménez MD PCP: Dr. Holger Morales MD Status:REG ER Location: ED HPI History of Present Illness Chief Complaint: Upper Extremity Injury Narrative Narrative: 73-year-old female past medical history of diabetes, [id number], presents with swelling of her bilateral hands status post fall. She states that she recently got new glasses yesterday with progressive lenses. Her depth perception has been off. While she was at the [facility] this afternoon around 2 PM, she had a mechanical fall where she had tripped, and fell onto both of her hands. She has left hand pain greater than right. She is complaining of pain and swelling at the base of her third and fourth digits of her right hand, and along the fifth metacarpal of her left hand. She took ibuprofen when she got home, but her hands continued to swell. She has pain with movement of her fingers. She denies hitting her head, loss of consciousness, or other injury. [facility] Medical History Reactive airway disease Overweight (BMI 25.0-29.9) Mixed hyperlipidemia Diabetes Rotator cuff arthropathy of left shoulder Neuropathy Cataract Seasonal allergies Non-smoker Fibromyalgia Diabetic neuropathy High cholesterol Asthma Diabetes Home Medications ???Medication ???Instructions ???Recorded ???Last Taken ???Type gabapentin 300 mg capsule 300 mg PO TID PAIN 09/03/16 10/02/20 History glipizide 10 mg tablet, extended 10 mg PO DAILY DIABETES 09/03/16 10/02/20 History release 24 hr montelukast 10 mg tablet 10 mg PO DAILY ALLERGIES 09/03/16 10/02/20 History ascorbic acid (vitamin C) 1,000 mg 1,000 mg PO DAILY SUPPLEMENT 07/25/17 10/02/20 History tablet (Vitamin C) calcium carbonate 600 mg PO DAILY SUPPLEMENT 07/25/17 10/02/20 History fluticasone 250 mcg-salmeterol 50 2 ea IH DAILY ASTHMA 03/23/18 10/02/20 History mcg/dose blistr powdr for inhalation (Advair Diskus) melatonin 10 mg capsule 10 mg PO DAILY SLEEP AID 03/23/18 10/02/20 History cetirizine 10 mg tablet (Zyrtec) 10 mg PO DAILY ALLEGIES 10/03/20 10/02/20 History cholecalciferol (vitamin D3) 125 125 mcg PO DAILY SUPPLEMENT 10/03/20 10/02/20 History mcg (5,000 unit) capsule lovastatin 20 mg tablet 20 mg PO DAILY CHOLESTEROL 10/03/20 10/02/20 History pioglitazone 30 mg tablet 30 mg PO DAILY #30 tabs 01/23/21 Unknown Rx metformin 500 mg tablet,extended 500 mg PO BID 08/06/23 Unknown History release 24 hr albuterol sulfate 2.5 mg/3 mL 2.5 mg inhalation Q4H PRN PRN 01/01/24 Unknown History (0.083 %) solution for nebulization wheezing Allergy/AdvReac Type Severity Reaction Status Date / Time adhesive tape Allergy Intermediate takes skin Verified 01/01/24 18:30 off menthol Allergy Rash Verified 01/01/24 18:30 nabumetone (From Relafen) Allergy Rash Verified 01/01/24 18:30 simvastatin Allergy Rash Verified 01/01/24 18:30 venom-honey bee Allergy Rash Verified 01/01/24 18:30 morphine AdvReac Other Verified 09/07/24 18:30 Family History Other Anesthesia complication Diabetes Surgical History H/O bladder repair surgery H/O right knee surgery H/O carpal tunnel repair H/O: hysterectomy Social History Smoking Status: Never smoker alcohol intake: current alcohol intake frequency: 0-2 drinks per day substance use type: does not use ROS ROS ED ROS Narrative Focused review of systems positive for bilateral hand pain and swelling, right hand swelling and pain with movement of fingers especially on the distal third and fourth metacarpals at the base of the fingers. Tenderness and swelling noted on fifth metacarpal of left hand. Denies other injury. EXAM Physical Exam Narrative Exam Narrative: GCS 15. ABCs are intact. Afebrile. Vital signs noted. Regular rate and rhythm. Lungs are clear to auscultation bilaterally. Abdomen is soft and nontender with normoactive bowel sounds. Inspection of the right hand does reveal full range of motion of the wrist without pain. There is mild tenderness and swelling at the base of the fourth and third digits. She appears neurovascular intact distally with good capillary refill. Abduction and adduction of fingers on right hand intact. Able to oppose thumb. Inspection of the left hand reveals mild tenderness to palpation with mild swelling and ecchymosis along the fifth metacarpal. Full range of motion of left wrist. Palpable radial pulses bilatera lly. Abd (more content not included)... Normal [facility] Hand Min 3 Viewson 4 Hand Min 3 Views [facility] [address] [place], [place] [id number] Hand Min 3 Views MR#: [id number] Acct: [id number] Name: MERI BARNHART Rep #: [id number] : 1950 F 73 From: Asim Jamil MD PCP: Dr. Holger Morales MD Status: REG ER Study: Hand Min 3 Views Date of Exam: 01/01/24 Exam# [id number] Ordering Dr: Homero Jimé[place] [id number] STUDY: X-RAY - LEFT HAND REASON FOR EXAM: Female, 73 years old. trauma TECHNIQUE: 3 view(s) of the hand. COMPARISON: 09/03/2016 FINDINGS: Normal radiocarpal articulation. Normal distal radioulnar joint. Normal visualized carpal bones. Normal carpal articulations Normal carpometacarpal articulation of the thumb. Normal second through fifth carpometacarpal joints. Normal metacarpi. Normal metacarpophalangeal joint of the thumb. Normal interphalangeal joint of the thumb. Normal proximal and distal phalanges of the thumb. Normal metacarpophalangeal joints of the second through fifth fingers. Normal proximal and distal interphalangeal joints of the second through fifth fingers. Normal phalanges of the second through fifth fingers. The soft tissue structures are unremarkable. RAD/Hand Min 3 Views IMPRESSION: Normal x-ray examination of the hand. Electronically Signed: Asim Jamil MD at 20:04 EDT , CC: Dr. Homero Jiménez MD; Dr. Holger Morales MD Yard Attendant: Signed Normal [facility] Hand Min 3 Views [facility] [address] [place] [id number] Hand Min 3 Views MR#: [id number] Acct: [id number] Name: MERI BARNHART Rep #: [id number] : 1950 F 73 From: Asim Jamil MD PCP: Dr. Holger Morales MD Status: REG ER Study: Hand Min 3 Views Date of Exam: 01/01/24 Exam# [id number] Ordering Dr: Homero Jimé[place] [id number] STUDY: X-RAY - RIGHT HAND REASON FOR EXAM: Female, 73 years old. TRAUMA TECHNIQUE: 3 view(s) of the hand. COMPARISON: 09/03/2016 FINDINGS: Normal radiocarpal articulation. Normal distal radioulnar joint. Normal visualized carpal bones. Normal carpal articulations Normal carpometacarpal articulation of the thumb. Normal second through fifth carpometacarpal joints. Normal metacarpi. Normal metacarpophalangeal joint of the thumb. Normal interphalangeal joint of the thumb. Normal proximal and distal phalanges of the thumb. Normal metacarpophalangeal joints of the second through fifth fingers. Normal proximal and distal interphalangeal joints of the second through fifth fingers. Normal phalanges of the second through fifth fingers. The soft tissue structures are unremarkable. RAD/Hand Min 3 Views IMPRESSION: Normal x-ray examination of the hand. Electronically Signed: Asim Jamil MD at 20:05 EDT , CC: Dr. Homero Jiménez MD; Dr. Holger Morales MD Yard Attendant: [facility] Comment on above: Order Comment: [id number] SERUM RT [id number] SERUM RT Result Comment: TEST RESULTS LIMITS Vitamin K1 0.54 ng/mL 0.10-2.20 TESTING PERFORMED AT [facility]. ORIGINAL REPORT ON FILE IN LAB CONTAINS ADDITIONAL TEST SITE INFORMATION. Performed By: #### L 801.1541 #### [facility] [address] [place], [address] CBC W/Diff, Automatedon 11-24 Absolute Lymph 2.78 X10 3/uL Normal 0.83-4.51 [facility] Comment on above: Order Comment: Order Date: 12/02/23 Order Info: 018- - CBCD Performed By: #### L 506.1000, L503.0105, L500.4050, L500.4100, L100.0100 #### [facility] [address] [place], [address] Absolute Neut 2.7 X10 3/uL Normal 2.0-7.7 [facility] Comment on above: Order Comment: Order Date: 12/02/23 Order Info: 018- - CBCD Performed By: #### L 506.1000, L503.0105, L500.4050, L500.4100, L100.0100 #### [facility] [address] [place], [address] Basophils/100 WBC (Bld) 0.7 % Normal 0-1 [facility] Comment on above: Order Comment: Order Date: 12/02/23 Order Info: 018- - CBCD Performed By: #### L 506.1000, L503.0105, L500.4050, L500.4100, L100.0100 #### [facility] [address] [place], [address] Eosinophils/100 WBC (Bld) 2.6 % Normal 0-5 [facility] Comment on above: Order Comment: Order Date: 12/02/23 Order Info: 018- - CBCD Performed By: #### L 506.1000, L503.0105, L500.4050, L500.4100, L100.0100 #### [facility] [address] [place], [address] Erythrocyte distribution width (RBC) [Ratio] 13.2 % Normal 11.6-14.6 [facility] Comment on above: Order Comment: Order Date: 12/02/23 Order Info: 0184-1 - CBCD Performed By: #### L 506.1000, L503.0105, L500.4050, L500.4100, L100.0100 #### [facility] [address] [place], [address] Hematocrit (Bld) [Volume fraction] 42.5 % Normal 37-47 [facility] Comment on above: Order Comment: Order Date: 12/02/23 Order Info: 0184-1 - CBCD Performed By: #### L 506.1000, L503.0105, L500.4050, L500.4100, L100.0100 #### [facility] [address] [place], [address] Hemoglobin (Bld) [Mass/Vol] 13.5 g/dL Normal 12.0-15.0 [facility] Comment on above: Order Comment: Order Date: 12/02/23 Order Info: 0184-1 - CBCD Performed By: #### L 506.1000, L503.0105, L500.4050, L500.4100, L100.0100 #### [facility] [address] [place], [address] IG% 0.200 Normal 0.0-0.9 [facility] Comment on above: Order Comment: Order Date: 12/02/23 Order Info: 0184-1 - CBCD Result Comment: IG% - Immature Granulocytes (promyelocytes, myelocytes and metamyelocytes) > 1% indicates that a LEFT SHIFT is Present. Performed By: #### L 506.1000, L503.0105, L500.4050, L500.4100, L100.0100 #### [facility] [address] [place], [address] Lymphocytes/100 WBC (Bld) 45.2 % High 19-41 [facility] Comment on above: Order Comment: Order Date: 12/02/23 Order Info: 0184-1 - CBCD Performed By: #### L 506.1000, L503.0105, L500.4050, L500.4100, L100.0100 #### [facility] [address] [place], [address] MCH (RBC) [Entitic mass] 29.3 pg Normal 27.0-32.0 [facility] Comment on above: Order Comment: Order Date: 12/02/23 Order Info: 0184-1 - CBCD Performed By: #### L 506.1000, L503.0105, L500.4050, L500.4100, L100.0100 #### [facility] [address] [place], [address] MCHC (RBC) [Mass/Vol] 31.8 g/dL Low 32-36 [facility] Comment on above: Order Comment: Order Date: 12/02/23 Order Info: 0184-1 - CBCD Performed By: #### L 506.1000, L503.0105, L500.4050, L500.4100, L100.0100 #### [facility] [address] [place], [address] MCV (RBC) [Entitic vol] 92.2 fL Normal 81-99 [facility] Comment on above: Order Comment: Order Date: 12/02/23 Order Info: 0184-1 - CBCD Performed By: #### L 506.1000, L503.0105, L500.4050, L500.4100, L100.0100 #### [facility] [address] [place], [address] Monocytes/100 WBC (Bld) 8.0 % Normal 0-10 [facility] Comment on above: Order Comment: Order Date: 12/02/23 Order Info: 0184-1 - CBCD Performed By: #### L 506.1000, L503.0105, L500.4050, L500.4100, L100.0100 #### [facility] [address] [place], [address] Neutrophils/100 WBC (Bld) 43.3 % Low 47-70 [facility] Comment on above: Order Comment: Order Date: 12/02/23 Order Info: 0184- - CBCD Performed By: #### L 506.1000, L503.0105, L500.4050, L500.4100, L100.0100 #### [facility] [address] [place], [address] Nucleated RBC (Bld) [#/Vol] 0 10*3/uL Normal 0-5 [facility] Comment on above: Order Comment: Order Date: 12/02/23 Order Info: 0184- - CBCD Performed By: #### L 506.1000, L503.0105, L500.4050, L500.4100, L100.0100 #### [facility] [address] [place], [address] Platelet mean volume (Bld) [Entitic vol] 11.0 fL Normal 6.2-12.0 [facility] Comment on above: Order Comment: Order Date: 12/02/23 Order Info: 0184- - CBCD Performed By: #### L 506.1000, L503.0105, L500.4050, L500.4100, L100.0100 #### [facility] [address] [place], [address] Platelets (Bld) [#/Vol] 310 10*3/uL Normal 150-450 [facility] Comment on above: Order Comment: Order Date: 12/02/23 Order Info: 0184- - CBCD Performed By: #### L 506.1000, L503.0105, L500.4050, L500.4100, L100.0100 #### [facility] [address] [place], [address] RBC (Bld) [#/Vol] 4.61 10*6/uL Normal 4.2-5.4 [facility] Comment on above: Order Comment: Order Date: 12/02/23 Order Info: 0184-1 - CBCD Performed By: #### L 506.1000, L503.0105, L500.4050, L500.4100, L100.0100 #### [facility] [address] [place], [address] RDW SD 44.4 fl High 35.1-43.9 [facility] Comment on above: Order Comment: Order Date: 12/02/23 Order Info: 0184-1 - CBCD Performed By: #### L 506.1000, L503.0105, L500.4050, L500.4100, L100.0100 #### [facility] [address] [place], [address] WBC (Bld) [#/Vol] 6.2 10*3/uL Normal 4.4-11.0 [facility] Comment on above: Order Comment: Order Date: 12/02/23 Order Info: 0184-1 - CBCD Performed By: #### L 506.1000, L503.0105, L500.4050, L500.4100, L100.0100 #### [facility] [address] [place], [address] Comprehensive Metabolic Prof [facility] 12-13-2023 Albumin [Mass/Vol] 3.6 g/dL Normal 3.2-5.0 [facility] Comment on above: Order Comment: Order Date: 12/02/23Order Info: [id number] - CMPOrder Info: [id number] - LIPID Performed By: #### L 506.1000, L503.0105, L500.4050, L500.4100, L100.0100 ####[facility] [address] [place], [address] Albumin/Globulin [Mass ratio] 1.0 {ratio} Normal 0.9-2.4 [facility] Comment on above: Order Comment: Order Date: 12/02/23Order Info: [id number] - CMPOrder Info: [id number] - LIPID Performed By: #### L 506.1000, L503.0105, L500.4050, L500.4100, L100.0100 ####[facility] [address] [place], [address] ALK P 76 U/L Normal 45-117 [facility] Comment on above: Order Comment: Order Date: 12/02/23Order Info: 0786- - CMPOrder Info: [id number] - LIPID Performed By: #### L 506.1000, L503.0105, L500.4050, L500.4100, L100.0100 ####[facility] [address] [place], [address] ALT [Catalytic activity/Vol] 18 U/L Normal 13-56 [facility] Comment on above: Order Comment: Order Date: 12/02/23Order Info: 0786- - CMPOrder Info: [id number] - LIPID Performed By: #### L 506.1000, L503.0105, L500.4050, L500.4100, L100.0100 ####[facility] [address] [place], [address] AST [Catalytic activity/Vol] 14 U/L Low 15-37 [facility] Comment on above: Order Comment: Order Date: 12/02/23Order Info: [id number] - CMPOrder Info: [id number] - LIPID Performed By: #### L 506.1000, L503.0105, L500.4050, L500.4100, L100.0100 ####[facility] [address] [place], [address] Bilirubin [Mass/Vol] 0.70 mg/dL Normal 0.20-1.00 [facility] Comment on above: Order Comment: Order Date: 12/02/23Order Info: [id number] - CMPOrder Info: [id number] - LIPID Result Comment: For patients on eltrombopag therapy, use of Dimension [place] TBIL is not recommended. Performed By: #### L 506.1000, L503.0105, L500.4050, L500.4100, L100.0100 ####[facility] [address] [place], [address] BUN/CRE 17.8 RATIO Normal 10-20 [facility] Comment on above: Order Comment: Order Date: 12/02/23Order Info: [id number] - CMPOrder Info: [id number] - LIPID Performed By: #### L 506.1000, L503.0105, L500.4050, L500.4100, L100.0100 ####[facility] [address] [place], [address] CA,Total 9.2 mg/dL Normal 8.5-10.1 [facility] Comment on above: Order Comment: Order Date: 12/02/23Order Info: [id number] - CMPOrder Info: [id number] - LIPID Performed By: #### L 506.1000, L503.0105, L500.4050, L500.4100, L100.0100 ####[facility] [address] [place], [address] Chloride [Moles/Vol] 106 mmol/L Normal 98-107 [facility] Comment on above: Order Comment: Order Date: 12/02/23Order Info: [id number] - CMPOrder Info: [id number] - LIPID Performed By: #### L 506.1000, L503.0105, L500.4050, L500.4100, L100.0100 ####[facility] [address] [place], [address] CO2 [Moles/Vol] 28.0 mmol/L Normal 21.0-32.0 [facility] Comment on above: Order Comment: Order Date: 12/02/23Order Info: [id number] - CMPOrder Info: [id number] - LIPID Performed By: #### L 506.1000, L503.0105, L500.4050, L500.4100, L100.0100 ####[facility] [address] [place], [address] Creatinine [Mass/Vol] 0.84 mg/dL Normal 0.55-1.02 [facility] Comment on above: Order Comment: Order Date: 12/02/23Order Info: [id number] - CMPOrder Info: [id number] - LIPID Result Comment: The validity of the calculated GFR GFRAA in patients over 70 years has not been determined. Clinical correlation is essential. Performed By: #### L 506.1000, L503.0105, L500.4050, L500.4100, L100.0100 ####[facility] [address] [place], [address] EST GFR - AA 86 mL/min Normal >60 [facility] Comment on above: Order Comment: Order Date: 12/02/23Order Info: [id number] - CMPOrder Info: [id number] - LIPID Result Comment: Afri can [place] GFR Calc Performed By: #### L 506.1000, L503.0105, L500.4050, L500.4100, L100.0100 ####[facility] [address] [place], [address] GAP 5 Normal 5-15 [facility] Comment on above: Order Comment: Order Date: 12/02/23Order Info: [id number] - CMPOrder Info: [id number] - LIPID Performed By: #### L 506.1000, L503.0105, L500.4050, L500.4100, L100.0100 ####[facility] [address] [place], [address] GFR/1.73 sq M.predicted among non-blacks MDRD (S/P/Bld) [Vol rate/Area] 71 mL/min/{1.73_m2} Normal >60 [facility] Comment on above: Order Comment: Order Date: 12/02/23Order Info: 07- - CMPOrder Info: [id number] - LIPID Result Comment: Non- GFR Calc Performed By: #### L 506.1000, L503.0105, L500.4050, L500.4100, L100.0100 ####[facility] [address] [place], [address] Globulin (S) [Mass/Vol] 3.6 g/dL Normal 2.2-4.2 [facility] Comment on above: Order Comment: Order Date: 12/02/23Order Info: [id number] - CMPOrder Info: [id number] - LIPID Performed By: #### L 506.1000, L503.0105, L500.4050, L500.4100, L100.0100 ####[facility] [address] [place], [address] Glucose [Mass/Vol] 114 mg/dL High 74-106 [facility] Comment on above: Order Comment: Order Date: 12/02/23Order Info: 0786- - CMPOrder Info: [id number] - LIPID Result Comment: Fast ing Glucose result from 100 to 125 mg/dL suggests IMPAIRED HOMEOSTASIS per A.D.A. criteria. Performed By: #### L 506.1000, L503.0105, L500.4050, L500.4100, L100.0100 ####[facility] [address] [place], [address] Potassium [Moles/Vol] 4.3 mmol/L Normal 3.5-5.1 [facility] Comment on above: Order Comment: Order Date: 12/02/23Order Info: 0786- - CMPOrder Info: [id number] - LIPID Performed By: #### L 506.1000, L503.0105, L500.4050, L500.4100, L100.0100 ####[facility] [address] [place], [address] Sodium [Moles/Vol] 139 mmol/L Normal 136-145 [facility] Comment on above: Order Comment: Order Date: 12/02/23Order Info: [id number] - CMPOrder Info: [id number] - LIPID Performed By: #### L 506.1000, L503.0105, L500.4050, L500.4100, L100.0100 ####[facility] [address] [place], [address] T PROT 7.2 g/dL Normal 6.4-8.2 [facility] Comment on above: Order Comment: Order Date: 12/02/23Order Info: [id number] - CMPOrder Info: [id number] - LIPID Performed By: #### L 506.1000, L503.0105, L500.4050, L500.4100, L100.0100 ####[facility] [address] [place], [address] Urea nitrogen [Mass/Vol] 15 mg/dL Normal 7-18 [facility] Comment on above: Order Comment: Order Date: 12/02/23Order Info: [id number] - CMPOrder Info: [id number] - LIPID Performed By: #### L 506.1000, L503.0105, L500.4050, L500.4100, L100.0100 ####[facility] [address] [place], [address] ALB Normal 3.2-5.0 [facility] Comment on above: Result Comment: DUPL ICATE Performed By: #### L 500.4100, L500.4050 ####[facility] [address] [place], [address] ALK P Normal 45-117 [facility] Comment on above: Result Comment: DUPL ICATE Performed By: #### L 500.4100, L500.4050 ####[facility] [address] [place], [address] ALT Normal 13-56 [facility] Comment on above: Result Comment: DUPL ICATE Performed By: #### L 500.4100, L500.4050 ####[facility] [address] [place], [address] AST Normal 15-37 [facility] Comment on above: Result Comment: DUPL ICATE Performed By: #### L 500.4100, L500.4050 ####[facility] [address] [place], [address] BUN Normal 7-18 [facility] Comment on above: Result Comment: DUPL ICATE Performed By: #### L 500.4100, L500.4050 ####[facility] [address] [place], [address] BUN/CRE Normal 10-20 [facility] Comment on above: Result Comment: DUPL ICATE Performed By: #### L 500.4100, L500.4050 ####[facility] [address] [place], [address] CA,Total Normal 8.5-10.1 [facility] Comment on above: Result Comment: DUPL ICATE Performed By: #### L 500.4100, L500.4050 ####[facility] [address] [place], [address] CL Normal 98-107 [facility] Comment on above: Result Comment: DUPL ICATE Performed By: #### L 500.4100, L500.4050 ####[facility] [address] [place], [address] CO2 Normal 21.0-32.0 [facility] Comment on above: Result Comment: DUPL ICATE Performed By: #### L 500.4100, L500.4050 ####[facility] [address] [place], [address] CREAT,SERUM Normal 0.55-1.02 [facility] Comment on above: Result Comment: DUPL ICATE Performed By: #### L 500.4100, L500.4050 ####[facility] [address] [place], [address] EST GFR Normal >60 [facility] Comment on above: Result Comment: DUPL ICATE Performed By: #### L 500.4100, L500.4050 ####[facility] [address] [place], [address] EST GFR - AA Normal >60 [facility] Comment on above: Result Comment: DUPL ICATE Performed By: #### L 500.4100, L500.4050 ####[facility] [address] [place], [address] GAP Normal 5-15 [facility] Comment on above: Result Comment: DUPL ICATE Performed By: #### L 500.4100, L500.4050 ####[facility] [address] [place], [address] GLU Normal 74-106 [facility] Comment on above: Result Comment: DUPL ICATE Performed By: #### L 500.4100, L500.4050 ####[facility] [address] [place], [address] Potassium Normal 3.5-5.1 [facility] Comment on above: Result Comment: DUPL ICATE Performed By: #### L 500.4100, L500.4050 ####[facility] [address] [place], [address] T BILI Normal 0.20-1.00 [facility] Comment on above: Result Comment: DUPL ICATE Performed By: #### L 500.4100, L500.4050 ####[facility] [address] [place], [address] T PROT Normal 6.4-8.2 [facility] Comment on above: Result Comment: DUPL ICATE Performed By: #### L 500.4100, L500.4050 ####[facility] [address] [place], [address] Comprehensive Metabolic Profil Normal 136-145 [facility] Comment on above: Result Comment: DUPL ICATE Performed By: #### L 500.4100, L500.4050 ####[facility] [address] [place], [address] Lipid Profileon 12-13-2023 Cholesterol [Mass/Vol] 174 mg/dL Normal 200 [facility] Comment on above: Order Comment: Order Date: 12/02/23Order Info: [id number] - CMPOrder Info: [id number] - LIPID Result Comment: <200 mg/dL Desirable 200-240 mg/dL Borderline >240 mg/dL High Risk Performed By: #### L 506.1000, L503.0105, L500.4050, L500.4100, L100.0100 ####[facility] [address] [place], [address] Cholesterol in HDL [Mass/Vol] 67 mg/dL Normal [facility] Comment on above: Order Comment: Order Date: 12/02/23Order Info: [id number] - CMPOrder Info: [id number] - LIPID Result Comment: The drugs N-Acetylcysteine and Metamizole may falsely depress this assay. Reference Range HDL <40 mg/dL Low HDL Cholesterol HDL >or= 60 mg/dL High HDL Cholesterol Performed By: #### L 506.1000, L503.0105, L500.4050, L500.4100, L100.0100 ####[facility] [address] [place], [address] Cholesterol in LDL [Mass/Vol] 77 mg/dL Normal 0-130 [facility] Comment on above: Order Comment: Order Date: 12/02/23Order Info: [id number] - CMPOrder Info: [id number] - LIPID Performed By: #### L 506.1000, L503.0105, L500.4050, L500.4100, L100.0100 ####[facility] [address] [place], [address] Cholesterol in VLDL [Mass/Vol] 30 mg/dL Normal 5-40 [facility] Comment on above: Order Comment: Order Date: 12/02/23Order Info: [id number] - CMPOrder Info: [id number] - LIPID Performed By: #### L 506.1000, L503.0105, L500.4050, L500.4100, L100.0100 ####[facility] [address] [place], [place], [id number]) Triglyceride [Mass/Vol] 151 mg/dL Normal [facility] Comment on above: Order Comment: Order Date: 12/02/23Order Info: [id number] - CMPOrder Info: [id number] - LIPID Result Comment: The drugs N-Acetylcysteine and Metamizole may falsely depress this assay. Serum Triglycerides Reference Interval Normal <150 mg/dL Borderline high 150 - 199 mg/dL High 200 - 499 mg/dL Very High > or = 500 mg/dL Performed By: #### L 506.1000, L503.0105, L500.4050, L500.4100, L100.0100 ####[facility] [address] [place], [address] HDL Normal [facility] Comment on above: Result Comment: DUPL ICATE The drugs N-Acetylcysteine and Metamizole may falsely depress this assay. Performed By: #### L 500.4100, L500.4050 ####[facility] [address] [place], [address] TRIG Normal [facility] Comment on above: Result Comment: DUPL ICATE The drugs N-Acetylcysteine and Metamizole may falsely depress this assay. Performed By: #### L 500.4100, L500.4050 ####[facility] [address] [place], [address] CHOL Normal 200 [facility] Comment on above: Result Comment: DUPL ICATE Performed By: #### L 500.4100, L500.4050 ####[facility] [address] [place], [address] LDL Normal 0-130 [facility] Comment on above: Result Comment: DUPL ICATE Performed By: #### L 500.4100, L500.4050 ####[facility] [address] [place], [address] VLDL Normal 5-40 [facility] Comment on above: Result Comment: DUPL ICATE Performed By: #### L 500.4100, L500.4050 ####[facility] [address] [place], [address] Vitamin B12on 12-13-2023 Cobalamin (Vitamin B12) [Mass/Vol] 1895 pg/mL High 211-911 [facility] Comment on above: Order Comment: Order Date: 12/02/23 Order Info: [id number] - [id number] Order Info: [id number] - [id number] Performed By: #### L 506.1000, L503.0105, L500.4050, L500.4100, L100.0100 #### [facility] [address] [place], [address] Vitamin D,25 Hydroxyon 12-12 Vitamin D 25-OH 65.7 ng/mL Normal [facility] Comment on above: Order Comment: Order Date: 12/02/23Order Info: [id number] - [id number] Info: [id number] - VITD25 Result Comment: Melany min D 25(OH) Status Range Deficiency <20 ng/mL (50nmol/L) Insufficiency 20 - 30 ng/mL (50 - 75 nmol/L) Sufficiency 30 - 100 ng/mL (75 - 250 nmol/L) Toxicity >100 ng/mL (>250 nmol/L) Performed By: #### L 506.1000, L503.0105, L500.4050, L500.4100, L100.0100 ####[facility] [address] [place], [address] Basophil percentageOrdered B y: Zahraa Coyle on 03-24-2023 Bilirubin [Mass/Vol] 0.30 mg/dL 0.20-1.00 [facility] Comment on above: For patients on eltr ombopag therapy, use of Dimension Silverpeak TBIL is not recommended. Chloride [Moles/Vol] 105 mmol/L 98-107 [facility] Cholesterol [Mass/Vol] 177 mg/dL <200 [facility] Comment on above: <200 mg/dL Desirable 200-240 mg/dL Borderline >240 mg/dL High Risk Glucose [Mass/Vol] 173 mg/dL 74-106 [facility] Comment on above: Fasting Glucose resu lt greater than or equal to 126 mg/dL suggests DIABETES MELLITUS per A.D.A. criteria. Potassium [Moles/Vol] 4.3 mmol/L 3.5-5.1 [facility] Protein [Mass/Vol] 7.1 g/dL 6.4-8.2 [facility] Sodium [Moles/Vol] 140 mmol/L 136-145 [facility] Triglyceride [Mass/Vol] 175 mg/dL <199 [facility] Comment on above: The drugs N-Acetylcy steine and Metamizole may falsely depress this assay.Serum Triglycerides Reference Interval Normal <150 mg/dL Borderline high 150 - 199 mg/dL High 200 - 499 mg/dL Very High > or = 500 mg/dL Laboratory - Chemistry and C hemistry - challengeOrdered By: Zahraa Coyle on 03-24-2023 ALP [Catalytic activity/Vol] 81 U/L 45-117 [facility] ALT [Catalytic activity/Vol] 18 U/L 13-56 [facility] CO2 [Moles/Vol] 29.0 mmol/L 21.0-32.0 [facility] Cobalamin (Vitamin B12) [Mass/Vol] 229 pg/mL 211-911 [facility] Globulin (S) [Mass/Vol] 3.5 g/dL 2.2-4.2 [facility] Urea nitrogen/Creatinine [Mass ratio] 12.7 mg/mg 10-20 [facility] No Panel InformationOrdered By: Zahraa Coyle on 03-24-2023 Estimated GFR (MDRD) Amer 75 mL/min >60 [facility] Comment on above: GFR Calc Estimated GFR (MDRD) Non-Af Amer 62 mL/min >60 [facility] Comment on above: Non- GFR Calc Urine Microalbumin/Creatinin e Ratio TNP [facility] Comment on above: Test not performed Serum or plasma albumin maribel urement (mass/volume)Ordered By: Zahraa Coyle on 03-24-2023 Albumin [Mass/Vol] 3.6 g/dL 3.2-5.0 [facility] Serum or plasma albumin/glob ulin mass ratioOrdered By: Zahraa Coyle on 03-24-2023 Albumin/Globulin [Mass ratio] 1.0 {ratio} 0.9-2.4 [facility] Serum or plasma calcium maribel urement (mass/volume)Ordered By: Zahraa Coyle on 03-24-2023 Calcium [Mass/Vol] 9.0 mg/dL 8.5-10.1 [facility] Serum or plasma cholesterol in HDL measurement (mass/volume)Ordered By: Zahraa Coyle on 03-24-2023 Cholesterol in HDL [Mass/Vol] 61 mg/dL >40 [facility] Comment on above: The drugs N-Acetylcy steine and Metamizole may falsely depress this assay. Reference Range HDL <40 mg/dL Low HDL Cholesterol HDL >or= 60 mg/dL High HDL Cholesterol Serum or plasma cholesterol in VLDL measurement (mass/volume)Ordered By: Zahraa Coyle on 03-24-2023 Cholesterol in VLDL [Mass/Vol] 35 mg/dL 5-40 [facility] Serum or plasma creatinine m easurement (mass/volume)Ordered By: Zahraa Coyle on 03-24-2023 Creatinine [Mass/Vol] 0.95 mg/dL 0.55-1.02 [facility] Comment on above: The validity of the calculated GFR & GFRAA in patients over 70 years has not been determined. Clinical correlation is essential. Serum or plasma low density lipoprotein (LDL) cholesterol measurement (mass/volume)Ordered By: Zahraa Coyle on 03-24-2023 Cholesterol in LDL [Mass/Vol] 81 mg/dL 0-130 [facility] Serum or plasma urea nitroge n measurement (mass/volume)Ordered By: Zahraa Coyle on 03-24-2023 Urea nitrogen [Mass/Vol] 12 mg/dL 7-18 [facility] Thin prep Papanicolaou smear with manual screeningOrdered By: Zahraa Coyle on 03-24-2023 Thin prep Papanicolaou smear with manual screening 9 U/L 15-37 [facility] Thin prep Papanicolaou smear with manual screening 6 5-15 [facility] Thin prep Papanicolaou smear with manual screening < 5.0 mg/L NO RANGE EST. [facility] Urine creatinine measurement (mass/volume)Ordered By: Zahraa Coyle on 03-24-2023 Creatinine (U) [Mass/Vol] 50.40 mg/dL NO RANGE EST. [facility] NITRIC OXIDE, EXHALEDon 06- [facility] Absolute lymphocyte counton 07-07-2021 Lymphocytes Auto (Unsp spec) [#/Vol] 3.08 10*3/uL 0.83-4.51 [facility] Work Phone: Basophil percentageon 2021 Basophils/100 WBC (Bld) 0.9 % 0-1 [facility] Work Phone: Eosinophils/100 WBC (Bld) 3.5 % 0-5 [facility] Work Phone: Neutrophils (Bld) [#/Vol] 3.0 10*3/uL 2.0-7.7 [facility] Work Phone: Neutrophils/100 WBC (Bld) 43.2 % 47-70 [facility] Work Phone: WBC (Bld) [#/Vol] 6.9 10*3/uL 4.4-11.0 [facility] Work Phone: Blood erythrocytes count (nu mber/volume)on 07-07-2021 RBC (Bld) [#/Vol] 4.66 10*6/uL 4.2-5.4 [facility] Work Phone: Blood hemoglobin measurement (mass/volume)on 07-07-2021 Hemoglobin (Bld) [Mass/Vol] 13.8 g/dL 12.0-15.0 [facility] Work Phone: Blood lymphocytes/100 leukoc yteson 07-07-2021 Lymphocytes/100 WBC (Bld) 44.8 % 19-41 [facility] Work Phone: Blood monocytes/100 leukocyt eson 07-07-2021 Monocytes/100 WBC (Bld) 7.3 % 0-10 [facility] Work Phone: Blood platelet mean volumeon 07-07-2021 Platelet mean volume (Bld) [Entitic vol] 10.7 fL 6.2-12.0 [facility] Work Phone: Determination of erythrocyte mean corpuscular volume (MCV)on 07-07-2021 MCV (RBC) [Entitic vol] 90.6 fL 81-99 [facility] Work Phone: Hematocrit Auto (Bld) [Volum e fraction]on 07-07-2021 Hematocrit (Bld) [Volume fraction] 42.2 % 37-47 [facility] Work Phone: Laboratory - Hematology and Cell countson 07-07-2021 Erythrocyte distribution width (RBC) [Entitic vol] 42.7 fL 35.1-43.9 [facility] Work Phone: Erythrocyte distribution width (RBC) [Ratio] 13.0 % 11.6-14.6 [facility] Work Phone: Immature granulocytes/100 WBC (Bld) 0.300 % 0.0-0.9 [facility] Work Phone: Comment on above: IG% - Immature Granu locytes (promyelocytes, myelocytes and metamyelocytes) > 1% indicates that a LEFT SHIFT is Present. MCH (RBC) [Entitic mass] 29.6 pg 27.0-32.0 [facility] Work Phone: Nucleated RBC/100 WBC (Bld) [Ratio] 0 % 0-5 [facility] Work Phone: MCHC Auto (RBC) [Mass/Vol]on 07-07-2021 MCHC (RBC) [Mass/Vol] 32.7 g/dL 32-36 [facility] Work Phone: No Panel Informationon 07-07 Immunoglobulin E 24 IU/mL [facility] Work Phone: Comment on above: Performed at: - [address] [id number] Director: Iwona Anton MD, Phone: [phone] Platelets bldon 07-07-2021 Platelets (Bld) [#/Vol] 339 10*3/uL 150-450 [facility] Work Phone: Whole blood hemoglobin A1c/t otal hemoglobin ratio (mass fraction)on 07-07-2021 HbA1c (Bld) [Mass fraction] 7.0 % 3.8-5.6 [facility] Work Phone: Comment on above: Normal < 5.7 % Predi abetic 5.7 - 6.4 % Diabetic >or= 6.5 % Please note range changes. Vital Signs Date Time Vital Sign Value Performing Clinician Faci lity 08-08-2024 21:32-0400 Heart rate 74 /min Holger Morales MD Work Phone: [facility] 08-08-2024 21:32-0400 Respiratory rate 23 /min Holger Morales MD Work Phone: [facility] 08-08-2024 21:32-0400 SaO2% (BldA) [Mass fraction] 99 % Holger Morales MD Work Phone: [facility] 08-08-2024 16:44-0400 Body height 152.4 cm Holger Morales MD Work Phone: [facility] 08-08-2024 16:44-0400 Body mass index (BMI) [Ratio] 29.4 kg/m2 Holger Morales MD Work Phone: [facility] 08-08-2024 16:44-0400 Body temperature 98.1 [degF] Holger Morales MD Work Phone: [facility] 08-08-2024 16:44-0400 Body weight 68.31 kg Holger Morales MD Work Phone: [facility] 08-08-2024 16:44-0400 Diastolic blood pressure 56 mm[Hg] Holger Morales MD Work Phone: [facility] 08-08-2024 16:44-0400 Systolic blood pressure 134 mm[Hg] Holger Morales MD Work Phone: [facility] 10-02-2021 13:02-0400 Body height 152.4 cm [facility] Work Phone: 10-02-2021 13:02-0400 Body mass index (BMI) [Ratio] 35.2 kg/m2 [facility] Work Phone: 10-02-2021 13:02-0400 Body temperature 97.9 [degF] [facility] Work Phone: 10-02-2021 13:02-0400 Body weight 81.64 kg [facility] Work Phone: 10-02-2021 13:02-0400 Diastolic blood pressure 74 mm[Hg] [facility] Work Phone: 10-02-2021 13:02-0400 Heart rate 84 /min [facility] Work Phone: 10-02-2021 13:02-0400 Respiratory rate 18 /min [facility] Work Phone: 10-02-2021 13:02-0400 SaO2% (BldA) [Mass fraction] 98 % [facility] Work Phone: 10-02-2021 13:02-0400 Systolic blood pressure 139 mm[Hg] [facility] Work Phone: Encounters Encounter Date Encounter Type Care Provider Facility Start: 11-17-2024 End: 11-17-2024 Telephone encounter Gisell Parveen [employer] Work Phone: Pulmonary Medicine Start: 11-09-2024 End: 11-09-2024 Refill Nora Garcia [employer] Work Phone: Pulmonary Medicine Comment on above: Refill Request Start: 10-05-2024 End: 10-05-2024 ambulatory Holger Morales MD Work Phone: [facility] Work Phone: Start: 10-05-2024 End: 10-05-2024 Patient encounter procedure Magda PINO -Outpatient Bone Densitometry Work Phone: Start: 10-05-2024 End: 10-05[facility] Start: 08-15-2024 End: 08-15-2024 Refill Amanda Quintana MD Work Phone: Pulmonary Medicine Comment on above: Med Change Request Start: 08-15-2024 End: 08-15-2024 Telemedicine consultation with patient Amanda Quintana MD Work Phone: Pulmonary Medicine Start: 08-15-2024 End: 08-15-2024 ambulatory Amanda Quintana MD Work Phone: Pulmonary Medicine Comment on above: Gastroesophageal ref lux disease without esophagitis (Primary Dx); Reactive airway disease without asthma; Moderate persistent reactive airway disease without complication (HCC) Start: 08-08-2024 End: 08-08-2024 Emergency department patient visit Holger Morales MD Work Phone: -Emergency Department Work Phone: Start: 08-02-2024 End: 08-02-2024 Refill Nora Jose [employer] Work Phone: Pulmonary Medicine Comment on above: Refill Request Start: 07-03-2024 End: 07-03-2024 Refill Nora Arredondobliss [employer] Work Phone: Pulmonary Medicine Comment on above: Refill Request Start: 05-29-2024 End: 05-29-2024 ambulatory [facility] Facility:[facility] Start: 05-29-2024 Registered Recurring Justin Jose -Occupational Therapy Work Phone: Start: 01-14-2024 End: 01-14-2024 ambulatory [facility] Facility:[facility] Start: 01-03-2024 End: 01-03-2024 Telephone encounter Nora Arredondobliss [employer] Work Phone: Pulmonary Medicine 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[employer] Start: 01-01-2024 End: 01-01-2024 Emergency department patient visit Homero Jiménez Facility:[facility] Start: 12-13-2023 End: 12-13-2023 ambulatory [facility] Facility:[facility] Start: 06-01-2023 Telephone encounter Nora Lechuga sushila [employer] Work Phone: Pulmonology [facility] Comment on above: Results Start: 06-01-2023 End: 06-01-2023 ambulatory Nora Garcia [employer] Work Phone: Pulmonary Medicine Comment on above: Reactive airway dise ase without asthma (Primary Dx); Moderate persistent reactive airway disease without complication; Gastroesophageal reflux disease with esophagitis, unspecified whether hemorrhage Start: 06-01-2023 End: 06-01-2023 Telemedicine consultation with patient Nora Garcia [employer] Work Phone: [facility] Start: 03-25-2023 End: 03-25-2023 ambulatory [facility] Work Phone: Start: 03-25-2023 End: 03-25-2023 Patient encounter procedure [facility]-Radiology, [place] Work Phone: Start: 03-24-2023 End: 03-24-2023 ambulatory [facility] Work Phone: Start: 03-24-2023 End: 03-24-2023 Patient encounter procedure [facility] Start: 10-14-2022 ambulatory Shonna noyola PA-C Work Phone: Pulmonary Medicine Comment on above: Workers comp c - 9 f orm Start: 08-31-2022 End: 08-31-2022 ambulatory Shonna Mills PA-C Work Phone: Pulmonary Medicine Comment on above: Respiratory obstruct ion (Primary Dx) Start: 08-31-2022 End: 08-31-2022 Telemedicine consultation with patient Shonna Mills PA-C Work Phone: [facility] Start: 08-18-2022 End: 08-18-2022 ambulatory [facility] Work Phone: Start: 08-18-2022 End: 08-18-2022 Patient encounter procedure [facility] Start: 07-07-2022 ambulatory Shonna noyola PA-C Work Phone: Pulmonary Medicine Comment on above: The code we need to use to get perscriptions and bills paid. Start: 07-06-2022 Telephone encounter Shonna Psacal antoniosteve PA-C Work Phone: Pulmonary Medicine Comment on above: disability letter Start: 04-15-2022 End: 04-15-2022 ambulatory Shonna Mills PA-C Work Phone: Pulmonary Medicine Comment on above: Reactive airway dise ase without asthma (Primary Dx) Start: 04-15-2022 End: 04-15-2022 Telemedicine consultation with patient Shonna Mills PA-C Work Phone: [facility] Start: 03-10-2022 Refill Shonna noyola PA-C Work Phone: Pulmonary Medicine Comment on above: Refill Request Start: 01-13-2022 End: 01-13-2022 ambulatory Shonna Mills PA-C Work Phone: Pulmonary Medicine Comment on above: Reactive airway dise ase without complication, unspecified asthma severity, unspecified whether persistent (Primary Dx) Start: 01-13-2022 End: 01-13-2022 Telemedicine consultation with patient Shonna Mills PA-C Work Phone: [facility] Start: 11-20-2021 ambulatory Teresa elliott RN Work Phone: Pulmonary Medicine Comment on above: Bwc (Worker's Comp) Start: 10-10-2021 ambulatory Teresa elliott RN Work Phone: Pulmonary Medicine Comment on above: Bwc (Worker's Comp) Start: 10-09-2021 End: 10-09-2021 ambulatory [facility]m [facility] Main 9 [facility] Comment on above: Spirometry Start: 10-09-2021 End: 10-09-2021 Patient encounter procedure [facility]m [facility] Main 9 [facility] Start: 10-02-2021 End: 10-02-2021 Emergency department patient visit [facility]-Emergency Department Start: 07-07-2021 End: 07-07-2021 Patient encounter procedure [facility]-Laboratory, [facility] Procedures Date Procedure Procedure Detail Performing Clinician Start: 10-05-2024 Dual energy X-ray absorptiometry Holger Morales MD Work Phone: Start: 10-05-2024 Screening mammography C joann Morales MD Work Phone: Start: 08-08-2024 X-ray of knee, four or more views Holger Morales MD Work Phone: Start: 03-25-2023 X-ray of both feet Start: 08-18-2022 Plain chest X-ray Start: 10-09-2021 Nitric oxide gas determination Shonna Mills PA-C Work Phone: Start: 10-09-2021 Brncdilat rspse spmt ry pre&post-brncdilat admn Shonna Mills PA-C Work Phone: Start: 10-02-2021 Diagnostic radiograp hy of finger Plan of Treatment Date Care Activity Detail Author Start: 10-03-2031 Urine microalbumin profile DTaP,Tdap,Td Vaccine (3 - Td or Tdap) [facility] Start: 10-05-2026 RSV Vaccine (1 - 1-d ose 75+ series) RSV Vaccine (1 - 1-dose 75+ series) [facility] Start: 12-26-2024 Screening for malign ant neoplasm of colon [facility] Start: 12-25-2024 Influenza vaccination Influenza Vacc ine (#1) [facility] Start: 08-15-2024 End: 08-15-2024 ambulatory 08/15/2024 11:00 AM EDT [facility] Pulmonary Medicine [address] [place] [id number] [place] [address] [place] [address] New Asthma VV Next Available No Testing Pulmonary Medicine Comment on above: New Asthma VV Next A vailable No Testing Start: 08-08-2024 [facility] Start: 04-26-2024 Advance Directive Discussion Advance Directive Discussion [facility] Start: 12-26-2023 Covid-19 Vaccine ( season) Covid-19 Vaccine ( season) [facility] Start: 12-26-2023 Covid-19 Vaccine ( season) Covid-19 Vaccine ( season) [facility] Start: 12-26-2023 Influenza vaccination Influenza Vacc ine (#1) [facility] Start: 04-26-2023 Advance Directive Discussion Advance Directive Discussion [facility] Start: 04-26-2023 Depression Assessment Depression Ass [facility] Start: 12-25-2022 Influenza vaccination [facility] Start: 04-26-2022 ADVANCE DIRECTIVE DISCUSSION ADVANCE DIRECTIVE DISCUSSION [facility] Start: 04-26-2022 [facility] Start: 12-25-2021 Influenza vaccination [facility] Start: 04-26-2021 ADVANCE DIRECTIVE DISCUSSION ADVANCE DIRECTIVE DISCUSSION [facility] Start: 04-26-2021 DEPRESSION ASSESSMENT DEPRESSION ASS ESSMENT [facility] Start: 10-05-2016 BONE DENSITY BONE DENSITY [facility] Start: 10-05-2016 Screening for osteoporosis Bone Density Screening [facility] Start: 09-24-2016 Medicare Annual Well ness Visit Medicare Annual Wellness Visit [facility] Start: 2011 RSV Vaccine (1 - 1-d ose 60+ series) RSV Vaccine (1 - 1-dose 60+ series) [facility] Start: 02-25-2005 PNEUMOCOCCAL: 65+ (2 - PCV) PNEUMOCOCCAL: 65+ (2 - PCV) [facility] Start: 10-05-2001 SHINGRIX VACCINE (1 of 2) SHINGRIX VACCINE (1 of 2) [facility] Start: 10-05-1996 COLOGUARD (FIT-DNA) COLOGUARD (FIT-D NA) [facility] Start: 10-05-[address] [facility] Start: 10-05-1996 COLORECTAL CANCER SCREENING COLORECTAL CANCER SCREENING [facility] Start: 10-05-1996 CT COLONOGRAPHY CT COLONOGRAPHY [facility] Start: 10-05-1996 FECAL OCCULT BLOOD FECAL OCCULT BLOO D [facility] Start: 10-05-1996 Screening for malign ant neoplasm of colon [facility] Start: 10-05-1996 SIGMOIDOSCOPY SIGMOIDOSCOPY [facility] Start: [address] [facility] Start: 1991 Screening for malign ant neoplasm of breast Mammogram Screening [facility] Start: 10-05-1970 Urine microalbumin profile DTAP,TDAP,TD (1 - Tdap) 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 Start: 10-05-1969 Anxiety Screening Anxiety Screening [facility] Start: 10-05-1969 Depression Screening Depression Scre ening [facility] Start: 10-05-1969 Hepatitis B surface antibody level LDL CHOLESTEROL [facility] Start: 10-05-1969 HEPATITIS C SCREENING HEPATITIS C [facility] Start: 10-05-1969 Hepatitis C screening Hepatitis C [facility] Start: 1963 Adult depression screening assessment DEPRESSION SCREENING [facility] Start: 10-05-1961 3 comp foot exam completed DIABETIC FOOT EXAM [facility] Start: 10-05-1961 Diabetic foot examination Diabetic Foot Exam [facility] Start: 10-05-1961 Glaucoma screening Dilated Retinal E xam [facility] Start: 10-05-1961 Hepatitis B screening URINE ALBUMIN:CREATININE RATIO [facility] Start: 10-05-1961 Hepatitis C antibody , confirmatory test DILATED RETINAL EXAM [facility] Start: 10-05-1956 COVID-19 VACCINE (#1) COVID-19 VACCI NE (#1) [facility] Start: 10-05-1956 Hemoglobin A1c measurement HbA1C [facility] Start: 10-05-1956 Hemoglobin A1c/Hemoglobin.total in Blood HBA1C [facility] Start: 04-06-1952 COVID-19 VACCINE (#1) COVID-19 VACCI NE (#1) [facility] End: 06-30-2024 NITRIC OXIDE, EXHALED NITRIC OXIDE, EXHALED PFT Routine Reactive airway disease without asthma Moderate persistent reactive airway disease without complication 1 Occurrences starting 06/01/2023 until 06/30/2024 [facility] Work Phone: Comment on above: 1 Occurrences starti ng 06/01/2023 until 06/30/2024 Patient Education [facility] Work Phone: Patient referral [facility] Work Phone: SPIROMETRY - BASELIN E AND POST DILATOR SPIROMETRY - BASELINE AND POST DILATOR PFT Routine Moderate persistent reactive airway disease without complication 10/09/2021 1:26 PM EDT [facility] Work Phone: End: 06-30-2024 SPIROMETRY - BASELINE AND POST DILATOR SPIROMETRY - BASELINE AND POST DILATOR PFT Routine Reactive airway disease without asthma Moderate persistent reactive airway disease without complication 1 Occurrences starting 06/01/2023 until 06/30/2024 [facility] Work Phone: Comment on above: 1 Occurrences starti ng 06/01/2023 until 06/30/2024 [facility] Immunizations Immunization Date Immunization Notes Care Provider Fa [facility] 10-02-2021 tetanus toxoid, redu ana diphtheria toxoid, and acellular pertussis vaccine, adsorbed [facility] 03-25-2005 influenza virus vacc ine, unspecified formulation Pulm 9 [facility] Work Phone: 02-26-2004 influenza virus vacc ine, unspecified formulation Pulm 9 [facility] 02-26-2004 pneumococcal polysaccharide vaccine, [address] [facility] Payers Date Payer Category Payer Self-pay [id number] 2016 Medicare MEDICARE MEDICAR E A AND B [id number] 2016-Present [phone] [place] [address] Medicare [id number] 2016 Medicare [id number] 2016 Miscellaneous or Other [id number] [id number] 2016 Medicare [id number] 2016 Unknown [id number] 2016 Unknown [id number] 2002 Government (not [place] [facility] care or Medicaid) CED DAVIS [id number] 2002 Unknown [facility] CED GARNETT [id number] 2002-Present [phone] [address] [place] [address] [id number] 2002 Unknown [id number] Unknown [id number] Unknown [id number] Unknown [id number] Unknown [id number] Unknown [id number] Unknown [id number] Social History Date Type Detail Facility Start: 01-23-2021 End: 10-02-2021 Tobacco smoking status HIIS Unknown if ever smoked [facility] Start: 04-06-2018 None;Rare [facility] Start: 04-06-2018 Spouse/ Signif icant Other [facility] Start: 1950 Sex Assigned At Female C [facility] Start: 08-22-2012 End: 08-08-2024 Tobacco smoking status NHIS Never smoked tobacco 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 Start: 09-29-2021 End: 10-09-2021 Exposure to SARS-CoV-2 (event) Not sure [facility] Work Phone: Start: 08-22-2012 Tobacco use and exposure Smokeless tobacco non-user [facility] Work Phone: Start: 10-09-2021 End: 08-31-2022 History of Social function [facility] Start: 10-09-2021 End: 08-31-[address] [facility] National Score (1-100), lower number is lower risk 54 [facility] Start: 2021 Gender identity Identifies as female gender (finding) [facility] Start: 08-08-2024 Sex Female (finding) [facility] Medical Equipment Procedure Code Equipment Code Equipment Origin al Text Equipment Identifier Dates Total replacement of knee joint ASYMMETRIC PATELLA FDA Start: 04-06-2018 Total replacement of knee joint CRUCIATE RETAINING FEMORAL FDA Start: 04-06-2018 Total replacement of knee joint DOUGH,CEMENT 6191-1-010 FDA Start: 04-06-2018 Total replacement of knee joint PRIMARY TIBIAL BASEPLATE FDA Start: 04-06-2018 Total replacement of knee joint TIBIAL BEARING INSERT-CS FDA Start: 04-06-2018 Total replacement of knee joint ASYMMETRIC PATELLA FDA Start: 04-06-2018 Total replacement of knee joint CRUCIATE RETAINING FEMORAL FDA Start: 04-06-2018 Total replacement of knee joint DOUGH,CEMENT 6191-1-010 FDA Start: 04-06-2018 Total replacement of knee joint PRIMARY TIBIAL BASEPLATE FDA Start: 04-06-2018 Total replacement of knee joint TIBIAL BEARING INSERT-CS FDA Start: 04-06-2018 Total replacement of knee joint ASYMMETRIC PATELLA FDA Start: 04-06-2018 Total replacement of knee joint CRUCIATE RETAINING FEMORAL FDA Start: 04-06-2018 Total replacement of knee joint DOUGH,CEMENT 6191-1-010 FDA Start: 04-06-2018 Total replacement of knee joint PRIMARY TIBIAL BASEPLATE FDA Start: 04-06-2018 Total replacement of knee joint TIBIAL BEARING INSERT-CS FDA Start: 04-06-2018 Total replacement of knee joint ASYMMETRIC PATELLA FDA Start: 04-06-2018 Total replacement of knee joint CRUCIATE RETAINING FEMORAL FDA Start: 04-06-2018 Total replacement of knee joint DOUGH,CEMENT 6191-1-010 FDA Start: 04-06-2018 Total replacement of knee joint PRIMARY TIBIAL BASEPLATE FDA Start: 04-06-2018 Total replacement of knee joint TIBIAL BEARING INSERT-CS FDA Start: 04-06-2018 Total replacement of knee joint ASYMMETRIC PATELLA FDA Start: 04-06-2018 Total replacement of knee joint CRUCIATE RETAINING FEMORAL FDA Start: 04-06-2018 Total replacement of knee joint DOUGH,CEMENT 6191-1-010 FDA Start: 04-06-2018 Total replacement of knee joint PRIMARY TIBIAL BASEPLATE FDA Start: 04-06-2018 Total replacement of knee joint TIBIAL BEARING INSERT-CS FDA Start: 04-06-2018 Total replacement of knee joint ASYMMETRIC PATELLA FDA Start: 04-06-2018 Total replacement of knee joint CRUCIATE RETAINING FEMORAL FDA Start: 04-06-2018 Total replacement of knee joint DOUGH,CEMENT 6191-1-010 FDA Start: 04-06-2018 Total replacement of knee joint PRIMARY TIBIAL BASEPLATE FDA Start: 04-06-2018 Total replacement of knee joint TIBIAL BEARING INSERT-CS FDA Start: 04-06-2018 Total replacement of knee joint ASYMMETRIC PATELLA FDA Start: 04-06-2018 Total replacement of knee joint CRUCIATE RETAINING FEMORAL FDA Start: 04-06-2018 Total replacement of knee joint DOUGH,CEMENT 6191-1-010 FDA Start: 04-06-2018 Total replacement of knee joint PRIMARY TIBIAL BASEPLATE FDA Start: 04-06-2018 Total replacement of knee joint TIBIAL BEARING INSERT-CS FDA Start: 04-06-2018 Total replacement of knee joint ASYMMETRIC PATELLA FDA Start: 04-06-2018 Total replacement of knee joint CRUCIATE RETAINING FEMORAL FDA Start: 04-06-2018 Total replacement of knee joint DOUGH,CEMENT 6191-1-010 FDA Start: 04-06-2018 Total replacement of knee joint PRIMARY TIBIAL BASEPLATE FDA Start: 04-06-2018 Total replacement of knee joint TIBIAL BEARING INSERT-CS FDA Start: 04-06-2018 Functional Status Date Assessment Result Facility 10-30-2013 Are you deaf, or do you have serious difficulty hearing No 10/30/2013 1:24 PM Lluvia Baez Ma No [facility] 10-30-2013 Are you blind, or do you have serious difficulty seeing, even when wearing glasses No 10/30/2013 1:24 PM Lluvia Baez Ma No [facility] 10-30-2013 Do you have serious difficulty walking or climbing stairs No 10/30/2013 1:24 PM Lluvia Baez Ma No [facility] 10-30-2013 Do you have difficul ty dressing or bathing No 10/30/2013 1:24 PM Lluvia Baez Ma No [facility] 10-30-2013 Because of a physica l, mental, or emotional condition, do you have difficulty doing errands alone such as visiting a physician's office or shopping No 10/30/2013 1:24 PM EDT Lluvia Simeon Ma [facility] Mental Status Date Assessment Result Facility 10-30-2013 Because of a physica l, mental, or emotional condition, do you have serious difficulty concentrating, remembering, or making decisions No 10/30/2013 1:24 PM EDT Lluvia Simeon Ma [facility] Clinical Notes 10-09-2021 to 11-17-2024 Telephone Encounter - Natalie Patten - 11/17/2024 8:30 AM EDTTelephone Encounter - Nataile Patten - 11/17/2024 8:30 AM EDTTelephone Encounter - Amparo Mcnamara - 11/09/2024 11:40 AM EDT Note Date & Type Note Facility 11-17-2024 Telephone encounter Note opened in error [facility] 11-17-2024 Miscellaneous Notes opened in error documented in this encounter [facility] 11-09-2024 Telephone encounter Note Patient's request for medication is as follows: Requested Prescriptions Signed Prescriptions Disp Refills montelukast (SINGULAIR) 10 mg tablet 30 tablet 5 Sig: TAKE 1 TABLET BY MOUTH ONCE DAILY AT BEDTIME Authorizing Provider: NORA GARCIA esomeprazole (NEXIUM) 20 mg capsule 30 capsule 5 Sig: Take 1 capsule by mouth once daily Authorizing Provider: NORA GARCIA cetirizine (ZYRTEC) 10 mg tablet 30 tablet 5 Sig: Take 1 tablet by mouth once daily Authorizing Provider: NORA GARCIA Prescription(s) as above. Please process accordingly. Nora Garcia APRN.TOE FORMER [facility] 11-09-2024 Miscellaneous Notes Patient's request for medication is as follows: Requested Prescriptions Signed Prescriptions Disp Refills montelukast (SINGULAIR) 10 mg tablet 30 tablet 5 Sig: TAKE 1 TABLET BY MOUTH ONCE DAILY AT BEDTIME Authorizing Provider: NORA GARCIA esomeprazole (NEXIUM) 20 mg capsule 30 capsule 5 Sig: Take 1 capsule by mouth once daily Authorizing Provider: NORA GARCIA cetirizine (ZYRTEC) 10 mg tablet 30 tablet 5 Sig: Take 1 tablet by mouth once daily Authorizing Provider: NORA GARCIA Prescription(s) as above. Please process accordingly. Nora Garcia APRN.TOE FORMER Patient's request for medication is as follows: Requested Prescriptions Pending Prescriptions Disp Refills montelukast (SINGULAIR) 10 mg tablet [Pharmacy Med Name: Montelukast Sodium 10 MG Oral Tablet] 30 tablet 0 Sig: TAKE 1 TABLET BY MOUTH ONCE DAILY AT BEDTIME esomeprazole (NEXIUM) 20 mg capsule [Pharmacy Med Name: Esomeprazole Magnesium 20 MG Oral Capsule Delayed Release] 30 capsule 0 Sig: Take 1 capsule by mouth once daily cetirizine (ZYRTEC) 10 mg tablet [Pharmacy Med Name: Cetirizine HCl 10 MG Oral Tablet] 30 tablet 0 Sig: Take 1 tablet by mouth once daily Prescription(s) as above. Please process accordingly. Amparo Mcnamara Last office visit: August 15, 2024 documented in this encounter [facility] 11-09-2024 Telephone encounter Note Patient's request for medication is as follows: Requested Prescriptions Pending Prescriptions Disp Refills montelukast (SINGULAIR) 10 mg tablet [Pharmacy Med Name: Montelukast Sodium 10 MG Oral Tablet] 30 tablet 0 Sig: TAKE 1 TABLET BY MOUTH ONCE DAILY AT BEDTIME esomeprazole (NEXIUM) 20 mg capsule [Pharmacy Med Name: Esomeprazole Magnesium 20 MG Oral Capsule Delayed Release] 30 capsule 0 Sig: Take 1 capsule by mouth once daily cetirizine (ZYRTEC) 10 mg tablet [Pharmacy Med Name: Cetirizine HCl 10 MG Oral Tablet] 30 tablet 0 Sig: Take 1 tablet by mouth once daily Prescription(s) as above. Please process accordingly. Amparofatemeh Mcnamara Last office visit: August 15, 2024 [facility] 08-15-2024 Note HNO ID: [id number] Author: AMANDA QUINTANA MD Service: ? Author Type: Physician Type: Progress Notes Filed: 08/15/2024 11:42 Note Text: VIRTUAL VISIT PROGRESS NOTE This is a virtual visit using [employer] Video Visit. It required patient-provider interaction for the medical decision making as documented below. I have communicated my name and active licensure. The patient's identity and physical location were verified at the time of this visit. Either the patient or their legal claims representative has been informed of the risks and benefits of -- and alternatives to -- treatment through a remote evaluation and consents to proceed with the evaluation remotely. Meri Barnhart is a 73 year old female here for follow appointment for Asthma. 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 She worked at a company for [employer] for 20 years. She is currently taking singulair 10 mg PO daily. She takes dulera 1 puff twice daily. Since the prior visit: She has been out of her inhalers. Reactive airway CONTROL TEST Date: 08/15/2024 In the last 4 weeks, how much of the time did your reactive airway disorder keep you from getting as much done at work or home that you wanted to do? Some of the time (3) In the last 4 weeks, how often have you had shortness of breath? 3 to 6 times per week (3) In the last 4 weeks, how often did your reactive airway disorder symptoms (wheezing, coughing, shortness of breath, chest tightness or pain) wake you up at night or earlier than usual? Once or twice (4) In the last 4 weeks, how often have you used your rescue inhaler or nebulizer medication (such as Albuterol, Proventil, Ventolin, Maxair, Xoponex, or Primatene Mist)? A few times per week (3) In the last 4 weeks, how would you rate your reactive airway disorder control? Somewhat controlled (3) Total: 16-19 10/09/21 spirometry: FEV1/FVC 0.80 > 0.65 (LLN), +bronchodilator HISTORY REVIEWED (electronic chart updated): PAST MEDICAL HISTORY Diagnosis Date Generalized osteoarthrosis, unspecified site rt. shoulder/knees Peptic ulcer, unspecified site, unspecified as acute or chronic, without mention of hemorrhage, perforation, or obstruction teen yrs Phlebitis and thrombophlebitis of superficial vessels of lower extremities teen yrs; RLE PMH - PAST MEDICAL HISTORY OF allergy/asthma PMH - PAST MEDICAL HISTORY OF osteopenia Reflux esophagitis PAST SURGICAL HISTORY Procedure Laterality Date ANTERIOR COLPORRAPHY RPR CYSTOCELE W/CYSTO 10/31/02 Cystocele repair ARTHROPLASTY GLENOHUMRL JT HEMIARTHROPLASTY right shoulder NEUROPLASTY AND/TRANSPOS MEDIAN NRV CARPAL TUNNE 1991 right REPAIR RECTOCELE SEPARATE PROCEDURE 10/31/02 spinal anesthesia used RX ECTOP PREG,UTER WALL W ASHANTI 1988 partial/benign FAMILY HISTORY Problem Relation Age of Onset Asthma Grandchild two grandson Ischemic Heart Disease Paternal Grandfather Diabetes Mother Cancer Paternal Aunt lymph nodes Social History Tobacco Use Smoking status: Never Smokeless tobacco: Never Substance Use Topics Alcohol use: No Drug use: No Current Outpatient Medications Medication Sig mometasone-formoterol (DULERA) 200-5 mcg/actuation inhaler Inhale 1 puff as instructed two times a day. albuterol HFA (VENTOLIN HFA) 90 mcg/actuation inhaler Inhale 1 puff as instructed every 4 hours as needed for wheezing/shortness of breath (for wheezing and shortness of breath). albuterol (PROVENTIL) 2.5 mg /3 mL (0.083 %) nebulizer solution Use 3 mL via nebulizer every 4 hours as needed for wheezing/shortness of breath. Inhale over 5-15 minutes montelukast (SINGULAIR) 10 mg tablet TAKE 1 TABLET BY MOUTH ONCE DAILY AT BEDTIME esomeprazole (NEXIUM) 20 mg capsule Take 1 capsule by mouth once daily cetirizine (ZYRTEC) 10 mg tablet Take 1 tablet by mouth once daily lovastatin (MEVACOR) 20 mg tablet Take 20 mg by mouth once daily. metFORMIN ER (GLUCOPHAGE XR) 500 mg 24 hr tablet Take 1,000 mg by mouth twice daily. pioglitazone (ACTOS) 30 mg tablet ascorbic acid, vitamin C, (VITAMIN C) 500 mg tablet Take 1 tablet by mouth once daily. Calcium-Mag Oxide-Vitamin D3 (CORAL CALCIUM) 185-50-100 mg-mg-unit cap Take 1 tablet by mouth twice daily. 1 tablet by mouth two times daily ergocalciferol, Vitamin D2, (VITAMIN D) 400 unit ORAL Cap Take 1 capsule by mouth once daily. No current facility-administered medications for this visit. ALLERGIES Allergen Reactions Bee Sting Kit carries EpiPen Menthol swelling/blisters Morphine fever Nsaids (Non-Steroid* relafen; rash Reactive airway disease - Dulera 200/5 mcg Montelukast 10 mg PO daily Albuterol PRN Gastroesophageal reflux disease - Esomeprazole 20 mg PO Delayed release Allergies - Cetirizine 10 mg PO daily Amanda Quintana MD [facility] 08-15-2024 History of Presen t illness Narrative VIRTUAL VISIT PROGRESS NOTE This is a virtual visit using [employer] Video Visit. It required patient-provider interaction for the medical decision making as documented below. I have communicated my name and active licensure. The patient's identity and physical location were verified at the time of this visit. Either the patient or their legal claims representative has been informed of the risks and benefits of -- and alternatives to -- treatment through a remote evaluation and consents to proceed with the evaluation remotely. Meri Barnhart is a 73 year old female here for follow appointment for Asthma. 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 She worked at a [employer] for [employer] for 20 years. She is currently taking singulair 10 mg PO daily. She takes dulera 1 puff twice daily. Since the prior visit: She has been out of her inhalers. Reactive airway CONTROL TEST Date: 08/15/2024 In the last 4 weeks, how much of the time did your reactive airway disorder keep you from getting as much done at work or home that you wanted to do? Some of the time (3) In the last 4 weeks, how often have you had shortness of breath? 3 to 6 times per week (3) In the last 4 weeks, how often did your reactive airway disorder symptoms (wheezing, coughing, shortness of breath, chest tightness or pain) wake you up at night or earlier than usual? Once or twice (4) In the last 4 weeks, how often have you used your rescue inhaler or nebulizer medication (such as Albuterol, Proventil, Ventolin, Maxair, Xoponex, or Primatene Mist)? A few times per week (3) In the last 4 weeks, how would you rate your reactive airway disorder control? Somewhat controlled (3) Total: 16-19 10/09/21 spirometry: FEV1/FVC 0.80 > 0.65 (LLN), +bronchodilator HISTORY REVIEWED (electronic chart updated): PAST MEDICAL HISTORY Diagnosis Date Generalized osteoarthrosis, unspecified site rt. shoulder/knees Peptic ulcer, unspecified site, unspecified as acute or chronic, without mention of hemorrhage, perforation, or obstruction teen yrs Phlebitis and thrombophlebitis of superficial vessels of lower extremities teen yrs; RLE PMH - PAST MEDICAL HISTORY OF allergy/asthma PMH - PAST MEDICAL HISTORY OF osteopenia Reflux esophagitis PAST SURGICAL HISTORY Procedure Laterality Date ANTERIOR COLPORRAPHY RPR CYSTOCELE W/CYSTO 10/31/02 Cystocele repair ARTHROPLASTY GLENOHUMRL JT HEMIARTHROPLASTY right shoulder NEUROPLASTY &/TRANSPOS MEDIAN NRV CARPAL TUNNE 1991 right REPAIR RECTOCELE SEPARATE PROCEDURE 10/31/02 spinal anesthesia used RX ECTOP PREG,UTER WALL W ASHANTI 1988 partial/benign FAMILY HISTORY Problem Relation Age of Onset Asthma Grandchild two grandson Ischemic Heart Disease Paternal Grandfather Diabetes Mother Cancer Paternal Aunt lymph nodes Social History Tobacco Use Smoking status: Never Smokeless tobacco: Never Substance Use Topics Alcohol use: No Drug use: No Current Outpatient Medications Medication Sig mometasone-formoterol (DULERA) 200-5 mcg/actuation inhaler Inhale 1 puff as instructed two times a day. albuterol HFA (VENTOLIN HFA) 90 mcg/actuation inhaler Inhale 1 puff as instructed every 4 hours as needed for wheezing/shortness of breath (for wheezing and shortness of breath). albuterol (PROVENTIL) 2.5 mg /3 mL (0.083 %) nebulizer solution Use 3 mL via nebulizer every 4 hours as needed for wheezing/shortness of breath. Inhale over 5-15 minutes montelukast (SINGULAIR) 10 mg tablet TAKE 1 TABLET BY MOUTH ONCE DAILY AT BEDTIME esomeprazole (NEXIUM) 20 mg capsule Take 1 capsule by mouth once daily cetirizine (ZYRTEC) 10 mg tablet Take 1 tablet by mouth once daily lovastatin (MEVACOR) 20 mg tablet Take 20 mg by mouth once daily. metFORMIN ER (GLUCOPHAGE XR) 500 mg 24 hr tablet Take 1,000 mg by mouth twice daily. pioglitazone (ACTOS) 30 mg tablet ascorbic acid, vitamin C, (VITAMIN C) 500 mg tablet Take 1 tablet by mouth once daily. Calcium-Mag Oxide-Vitamin D3 (CORAL CALCIUM) 185-50-100 mg-mg-unit cap Take 1 tablet by mouth twice daily. 1 tablet by mouth two times daily ergocalciferol, Vitamin D2, (VITAMIN D) 400 unit ORAL Cap Take 1 capsule by mouth once daily. No current facility-administered medications for this visit. ALLERGIES Allergen Reactions Bee Sting Kit carries EpiPen Menthol swelling/blisters Morphine fever Nsaids (Non-Steroid* relafen; rash Reactive airway disease - Dulera 200/5 mcg Montelukast 10 mg PO daily Albuterol PRN Gastroesophageal reflux disease - Esomeprazole 20 mg PO Delayed release Allergies - Cetirizine 10 mg PO daily Amanda Quintana MD documented in this encounter [facility] 08-15-2024 Telephone encounter Note Prescription Refill Information The patient has been identified by name and date of : Yes Caregiver verified no other encounters exist for this prescription request: Yes Caregiver confirmed with patient/requestor that no other refills are due, in the near future, with this provider at this time: Yes The last office visit in the department: [facility]: 10/09/2021 Future OV: Visit date not found Does the patient have a future office visit with this provider/department: No Requested Prescriptions Pending Prescriptions Disp Refills fluticasone-vilanterol (BREO ELLIPTA) 100-25 mcg/dose inhaler [Pharmacy Med Name: BREO ELLIPTA 100-25 MCG INHALR] 1 each 0 Colleen Reynolds MA August 15, 2024 11:[address] [facility] 08-15-2024 Miscellaneous Notes Prescription Refill Information The patient has been identified by name and date of : Yes Caregiver verified no other encounters exist for this prescription request: Yes Caregiver confirmed with patient/requestor that no other refills are due, in the near future, with this provider at this time: Yes The last office visit in the department: [facility]: 10/09/2021 Future OV: Visit date not found Does the patient have a future office visit with this provider/department: No Requested Prescriptions Pending Prescriptions Disp Refills fluticasone-vilanterol (BREO ELLIPTA) 100-25 mcg/dose inhaler [Pharmacy Med Name: BREO ELLIPTA 100-25 MCG INHALR] 1 each 0 Colleen Reynolds MA August 15, 2024 11:29 AM documented in this encounter [facility] 08-08-2024 Radiology Diagnostic study note Imaging Services [address] [place] [address] [id number] Knee 4 or More Views MR#: [id number] Acct: [id number] Name: MERI BARNHART Rep #: [id number] : 1950 F 73 From: Edwin Jamil MD PCP: Dr. Holger Morales MD Status: PRE ER Study:Knee 4 or More Views Date of Exam: 08/08/24 Exam# [id number] Ordering Dr: Angelica ,Ed P. PROCEDURE: KNEE 4 OR MORE VIEWS 08/08/2024 REASON FOR EXAM: FALL TECHNIQUE: 4 views of the left knee FINDINGS: Bones: No fracture. No suspicious bone lesion. Joints: Normal alignment. Mild degenerative changes. Effusion: Moderate joint effusion. Soft tissues: Soft tissues are unremarkable. Other: RAD/Knee 4 or More Views IMPRESSION: No acute fracture or dislocation. Mild arthrosis. Joint effusion. Reading Location: [facility] CC: Dr. Holger Morales MD; ED PHYSICIAN PROVIDER ~ Yard Attendant: Signed [facility] 08-08-2024 Hospital Discharg e instructions Additional Instructions Your x-ray did not show any fracture or dislocation but did show fluid/blood in your knee joint consistent with your trauma. Wear the Geronimo wrap to help reduce and prevent further swelling. Ice the area 2-3 times a day for approximately 10 to 20 minutes for the next 2 to 3 days to help prevent further swelling and bleeding. Your symptoms should improve every few days and take on average 1 to 2 weeks to completely resolve. If your symptoms or not improving after 7 to 10 days or you have any further concerns please return to the ER or follow-up with your orthopedic surgeon for repeat evaluation [facility] Work Phone: 08-02-2024 Telephone encounter Note Patient needs to keep upcoming appointment for additional refills [facility] 08-02-2024 Miscellaneous Notes Patient needs to keep upcoming appointment for additional refills VAN: 06/01/2023 With Dre Garcia APRN.TOE FORMER Future OV: 08/15/[address] Quintana Patient's request for medication is as follows: Requested Prescriptions Pending Prescriptions Disp Refills montelukast (SINGULAIR) 10 mg tablet [Pharmacy Med Name: Montelukast Sodium 10 MG Oral Tablet] 30 tablet 0 Sig: TAKE 1 TABLET BY MOUTH ONCE DAILY AT BEDTIME esomeprazole (NEXIUM) 20 mg capsule [Pharmacy Med Name: Esomeprazole Magnesium 20 MG Oral Capsule Delayed Release] 30 capsule 0 Sig: Take 1 capsule by mouth once daily cetirizine (ZYRTEC) 10 mg tablet [Pharmacy Med Name: Cetirizine HCl 10 MG Oral Tablet] 30 tablet 0 Sig: Take 1 tablet by mouth once daily Please approve the above prescription(s) to electronically send to pharmacy. Meri Matthews RN documented in this encounter [facility] 08-02-2024 Telephone encounter Note VAN: 06/01/2023 With Dre Garcia APRN.CNP Future OV: 08/15/[address] Quintana Patient's request for medication is as follows: Requested Prescriptions Pending Prescriptions Disp Refills montelukast (SINGULAIR) 10 mg tablet [Pharmacy Med Name: Montelukast Sodium 10 MG Oral Tablet] 30 tablet 0 Sig: TAKE 1 TABLET BY MOUTH ONCE DAILY AT BEDTIME esomeprazole (NEXIUM) 20 mg capsule [Pharmacy Med Name: Esomeprazole Magnesium 20 MG Oral Capsule Delayed Release] 30 capsule 0 Sig: Take 1 capsule by mouth once daily cetirizine (ZYRTEC) 10 mg tablet [Pharmacy Med Name: Cetirizine HCl 10 MG Oral Tablet] 30 tablet 0 Sig: Take 1 tablet by mouth once daily Please approve the above prescription(s) to electronically send to pharmacy. Meri Matthews RN [facility] 07-03-2024 Telephone encounter Note Patient's request for medication is as follows: Requested Prescriptions Signed Prescriptions Disp Refills montelukast (SINGULAIR) 10 mg tablet 30 tablet 0 Sig: TAKE 1 TABLET BY MOUTH ONCE DAILY AT BEDTIME Authorizing Provider: NORA GARCIA esomeprazole (NEXIUM) 20 mg capsule 30 capsule 0 Sig: Take 1 capsule by mouth once daily Authorizing Provider: NORA GARCIA cetirizine (ALLERGY RELIEF, CETIRIZINE,) 10 mg tablet 30 tablet 0 Sig: Take 1 tablet by mouth once daily Authorizing Provider: NORA GARCIA Prescription(s) as above. Please process accordingly. Short term prescription supplied, patient last seen 05/2023, missed appointment to establish care with Dr. Quintana in 08/2023. Required appointment for more refills Dre Garcia APRN.TOE FORMER [facility] 07-03-2024 Miscellaneous Notes Patient's request for medication is as follows: Requested Prescriptions Signed Prescriptions Disp Refills montelukast (SINGULAIR) 10 mg tablet 30 tablet 0 Sig: TAKE 1 TABLET BY MOUTH ONCE DAILY AT BEDTIME Authorizing Provider: NORA GARCIA esomeprazole (NEXIUM) 20 mg capsule 30 capsule 0 Sig: Take 1 capsule by mouth once daily Authorizing Provider: NORA GARCIA cetirizine (ALLERGY RELIEF, CETIRIZINE,) 10 mg tablet 30 tablet 0 Sig: Take 1 tablet by mouth once daily Authorizing Provider: NORA GARCIA Prescription(s) as above. Please process accordingly. Short term prescription supplied, patient last seen 05/2023, missed appointment to establish care with Dr. Quintana in 08/2023. Required appointment for more refills Dre Garcia APRN.TOE FORMER VAN: 06/01/2023 Future OV: Visit date not found Pharmacy escripts requesting the following refill: Requested Prescriptions Pending Prescriptions Disp Refills montelukast (SINGULAIR) 10 mg tablet [Pharmacy Med Name: Montelukast Sodium 10 MG Oral Tablet] 90 tablet 0 Sig: TAKE 1 TABLET BY MOUTH ONCE DAILY AT BEDTIME esomeprazole (NEXIUM) 20 mg capsule [Pharmacy Med Name: Esomeprazole Magnesium 20 MG Oral Capsule Delayed Release] 90 capsule 0 Sig: Take 1 capsule by mouth once daily ALLERGY RELIEF, CETIRIZINE, 10 mg tablet [Pharmacy Med Name: EQ Allergy Relief (Cetirizine) 10 MG Oral Tablet] 90 tablet 0 Sig: Take 1 tablet by mouth once daily Please review and advise. Meri Matthews RN documented in this encounter [facility] 07-03-2024 Telephone encounter Note VAN: 06/01/2023 Future OV: Visit date not found Pharmacy escripts requesting the following refill: Requested Prescriptions Pending Prescriptions Disp Refills montelukast (SINGULAIR) 10 mg tablet [Pharmacy Med Name: Montelukast Sodium 10 MG Oral Tablet] 90 tablet 0 Sig: TAKE 1 TABLET BY MOUTH ONCE DAILY AT BEDTIME esomeprazole (NEXIUM) 20 mg capsule [Pharmacy Med Name: Esomeprazole Magnesium 20 MG Oral Capsule Delayed Release] 90 capsule 0 Sig: Take 1 capsule by mouth once daily ALLERGY RELIEF, CETIRIZINE, 10 mg tablet [Pharmacy Med Name: EQ Allergy Relief (Cetirizine) 10 MG Oral Tablet] 90 tablet 0 Sig: Take 1 tablet by mouth once daily Please review and advise. Meri Matthews RN [facility] 01-03-2024 Telephone encounter Note Images from the original note were not included. BWC form [facility] 01-03-2024 Miscellaneous Notes Images from the original note were not included. BWC form documented in this encounter [facility] 06-01-2023 Miscellaneous Notes Amelieera sent to [facility] on file attempted to call patient, however was unable to reach her. Please inform patient that Dulera was sent as Advair is not covered by insurance. The instructions are the same as Advair, She will take 1 puff twice daily. Received a fax from [facility] stating Fluticasone-salmeterol (ADVAIR DISKUS) 250-50mcg/dose is not covered by patients insurance. They offered alternatives -Advair HFA 45 -Breo -Dulera documented in this encounter [facility] 06-01-2023 Instructions Nora Garcia APRN.CNP - 06/01/2023 11:29 AM EST Here is our plan: Advair is no longer covered by insurance , Dulera on formulary per pharmacy thus will Start Dulera 200/5mcg- 1 puff twice daily ( rinse mouth after) Continue albuterol nebulizer and rescue inhaler as needed Continue Montelukast 10 mg at bedtime Continue Zyrtec 10 mg daily Return to clinic in person with Dr. Quintana in [place] with PFTs in 3 months. Please contact office sooner if needed for worsening symptoms despite treatment as above. documented in this encounter [facility] 06-01-2023 History of Presen t illness Narrative Images from the original note were not included. [facility] Follow Up Patient Visit HISTORY OF PRESENT ILLNESS Meri Barnhart is a 72 year old female with a PMH of DM, who presents for follow up of Asthma . She was last seen by Shonna Mills PA-C on 08/31/22 and the following recommendations were made; ASSESSMENT: (J98.8) Respiratory obstruction (primary encounter diagnosis) - reactive airway - this is the covered diagnosis code as requested by [facility] (ICD 9 - 519.8) PLAN: - Continue current medications, but increase Advair to BID - Medrol pack + Z pack for 2 week history of resp tract infection + flare of airway disease. - Follow up 3-4 months, sooner prn - Advised pt to contact me before the end of this week if symptoms not improving, or if they worsen. Previously followed with Dr. Luis Antonio Wilcox, triple drum operator, last seen in 2018 Symptoms: Today patient reports that her breathing has been " up and down" with the weather changes Has been out of Advair inhaler for several months Currently using albuterol Nebulizer and rescue 1-3 times per week No recent ER or urgent care visits related to breathing Has some seasonal allergies and nasal congestion, she was prescribed azelastine but states that the insurance company never approved it. Denies CP, no palpitations Has an intermittent dry cough She has Hx of reactive airway disease as a result of exposure to a chemical spill at work. States that workers Comp currently covers treatments regarding her breathing concerns Reports she was previously following with Shonna GOLDSTEIN on a three month basis as required by workers comp Requesting new prescriptions for medications, sent [facility] Her PCP is no longer Dr. 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 shoulder/knees Peptic ulcer, unspecified site, unspecified as acute or chronic, without mention of hemorrhage, perforation, or obstruction teen yrs Phlebitis and thrombophlebitis of superficial vessels of lower extremities teen yrs; RLE PMH - PAST MEDICAL HISTORY OF allergy/asthma PMH - PAST MEDICAL HISTORY OF osteopenia Reflux esophagitis Social History Tobacco Use Smoking status: Never Smokeless tobacco: Never Substance Use Topics Alcohol use: No Drug use: No CURRENT MEDICATIONS AND ALLERGIES Current Outpatient Medications Medication Sig Dispense Refill fluticasone-salmeterol (ADVAIR DISKUS) 250-50 mcg/dose inhaler Inhale 1 Puff as instructed two times a day. Rinse and gargle mouth with water after each use. 3 Each 3 montelukast (SINGULAIR) 10 mg tablet Take 1 tablet by mouth daily at bedtime. 90 tablet 3 cetirizine (ZYRTEC) 10 mg tablet Take 1 tablet by mouth once daily. 90 tablet 3 albuterol HFA (VENTOLIN HFA) 90 mcg/actuation inhaler Inhale 1 Puff as instructed every 4 hours as needed for wheezing/shortness of breath (for wheezing and shortness of breath). 54 g 3 albuterol (PROVENTIL) 2.5 mg /3 mL (0.083 %) nebulizer solution Use 3 mL via nebulizer every 4 hours as needed for wheezing/shortness of breath. Inhale over 5-15 minutes 360 mL 3 esomeprazole (NEXIUM) 20 mg capsule Take 1 capsule by mouth once daily. 90 capsule 3 azithromycin (ZITHROMAX) 250 mg tablet Take 2 tabs on the first day, then one tab daily for 4 days. 6 tablet 0 azelastine (ASTELIN, ASTEPRO) 0.1% nasal spray Use 2 Sprays in each nostril twice daily as needed. 90 mL 3 lovastatin (MEVACOR) 20 mg tablet Take 20 mg by mouth once daily. metFORMIN ER (GLUCOPHAGE XR) 500 mg 24 hr tablet Take 1,000 mg by mouth twice daily. pioglitazone (ACTOS) 30 mg tablet ascorbic acid, vitamin C, (VITAMIN C) 500 mg tablet Take 1 tablet by mouth once daily. 90 tablet 6 Calcium-Mag Oxide-Vitamin D3 (CORAL CALCIUM) 185-50-100 mg-mg-unit cap Take 1 tablet by mouth twice daily. 1 tablet by mouth two times daily 270 capsule 6 ergocalciferol, Vitamin D2, (VITAMIN D) 400 unit ORAL Cap Take 1 capsule by mouth once daily. 90 capsule 6 No current facility-administered medications for this visit. ALLERGIES Allergen Reactions Bee Sting Kit carries EpiPen Menthol swelling/blisters Morphine fever Nsaids (Non-Steroid* relafen; rash REVIEW OF SYSTEMS Review of Systems HENT: Positive for congestion. Respiratory: Positive for cough. PHYSICAL EXAM There were no vitals taken for this visit. Physical Exam Constitutional: General: She is not in acute distress. Appearance: Normal appearance. She is not ill-appearing, toxic-appearing or diaphoretic. Eyes: Conjunctiva/sclera: Conjunctivae normal. Pulmonary: Effort: Pulmonary effort is normal. Neurological: Mental Status: She is alert and oriented to person, place, and time. Cranial Nerves: No facial asymmetry. Psychiatric: Attention and Perception: Attention normal. Mood and Affect: Mood normal. Behavior: Behavior normal. Thought Content: Thought content normal. Judgment: Judgment normal. DIAGNOSTIC REVIEW I personally reviewed and interpreted the labs, PFTs and radiographs. Radiology: PFTs: Spirometry: Date FEV1 FVC FEV/FVC FeNO: Date FeNO 10/09/2021 9.0 Labs: Immunizations: Immunization History Administered Date(s) Administered influenza vaccine, unspecified formulation 02/26/2004 03/25/2005 pneumococcal polysaccharide (PPV23) vaccine, 23 valent (PNEUMOVAX 23) 02/26/2004 IMPRESSION AND PLAN (J98.9) Reactive airway disease without asthma (primary encounter diagnosis) (J45.40) Moderate persistent reactive airway disease without complication (K21.00) Gastroesophageal reflux disease with esophagitis, unspecified whether hemorrhage ASSESSMENT/PLAN: 1. Reactive airway disease without asthma - ICD9: 519.9, ICD10: J98.9 (primary diagnosis) - Advair not covered by insurance so patient switched to Dulera 200/5mcg on insurance formulary - MONTELUKAST 10 MG TABLET - CETIRIZINE 10 MG TABLET - ALBUTEROL SULFATE HFA 90 MCG/ACTUATION AEROSOL INHALER - ESOMEPRAZOLE MAGNESIUM 20 MG CAPSULE,DELAYED RELEASE 2. Moderate persistent reactive airway disease without complication - ICD9: 493.90, ICD10: J45.40 - Avoidance of triggers recommended - ALBUTEROL SULFATE 2.5 MG/3 ML (0.083 %) SOLUTION FOR NEBULIZATION 3. Gastroesophageal reflux disease with esophagitis, unspecified whether hemorrhage - ICD9: 530.11, ICD10: K21.00 - ESOMEPRAZOLE MAGNESIUM 20 MG CAPSULE,DELAYED RELEASE I spent a total of 40 minutes on the date of the service which included preparing to see the patient, completing clinical documentation, obtaining and/or reviewing separately obtained history, performing a medically appropriate examination, counseling and educating the patient/family/caregiver, ordering medications, tests, or procedures, communicating with other HCPs (not separately reported), independently interpreting results (not separately reported), communicating results to the patient/family/caregiver, and care coordination (not separately reported). Discussed with the patient who agrees to the plan. No follow-ups on file. Nora Garcia APRN.PEDRITO [facility] documented in this encounter [facility] 08-31-2022 History of Presen t illness Narrative VIRTUAL VISIT PROGRESS NOTE This is a virtual visit using RemoteReality video visit. It required patient-provider interaction for the medical decision making as documented below. I have communicated my name and active licensure. The patient's identity and physical location were verified at the time of this visit. Either the patient or their legal claims representative has been informed of the risks and benefits of -- and alternatives to -- treatment through a remote evaluation and consents to proceed with the evaluation remotely. Meri Barnhart is a 71 year old female seen for reactive airway disease. 04/16 ASSESSMENT: (J98.9) Reactive airway disease without asthma (primary encounter diagnosis) PLAN: Resubmitting prescriptions with J98.9 code. Needs medication to keep her reactive airways from getting worse and flaring due to change in weather and winter cold. Currently at risks for exacerbations and loss of lung capacity because she does not have a maintenance medication on board. Will try to submit paperwork again as well for visit and testing coverage. Today Weather changes have made her breathing worse Saw PCP- did short dose of prednisone - it helped with breathing, but still coughing. Cough is all day, and does often wake up coughing Has a small amount of green sputum coming up with cough too. 2 weeks now this has been going on. C/o sinus congestion and draining Right now using nebulizer PRN Prior to this, had sinus infection earlier this spring requiring an antibiotic [facility] is covering her Advair again - currently taking once a day HISTORY REVIEWED (electronic chart updated): PAST MEDICAL HISTORY Diagnosis Date Generalized osteoarthrosis, unspecified site rt. shoulder/knees Peptic ulcer, unspecified site, unspecified as acute or chronic, without mention of hemorrhage, perforation, or obstruction teen yrs Phlebitis and thrombophlebitis of superficial vessels of lower extremities teen yrs; RLE PMH - PAST MEDICAL HISTORY OF allergy/asthma PMH - PAST MEDICAL HISTORY OF osteopenia Reflux esophagitis PAST SURGICAL HISTORY Procedure Laterality Date ANTERIOR COLPORRAPHY RPR CYSTOCELE W/CYSTO 10/31/02 Cystocele repair ARTHROPLASTY GLENOHUMRL JT HEMIARTHROPLASTY right shoulder NEUROPLASTY &/TRANSPOS MEDIAN NRV CARPAL TUNNE 1991 right REPAIR RECTOCELE SEPARATE PROCEDURE 10/31/02 spinal anesthesia used RX ECTOP PREG,UTER WALL W ASHANTI 1988 partial/benign FAMILY HISTORY Problem Relation Age of Onset Asthma Grandchild two grandson Ischemic Heart Disease Paternal Grandfather Diabetes Mother Cancer Paternal Aunt lymph nodes Social History Tobacco Use Smoking status: Never Smokeless tobacco: Never Substance Use Topics Alcohol use: No Drug use: No Current Outpatient Medications Medication Sig azithromycin (ZITHROMAX) 250 mg tablet Take 2 tabs on the first day, then one tab daily for 4 days. methylPREDNISolone (MEDROL, OPHELIA,) 4 mg Dose-Pack Use orally as directed. fluticasone-salmeterol (ADVAIR DISKUS) 250-50 mcg/dose inhaler Inhale 1 Puff as instructed twice daily. Rinse and gargle mouth with water after each use. azelastine (ASTELIN, ASTEPRO) 0.1% nasal spray Use 2 Sprays in each nostril twice daily as needed. montelukast (SINGULAIR) 10 mg tablet Take 1 tablet by mouth daily at bedtime. cetirizine (ZYRTEC) 10 mg tablet Take 1 tablet by mouth once daily. esomeprazole (NEXIUM) 20 mg capsule Take 1 capsule by mouth once daily. albuterol HFA (VENTOLIN HFA) 90 mcg/actuation inhaler Inhale 1 Puff as instructed every 4 hours as needed for wheezing/shortness of breath (for wheezing and shortness of breath). albuterol (PROVENTIL) 2.5 mg /3 mL (0.083 %) nebulizer solution Use 3 mL via nebulizer every 4 hours as needed for wheezing/shortness of breath. Inhale over 5-15 minutes lovastatin (MEVACOR) 20 mg tablet Take 20 mg by mouth once daily. metFORMIN ER (GLUCOPHAGE XR) 500 mg 24 hr tablet Take 1,000 mg by mouth twice daily. pioglitazone (ACTOS) 30 mg tablet ascorbic acid, vitamin C, (VITAMIN C) 500 mg tablet Take 1 tablet by mouth once daily. Calcium-Mag Oxide-Vitamin D3 (CORAL CALCIUM) 185-50-100 mg-mg-unit cap Take 1 tablet by mouth twice daily. 1 tablet by mouth two times daily ergocalciferol, Vitamin D2, (VITAMIN D) 400 unit ORAL Cap Take 1 capsule by mouth once daily. No current facility-administered medications for this visit. ALLERGIES Allergen Reactions Bee Sting Kit carries EpiPen Menthol swelling/blisters Morphine fever Nsaids (Non-Steroid* relafen; rash REVIEW OF SYSTEMS: As noted in HPI PHYSICAL EXAMINATION: VIDEO EXAM: (if completed, performed via video enabled technology) GENERAL: alert and appropriate, in no distress, well-hydrated, well nourished, and coughs occasionally RESPIRATORY: breathing non-labored and dry cough frequently through visit CHEST: equal chest rise with normal respiratory effort ASSESSMENT: (J98.8) Respiratory obstruction (primary encounter diagnosis) - reactive airway - this is the covered diagnosis code as requested by [facility] (ICD 9 - 519.8) PLAN: - Continue current medications, but increase Advair to BID - Medrol pack + Z pack for 2 week history of resp tract infection + flare of airway disease. - Follow up 3-4 months, sooner prn - Advised pt to contact me before the end of this week if symptoms not improving, or if they worsen. There are no Patient Instructions on file for this visit. I spent a total of 20 minutes on the date of the service which included preparing to see the patient, [id number] patient care, completing clinical documentation, obtaining and/or reviewing separately obtained history, performing a medically appropriate examination, counseling and educating the patient/family/caregiver, and ordering medications, tests, or procedures Shonna Mills PA-C documented in this encounter [facility] 07-06-2022 Miscellaneous Notes Summary: forms forms for disability letter need to be completed by the provider prior to the hearing tomorrow. Office # ph: [phone]. documented in this encounter [facility] 04-15-2022 History of Presen t illness Narrative VIRTUAL VISIT PROGRESS NOTE This is a virtual visit using RemoteReality video visit. It required patient-provider interaction for the medical decision making as documented below. Meri Barnhart is a 71 year old female seen for reactive airways disease without asthma. Today, doing ok Breathing has been worse - reactive airways acting up due to weather and recent sinus infection Sinus infection last month Effected the lungs too. Still not quite back to normal Up and down weather make things worse. Cold weather has been bad. Does have singulair Never got nose spray. Keeps getting billed from [facility] inappropriately. Does not have Advair Local doc can get her in for appointments as needed. HISTORY REVIEWED (electronic chart updated): PAST MEDICAL HISTORY Diagnosis Date Generalized osteoarthrosis, unspecified site rt. shoulder/knees Peptic ulcer, unspecified site, unspecified as acute or chronic, without mention of hemorrhage, perforation, or obstruction teen yrs Phlebitis and thrombophlebitis of superficial vessels of lower extremities teen yrs; RLE PMH - PAST MEDICAL HISTORY OF allergy/asthma PMH - PAST MEDICAL HISTORY OF osteopenia Reflux esophagitis PAST SURGICAL HISTORY Procedure Laterality Date ANTERIOR COLPORRAPHY RPR CYSTOCELE W/CYSTO 10/31/02 Cystocele repair ARTHROPLASTY GLENOHUMRL JT HEMIARTHROPLASTY right shoulder NEUROPLASTY &/TRANSPOS MEDIAN NRV CARPAL TUNNE 1991 right REPAIR RECTOCELE SEPARATE PROCEDURE 10/31/02 spinal anesthesia used RX ECTOP PREG,UTER WALL W ASHANTI 1988 partial/benign FAMILY HISTORY Problem Relation Age of Onset Asthma Grandchild two grandson Ischemic Heart Disease Paternal Grandfather Diabetes Mother Cancer Paternal Aunt lymph nodes Social History Tobacco Use Smoking status: Never Smokeless tobacco: Never Substance Use Topics Alcohol use: No Drug use: No Current Outpatient Medications Medication Sig fluticasone-salmeterol (ADVAIR DISKUS) 250-50 mcg/dose inhaler Inhale 1 Puff as instructed twice daily. Rinse and gargle mouth with water after each use. azelastine (ASTELIN, ASTEPRO) 0.1% nasal spray Use 2 Sprays in each nostril twice daily as needed. montelukast (SINGULAIR) 10 mg tablet Take 1 tablet by mouth daily at bedtime. cetirizine (ZYRTEC) 10 mg tablet Take 1 tablet by mouth once daily. esomeprazole (NEXIUM) 20 mg capsule Take 1 capsule by mouth once daily. albuterol HFA (VENTOLIN HFA) 90 mcg/actuation inhaler Inhale 1 Puff as instructed every 4 hours as needed for wheezing/shortness of breath (for wheezing and shortness of breath). budesonide (RHINOCORT ALLERGY) 32 mcg/actuation nasal spray Use 2 Sprays in each nostril once daily. albuterol (PROVENTIL) 2.5 mg /3 mL (0.083 %) nebulizer solution Use 3 mL via nebulizer every 4 hours as needed for wheezing/shortness of breath. Inhale over 5-15 minutes lovastatin (MEVACOR) 20 mg tablet Take 20 mg by mouth once daily. metFORMIN ER (GLUCOPHAGE XR) 500 mg 24 hr tablet Take 1,000 mg by mouth twice daily. pioglitazone (ACTOS) 30 mg tablet ascorbic acid, vitamin C, (VITAMIN C) 500 mg tablet Take 1 tablet by mouth once daily. Calcium-Mag Oxide-Vitamin D3 (CORAL CALCIUM) 185-50-100 mg-mg-unit cap Take 1 tablet by mouth twice daily. 1 tablet by mouth two times daily ergocalciferol, Vitamin D2, (VITAMIN D) 400 unit ORAL Cap Take 1 capsule by mouth once daily. No current facility-administered medications for this visit. ALLERGIES Allergen Reactions Bee Sting Kit carries EpiPen Menthol swelling/blisters Morphine fever Nsaids (Non-Steroid* relafen; rash REVIEW OF SYSTEMS: As noted in HPI PHYSICAL EXAMINATION: VIDEO EXAM: (if completed, performed via video enabled technology) GENERAL: alert and appropriate, in no distress and well-hydrated, well nourished RESPIRATORY: breathing non-labored CHEST: equal chest rise with normal respiratory effort ASSESSMENT: (J98.9) Reactive airway disease without asthma (primary encounter diagnosis) PLAN: Resubmitting prescriptions with J98.9 code. Needs medication to keep her reactive airways from getting worse and flaring due to change in weather and winter cold. Currently at risks for exacerbations and loss of lung capacity because she does not have a maintenance medication on board. Will try to submit paperwork again as well for visit and testing coverage. There are no Patient Instructions on file for this visit. I spent a total of 20 minutes on the date of the service which included preparing to see the patient, [id number] patient care, completing clinical documentation, obtaining and/or reviewing separately obtained history, performing a medically appropriate examination, counseling and educating the patient/family/caregiver, and ordering medications, tests, or procedures Shonna Mills PA-C documented in this encounter [facility] 01-13-2022 History of Presen t illness Narrative VIRTUAL VISIT PROGRESS NOTE This is a virtual visit using Audio only. It required patient-provider interaction for the medical decision making as documented below. Meri Barnhart is a 71 year old female seen for asthma follow up. Last visit with me on 10/09/2021 J45.40 Moderate persistent reactive airway disease without complication (primary encounter diagnosis) Off of most medications at this point d/t [facility] no longer covering. Spirometry today does not demonstrate obstruction, though she does have a significant bronchodilator response, indicating persistent airway reactivity.With this and her pulmonary history, I would recommend she continue utilizing a daily maintenance inhaler. We discussed and pt is agreeable to continuing this if it will be covered. Patient Instructions Continue current medications I am going to send in your breathing tests today as support for you to get the Advair inhaler again - once we get it, I think you will be ok to do just 1 puff once a day to help protect your lung function. Virtual visit in 3 months just to check in Today Not doing too bad, but breathing has been up and down with weather changes. Does not have Advair - was not covered All she has is albuterol for nebulizer - she has needed this in our visit interim - weather changes and rain are big triggers - uses a couple of times a week It does help when she uses - relieves wheeze, SOB, chest tightness Sinuses have been bad Just started Xyzal from her PCP Breathing tests not covered because was submitted as asthma, not reactive airways disease HISTORY REVIEWED (electronic chart updated): PAST MEDICAL HISTORY Diagnosis Date Generalized osteoarthrosis, unspecified site rt. shoulder/knees Peptic ulcer, unspecified site, unspecified as acute or chronic, without mention of hemorrhage, perforation, or obstruction teen yrs Phlebitis and thrombophlebitis of superficial vessels of lower extremities teen yrs; RLE PMH - PAST MEDICAL HISTORY OF allergy/asthma PMH - PAST MEDICAL HISTORY OF osteopenia Reflux esophagitis PAST SURGICAL HISTORY Procedure Laterality Date ANTERIOR COLPORRAPHY RPR CYSTOCELE W/CYSTO 10/31/02 Cystocele repair ARTHROPLASTY GLENOHUMRL JT HEMIARTHROPLASTY right shoulder NEUROPLASTY &/TRANSPOS MEDIAN NRV CARPAL TUNNE 1991 right REPAIR RECTOCELE SEPARATE PROCEDURE 10/31/02 spinal anesthesia used RX ECTOP PREG,UTER WALL W ASHANTI 1988 partial/benign FAMILY HISTORY Problem Relation Age of Onset Asthma Grandchild two grandson Ischemic Heart Disease Paternal Grandfather Diabetes Mother Cancer Paternal Aunt lymph nodes Social History Tobacco Use Smoking status: Never Smokeless tobacco: Never Substance Use Topics Alcohol use: No Drug use: No Current Outpatient Medications Medication Sig azelastine (ASTELIN, ASTEPRO) 0.1% nasal spray Use 2 Sprays in each nostril twice daily as needed. lovastatin (MEVACOR) 20 mg tablet Take 20 mg by mouth once daily. metFORMIN ER (GLUCOPHAGE XR) 500 mg 24 hr tablet Take 1,000 mg by mouth twice daily. pioglitazone (ACTOS) 30 mg tablet montelukast (SINGULAIR) 10 mg tablet Take 1 tablet by mouth daily at bedtime. cetirizine (ZYRTEC) 10 mg tablet Take 1 tablet by mouth once daily. albuterol (PROVENTIL) 2.5 mg /3 mL (0.083 %) nebulizer solution Use 3 mL via nebulizer every 4 hours as needed for wheezing/shortness of breath. Inhale over 5-15 minutes fluticasone-salmeterol (ADVAIR DISKUS) 250-50 mcg/dose inhaler Inhale 1 Puff as instructed twice daily. Rinse and gargle mouth with water after each use. esomeprazole (NEXIUM) 20 mg capsule Take 1 capsule by mouth once daily. albuterol HFA (VENTOLIN HFA) 90 mcg/actuation inhaler Inhale 1 Puff as instructed every 4 hours as needed for wheezing/shortness of breath (for wheezing and shortness of breath). budesonide (RHINOCORT ALLERGY) 32 mcg/actuation nasal spray Use 2 Sprays in each nostril once daily. ascorbic acid, vitamin C, (VITAMIN C) 500 mg tablet Take 1 tablet by mouth once daily. Calcium-Mag Oxide-Vitamin D3 (CORAL CALCIUM) 185-50-100 mg-mg-unit cap Take 1 tablet by mouth twice daily. 1 tablet by mouth two times daily ergocalciferol, Vitamin D2, (VITAMIN D) 400 unit ORAL Cap Take 1 capsule by mouth once daily. No current facility-administered medications for this visit. ALLERGIES Allergen Reactions Bee Sting Kit carries EpiPen Menthol swelling/blisters Morphine fever Nsaids (Non-Steroid* relafen; rash REVIEW OF SYSTEMS: GENERAL: no fever, activity level is normal PHYSICAL EXAMINATION: VIDEO EXAM: (if completed, performed via video enabled technology) No exam performed ASSESSMENT: (J45.909) Reactive airway disease without complication, unspecified asthma severity, unspecified whether persistent (primary encounter diagnosis) PLAN: Reactive airways continue to cause patient issues - needing to use albuterol more in absence of controller inhaler. To better address the sinuses, I am sending azelatine for pt to try for nasal symptoms. Continue: - Montelukast - Xyzal - Albuterol prn Start: - Azelastine nasal spray BID as needed for rhinitis There are no Patient Instructions on file for this visit. I spent a total of 20 minutes on the date of the service which included preparing to see the patient, completing clinical documentation, obtaining and/or reviewing separately obtained history, performing a medically appropriate examination, counseling and educating the patient/family/caregiver, and ordering medications, tests, or procedures It was necessary to convert the virtual visit to a telephone encounter due to technical difficulties. Shonna Mills PA-C documented in this encounter [facility] 11-20-2021 History of Presen t illness Narrative [facility] paperwork completed for Karyn, will fax back to [phone]. Teresa Kaur MSN, RN [facility] Clinical Coordinator documented in this encounter [facility] 10-10-2021 History of Presen t illness Narrative [facility] paperwork faxed for spirometry and nitric oxide testing to [facility] for coverage. Tereas Kaur, MSN, RN [facility] Clinical Coordinator documented in this encounter [facility] 10-09-2021 History of Presen t illness Narrative PULM FUNCTION SMARTBLOCK: Provider: Shonna Mills PA-C Assisting Tech: Tiarra Arvizu Spirometry w/BD: 1 Exhaled Nitric Oxide: 1 System: [id number] documented in this encounter [facility] 10-09-2021 Procedure note Associated Order(s): NITRIC OXIDE, EXHALED RESPIRATORY THERAPY ORAL EXHALED NITRIC OXIDE SERVICE DATE: 10/09/2021 SERVICE TIME: 1:45 PM Oral Exhaled Nitric Oxide measurement: 9.0 (ppb) Normal: Adult 5-20 ppb, pediatric (<12 years) 5-15 ppb High Normal / Increased: Adult 20-35 ppb, pediatric (<12 years) 15-25 ppb Moderately raised exhaled Nitric Oxide may indicate underlying inflammation, but note that: Cold and influenza can raise exhaled Nitric Oxide and some patients have higher baseline exhaled Nitric Oxide levels than others. High: Adult >35 ppb, pediatric (<12 years) >25 ppb Indicative of ongoing eosinophilic inflammation. Symptomatic patient likely to respond to steroids. Possible causes (if already on steroids): Poor compliance, recent allergen exposure, steroid dose inadequate, and steroid resistance. Note that not all patients with high exhaled nitric oxide levels display symptoms. Oral Exhaled Nitric Oxide measurement (Previous Encounters) Test Date Oral Exhaled Nitric Oxide (ppb) 10/09/2021 9.0 NAME: Jeanmarie Velasquez RRT PATIENT NAME: Meri Barnhart DATE: October 09, 2021 TIME: 1:45 PM documented in this encounter [facility] Evaluation note No assessment inform ation available [facility] Work Phone: Evaluation note Diagnosis Moderate persistent reactive airway disease without complication- Primary [facility] [place] [facility] Diagnosis Moderate persistent reactive airway disease without complication- Primary [facility] [place] [facility]* Diagnosis Reactive airway disease without complication, unspecified asthma severity, unspecified whether persistent- Primary documented in this encounter [facility] note* Diagnosis Moderate persistent reactive airway disease without complication documented in this encounter [facility] note* Diagnosis Reactive airway disease without asthma- Primary documented in this encounter [facility] note* Diagnosis Respiratory obstruction- Primary Other diseases of respiratory system, not elsewhere classified documented in this encounter [facility] note* Diagnosis Moderate persistent reactive airway disease without complication Gastroesophageal reflux disease with esophagitis, unspecified whether hemorrhage documented in this encounter [facility] note* Diagnosis Reactive airway disease without asthma Gastroesophageal reflux disease with esophagitis, unspecified whether hemorrhage documented in this encounter [facility] note* Diagnosis Reactive airway disease without asthma Gastroesophageal reflux disease with esophagitis, unspecified whether hemorrhage documented in this encounter [facility] note* Diagnosis Gastroesophageal reflux disease without esophagitis- Primary Esophageal reflux Moderate persistent reactive airway disease without complication (HCC) documented in this encounter [facility] note* Diagnosis Moderate persistent reactive airway disease without complication (HCC) documented in this encounter [facility] note* Diagnosis Reactive airway disease without asthma Gastroesophageal reflux disease with esophagitis, unspecified whether hemorrhage [facility] Outpatient Procedure (Routine) - Pending Review Specialty Diagnoses / Procedures Referred By Ash watts Referred To Contact [facility] Diagnoses Reactive airway disease without asthma Moderate persistent reactive airway disease without complication Procedures NITRIC OXIDE, EXHALED NITRIC OXIDE GAS DETERMINATION Nora Garcia APRN.CNP [address] [place] [address] [place] [address] Referral ID Status Reason Start Date Expiration Date Visits Requested Visits Authorized [id number] Pending Review Auto-Generat ed Referral 06/01/2023 06/30/2024 1 1 * Outpatient Procedure (Routine) - Pending Review Specialty Diagnoses / Procedures Referred By Ash watts Referred To [facility] Diagnoses Reactive airway disease without asthma Moderate persistent reactive airway disease without complication Procedures SPIROMETRY - BASELINE AND POST DILATOR BRNCDILAT RSPSE SPMTRY PRE&POST-BRNCDILAT ADMN Nora Garcia APRN.CNP [address] [place] [address] [facility] [place] [id number] [place] [address] Referral ID Status Reason Start Date Expiration Date Visits Requested Visits Authorized [id number] Pending Review Auto-Generat ed Referral 06/01/2023 06/30/2024 1 1 * Medication Prior Authorization - Closed Specialty Diagnoses / Procedures Referred By Contac t Referred To Contact Diagnoses Moderate persistent reactive airway disease without complication Nora Garcia APRN.CNP [address] [place] [address] Referral ID Status Reason Start Date Expiration Date Visits Re quested Visits Authorized [id number] Closed [address] [facility]No reason for referral information availableWCenterville Work Phone: Family History No Family History Records Found Relationship Condition Age at Onset Recorded Date/T dez Not Specified Diabetes mellitus Unknown Complication of anesthesia Unknown Advance Directives No Advanced Directives Records Found Advance Directive Response Recorded Date/ Time Living Will No October 03, 2020 5:59pm Power of Artificial Flowers Supervisor No October 03 5:59pm Advance Directive Response Recorded Date/ Time Living Will No October 02, 2021 1 :50pm Power of Artificial Flowers Supervisor No October 02, 2021 1:50pm Advance Directive Response Recorded Date/ Time Living Will No October 02, 2021 1 2:50pm Power of Artificial Flowers Supervisor No October 02, 2021 12:50pm Advance Directive Response Recorded Date/ Time Living Will No August 08, 2024 10:28pm Do you have a Healthcare Power of Artificial Flowers Supervisor? No August 08, 2024 10:28pm Chief Complaint and Reason for Visit Chief Complaint LSC Chief Complaint Cough Chief Complaint Admit Date LT NON DISP FX OF BAS OF 5TH METACARAL. RX HERE May 29, 2024 9:00am LEFT KNEE PAIN August 08, 2024 4:4 4pm Chief Complaint Admit Date LEFT KNEE PAIN August 08, 2024 4:4 4pm SCREENING, ASYMPTOMATIC MENOPAUSAL STATE October 05, 2024 1:49pm Summary Purpose Additional Source Comments Goals (unrecognized section and content) Goals may be documented in a n alternate sectionGoals may be documented in an alternate sectionGoals may be documented in an alternate sectionGoals may be documented in an alternate sectionGoals may be documented in an alternate sectionGoals may be documented in an alternate sectionGoals may be documented in an alternate sectionGoals may be documented in an alternate section Source Comments (unrecognize d section and content) In the event this informatio n is protected by the Federal Confidentiality of Alcohol and Drug Abuse Patient Records regulations: The Federal rules restrict any use of the information to criminally investigate or prosecute any alcohol or drug abuse patient.[facility] the event this information is protected by the Federal Confidentiality of Alcohol and Drug Abuse Patient Records regulations: The Federal rules restrict any use of the information to criminally investigate or prosecute any alcohol or drug abuse patient.[facility] the event this information is protected by the Federal Confidentiality of Alcohol and Drug Abuse Patient Records regulations: The Federal rules restrict any use of the information to criminally investigate or prosecute any alcohol or drug abuse patient.[facility] the event this information is protected by the Federal Confidentiality of Alcohol and Drug Abuse Patient Records regulations: The Federal rules restrict any use of the information to criminally investigate or prosecute any alcohol or drug abuse patient.[facility] the event this information is protected by the Federal Confidentiality of Alcohol and Drug Abuse Patient Records regulations: The Federal rules restrict any use of the information to criminally investigate or prosecute any alcohol or drug abuse patient.[facility] the event this information is protected by the Federal Confidentiality of Alcohol and Drug Abuse Patient Records regulations: The Federal rules restrict any use of the information to criminally investigate or prosecute any alcohol or drug abuse patient.[facility] the event this information is protected by the Federal Confidentiality of Alcohol and Drug Abuse Patient Records regulations: The Federal rules restrict any use of the information to criminally investigate or prosecute any alcohol or drug abuse patient.[facility] the event this information is protected by the Federal Confidentiality of Alcohol and Drug Abuse Patient Records regulations: The Federal rules restrict any use of the information to criminally investigate or prosecute any alcohol or drug abuse patient.[facility] the event this information is protected by the Federal Confidentiality of Alcohol and Drug Abuse Patient Records regulations: The Federal rules restrict any use of the information to criminally investigate or prosecute any alcohol or drug abuse patient.[facility] the event this information is protected by the Federal Confidentiality of Alcohol and Drug Abuse Patient Records regulations: The Federal rules restrict any use of the information to criminally investigate or prosecute any alcohol or drug abuse patient.[facility] the event this information is protected by the Federal Confidentiality of Alcohol and Drug Abuse Patient Records regulations: The Federal rules restrict any use of the information to criminally investigate or prosecute any alcohol or drug abuse patient.[facility] the event this information is protected by the Federal Confidentiality of Alcohol and Drug Abuse Patient Records regulations: The Federal rules restrict any use of the information to criminally investigate or prosecute any alcohol or drug abuse patient.[facility] the event this information is protected by the Federal Confidentiality of Alcohol and Drug Abuse Patient Records regulations: The Federal rules restrict any use of the information to criminally investigate or prosecute any alcohol or drug abuse patient.[facility] the event this information is protected by the Federal Confidentiality of Alcohol and Drug Abuse Patient Records regulations: The Federal rules restrict any use of the information to criminally investigate or prosecute any alcohol or drug abuse patient.[facility] the event this information is protected by the Federal Confidentiality of Alcohol and Drug Abuse Patient Records regulations: The Federal rules restrict any use of the information to criminally investigate or prosecute any alcohol or drug abuse patient.[facility] the event this information is protected by the Federal Confidentiality of Alcohol and Drug Abuse Patient Records regulations: The Federal rules restrict any use of the information to criminally investigate or prosecute any alcohol or drug abuse patient.[facility] the event this information is protected by the Federal Confidentiality of Alcohol and Drug Abuse Patient Records regulations: The Federal rules restrict any use of the information to criminally investigate or prosecute any alcohol or drug abuse patient.[facility] the event this information is protected by the Federal Confidentiality of Alcohol and Drug Abuse Patient Records regulations: The Federal rules restrict any use of the information to criminally investigate or prosecute any alcohol or drug abuse patient.[facility] the event this information is protected by the Federal Confidentiality of Alcohol and Drug Abuse Patient Records regulations: The Federal rules restrict any use of the information to criminally investigate or prosecute any alcohol or drug abuse patient.[facility] the event this information is protected by the Federal Confidentiality of Alcohol and Drug Abuse Patient Records regulations: The Federal rules restrict any use of the information to criminally investigate or prosecute any alcohol or drug abuse patient.[facility] Reason for Visit (unrecogniz ed section and content) Reason Comments Spirometry Specialty Diagnoses / Procedures Referred By Contac t Referred To [facility] Diagnoses Moderate persistent reactive airway disease without complication Procedures NITRIC OXIDE, EXHALED NITRIC OXIDE GAS DETERMINATION Shonna Mills PA-C [address] [place] [address] [facility] [address] [place] [address] Referral ID Status Reason Start Date Expiration Date Visits Requested Visits Authorized [id number] Waiting for Response Patient Cleared - Admin/Chair man/Directo r advise to proceed 05/27/2021 06/26/2022 1 1 Specialty Diagnoses / Procedures Referred By Contac t Referred To [facility] Diagnoses Moderate persistent reactive airway disease without complication Procedures SPIROMETRY - BASELINE AND POST DILATOR BRNCDILAT RSPSE SPMTRY PRE&POST-BRNCDILAT ADMN Shonna Mills PA-C [address] [place] [address] [facility] [address] [place] [address] Referral ID Status Reason Start Date Expiration Date Visits Requested Visits Authorized [id number] Waiting for Response Patient Cleared - Admin/Chair man/Directo r advise to proceed 05/27/2021 06/26/2022 1 1 Reason Onset Date Comments [facility] (Worker's Comp) 10/10/2021 Reason Onset Date Comments [facility] (Worker's Comp) 11/20/2021 Reason Onset Date Comments Refill Request 03/10/2022 Reason Comments disability letter Reason Comments 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 Comments Refill Request Reason Comments Shortness of Breath Specialty Diagnoses / Procedures Referred By Contac t Referred To Contact Pulmonary and Critical Care Medicine / PULMONARY MEDICINE Diagnoses New Asthma VV Next Available No Testing Procedures VIDEO SPEC EST Amanda Quintana MD [address] [place] [address] Phone: [place]: [place] [address] [place] [address] Phone: tel: fax: Referral ID Status Reason Start Date Expiration Date Visits Re quested Visits Authorized [id number] Closed 08/15/2024 08/15/2024 1 1 Reason Comments Med Change Request Care Teams (unrecognized sec tion and content) Team Status: Active Member Role Status Irene Morales MD Primary Care Provider Active Team Status: Inactive Member Role Status Irene Morales MD Primary Care Provider Active St art: August 08, 2024 End: August 08, 2024 Dr. Chaz Martínez DO Attending Provider Active Start: August 08, 2024 End: August 08, 2024 Dr. Chaz Martínez DO Emergency Provider Active Start: August 08, 2024 End: August 08, 2024 Team Status: Inactive Member Role Status Irene Morales MD Primary Care Provider Active St art: October 05, 2024 End: October 05, 2024 Magda Hawkins PIE FILLING MIXER, PIE FILLING MIXER-C Attending Provider Active S tart: October 05, 2024 End: October 05, 2024 Magda Hawkins PIE FILLING MIXER, PIE FILLING MIXER-C Referring Provider Active S tart: October 05, 2024 End: October 05, 2024 [employer] Operator Relationship Specialty Start Date End Date Yousuf Weiss MD PCP - General 11/18/05 [employer] Operator Relationship Specialty Start Date End Date Yousuf Weiss MD PCP - General 11/18/05 [employer] Operator Relationship Specialty Start Date End Date Yousuf Weiss MD PCP - General 11/18/05 [employer] Operator Relationship Specialty Start Date End Date Yousuf Weiss MD PCP - General 11/18/05 [employer] Operator Relationship Specialty Start Date End Date Yousuf Weiss MD PCP - General 11/18/05 Team Status: Active Member Role Status Dates Dr. Yousuf Weiss MD Family Provider Active Zahraa Coyle DO Primary Care Provider Active Team Status: Inactive Member Role Status Dates Zahraa Coyle DO Primary Care Provi melyssa, Attending Provider, Referring Provider Active [employer] Operator Relationship Specialty Start Date End Date Yousuf Weiss MD PCP - General 11/18/05 Team Status: Inactive Member Role Status Dates Zahraa Coyle DO Primary Care Provider, Attending Provider Active Team Status: Active Member Role Status Dates Zahraa Coyle DO Primary Care Provider Active Holger Morales MD Attending Provider, Referring Provide r Active Team Status: Inactive Member Role Status Dates Zahraa Coyle DO Primary Care Provider Active Holger Morales MD Attending Provider, Referring Provide r Active [employer] Operator Relationship Specialty Start Date End Date Zahraa Coyle DO [address] [facility] [address] [place] [address] PCP - General Family Medicine 06/01/23 [employer] Operator Relationship Specialty Start Date End Date Zahraa Coyle DO [address] [facility] [address] [place] [address] PCP - General Family Medicine 06/01/23 [employer] Operator Relationship Specialty Start Date End Date Zahraa Coyle DO [address] [place] [address] PCP - General Family Medicine 06/01/23 [employer] Operator Relationship Specialty Start Date End Date Zahraa Coyle DO PCP - General Family Medicine 06/01/23 [employer] Operator Relationship Specialty Start Date End Date Zahraa Coyle DO PCP - General Family Medicine 06/01/23 Team Status: Active Member Role Status Irene Morales MD Primary Care Provider Active St art: May 29, 2024 Justin GOLDSTEIN PA-C Attending Provider Active Start: May 29, 2024 Justin GOLDSTEIN PA-C Referring Provider Active Start: May 29, 2024 Team Status: Inactive Member Role Status Irene Morales MD Primary Care Provider Active St art: August 08, 2024 End: August 08, 2024 Dr. Chaz Martínez DO Emergency Provider Active Start: August 08, 2024 End: August 08, 2024 [employer] Operator Relationship Specialty Start Date End Date Zahraa Coyle DO PCP - General Family Medicine 06/01/23 [employer] Operator Relationship Specialty Start Date End Date Zahraa Coyle DO PCP - General Family Medicine 06/01/23 Team Status: Active Member Role/Relationship Status Irene Morales MD Primary Care Provider Active Team Status: Inactive Member Role/Relationship Status Irene Morales MD Primary Care Provider Active St art: August 08, 2024 End: August 08, 2024 Dr. Chaz Martínez DO Attending Provider Active Start: August 08, 2024 End: August 08, 2024 Dr. Chaz Martínez DO Emergency Provider Active Start: August 08, 2024 End: August 08, 2024 Team Status: Inactive Member Role/Relationship Status Irene Morales MD Primary Care Provider Active St art: October 05, 2024 End: October 05, 2024 Magda Hawkins PIE FILLING MIXER, PIE FILLING MIXER-C Attending Provider Active S tart: October 05, 2024 End: October 05, 2024 Magda Hawkins NP, PIE FILLING MIXER-C Referring Provider Active S tart: October 05, 2024 End: October 05, 2024 [employer] Operator Relationship Specialty Start Date End Date Zahraa Coyle DO PCP - General Family Medicine 06/01/23 [employer] Operator Relationship Specialty Start Date End Date Zahraa Coyle DO PCP - General Family Medicine 06/01/23 INFORMATION SOURCE (unrecogn ized section and content) DATE CREATED AUTHOR 10/28/2024 [facility] DATE CREATED AUTHOR AUTHOR'S BERTOIZ ATION 11/18/2024 [facility] FOR RECORDS PERTAINING TO PATIENTS WHO ARE OR HAVE BEEN ENROLLED IN A CHEMICAL DEPENDENCY/SUBSTANCEABUSE PROGRAM, SOME INFORMATION MAY BE OMITTED. This clinical summary was aggregated from multiple sources. Caution should be exercised in using it in the provision of clinical care. This summary normalizes information from multiple sources, and as a consequence, information in this document may materially change the coding, format and clinical context of patient data. In addition, data may be omitted in some cases. CLINICAL DECISIONS SHOULD BE BASED ON THE PRIMARY CLINICAL RECORDS. [employer] provides no warranty or guarantee of the accuracy or completeness of information in this document.
[2025-02-13 19:10] LABS: Hematocrit 39.1 % (37-47); Hemoglobin 12.8 g/dL (12.0-15.0); Immature Granulocytes Count 0.010 X10^3/uL (0.0-0.0); Mean Corp Hgb Conc 32.7 g/dL (32-36); Mean Corpuscular Volume 88.1 fL (81-99); Mean Platelet Vol. 11.5 fl (6.2-12.0); NRBC Flagged by Analyzer 0 % (0-5); Platelet Count 354 K/mm3 (150-450); RBC Distribution Width CV 13.1 % (11.6-14.6); RBC Distribution Width SD 41.8 fl (35.1-43.9); Red Blood Count 4.44 M/mm3 (4.2-5.4); White Blood Count 8.0 K/mm3 (4.4-11.0)
[2025-02-13 19:11] LABS: AST(SGOT) 17 U/L (<=31); Alanine Aminotransfer ALT/SGPT 14 U/L (<=34); Albumin, Serum 4.5 g/dL (3.4-4.8); Alkaline Phosphatase 57 U/L (35-104); Anion Gap 11 (5-15); BUN 13 mg/dL (4-19); BUN/Creat Ratio 18.0 RATIO (10-20); Calcium,Total 9.8 mg/dL (7.6-11.0); Carbon Dioxide 27.7 mmol/L (21.0-32.0); Chloride 103 mmol/L (98-108); Globulin 2.7 g/dL (2.2-4.2); Glucose 106 mg/dL (70-99); Potassium 4.7 mmol/L (3.3-5.1); Uric Acid 2.9 mg/dL (2.6-6.0)
== END | disposition home or self-care (01) ==
LOC: LABSPEC 18:20 → MTLAB 19:48 → MFPLAB 19:50
PROVIDERS: PCP Family Medicine; Visit Provider Family Medicine
DX: E11.40 Type 2 diabetes mellitus with diabetic neuropathy, unspecified (principal); M25.50 Pain in unspecified joint
CPT/HCPCS: 36415; 80053; 84443; 84550; 85025; 85652